=== PATIENT | male | born 1940 | race Caucasian/White ===

== ENCOUNTER → 2020-05-29 11:07 | Outpatient (REF) | payer MEDICARE, SELFPAY ==
--- NOTE | 2020-05-29 11:15 | ECG_ITS ---
Test Reason : R00.1 Blood Pressure : / mmHG Vent. Rate : 084 BPM Atrial Rate : 084 BPM P-R Int : 180 ms QRS Dur : 106 ms QT Int : 394 ms P-R-T Axes : 053 052 036 degrees QTc Int : 465 ms Sinus rhythm with frequent , and consecutive Premature ventricular complexes Possible Left atrial enlargement Abnormal ECG When compared with ECG of 06-MAR-2020 07:39, No significant change was found Referred By: Joyce Matamoros Electronically Signed By:ROMARIO WEINBERG MD
== END ==
LOC: HO.CARD 11:07
PROVIDERS: Visit Provider Family Medicine
DX: R00.1 Bradycardia, unspecified (principal)
CPT/HCPCS: 93005

== ENCOUNTER 2020-06-19 14:23 | Outpatient (REF) | payer MEDICARE, SELFPAY ==
--- NOTE | 2020-06-19 14:36 | XR_ITS ---
EXAMINATION: XR SHOULDER, RIGHT CLINICAL INFORMATION: Right shoulder pain COMPARISON: None TECHNIQUE: AP external rotation, Grashey, scapular Y, and axillary views of the right shoulder. FINDINGS: There is no fracture or dislocation. The right glenohumeral joint is well aligned with mild narrowing. Small marginal osteophytes are present. The acromioclavicular joint is intact with mild hypertrophic degenerative change. The visualized lung is clear. The visualized ribs are intact. 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
== END 2020-06-19 14:24 | disposition home or self-care (01) ==
LOC: HO.XRAY 14:23
PROVIDERS: PCP Family Medicine; Visit Provider Family Medicine
DX: M25.511 Pain in right shoulder (principal)
CPT/HCPCS: 73030

== ENCOUNTER → 2020-07-06 14:48 | Outpatient (BNVA) | payer MEDICARE, SELFPAY | PROVIDERS: PCP Family Medicine; Visit Provider Nurse Practitioner Family | DX: Z12.11 Encounter for screening for malignant neoplasm of colon (principal) | CPT/HCPCS: 99202 ==

== ENCOUNTER 2020-07-29 09:26 | Outpatient (REF) | payer MEDICARE, SELFPAY ==
[2020-07-29 10:14] LABS: Hemoglobin 14.5 g/dl (14.0-18.0); Mean Corpuscular HGB Conc 30.2 g/dl (31.0-36.0); Mean Corpuscular Hemoglobin 26.8 pg (27.0-33.0); Mean Corpuscular Volume 88.7 fL (80-98); Mean Platelet Volume 12.6 fL (9.4-12.4); Platelet Count 183 X10*3/uL (160-400); Red Blood Count 5.41 X10*6/uL (4.60-5.80); Red Cell Distribution Width 13.9 % (11.0-16.0); White Blood Count 7.5 X10*3/uL (4.8-10.8)
[2020-07-29 10:45] LABS: Alanine Aminotransferase 12 U/L (0-40); Albumin Level 4.1 g/dL (3.5-5.0); Alkaline Phosphatase 78 U/L (39-117); Anion Gap 12 (12-20); Aspartate Amino Transferase 14 U/L (5-37); Bilirubin Total 0.6 mg/dL (0.0-1.0); Blood Urea Nitrogen 21 mg/dL (9-16); Calcium 9.2 mg/dL (8.4-10.2); Carbon Dioxide 30 mmol/L (22-29); Chloride 106 mmol/L (96-108); Estimated Glomerular Filt Rate 50; Glucose Random 104 mg/dL (60-115); Potassium 4.3 mmol/l (3.3-5.1); Sodium 144 mmol/L (135-145); Total Protein 6.8 g/dL (6.5-8.0)
== END 2020-07-29 09:27 | disposition home or self-care (01) ==
LOC: HO.LAB 09:26
PROVIDERS: PCP Family Medicine; Visit Provider Nurse Practitioner Family
DX: I49.3 Ventricular premature depolarization (principal); R06.00 Dyspnea, unspecified; R00.1 Bradycardia, unspecified
CPT/HCPCS: 36415; 80053; 85027; 99202

== ENCOUNTER → 2020-08-26 08:11 | Outpatient (REF) | payer MEDICARE, SELFPAY ==
--- NOTE | 2020-08-26 08:15 | ECG_ITS ---
Hook-up date: 2020-08-26 10:33:00 Duration: 25:05:00 Test Indications: BRADYCARDIA, UNSPECIFIED Medications: 587107 QRS complexes 05818 Ventricular ectopics which represent 30 % of total QRS comp. 5 Supraventricular ectopics which represent <1 % of total QRS comp. * Paced QRS complexs which represent % of total QRS comp. VENTRICULAR ECTOPY 80171 Isolated 78238 Bigeminal Cycles 2939 Couplets 157 Runs 483 Beats in Runs 4 Beats LONGEST at 111 BPM at 11:18:21 2020-08-26 3 Beats FASTEST at 214 BPM at 23:18:58 2020-08-26 SUPRAVENTRICULAR ECTOPY 172 Isolated 35 Couplets 0 Runs 0 Beats in Runs * Beats LONGEST at * BPM at :: -- * Beats FASTEST at * BPM at :: -- HEART RATES 60 MIN at 12:12:30 2020-08-26 80 AVG 112 MAX at 19:23:38 2020-08-26 LONGEST RR 1.4080 secs at 05:53:09 2020-08-27 S-T LEVELS Channel 1 - 128 mm at 10:33:00 2020-08-26 - 128 mm at 10:33:00 2020-08-26 Channel 2 - 128 mm at 10:33:00 2020-08-26 - 128 mm at 10:33:00 2020-08-26 Channel 3 - 128 mm at 02:95:21 -- - 128 mm at 02:95:21 Underlying rhythm is sinus; Average ventricular rate 80/min; range 60-112/min; Frequent supraventricular ectopy; (about 34,000 over 25 hrs; 30%) Isolated beats; several bigeminal cycles; few runs; longest was 4 beats Mostly unifocal appearance; no sustained episodes; Rare supraventricular ectopy; Patient did not report any symptoms in the diary Referred By: Santi Siddiqui Overread By: LAURENT MESSER
--- NOTE | 2020-08-26 08:15 | CA_ITS ---
Transthoracic Echocardiogram Patient (Last, First, Middle): Gonzalo Armenta A Gender: Male Date of : 1940 Age: 79 Procedure Date: 08/26/2020 Procedure Type: Transthoracic Echocardiogram Location: OP Height: 160.02 cm Weight: 78.02 kg BSA: 1.81 m2 Heart Rate: bpm BP: 120 / 52 mmHg Mixer Wet Pour: DSFederico Referring MD: Santi Siddiqui MD Symptoms: R06.00 - Dyspnea, unspecified Study Quality: Fair ECG Rhythm: Sinus Conclusions: - The left ventricular systolic function is low normal. The visually estimated ejection fraction is between 50-55%. - E/E prime ratio is between 8 and 15 consistent with indeterminate filling pressures. Evidence suggests grade I (mild) diastolic dysfunction. - No obvious valvular pathology seen on this study. Findings Left Ventricle Normal left ventricular cavity size. There is mildly increased left ventricular wall thickness. The left ventricular systolic function is low normal. The visually estimated ejection fraction is between 50-55%. There is no evidence of regional wall motion abnormalities. E/E prime ratio is between 8 and 15 consistent with indeterminate filling pressures. Evidence suggests grade I (mild) diastolic dysfunction. Right Ventricle Normal right ventricular cavity size and systolic function. Atria The left atrium is normal in size. The right atrium is normal in size. Aortic Valve There is a normal trileaflet aortic valve. There is mild calcification of the aortic valve. There is no aortic valve stenosis. There is no aortic valve regurgitation. Mitral Valve The mitral valve appears normal. There is trace mitral valve regurgitation. There is no mitral valve stenosis. Pulmonic Valve The pulmonic valve was not well visualized. Tricuspid Valve Normal tricuspid valve structure. There is no tricuspid valve regurgitation. The pulmonary artery systolic pressure is normal. Great Vessels The aortic annulus, sinuses of valsalva, and asc aorta are normal in size. Venous The inferior vena cava is normal in size and collapses greater than 50% with inspiration. Pericardium/Pleural There is no evidence of pericardial effusion. Prior Study Comparison No prior study available for comparison. Recommendations, Care & Conclusions No obvious valvular pathology seen on this study. Measurements 2D Linear Measurements IVSd: 1.30 0.6-0.9/0.6-1.0 cm LVIDd: 4.26 3.9-5.3/4.2-5.9 cm LVIDd Index: 2.35 2.4-3.2/2.2-3.1 cm/m2 LVIDs: 3.21 2.0-3.6 cm LVPWd: 1.26 0.7-1.1 cm Ao Root: 2.70 2.1-3.5 cm LA Diam: 3.80 2.7-3.8/3.0-4.0 cm LAIDs Index: 2.10 1.5-2.3 cm/m2 LV Mass: 249.50 67-162/88-224 g LV Mass Index: 137.85 43-95/49-115 g/m2 LVOT Diam: 2.10 3.0+(-)1.3 cm 2D Systolic Function EF 4C: 52.70 >55% EF 2C: 65.50 >55% EF BiP: 58.90 >55% Mitral Valve MV Pk E: 0.93 MV PK A: 1.12 MV Decel Time: 148.00 E/A: 0.80 E'Lateral: 7.93 E'Medial: 5.22 E/E' Med: 17.70 E/E' Lat: 11.70 PHT: 43.00 MVA PHT: 5.12 Decel Wilkin: 6.26 Aortic Valve AoV Pk Chan: 1.21 AoV Pk Grad: 6.00 LVOT LVOT Pk Chan: 0.66 LVOT Mn Chan: 0.44 LVOT VTI: 0.17 LVOT Pk Grad: 2.00 LVOT Mn Grad: 1.00 LVOT Diam: 2.10 LVOT Area: 3.46 Diastolic Function MV Pk E: 0.93 MV Pk A: 1.12 E/A: 0.80 E'Medial: 5.22 E/E' Med: 17.70 E' Laterial: 7.93 E/E' Lat: 11.70 Tricuspid Valve TR Pk Chan: 2.14 TR Pk Grad: 18.00 RA Press: 3.00 RVSP: 21.00 Great Vessels Aorta Ao Root-2D: 2.70 2.0-3.7 cm Ao Asc: 2.90 2.1-3.4 cm Ao Arch: 2.70 Updated in Other Vendor System with Status of Final James Ortiz MD electronically signed on 08/28/2020 3:32:49 PM with status of Final
--- NOTE | 2020-08-26 09:27 | NM_ITS ---
Myocardial perfusion study Indication: Dyspnea to evaluate for myocardial ischemia Technique: The patient was brought in for a Lexiscan perfusion study on 08/26/2020. Patient performed low-level exercise and was injected 0.4 mg of Lexiscan intravenously. Within a minute of injection, 25 mCi of sestamibi was given intravenously. Images were obtained using the SPECT gamma camera interlaced with the gating device. Images were obtained in supine position. Resting perfusion study was performed on 08/27/2020. Patient was administered 25 mCi of sestamibi intravenously at rest. Images were then obtained in supine position. Images obtained with and without CT attenuation. Total DLP 64 mGy-cm. Images were processed with the software and compared side to side in short axis, horizontal long axis and vertical long axis views. Findings: The stress perfusion study showed non attenuated images show moderately reduced uptake in a small area of basal inferior and mildly reduced uptake in the inferior wall of the LV myocardium. Attenuation corrected images show moderately reduced uptake in the apex of the LV myocardium. The gated study shows low normal LV systolic function with calculated LVEF of 52%. LV cavity is mildly dilated size. The gated study shows normal wall thickening and contraction of segments. Resting study shows no change in perfusion pattern compared to stress perfusion study. Gating at rest reveals normal wall motion with visually estimated ejection fraction at greater than 50%. The findings are consistent with normal myocardial perfusion. NM/NM cardiolite stress test Impression: 1. Myocardial perfusion imaging study shows normal myocardial perfusion 2. Gated LVEF is 52% 3. Transient ischemic dilatation not present EKG is nondiagnostic for ischemia
--- NOTE | 2020-08-26 09:30 | CA_ITS ---
Acquisition Time: 2020-08-26 10:59:12 Total Exercise Time: 00:02:00 Test Indications: R06.00 DYSPNEA Medications: Protocol: LEXISCAN Max HR: 101 BPM 71% of Pred: 141 BPM Max BP: 132/070 mmHG Max Work Load: 1.0 METS Pt unable to to walk on the treadmil as he has knee problems. Test changed to Pharmacological stress test. Lexiscan used. Pt tolerated well, mild SOB, no other anginal sx. EKG wih multiple unifocal PVC s, bigeminy. Non-diagnostic for ischemia. Nuclear images to follow. Normotensive response to follow. Test reviewed with DR. Ortiz. Referred By: Santi Siddiqui Overread By: Dianna Blair
== END ==
LOC: HO.CARD 08:11
PROVIDERS: Visit Provider Internal Medicine Cardiovascular Disease
DX: R06.00 Dyspnea, unspecified (principal); R00.1 Bradycardia, unspecified
CPT/HCPCS: 78452; 93017; 93225; 93226; 93306; A9500; J0280; J2785

== ENCOUNTER → 2020-09-09 10:24 | Outpatient (BNVA) | payer MEDICARE, SELFPAY | PROVIDERS: PCP Family Medicine; Visit Provider Internal Medicine Cardiovascular Disease | DX: R06.00 Dyspnea, unspecified (principal); I49.3 Ventricular premature depolarization; I42.9 Cardiomyopathy, unspecified; R00.1 Bradycardia, unspecified | CPT/HCPCS: 93005; 99212 ==

== ENCOUNTER 2020-09-10 10:48 | Outpatient (REF) | payer MEDICARE, SELFPAY ==
[2020-09-10 12:23] LABS: Hematocrit 47.8 % (42-52); Hemoglobin 14.7 g/dl (14.0-18.0); Mean Corpuscular HGB Conc 30.8 g/dl (31.0-36.0); Mean Corpuscular Volume 87.7 fL (80-98); Mean Platelet Volume 12.5 fL (9.4-12.4); Platelet Count 182 X10*3/uL (160-400); Red Blood Count 5.45 X10*6/uL (4.60-5.80); Red Cell Distribution Width 13.9 % (11.0-16.0); White Blood Count 6.4 X10*3/uL (4.8-10.8)
[2020-09-10 12:26] LABS: INTERNATIONAL NORM RATIO 0.9 (0.9-1.1); Prothrombin Time 10.2 SEC (10.8-13.0)
[2020-09-10 12:47] LABS: Anion Gap 13 (12-20); Blood Urea Nitrogen 24 mg/dL (9-16); Calcium 9.8 mg/dL (8.4-10.2); Carbon Dioxide 28 mmol/L (22-29); Chloride 106 mmol/L (96-108); Estimated Glomerular Filt Rate 56; Glucose Random 102 mg/dL (60-115); Potassium 4.7 mmol/L (3.3-5.1); Sodium 142 mmol/L (135-145)
== END 2020-09-10 10:49 | disposition home or self-care (01) ==
LOC: HO.LAB 10:48
PROVIDERS: PCP Family Medicine; Visit Provider Internal Medicine Cardiovascular Disease
DX: R06.00 Dyspnea, unspecified (principal)
CPT/HCPCS: 36415; 80048; 85027; 85610

== ENCOUNTER → 2020-10-05 10:15 | Outpatient (BNVA) | payer MEDICARE, SELFPAY | PROVIDERS: PCP Family Medicine; Visit Provider Internal Medicine Cardiovascular Disease | DX: R06.00 Dyspnea, unspecified (principal); I25.10 Atherosclerotic heart disease of native coronary artery without angina pectoris; I42.9 Cardiomyopathy, unspecified; I49.3 Ventricular premature depolarization | CPT/HCPCS: 99212 ==

== ENCOUNTER 2020-10-08 15:33 | Outpatient (REF) | payer MEDICARE, SELFPAY ==
[2020-10-08 16:29] LABS: Hematocrit 48.8 % (42-52); Hemoglobin 14.9 g/dl (14.0-18.0); Mean Corpuscular HGB Conc 30.5 g/dl (31.0-36.0); Mean Corpuscular Hemoglobin 26.8 pg (27.0-33.0); Mean Corpuscular Volume 87.6 fL (80-98); Mean Platelet Volume 11.5 fL (9.4-12.4); Platelet Count 225 X10*3/uL (160-400); Red Blood Count 5.57 X10*6/uL (4.60-5.80); Red Cell Distribution Width 13.9 % (11.0-16.0); White Blood Count 8.1 X10*3/uL (4.8-10.8)
[2020-10-08 16:42] LABS: Anion Gap 14 (12-20); Blood Urea Nitrogen 22 mg/dL (9-16); Calcium 9.5 mg/dL (8.4-10.2); Carbon Dioxide 27 mmol/L (22-29); Chloride 104 mmol/L (96-108); Estimated Glomerular Filt Rate 55; Glucose Random 190 mg/dL (60-115); Potassium 5.3 mmol/L (3.3-5.1); Sodium 140 mmol/L (135-145)
[2020-10-08 18:15] LABS: Prothrombin Time 11.8 SEC (10.8-13.0)
== END 2020-10-08 15:34 | disposition home or self-care (01) ==
LOC: HO.LAB 15:33
PROVIDERS: PCP Family Medicine; Visit Provider Internal Medicine Cardiovascular Disease
DX: R06.00 Dyspnea, unspecified (principal)
CPT/HCPCS: 36415; 80048; 85027; 85610

== ENCOUNTER → 2021-02-15 14:00 | Outpatient (BNVA) | payer MEDICARE, SELFPAY | PROVIDERS: PCP Family Medicine; Visit Provider Hospitalist | DX: R05 Cough (principal); R06.00 Dyspnea, unspecified; J44.9 Chronic obstructive pulmonary disease, unspecified; I25.10 Atherosclerotic heart disease of native coronary artery without angina pectoris; Z87.891 Personal history of nicotine dependence; Z98.890 Other specified postprocedural states; Z95.5 Presence of coronary angioplasty implant and graft; Z79.4 Long term (current) use of insulin; Z79.899 Other long term (current) drug therapy | CPT/HCPCS: 99202 ==

== ENCOUNTER 2021-02-24 09:51 | Outpatient (REF) | payer MEDICARE, SELFPAY ==
--- NOTE | 2021-02-24 15:49 | PFT_ITS ---
Forced vital capacity and FEV1 are both slightly reduced. [id number] and MVV also slightly reduced. There is no significant response to bronchodilator therapy. Total lung capacity and residual volume are both normal. Diffusion capacity normal. CONCLUSION: Decrease in FVC, FEV1, and [id number] is all proportional and suggests poor physical effort. Total lung capacity and residual volume being normal or suggest that there is no restrictive pulmonary disorder. Clinical correlation is recommended. MD JORGE Salazar/KATHERINE / [phone]
== END 2021-02-24 09:52 | disposition home or self-care (01) ==
LOC: HO.RESP 09:51
PROVIDERS: Visit Provider Hospitalist
DX: J44.9 Chronic obstructive pulmonary disease, unspecified (principal)
CPT/HCPCS: 94060; 94727; 94729

== ENCOUNTER 2021-03-25 10:56 | Outpatient (REF) | payer MEDICARE, SELFPAY ==
--- NOTE | ~2021-03-25 | XR_ITS ---
EXAMINATION: XR CHEST CLINICAL INFORMATION: COPD. COMPARISON: 03/06/2020 TECHNIQUE: 2 views of the chest were obtained. FINDINGS: No significant abnormality is noted involving the heart, lungs, mediastinum, bony thorax or soft tissues. XR/XR chest 2V IMPRESSION: Unremarkable examination.
== END 2021-03-25 10:57 | disposition home or self-care (01) ==
LOC: HO.XRAY 10:56
PROVIDERS: PCP Family Medicine; Visit Provider Hospitalist
DX: J41.8 Mixed simple and mucopurulent chronic bronchitis (principal); I25.10 Atherosclerotic heart disease of native coronary artery without angina pectoris; R09.89 Other specified symptoms and signs involving the circulatory and respiratory systems; Z79.899 Other long term (current) drug therapy
CPT/HCPCS: 71046; 99212

== ENCOUNTER 2021-09-26 12:16 | Inpatient (IN) | payer MEDICARE, SELFPAY ==
[2021-09-26] VITALS (8 sets, daily range): BP systolic 121–157; BP diastolic 62–78; PULSE 70–98; RESP 13–18; TEMP 36.6–37.2; O2SAT 96–98; BMI 29.0
--- NOTE | ~2021-09-26 | CT_ITS ---
EXAMINATION: CT abdomen pelvis wo con CLINICAL INFORMATION: Reason for Exam rectal bleeding COMPARISON: No prior CT available for comparison. TECHNIQUE: Multidetector volumetric imaging was performed from the superior aspect of the liver through the pubic symphysis , noncontrasted study. Sagittal and coronal reformatted images were obtained on the technologist's workstation. This CT examination was performed using dose optimization techniques as appropriate, variously including the following: *Automated exposure control *Adjustment of mA and/or kV according to patient size (this includes techniques or standardized protocols for targeted exams where dose is matched to indication/reason for exam; i.e. extremities or head) *Use of iterative reconstruction technique DLP: 520 mGy-cm FINDINGS: LOWER THORAX: There is a platelike atelectasis at lingula base. HEPATOBILIARY: Evaluation of the liver is limited on noncontrasted study, no CT evidence of focal liver lesion. GALLBLADDER: Gallbladder unremarkable. SPLEEN: Spleen is normal in size. PANCREAS: No focal mass or ductal dilatation. STOMACH AND GASTROINTESTINAL TRACT: Stomach is grossly unremarkable. There is asymmetric wall soft tissue thickness in the distal rectum rectoanal junction, raising concern for possible neoplasm. This would be amenable for correlation with rectal exam and/or rigid sigmoidoscope. There is mild diverticulosis without evidence of diverticulitis. There is no evidence of bowel obstruction. No CT evidence of appendicitis. No clear evidence of the source of the rectal bleeding however commonly from the diverticular disease. ADRENALS: No adrenal nodules. KIDNEYS/URETERS: There is 2 mm nonobstructing stone in the right kidney. There is no hydronephrosis. Mild perinephric fat stranding nonspecific. URINARY BLADDER: Partially decompressed. PELVIC VISCERA: Unremarkable PERITONEUM: There are reticulonodular densities involving the anterior peritoneal cavity along the omentum, in the right clinical setting this is concerning for possible mesenteric seeding neoplasm. LYMPH NODES: Few mildly enlarged mesenteric lymph nodes and retroperitoneal lymph nodes not significantly enlarged by CT criteria. Questionable significance. VASCULAR:Abdominal aorta normal in size, no aneurysm found. BONES, ABDOMINAL WALL AND SOFT TISSUES: Age-appropriate changes of the spine and skeletal system, no destructive osteolytic or osteosclerotic bone lesion found CT/CT abdomen pelvis wo con IMPRESSION: *There is wall thickening of the rectum and rectal wall along the right lateral wall concerning for possible rectal neoplasm, versus colitis versus adherent stool. Would recommend correlation with digital exam and probably colonoscopy an tissue biopsy. *Multiple reticulonodular opacities along the anterior abdominal omental concerning for possible seeding neoplasm. Versus inflammatory. *Evaluation of the liver is limited on this noncontrasted study. *There is probably a small sliding hiatal hernia. *Small nonobstructing right kidney stone. *Few mildly prominent mesenteric and retroperitoneal periaortic lymph nodes that are not significantly enlarged. Largest measure 9 mm short axis image 51 series of 3. No bulky adenopathy. *Heavy sigmoid diverticulosis without evidence of acute diverticulitis.. (Referring physician staff is being called, to be alerted of the above findings and recommendations.) AJ
--- NOTE | ~2021-09-26 | CT_ITS ---
EXAMINATION: CT GUIDED PERITONEAL BIOPSY. CLINICAL INFORMATION: Multiple mesenteric reticular nodular lesions and thickening, rectal mass. COMPARISON: None TECHNIQUE: Following explaining CT guided ventral biopsy procedure, benefits and risk, a written consent was obtained. Patient was placed supine on CT table and preliminary CT imaging was obtained through the upper abdomen. An optimal site was selected along the left para midline upper abdomen and marked. The marked site was cleaned and draped in usual sterile manner. 1% lidocaine was injected puncture site. Through a small skin incision 18-gauge core needle was advanced from left to right direction into the right anterior peritoneal and a 4 pass core biopsy was performed. Subsequently a single pass fine-needle aspiration biopsy was also performed. Postprocedure catheter was withdrawn and complete hemostasis achieved. Sterile dressing applied at the puncture site. Repeat CT imaging was obtained after the procedure. Conscious sedation was utilized during the exam and patient monitored by IR nurse and the radiologist. FINDINGS: On preliminary CT imaging again visualized are diffuse reticular nodular opacities throughout the greater omentum in the upper and mid abdomen. Approximately 4 core biopsies were obtained with a 18-gauge biopsy gun and a single fine-needle aspiration biopsy was performed with a 22-gauge needle. Patient tolerated procedure extremely well. CT/CT biopsy abdomen percutaneous IMPRESSION: Successful CT fluoroscopy-guided fine-needle aspiration and core biopsy of peritoneal was performed without immediate complications.
--- NOTE | ~2021-09-26 | MR_ITS ---
EXAMINATION: MR PELVIS WITHOUT AND WITH CONTRAST CLINICAL INFORMATION: Rectal mass. COMPARISON: Portions of a CT 09/26/21 TECHNIQUE: Anatomic and fluid sensitive MR sequences were used to examine the pelvis. Please note the study was performed using standard field of view. Imaging perpendicular to long axis of the rectum was not performed. Imaging before and after the IV administration of Gadavist. FINDINGS: RECTAL MRI: 1.5 [employer] platform. Standard [id number]. No rectal contrast was administered There are low signal areas near the anorectal junction. There is high density in this area on CT. Correlate with previous surgery. Tumor characteristics (extent, location): There is an extensive rectal tumor with high T2 signal and multiple frond-like components extending from the anorectal junction to the peritoneal reflection which extends beyond the wall of the rectum. Tumor length: 7.0 cm from the anorectal junction to peroneal reflection Tumor location from anal verge: The tumor extends from just above the anal verge to the peroneal reflection and likely extends superior to the level of the peroneal reflection. The inferior extent of the tumor extends to the right Most inferior extent of tumor from top of anal sphincter: The tumor extends to within 1 cm of the anal verge on the right. Relationship to anterior peritoneal reflection: The tumor likely extends above the peritoneal reflection Involvement of internal anal sphincter: The tumor displaces the levator on the right and likely extends into the external sphincter Extramural invasion present (T-staging): The neoplasm extends beyond the margin of the rectum into the perirectal fat and abuts and may extend beyond the meso rectal fascia. I doubt clear margins could be obtained at the circumferential resection margin. Distance of tumor from the mesorectal fascia (MRF): The tumor abuts and may extend through the meso rectal fascia LYMPH NODES: There are enlarged mesorectal and pelvic lymph nodes which are concerning for regional metastasis. Mesorectal lymph nodes: There are prominent meso rectal lymph nodes concerning for regional metastasis Distance of mesorectal lymph nodes from the mesorectal fascia (MRF): The main tumor extends to the meso rectal fascia. Extramesorectal lymph nodes: There are enlarged iliac lymph nodes BLADDER: No definite extension into the urinary bladder. No definite extension into the prostate or seminal vesicles. There is some free pelvic fluid and previous CT has demonstrated findings highly suspicious for carcinomatosis There is some free fluid. No convincing osseous metastasis. There are some nonaggressive lesions in the region of the SI joints on each side. There are sigmoid diverticula. MR/MR pelvis wo/w con IMPRESSION: Rectal cancer as described above. High T2 signal extends to the anorectal junction. This suggests there is a mucinous component. The tumor extends beyond the wall of the rectum through the mesorectal fat and abuts the meso rectal fascia. The tumor extends at least to and likely above the peritoneal reflection. There are enlarged lymph nodes. 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
--- NOTE | ~2021-09-26 | CT_ITS ---
EXAMINATION: CT GUIDED PERITONEAL BIOPSY. CLINICAL INFORMATION: Multiple mesenteric reticular nodular lesions and thickening, rectal mass. COMPARISON: None TECHNIQUE: Following explaining CT guided ventral biopsy procedure, benefits and risk, a written consent was obtained. Patient was placed supine on CT table and preliminary CT imaging was obtained through the upper abdomen. An optimal site was selected along the left para midline upper abdomen and marked. The marked site was cleaned and draped in usual sterile manner. 1% lidocaine was injected puncture site. Through a small skin incision 18-gauge core needle was advanced from left to right direction into the right anterior peritoneal and a 4 pass core biopsy was performed. Subsequently a single pass fine-needle aspiration biopsy was also performed. Postprocedure catheter was withdrawn and complete hemostasis achieved. Sterile dressing applied at the puncture site. Repeat CT imaging was obtained after the procedure. Conscious sedation was utilized during the exam and patient monitored by IR nurse and the radiologist. FINDINGS: On preliminary CT imaging again visualized are diffuse reticular nodular opacities throughout the greater omentum in the upper and mid abdomen. Approximately 4 core biopsies were obtained with a 18-gauge biopsy gun and a single fine-needle aspiration biopsy was performed with a 22-gauge needle. Patient tolerated procedure extremely well. CT/CT guided FNA IMPRESSION: Successful CT fluoroscopy-guided fine-needle aspiration and core biopsy of peritoneal was performed without immediate complications.
--- NOTE | 2021-09-26 13:05 | ECG_ITS ---
Test Reason : WEAKNESS Blood Pressure : / mmHG Vent. Rate : 079 BPM Atrial Rate : 079 BPM P-R Int : 212 ms QRS Dur : 096 ms QT Int : 390 ms P-R-T Axes : 044 016 032 degrees QTc Int : 447 ms Sinus rhythm with 1st degree A-V block with frequent Premature ventricular complexes Septal infarct , age undetermined Abnormal ECG When compared with ECG of 29-MAY-2020 11:16, MT interval has increased Referred By: Azra Johns Electronically Signed By:LAURENT MESSER
--- NOTE | 2021-09-26 13:14 | ED.GENADULT ---
HPI - General Adult General Chief complaint: General Medical Stated complaint: Rectal Bleed Time Seen by Provider: 09/26/21 13:05 Source: patient Mode of arrival: ambulatory Limitations: no limitations History of Present Illness HPI narrative: 80-year-old male came in for evaluation of rectal bleed. Patient noted bright red blood per rectum for the past few months, over the past 2 days is becoming more constant with every bowel movement, patient also been complaining of loose stool, patient with med by GI to have colonoscopy every 3 years for recurrent polyps. Patient otherwise decline abdominal pain, no chest pain, no difficulty breathing, no nausea, no vomiting, no significant loss of weight or gaining weight. No change in his diet. Related Data Home Medications Medication Instructions Recorded Confirmed aspirin 81 mg tablet,delayed 81 mg PO DAILY 07/06/20 09/26/21 release blood pressure test kit-large #1 ea 07/06/20 02/15/21 blood sugar diagnostic #10 ea 07/06/20 02/15/21 famotidine 20 mg tablet 20 mg PO BID PRN 07/06/20 09/26/21 insulin glargine 100 unit/mL (3 20 unit SUBCUT DAILY 07/06/20 09/26/21 mL) subcutaneous pen loperamide 2 mg capsule 2 mg PO BID PRN 07/06/20 09/26/21 metformin 500 mg tablet 1,000 mg PO BID 07/06/20 09/26/21 oxycodone-acetaminophen 5 mg-325 1 tab PO BID PRN 07/06/20 09/26/21 mg tablet pen needle, diabetic 31 gauge x #50 ea 07/06/20 02/15/2108/10 sertraline 50 mg tablet 50 mg PO DAILY 07/06/20 09/26/21 valsartan 80 1 tab PO DAILY 07/06/20 09/26/21 mg-hydrochlorothiazide 12.5 mg tablet zolpidem 5 mg tablet 5 mg PO BEDTIME PRN 07/06/20 09/26/21 dulaglutide 0.75 mg/0.5 mL 0.75 mg SUBCUT WE 02/15/21 09/26/21 subcutaneous pen injector pantoprazole 40 mg tablet,delayed 40 mg PO DAILY 02/15/21 09/26/21 release pravastatin 10 mg tablet 10 mg PO BEDTIME 02/15/21 09/26/21 multivitamin 1 tab PO DAILY 09/26/21 09/26/21 Previous Rx's Medication Instructions Recorded clopidogrel 75 mg tablet 75 mg PO DAILY #90 tab 10/05/20 albuterol sulfate 90 mcg/actuation 2 inh INHALATION Q6H PRN 30 Days 02/15/21 aerosol inhaler #18 g fluticasone fur. 200 mcg-umeclid 1 inh INHALATION DAILY 30 Days #60 03/25/21 62.5 mcg-vilant 25 mcg ea inhalat.powder (Trelegy Ellipta) Allergies Allergy/AdvReac Type Severity Reaction Status Date / Time No Known Allergies Allergy Verified 03/25/21 10:57 Review of Systems Review of Systems: All other systems are reviewed and are negative Constitutional: Reports as per HPI and Reports no additional constitutional complaints Eyes: Reports as per HPI and Reports no additional eye complaints Reports system reviewed and no additional complaints, except as documented Cardiovascular: Reports as per HPI and Reports no additional cardiovascular complaints Respiratory: Reports as per HPI and Reports no additional respiratory complaints Gastrointestinal: Reports as per HPI and Reports no additional gastrointestinal complaints Genitourinary: Reports no additional female genitourinary complaints Musculoskeletal: Reports no additional musculoskeletal complaints Skin/Breast: Reports system reviewed and no additional complaints, except as docu Psychiatric: Reports no additional psychiatric complaints Endocrine: Reports no additional endocrine complaints Hematologic/Lymphatic: Reports no additional hematologic/lymphatic complaints Allergic/Immunologic: Reports no additional allergic/immunologic complaints Reports system reviewed and no additional complaints, except as documented and Reports Abnormal speech present PMFSH Past Medical History Medical History Chest crackles Chronic cough COPD (chronic obstructive pulmonary disease) Surgical History Hx of colonoscopy Family History Family History Family/Other Medical history reviewed with no changes Social History Social History Alcohol intake: current Alcohol intake frequency: does not drink Patient Tobacco Use Status: Former Tobacco user Tobacco use type: Cigarette Years Smoked: 20 years Advance Directives: No Advance Directives Information Provided: Yes Physical Exam ED Vital Signs: Vital Signs - 24 hr 09/26/21 12:18 09/26/21 13:35 09/26/21 14:48 Temperature 97.9 F 98.2 F 98.3 F Pulse Rate 87 76 70 Respiratory Rate 14 16 16 Blood Pressure 139/72 121/76 Pulse Oximetry 96 98 97 BMI result Body Mass Index 29.0 Vital signs have been reviewed as appeared to be correct. Blood pressure normal. Heart rate normal. Respiration rate normal. Temperature normal. Oxygen saturation normal. Appearance: Alert. Oriented X3. No acute distress. Head: Normal external exam. Normocephalic. Atraumatic. No Nolen signs noted. No raccoon eyes noted Eyes: PERRLA. EOMI. Conjunctiva and sclera normal. Eyelids normal. ENT: TM's Normal. Pharynx normal. Uvula midline. Moist mucous membranes. No trismus noted. No drooling noted. No muffled voice noted. Neck: Normal inspection. Neck supple. FROM. No adenopathy. Thyroid Normal. No meningeal signs. No neck mass noted. CVS: Normal heart rate and rhythm. Heart sound normal. No murmurs noted. Pulses normal throughout. Respiratory: No respiratory distress. Painless inspiration. Breath sounds normal. No wheezes/rales/rhonchi noted. Chest nontender. No accessory muscle usage noted or decreased air movement noted. Abdomen: Soft and nontender. Bowel sounds normal in all 4 quadrants. No distention noted. No organomegaly noted. No visible injury noted. Rectal exam: Good tone, hematochezia with guaiac positive for blood. Back: No CVA tenderness. Full range of motion noted. Skin: Skin warm and dry. Normal skin color. Normal skin turgor. No rashes/lesions/lacerations noted. Extremities: No lower extremity edema. Extremities exhibit normal range of motion. Extremities nontender. Neuro: Oriented X 3. Cranial nerve exam: II-XII are grossly intact No motor deficit. No sensory deficit. Reflexes normal. Course Course Course Narrative: Assessment and plan. 80 years old male came in for evaluation of rectal bleeding, patient found to be with hematochezia, CT of the abdomen pelvis is concerning of rectal mass. Otherwise stable vital signs, stable H&H. Admit the patient for GI bleed and possible GI consult as an inpatient. Medical Decision Making Medical Records Medical records reviewed: Yes I reviewed the patient's medical records. Lab Data Lab results reviewed: Yes I reviewed the patient's lab results. Result diagrams: 09/26/21 13:25 09/26/21 13:25 Labs: Lab Results 09/26/21 09/26/21 09/26/21 Range/Units 13:25 13:25 13:25 WBC 8.5 (4.8-10.8) X10*3/uL RBC 5.16 (4.60-5.80) X10*6/uL Hgb 13.0 L (14.0-18.0) g/dl Hct 42.9 (42.0-52.0) % MCV 83.1 (80.0-98.0) fL MCH 25.2 L (27.0-33.0) pg MCHC 30.3 L (31.0-36.0) g/dl RDW 14.6 (11.0-16.0) % Plt Count 270 (160-400) X10*3/uL MPV 10.4 (9.4-12.4) fL Immature Gran % (Auto) 0.6 H (0.0-0.4) % Neut % (Auto) 66.7 (45-73) % Lymph % (Auto) 17.5 L (20-40) % [place] % (Auto) 11.6 H (2-11) % Eos % (Auto) 3.2 (0-4) % Baso % (Auto) 0.4 (0-2) % Lymph # (Auto) 1.5 (1.2-4.9) X10*3/uL [place] # (Auto) 1.0 (0.1-1.2) X10*3/uL Eos # (Auto) 0.3 (0.0-0.4) X10*3/uL Baso # (Auto) 0.0 (0.0-0.2) X10*3/uL Abs Immat Gran (auto) 0.05 H (0.00-0.03) X10*3/uL Absolute Neuts (auto) 5.7 (2.0-8.3) x10*3/uL Absolute Nucleated RBC 0.000 (0.0-0.012) X10*3/uL Nucleated RBC % (auto) 0.0 (0.0-0.2) /100WBC Sodium 139 (135-145) mmol/L Potassium 5.1 (3.3-5.1) mmol/L Chloride 103 (96-108) mmol/L Carbon Dioxide 28 (22-29) mmol/L Anion Gap 13 (12-20) BUN 20 H (9-16) mg/dL Creatinine 1.23 (0.5-1.4) mg/dL Estim Creat Clear Calc 43.2 Estimated GFR 57 Random Glucose 227 H (60-115) mg/dL Calcium 9.3 (8.4-10.2) mg/dL Total Bilirubin 0.4 (0.0-1.0) mg/dL Direct Bilirubin 0.2 (0.0-0.5) mg/dL AST 13 (5-37) U/L ALT 15 (0-40) U/L Alkaline Phosphatase 115 D (39-117) U/L Troponin I High Sens < 3.5 (<3.5-35.0) ng/L B-Natriuretic Peptide 22 (<100) pg/mL Total Protein 6.7 (6.5-8.0) g/dL Albumin 3.7 (3.5-5.0) g/dL Lipase 19 (8-78) U/L COVID-19 ([facility]) (Negative) COVID-19 Clin Com 09/26/21 Range/Units 13:25 WBC (4.8-10.8) X10*3/uL RBC (4.60-5.80) X10*6/uL Hgb (14.0-18.0) g/dl Hct (42.0-52.0) % MCV (80.0-98.0) fL MCH (27.0-33.0) pg MCHC (31.0-36.0) g/dl RDW (11.0-16.0) % Plt Count (160-400) X10*3/uL MPV (9.4-12.4) fL Immature Gran % (Auto) (0.0-0.4) % Neut % (Auto) (45-73) % Lymph % (Auto) (20-40) % [place] % (Auto) (2-11) % Eos % (Auto) (0-4) % Baso % (Auto) (0-2) % Lymph # (Auto) (1.2-4.9) X10*3/uL [place] # (Auto) (0.1-1.2) X10*3/uL Eos # (Auto) (0.0-0.4) X10*3/uL Baso # (Auto) (0.0-0.2) X10*3/uL Abs Immat Gran (auto) (0.00-0.03) X10*3/uL Absolute Neuts (auto) (2.0-8.3) x10*3/uL Absolute Nucleated RBC (0.0-0.012) X10*3/uL Nucleated RBC % (auto) (0.0-0.2) /100WBC Sodium (135-145) mmol/L Potassium (3.3-5.1) mmol/L Chloride (96-108) mmol/L Carbon Dioxide (22-29) mmol/L Anion Gap (12-20) BUN (9-16) mg/dL Creatinine (0.5-1.4) mg/dL Estim Creat Clear Calc Estimated GFR Random Glucose (60-115) mg/dL Calcium (8.4-10.2) mg/dL Total Bilirubin (0.0-1.0) mg/dL Direct Bilirubin (0.0-0.5) mg/dL AST (5-37) U/L ALT (0-40) U/L Alkaline Phosphatase (39-117) U/L Troponin I High Sens (<3.5-35.0) ng/L B-Natriuretic Peptide (<100) pg/mL Total Protein (6.5-8.0) g/dL Albumin (3.5-5.0) g/dL Lipase (8-78) U/L COVID-19 ([facility]) Negative (Negative) COVID-19 Clin Com See Note Imaging Data CT scan - abdomen: Attestation: I personally reviewed and interpreted this imaging study as follows: Radiologist's impression: There is wall thickening of the rectum and rectal wall along the right lateral wall concerning for possible rectal neoplasm, versus colitis versus adherent stool. Would recommend correlation with digital exam and probably colonoscopy an tissue biopsy. ? *Multiple reticulonodular opacities along the anterior abdominal omental concerning for possible seeding neoplasm. Versus inflammatory. ? *Evaluation of the liver is limited on this noncontrasted study. ? *There is probably a small sliding hiatal hernia. ? *Small nonobstructing right kidney stone. ? *Few mildly prominent mesenteric and retroperitoneal periaortic lymph nodes that are not significantly enlarged. Largest measure 9 mm short axis image 51 series of 3. No bulky adenopathy. ? *Heavy sigmoid diverticulosis without evidence of acute diverticulitis.. ? Discharge Plan Discharge Clinical Impression: Rectal bleed, Rectal mass Patient Disposition: Admitted As Inpatient Prescriptions: No Action multivitamin Tablet 1 tab PO DAILY 0RF oxycodone-acetaminophen 5-325 mg tablet 1 tab PO BID PRN (Reason: Pain) 0RF (DME) pen needle, diabetic 31 gauge x 1/4 needle See Rx Instructions ea .ROUTE DAILY Qty: 50 0RF Rx Instructions: As directed (DME) FreeStyle Lite Strips Strip See Rx Instructions strip Not Applicable BID Qty: 10 0RF Rx Instructions: As directed zolpidem 5 mg tablet 5 mg PO BEDTIME PRN (Reason: Insomnia) 0RF famotidine 20 mg tablet 20 mg PO BID PRN (Reason: Acid Reflux) 0RF aspirin 81 mg tablet,delayed release (DR/EC) 81 mg PO DAILY 0RF Lantus Solostar U-100 Insulin 100 unit/mL (3 mL) insulin pen 20 unit subcut DAILY 0RF metformin 500 mg tablet 1,000 mg PO BID 0RF sertraline 50 mg tablet 50 mg PO DAILY 0RF valsartan-hydrochlorothiazide 80-12.5 mg tablet 1 tab PO DAILY 0RF loperamide 2 mg capsule 2 mg PO BID PRN (Reason: Diarrhea) 0RF (DME) blood pressure test kit-large Kit See Rx Instructions ea .ROUTE .MEDSUPPLY Qty: 1 0RF Rx Instructions: As directed clopidogrel 75 mg tablet 75 mg PO DAILY Qty: 90 4RF Rx Instructions: Take 4 tablets on day 1, then 1 tablet daily. pravastatin 10 mg tablet 10 mg PO BEDTIME 0RF Trulicity 0.75 mg/0.5 mL pen injector 0.75 mg subcut WE 0RF pantoprazole 40 mg tablet,delayed release (DR/EC) 40 mg PO DAILY 0RF albuterol sulfate 90 mcg/actuation HFA aerosol inhaler 2 inh inhalation Q6H PRN (Reason: shortness of breath or wheezing) 30 Days Qty: 18 12RF Trelegy Ellipta 200-62.5-25 mcg blister with device 1 inh inhalation DAILY 30 Days Qty: 60 12RF
[2021-09-26 13:30] LABS: MANUAL DIFF FLAG NO
[2021-09-26 13:31] LABS: Basophils Percent Auto 0.4 % (0-2); Eosinophils Absolute Auto 0.3 X10*3/uL (0.0-0.4); Eosinophils Percent Auto 3.2 % (0-4); Hematocrit 42.9 % (42.0-52.0); Imm Gran Abs Auto 0.05 X10*3/uL (0.00-0.03); Imm Gran Pct Auto 0.6 % (0.0-0.4); Lymphocytes Absolute Auto 1.5 X10*3/uL (1.2-4.9); Lymphocytes Percent Auto 17.5 % (20-40); Mean Corpuscular HGB Conc 30.3 g/dl (31.0-36.0); Mean Corpuscular Hemoglobin 25.2 pg (27.0-33.0); Mean Corpuscular Volume 83.1 fL (80.0-98.0); Mean Platelet Volume 10.4 fL (9.4-12.4); Monocytes Percent Auto 11.6 % (2-11); Neutrophils Absolute Auto 5.7 x10*3/uL (2.0-8.3); Neutrophils Percent Auto 66.7 % (45-73); Platelet Count 270 X10*3/uL (160-400); Red Blood Count 5.16 X10*6/uL (4.60-5.80); Red Cell Distribution Width 14.6 % (11.0-16.0); White Blood Count 8.5 X10*3/uL (4.8-10.8)
[2021-09-26 13:32] LABS: OBS Int Ctl Valid YES; OBS1 POSITIVE (NEGATIVE)
[2021-09-26 13:46] LABS: Alanine Aminotransferase 15 U/L (0-40); Albumin Level 3.7 g/dL (3.5-5.0); Alkaline Phosphatase 115 U/L (39-117); Anion Gap 13 (12-20); Aspartate Amino Transferase 13 U/L (5-37); Bilirubin Direct 0.2 mg/dL (0.0-0.5); Bilirubin Total 0.4 mg/dL (0.0-1.0); Blood Urea Nitrogen 20 mg/dL (9-16); Calcium 9.3 mg/dL (8.4-10.2); Carbon Dioxide 28 mmol/L (22-29); Chloride 103 mmol/L (96-108); Creatinine Clr Calc Pharmacy 43.2; Estimated Glomerular Filt Rate 57; Glucose Random 227 mg/dL (60-115); Lipase 19 U/L (8-78); Potassium 5.1 mmol/L (3.3-5.1); Sodium 139 mmol/L (135-145); Total Protein 6.7 g/dL (6.5-8.0)
[2021-09-26 13:53] LABS: B Type Natriuretic Peptide 22 pg/mL (<100); Troponin-I High Sensitivity < 3.5 ng/L (<3.5-35.0)
[2021-09-26 13:57] LABS: COVID-19 Test Negative (Negative)
--- NOTE | 2021-09-26 14:10 | PHA.MEDREC ---
Pharmacy Consult ? Medication Reconciliation Pharmacy has completed the medication reconciliation. Pt states that he uses 20 units of lantus but does not inject at the same time every day. Debbie Sharma, PharmD
--- NOTE | 2021-09-26 16:10 | P.HPHOSP_ITS ---
History of Present Illness Date of Service: 09/26/21 Chief Complaint: Rectal bleeding 80-year-old man presenting to the ER with bright red blood per rectum, apparently has been having this over the last 3 weeks off an on and over the last 2 days has become more consistent and he has noted blood with every bowel movement. He reported loose stools and history of recurrent polyps. He has a history of rectal mass since 2003 and has had multiple colonoscopies with biopsies, with findings of tubulovillous adenoma. He denied chest pain, fever, chills, nausea, vomiting. Reports chronic SOB. Abdominal CT showing concern for possible rectal neoplasm on the wall of the rectum as well as multiple opacities along the anterior abdominal omental concerning for possible seeding neoplasm. H&H remained stable, no need for blood transfusion at this time, hemodynamically stable, labs all within acceptable limits. He will be admitted for further management of acute rectal bleeding. Review of Systems Review of Systems: Denies any recent fever chills or decrease in appetite respiratory denies any shortness of breath coverage production cardiovascular denies chest pain gastrointestinal See HPI genitourinary denies any dysuria frequency or hematuria musculoskeletal denies any joint pain or swelling neuropsych denies any weakness or seizures all other systems reviewed are negative [facility] Medical History (Updated 09/26/21 @ 16:10 by Carmita Hughes NP) COPD (chronic obstructive pulmonary disease) Family History Family/Other Medical history reviewed with no changes Surgical History Hx of colonoscopy Social History Alcohol intake: current Alcohol intake frequency: does not drink Patient Tobacco Use Status: Former Tobacco user Tobacco use type: Cigarette Years Smoked: 20 years Advance Directives: No Advance Directives Information Provided: Yes Meds Allergies Allergy/AdvReac Type Severity Reaction Status Date / Time No Known Allergies Allergy Verified 03/25/21 10:57 Active Medications: Current Medications Acetaminophen (Acetaminophen 325 Mg Tablet) 650 mg PO Q6H PRN PRN Reason: Pain, Mild (Pain Scale 1-3) Albuterol Sulfate (Albuterol Sulfate 90 Mcg 8 Gm Inhaler) 2 puff INHALE Q6H PRN PRN Reason: shortness of breath or wheezing Dextrose (Dextrose 50 % 25 Gm/50 Ml Syringe) 25 gm IVPUSH Q15M PRN; Protocol PRN Reason: per Hypoglycemia Standing Ord. Famotidine (Famotidine 20 Mg Tablet) 20 mg PO BID PRN PRN Reason: Acid Reflux Glucose (Glucose Gel 15 Gm Gel..Gram.) 15 gm PO Q15M PRN; Protocol PRN Reason: per Hypoglycemia Standing Ord. Insulin Glargine (Insulin Glargine,Hum.Rec.Anlog 100 Unit/Ml 10 Ml Vial) 20 unit SUBCUT DAILY [facility] Insulin Human Lispro (Insulin Lispro 100 Unit/Ml 3 Ml Vial) 0 unit SUBCUT QIDACHS [facility]; Protocol Loperamide HCl (Loperamide Hcl 2 Mg Capsule) 2 mg PO BID PRN PRN Reason: Diarrhea Multivitamins/Vitamin C (Multivitamin Tablet) 1 tab PO DAILY [facility] Non-Formulary Medication (Dulaglutide) 0.75 mg SUBCUT WE [facility] Non-Formulary Medication (Hqhlgoosfxe-Kryialqjw-Gplfaqsz [Trelegy Ellipta]) 1 inhalation INHALE DAILY [facility] Non-Formulary Medication (Pantoprazole) 40 mg PO DAILY [facility] Non-Formulary Medication (Valsartan-Hydrochlorothiazide) 1 tab PO DAILY [facility] Ondansetron HCl (Ondansetron Hcl 4 Mg/2 Ml Vial) 4 mg IVPUSH Q8H PRN PRN Reason: Nausea and Vomiting Pharmacy Consult (Consult Rx Perform Med Rec) 1 each MISCELLANE ONCE PRN PRN Reason: Consult order Pravastatin Sodium (Pravastatin Sodium 10 Mg Tablet) 10 mg PO BEDTIME [facility] Sertraline HCl (Sertraline Hcl 50 Mg Tablet) 50 mg PO DAILY [facility] Sodium Chloride (0.9 % Sodium Chloride Flush 3 Ml Syringe) 3 ml IVFLUSH QSHIFT [facility] Zolpidem Tartrate (Zolpidem Tartrate 5 Mg Tablet) 5 mg PO BEDTIME PRN PRN Reason: Insomnia Home Medications Medication Instructions Recorded Confirmed Last Taken Type aspirin 81 mg tablet,delayed 81 mg PO DAILY 07/06/20 09/26/21 09/25/21 History release blood pressure test kit-large #1 ea 07/06/20 02/15/21 Unknown History blood sugar diagnostic #10 ea 07/06/20 02/15/21 Unknown History famotidine 20 mg tablet 20 mg PO BID PRN 07/06/20 09/26/21 Unknown History insulin glargine 100 unit/mL (3 20 unit SUBCUT DAILY 07/06/20 09/26/21 09/25/21 History mL) subcutaneous pen loperamide 2 mg capsule 2 mg PO BID PRN 07/06/20 09/26/21 Unknown History metformin 500 mg tablet 1,000 mg PO BID 07/06/20 09/26/21 09/25/21 History oxycodone-acetaminophen 5 mg-325 1 tab PO BID PRN 07/06/20 09/26/21 Unknown History mg tablet pen needle, diabetic 31 gauge x #50 ea 07/06/20 02/15/21 Unknown History 1/4 sertraline 50 mg tablet 50 mg PO DAILY 07/06/20 09/26/21 09/25/21 History valsartan 80 1 tab PO DAILY 07/06/20 09/26/21 09/25/21 History mg-hydrochlorothiazide 12.5 mg tablet zolpidem 5 mg tablet 5 mg PO BEDTIME PRN 07/06/20 09/26/21 Unknown History dulaglutide 0.75 mg/0.5 mL 0.75 mg SUBCUT WE 02/15/21 09/26/21 09/22/21 History subcutaneous pen injector pantoprazole 40 mg tablet,delayed 40 mg PO DAILY 02/15/21 09/26/21 09/25/21 History release pravastatin 10 mg tablet 10 mg PO BEDTIME 02/15/21 09/26/21 09/25/21 History multivitamin 1 tab PO DAILY 09/26/21 09/26/21 09/25/21 History Physical Exam Vital Signs and Narrative: Vital Signs: Last Vital Signs Temp 98.3 F 09/26/21 14:48 Pulse 70 09/26/21 14:48 Resp 16 09/26/21 14:48 BP 121/76 09/26/21 14:48 Pulse Ox 97 09/26/21 14:48 BMI result Body Mass Index 29.0 Appearing in no acute distress head is normocephalic atraumatic eyes pupils are PERRLA sclera is anicteric mouth throat mucous membranes are intact and moist neck is supple no lymphadenopathy, no JVD noted lung sounds are clear to auscultation heart regular rate rhythm, clear S1, S2 positive bowel sounds, abdomen is soft, nontender neuro patient is alert x3, no focal deficits Results Labs CBC and Chem 7: 09/26/21 13:25 09/26/21 13:25 Labs: Laboratory Results - last 24 hr 09/26/21 09/26/21 09/26/21 13:25 13:25 13:25 MCV 83.1 MCH 25.2 L MCHC 30.3 L RDW 14.6 Plt Count 270 MPV 10.4 Immature Gran % (Auto) 0.6 H Neut % (Auto) 66.7 Lymph % (Auto) 17.5 L Bledsoe % (Auto) 11.6 H Eos % (Auto) 3.2 Baso % (Auto) 0.4 Lymph # (Auto) 1.5 Bledsoe # (Auto) 1.0 Eos # (Auto) 0.3 Baso # (Auto) 0.0 Abs Immat Gran (auto) 0.05 H Absolute Neuts (auto) 5.7 Absolute Nucleated RBC 0.000 Nucleated RBC % (auto) 0.0 Anion Gap 13 Estim Creat Clear Calc 43.2 Estimated GFR 57 Random Glucose 227 H Calcium 9.3 Total Bilirubin 0.4 Direct Bilirubin 0.2 AST 13 ALT 15 Alkaline Phosphatase 115 D B-Natriuretic Peptide 22 Total Protein 6.7 Albumin 3.7 Lipase 19 Stool Occult Blood COVID-19 ([facility]) COVID-19 Clin Com 09/26/21 09/26/21 13:25 13:26 MCV MCH MCHC RDW Plt Count MPV Immature Gran % (Auto) Neut % (Auto) Lymph % (Auto) Bledsoe % (Auto) Eos % (Auto) Baso % (Auto) Lymph # (Auto) Bledsoe # (Auto) Eos # (Auto) Baso # (Auto) Abs Immat Gran (auto) Absolute Neuts (auto) Absolute Nucleated RBC Nucleated RBC % (auto) Anion Gap Estim Creat Clear Calc Estimated GFR Random Glucose Calcium Total Bilirubin Direct Bilirubin AST ALT Alkaline Phosphatase B-Natriuretic Peptide Total Protein Albumin Lipase Stool Occult Blood POSITIVE COVID-19 ([facility]) Negative COVID-19 Clin Com See Note Imaging Radiologist's Impressions: Impressions Abdomen/Pelvis CT 09/26/21 14:39 IMPRESSION: *There is wall thickening of the rectum and rectal wall along the right lateral wall concerning for possible rectal neoplasm, versus colitis versus adherent stool. Would recommend correlation with digital exam and probably colonoscopy an tissue biopsy. *Multiple reticulonodular opacities along the anterior abdominal omental concerning for possible seeding neoplasm. Versus inflammatory. *Evaluation of the liver is limited on this noncontrasted study. *There is probably a small sliding hiatal hernia. *Small nonobstructing right kidney stone. *Few mildly prominent mesenteric and retroperitoneal periaortic lymph nodes that are not significantly enlarged. Largest measure 9 mm short axis image 51 series of 3. No bulky adenopathy. *Heavy sigmoid diverticulosis without evidence of acute diverticulitis.. (Referring physician staff is being called, to be alerted of the above findings and recommendations.) AJ Assessment and Plan (1) Rectal bleed: Status: Acute Plan 80-year-old man admitted with acute GI bleed and question rectal mass, with hx of rectal mass since 2003 Acute GI bleed, rectal mass Stable H&H, not requiring blood transfusion at this time, will repeat this evening GI consultation, will need colonoscopy to assess for possible rectal mass bleeding Hold aspirin and Plavix PPI Follow CBC Diabetes mellitus Sliding scale, long-acting insulin, hold metformin COPD. No exacerbation Albuterol as needed Coronary artery disease. Hold aspirin and Plavix due to GI bleed Monitor H&H closely and transfuse as needed Hypertension. Stable blood pressure Hold antihypertensive for now to avoid hypotension with GI bleeding Restart home medication if blood pressure allows DVT prophylaxis with mechanical compression boots Full code Attending Dr. Rosas Quality Stroke Does the patient have a stroke diagnosis?: No VTE Prior VTE?: No VTE Risk Level:: Medical - moderate - high VTE Device Contraindication: N/A - Device Ordered VTE Drug Contraindication: Treatment Not Indicated
[2021-09-26 18:27] LABS: Glucose, Whole Blood 114 mg/dL (60-115)
[2021-09-26 19:31] LABS: Hematocrit 42.7 % (42.0-52.0); Mean Corpuscular HGB Conc 30.4 g/dl (31.0-36.0); Mean Corpuscular Hemoglobin 25.2 pg (27.0-33.0); Mean Corpuscular Volume 82.9 fL (80.0-98.0); Mean Platelet Volume 10.9 fL (9.4-12.4); Platelet Count 280 X10*3/uL (160-400); Red Blood Count 5.15 X10*6/uL (4.60-5.80); Red Cell Distribution Width 14.6 % (11.0-16.0); White Blood Count 8.8 X10*3/uL (4.8-10.8)
--- NOTE | 2021-09-26 19:36 | PC.NURSE ---
Pt resting on stretcher in NAD, breathing with ease on RA, VSS. Pt NSR with occasional PVCs on monitor. Pt denies complaints of pain/discomfort. Pt stretcher in lowest locked position, rails raised, call sánchez within reach.
[2021-09-26 21:37] LABS: Glucose, Whole Blood 105 mg/dL (60-115)
[2021-09-26] MEDS: Pravastatin Sodium 10 MG TABLET PO (22:59)
[2021-09-26] MEDS: Zolpidem Tartrate 5 MG TABLET PO (23:57)
[2021-09-27 01:14] LABS: Appearance Urine CLEAR; Color Urine YELLOW; Glucose Urine UA NEG (NEG); Leukocyte Esterase Urine NEG (NEG); Nitrite Urine NEG (NEG); Urine Blood NEG (NEG); Urine Ketones NEG (NEG); Urine Protein TRACE MG/DL (NEG-TRACE)
[2021-09-27 02:00] VITALS: BP 131/63; PULSE 83; RESP 14; TEMP 36.7; O2SAT 96
[2021-09-27 06:35] VITALS: BP 126/71; PULSE 81; RESP 16; TEMP 36.7; O2SAT 97
[2021-09-27] MEDS: Omeprazole 20 MG CAPSULE.DR PO (06:36)
[2021-09-27 06:41] LABS: MANUAL DIFF FLAG NO
[2021-09-27 06:53] LABS: Basophils Percent Auto 0.3 % (0-2); Eosinophils Absolute Auto 0.3 X10*3/uL (0.0-0.4); Eosinophils Percent Auto 2.9 % (0-4); Hematocrit 43.5 % (42.0-52.0); Hemoglobin 13.2 g/dl (14.0-18.0); Imm Gran Abs Auto 0.05 X10*3/uL (0.00-0.03); Imm Gran Pct Auto 0.6 % (0.0-0.4); Lymphocytes Absolute Auto 1.9 X10*3/uL (1.2-4.9); Lymphocytes Percent Auto 21.7 % (20-40); Mean Corpuscular HGB Conc 30.3 g/dl (31.0-36.0); Mean Corpuscular Volume 82.5 fL (80.0-98.0); Monocytes Absolute Auto 1.2 X10*3/uL (0.1-1.2); Monocytes Percent Auto 13.4 % (2-11); Neutrophils Absolute Auto 5.4 x10*3/uL (2.0-8.3); Neutrophils Percent Auto 61.1 % (45-73); Platelet Count 300 X10*3/uL (160-400); Red Blood Count 5.27 X10*6/uL (4.60-5.80); Red Cell Distribution Width 14.7 % (11.0-16.0); White Blood Count 8.8 X10*3/uL (4.8-10.8)
[2021-09-27 07:03] LABS: Anion Gap 16 (12-20); Blood Urea Nitrogen 18 mg/dL (9-16); Calcium 9.2 mg/dL (8.4-10.2); Carbon Dioxide 23 mmol/L (22-29); Chloride 104 mmol/L (96-108); Creatinine Clr Calc Pharmacy 49.3; Estimated Glomerular Filt Rate > 60; Glucose Random 95 mg/dL (60-115); Sodium 139 mmol/L (135-145)
--- NOTE | 2021-09-27 08:32 | PC.NURSE ---
pt arrived in overflow unit. poc 99
[2021-09-27 08:35] LABS: Glucose, Whole Blood 99 mg/dL (60-115)
[2021-09-27] MEDS: Fluticasone/Vilanterol 200/25 BLST.W.DEV 1 PUFF INHALE (08:42)
[2021-09-27 08:46] VITALS: PULSE 83; RESP 20; O2SAT 97
[2021-09-27] MEDS: hydroCHLOROthiazide 12.5 MG TABLET PO (08:48)
[2021-09-27] MEDS: Sertraline HCL 50 MG TABLET PO (08:48)
[2021-09-27] MEDS: Multivitamin TABLET 1 TAB PO (08:49)
[2021-09-27] MEDS: Valsartan 80 MG TABLET PO (08:49)
[2021-09-27] MEDS: 0.9 % Sodium Chloride Flush 3 ML SYRINGE IVFLUSH ×3 (08:49→23:41)
--- NOTE | 2021-09-27 10:16 | PM.EVENT ---
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
[2021-09-27 11:02] VITALS: BP 123/76; PULSE 53; RESP 18; TEMP 36.2; O2SAT 97
--- NOTE | 2021-09-27 11:27 | CONS_ITS ---
DATE OF SERVICE: 09/27/2021 REFERRING PHYSICIAN: Carmita Hughes NP REASON FOR CONSULTATION: Rectal bleeding and abnormal CT scan of the rectum. HISTORY OF PRESENT ILLNESS: The patient is a pleasant 80-year-old male who was admitted to the hospital after presenting to the emergency room with rectal bleeding. He has had intermittent rectal bleeding over a period of about 3 weeks with small amounts of bright red blood intermittently, which became worse the day before admission with more episodes of bright red blood and clots with bowel movements. He previously was followed in [place] by Dr. Morales because of a rectal adenoma with dysplasia and has undergone multiple transanal excisions, but it appears as though his last exam was in 2013, and he states he has been unable to follow up since then. In the emergency department, he was evaluated with laboratory studies, which showed a hematocrit of 30.3, which was stable from his previous hematocrit of 30.5 in 2020, and he underwent subsequent imaging with CT scanning, which is reviewed. This is interpreted as showing wall thickening of the rectum and rectal along the right lateral wall concerning for possible rectal neoplasm versus colitis. Digital rectal examination in the ER did not report any mass, but did show blood. His hematocrit has been stable overnight. PAST MEDICAL HISTORY: 1. Rectal adenoma as above. 2. COPD. 3. Coronary artery disease. 4. Cardiomyopathy. CURRENT MEDICATIONS: His current medication list is reviewed in the chart. He has been on aspirin at home, but denies taking blood thinners. He was prescribed clopidogrel in the past, but has not been on this by report. ALLERGIES: NONE REPORTED. FAMILY HISTORY: Reviewed with the patient and is noncontributory. SOCIAL HISTORY: There is no current tobacco, alcohol, or substance abuse. REVIEW OF SYSTEMS: SKIN: No pruritus. HEENT: Negative. CARDIOPULMONARY: No shortness of breath or chest pain. GASTROINTESTINAL: As above. GENITOURINARY: Negative. NEUROPSYCHIATRIC: Negative. PHYSICAL EXAMINATION: GENERAL: Shows a pleasant male, lying comfortably in bed. VITAL SIGNS: Reviewed in electronic medical record and are stable. SKIN: Anicteric. HEENT: Shows no scleral icterus. NECK: Without lymphadenopathy or thyromegaly. LUNGS: Clear. HEART: Shows regular rate and rhythm. S1, S2. No murmur. ABDOMEN: Soft without focal masses or tenderness. Bowel sounds are present. No organomegaly is noted. EXTREMITIES: Without edema. LABORATORY DATA: Laboratory data and CT scanning are reviewed. IMPRESSION: Rectal bleeding with history of adenoma as above and multiple excisions. His CT scan is not clear and the etiology for the abnormality in the rectum and it is possible that his multiple surgical procedures could have resulted in scarring, which is what is being seen. However, I would recommend lower GI tract colonoscopy for further evaluation of his rectal bleeding. I agree with holding his aspirin. His hematocrit has been stable, so he does not need transfusion. I have discussed risks and benefits of colonoscopy with him. He understands and agrees to proceed. This will be arranged for tomorrow. Thanks for asking me to see him. I will follow him in the hospital with you. MD FRANCESCO Agee/KATHERINE / [phone]
--- NOTE | 2021-09-27 11:31 | HO.PM.IMPN ---
Subjective Subjective Date of Service: 09/27/21 Review of Systems Follow up GI Bleed Feels fine no abd pain or bleeding Physical Exam Vital Signs: Vital Signs: Last Vital Signs Temp 97.2 F 09/27/21 11:02 Pulse 53 09/27/21 11:02 Resp 18 09/27/21 11:02 BP 123/76 09/27/21 11:02 Pulse Ox 97 09/27/21 11:02 BMI result Body Mass Index 29.0 Appearing in no acute distress lung sounds are clear to auscultation heart regular rate rhythm, clear S1, S2 positive bowel sounds, abdomen is soft, nontender neuro patient is alert x3, no focal deficits Objective Data Active Medications Acetaminophen (Acetaminophen 325 Mg Tablet) 650 mg PO Q6H PRN PRN Reason: Pain, Mild (Pain Scale 1-3) Albuterol Sulfate (Albuterol Sulfate 90 Mcg 8 Gm Inhaler) 2 puff INHALE Q6H PRN PRN Reason: shortness of breath or wheezing Dextrose (Dextrose 50 % 25 Gm/50 Ml Syringe) 25 gm IVPUSH Q15M PRN; Protocol PRN Reason: per Hypoglycemia Standing Ord. Famotidine (Famotidine 20 Mg Tablet) 20 mg PO BID PRN PRN Reason: Acid Reflux Fluticasone/Vilanterol (Fluticasone/Vilanterol 200/25 Blst.W.Dev) 1 puff INHALE RDAILY [facility] Last Admin: 09/27/21 08:42 Dose: 1 puff Documented by: JANNA Glucose (Glucose Gel 15 Gm Gel..Gram.) 15 gm PO Q15M PRN; Protocol PRN Reason: per Hypoglycemia Standing Ord. Hydrochlorothiazide (Hydrochlorothiazide 12.5 Mg Tablet) 12.5 mg PO DAILY [facility] Last Admin: 09/27/21 08:48 Dose: 12.5 mg Documented by: ISAIAH Insulin Glargine (Insulin Glargine,Hum.Rec.Anlog 100 Unit/Ml 10 Ml Vial) 20 unit SUBCUT DAILY [facility] Last Admin: 09/27/21 08:52 Dose: Not Given Documented by: ISAIAH Non-Admin Reason: See Note Insulin Human Lispro (Insulin Lispro 100 Unit/Ml 3 Ml Vial) 0 unit SUBCUT QIDACHS [facility]; Protocol Last Admin: 09/27/21 08:33 Dose: Not Given Documented by: ISAIAH Non-Admin Reason: No Insulin Coverage Loperamide HCl (Loperamide Hcl 2 Mg Capsule) 2 mg PO BID PRN PRN Reason: Diarrhea Multivitamins/Vitamin C (Multivitamin Tablet) 1 tab PO DAILY [facility] Last Admin: 09/27/21 08:49 Dose: 1 tab Documented by: ISAIAH Omeprazole (Omeprazole 20 Mg Capsule.Dr) 20 mg PO DAILY@0630 [facility] Last Admin: 09/27/21 06:36 Dose: 20 mg Documented by: PRIETO Ondansetron HCl (Ondansetron Hcl 4 Mg/2 Ml Vial) 4 mg IVPUSH Q8H PRN PRN Reason: Nausea and Vomiting Pharmacy Consult (Consult Rx Perform Med Rec) 1 each MISCELLANE ONCE PRN PRN Reason: Consult order Polyethylene Glycol/Electrolytes (Peg 3350/Na Sulf,Bicarb,Cl/Kcl 4,000 Ml Soln.Recon) 4,000 ml PO ONCE ONE Stop: 09/27/21 13:01 Pravastatin Sodium (Pravastatin Sodium 10 Mg Tablet) 10 mg PO BEDTIME [facility] Last Admin: 09/26/21 22:59 Dose: 10 mg Documented by: PRIETO Sertraline HCl (Sertraline Hcl 50 Mg Tablet) 50 mg PO DAILY [facility] Last Admin: 09/27/21 08:48 Dose: 50 mg Documented by: ISAIAH Sodium Chloride (0.9 % Sodium Chloride Flush 3 Ml Syringe) 3 ml IVFLUSH QSHIFT [facility] Last Admin: 09/27/21 08:49 Dose: 3 ml Documented by: ISAIAH Tiotropium [place] (Tiotropium [place] 18 Mcg Cap.W.Dev) 1 puff INHALE RDAILY [facility] Last Admin: 09/27/21 08:42 Dose: 1 puff Documented by: JANNA Valsartan (Valsartan 80 Mg Tablet) 80 mg PO DAILY [facility] Last Admin: 09/27/21 08:49 Dose: 80 mg Documented by: ISAIAH Zolpidem Tartrate (Zolpidem Tartrate 5 Mg Tablet) 5 mg PO BEDTIME PRN PRN Reason: Insomnia Last Admin: 09/26/21 23:57 Dose: 5 mg Documented by: ELLIOTT Labs CBC & Chem 7: 09/27/21 06:17 09/27/21 06:17 Labs: Laboratory Results - last 24 hr 09/26/21 09/26/21 09/26/21 13:25 13:25 13:25 MCV 83.1 MCH 25.2 L MCHC 30.3 L RDW 14.6 Plt Count 270 MPV 10.4 Immature Gran % (Auto) 0.6 H Neut % (Auto) 66.7 Lymph % (Auto) 17.5 L [place] % (Auto) 11.6 H Eos % (Auto) 3.2 Baso % (Auto) 0.4 Lymph # (Auto) 1.5 [place] # (Auto) 1.0 Eos # (Auto) 0.3 Baso # (Auto) 0.0 Abs Immat Gran (auto) 0.05 H Absolute Neuts (auto) 5.7 Absolute Nucleated RBC 0.000 Nucleated RBC % (auto) 0.0 Anion Gap 13 Estim Creat Clear Calc 43.2 Estimated GFR 57 POC Glucose Random Glucose 227 H Calcium 9.3 Total Bilirubin 0.4 Direct Bilirubin 0.2 AST 13 ALT 15 Alkaline Phosphatase 115 D B-Natriuretic Peptide 22 Total Protein 6.7 Albumin 3.7 Lipase 19 Urine Color Urine Appearance Urine pH Ur Specific [place] Urine Protein Urine Glucose (UA) Urine Ketones Urine Blood Urine Nitrite Ur Leukocyte Esterase Stool Occult Blood COVID-19 ([facility]) [employer] 09/26/21 09/26/21 09/26/21 13:25 13:26 18:18 MCV MCH MCHC RDW Plt Count MPV Immature Gran % (Auto) Neut % (Auto) Lymph % (Auto) [place] % (Auto) Eos % (Auto) Baso % (Auto) Lymph # (Auto) [place] # (Auto) Eos # (Auto) Baso # (Auto) Abs Immat Gran (auto) Absolute Neuts (auto) Absolute Nucleated RBC Nucleated RBC % (auto) Anion Gap Estim Creat Clear Calc Estimated GFR POC Glucose 114 Random Glucose Calcium Total Bilirubin Direct Bilirubin AST ALT Alkaline Phosphatase B-Natriuretic Peptide Total Protein Albumin Lipase Urine Color Urine Appearance Urine pH Ur Specific [place] Urine Protein Urine Glucose (UA) Urine Ketones Urine Blood Urine Nitrite Ur Leukocyte Esterase Stool Occult Blood POSITIVE COVID-19 ([facility]) Negative COVID-19 [employer] Com See Note 09/26/21 09/26/21 09/27/21 19:06 21:33 01:09 MCV 82.9 MCH 25.2 L MCHC 30.4 L RDW 14.6 Plt Count 280 MPV 10.9 Immature Gran % (Auto) Neut % (Auto) Lymph % (Auto) [place] % (Auto) Eos % (Auto) Baso % (Auto) Lymph # (Auto) [place] # (Auto) Eos # (Auto) Baso # (Auto) Abs Immat Gran (auto) Absolute Neuts (auto) Absolute Nucleated RBC 0.000 Nucleated RBC % (auto) 0.0 Anion Gap Estim Creat Clear Calc Estimated GFR POC Glucose 105 Random Glucose Calcium Total Bilirubin Direct Bilirubin AST ALT Alkaline Phosphatase B-Natriuretic Peptide Total Protein Albumin Lipase Urine Color YELLOW Urine Appearance CLEAR Urine pH 7.0 Ur Specific [place] 1.010 Urine Protein TRACE Urine Glucose (UA) NEG Urine Ketones NEG Urine Blood NEG Urine Nitrite NEG Ur Leukocyte Esterase NEG Stool Occult Blood COVID-19 ([facility]) COVID-19 [employer] 09/27/21 09/27/21 09/27/21 06:17 06:17 08:31 MCV 82.5 MCH 25.0 L MCHC 30.3 L RDW 14.7 Plt Count 300 MPV 11.0 Immature Gran % (Auto) 0.6 H Neut % (Auto) 61.1 Lymph % (Auto) 21.7 [place] % (Auto) 13.4 H Eos % (Auto) 2.9 Baso % (Auto) 0.3 Lymph # (Auto) 1.9 [place] # (Auto) 1.2 Eos # (Auto) 0.3 Baso # (Auto) 0.0 Abs Immat Gran (auto) 0.05 H Absolute Neuts (auto) 5.4 Absolute Nucleated RBC 0.000 Nucleated RBC % (auto) 0.0 Anion Gap 16 Estim Creat Clear Calc 49.3 Estimated GFR > 60 POC Glucose 99 Random Glucose 95 D Calcium 9.2 Total Bilirubin Direct Bilirubin AST ALT Alkaline Phosphatase B-Natriuretic Peptide Total Protein Albumin Lipase Urine Color Urine Appearance Urine pH Ur Specific [place] Urine Protein Urine Glucose (UA) Urine Ketones Urine Blood Urine Nitrite Ur Leukocyte Esterase Stool Occult Blood COVID-19 ([facility]) COVID-19 Clin Com Assessment and Plan (1) Rectal bleed: Status: Acute Plan 80-year-old man admitted with acute GI bleed and question rectal mass, with hx of rectal mass since 2003 Acute GI bleed, rectal mass Stable H&H, not requiring blood transfusion GI following, will need colonoscopy to assess for possible rectal mass bleeding clear liquids today, NPO after midnight Hold aspirin and Plavix PPI Follow CBC Diabetes mellitus Sliding scale, long-acting insulin, hold metformin COPD.? No exacerbation Albuterol as needed Coronary artery disease.? Hold aspirin and Plavix due to GI bleed Monitor H&H closely and transfuse as needed Hypertension.? Stable blood pressure Hold antihypertensive for now to avoid hypotension with GI bleeding Restart home medication if blood pressure allows DVT prophylaxis with mechanical compression boots Full code Attending Dr. Rosas Quality Stroke Does the patient have a stroke diagnosis?: No VTE Prior VTE?: No VTE Risk Level:: Medical - moderate - high VTE Device Contraindication: N/A - Device Ordered VTE Drug Contraindication: Treatment Not Indicated
[2021-09-27 12:44] LABS: Glucose, Whole Blood 133 mg/dL (60-115)
[2021-09-27] MEDS: PEG 3350/Na Sulf,Bicarb,Cl/KCL 4,000 ML SOLN.RECON 4000 ML PO (14:08)
--- NOTE | 2021-09-27 14:42 | MHC.CM.PN ---
CM ATTEMPTED TO SEE PT IN ED OVERFLOW BED 10 PT OFF UNIT CM TO REVISIT
--- NOTE | 2021-09-27 15:10 | MHC.CM.PN ---
PT REPORTS HE LIVES WITH HIS AND HAS AN HOUR OF PHYSICAL THERAPIST AIDE SERVICES DAILY PT REPORTS HE USES A CANE TO AMBULATE PT SAYS HIS HAS A HCP NAMING HIS AND DAUGHTER, JERARDO MCKEON, COPY REQUESTED PT CONFIRMS HIS PCP IS [facility] PT IS COVID VACCINATED X 3 IMM DELIVERED, COPY SENT TO [facility] CURRENT DC PLAN IS HOME WITH RESUMPTION OF PHYSICAL THERAPIST AIDE SERVICES FAMILY TO TRANSPORT
--- NOTE | 2021-09-27 15:56 | PC.NURSE ---
ORAL PREP FOR GI PROCEDURE IS AT BEDSIDE. PT REPORTS FEELING TO FULL TO INITIATE PO INTAKE AT THIS TIME. ENCOURAGED TO SIP FIRST 250ML.
[2021-09-27 16:00] VITALS: BP 117/76; PULSE 72; RESP 16; TEMP 36.8; O2SAT 99
[2021-09-27 17:03] LABS: Glucose, Whole Blood 170 mg/dL (60-115)
--- NOTE | 2021-09-27 17:26 | PC.NURSE ---
PT MAKING PROGRESS WITH ORAL PREP. HELD INSULIN , PT CLEAR LIQUIDS TO NPO
[2021-09-27 20:00] VITALS: BP 133/72; PULSE 74; RESP 16; TEMP 36.2; O2SAT 97
[2021-09-27 20:58] LABS: Glucose, Whole Blood 157 mg/dL (60-115)
[2021-09-27] MEDS: Pravastatin Sodium 10 MG TABLET PO (21:41)
[2021-09-27] MEDS: Insulin Lispro 100 UNIT/ML 3 ML VIAL SUBCUT (21:45)
[2021-09-28] VITALS (9 sets, daily range): BP systolic 78–140; BP diastolic 48–74; PULSE 56–95; RESP 12–18; TEMP 36.1–36.8; O2SAT 94–99
--- NOTE | 2021-09-28 | PC.NURSE ---
This rn took over patient's care at 1900, patient is alert and oriented x3, ambulates to bathroom independently. Denies pain at this time, patient finished gavilyte-c solution about 0, reports near clear bms. Patient aware of npo diet after midnight for colonoscopy 09/28. Bedtime medications administered per emar, vss. Call sánchez within reach.
[2021-09-28 06:26] LABS: Hematocrit 40.6 % (42.0-52.0); Hemoglobin 12.6 g/dl (14.0-18.0); Mean Corpuscular Hemoglobin 25.1 pg (27.0-33.0); Platelet Count 290 X10*3/uL (160-400); Red Blood Count 5.01 X10*6/uL (4.60-5.80); Red Cell Distribution Width 14.7 % (11.0-16.0); White Blood Count 7.4 X10*3/uL (4.8-10.8)
[2021-09-28 07:06] LABS: Anion Gap 12 (12-20); Blood Urea Nitrogen 17 mg/dL (9-16); Calcium 9.3 mg/dL (8.4-10.2); Carbon Dioxide 30 mmol/L (22-29); Chloride 105 mmol/L (96-108); Creatinine Clr Calc Pharmacy 58.5; Estimated Glomerular Filt Rate > 60; Glucose Random 85 mg/dL (60-115); Potassium 4.1 mmol/L (3.3-5.1); Sodium 143 mmol/L (135-145)
--- NOTE | 2021-09-28 07:53 | PC.NURSE ---
Pt received from legal consultant: Pt AOX4 and offers no complaints. Heart sounds normal and lungs clear. Pt abd soft and non-tender. Pt states his last BM was yellow color- s/p finishing Go-lytely. Report already given to Christianne at [facility], pending colonscopy around 1130am pickup time. Pt remains NPO.
[2021-09-28 08:34] LABS: Glucose, Whole Blood 90 mg/dL (60-115)
[2021-09-28] MEDS: Multivitamin TABLET 1 TAB PO (09:27)
[2021-09-28] MEDS: Valsartan 80 MG TABLET PO (09:27)
[2021-09-28] MEDS: Sertraline HCL 50 MG TABLET PO (09:27)
[2021-09-28] MEDS: hydroCHLOROthiazide 12.5 MG TABLET PO (09:27)
--- NOTE | 2021-09-28 11:17 | PC.NURSE ---
Pt to [facility] Colonoscopy at this time. [facility] staff at bedside with stretcher for transport.
--- NOTE | 2021-09-28 11:27 | P.CONAN_ITS ---
[facility] Active Problems Active Problems: All Active Problems (Updated 09/26/21 @ 16:10 by Carmita Hughes NP) Rectal bleed (Acute) Rectal mass (Acute) Chest crackles (Acute) Chronic cough (Acute) COPD (chronic obstructive pulmonary disease) (Acute) CAD (coronary artery disease) (Acute) Cardiomyopathy (Acute) WALKER (dyspnea on exertion) (Acute) PVC (premature ventricular contraction) (Acute) Bradycardia (Acute) Screen for colon cancer (Acute) Past Medical History Medical History COPD (chronic obstructive pulmonary disease) Functional capacity: independent ambulation Family History Family History Family/Other Medical history reviewed with no changes Family history of problems with anesthesia: No Surgical History Surgical History Hx of colonoscopy History of Problems with Anesthesia: No Social History Social History Alcohol intake: current Alcohol intake frequency: does not drink Patient Tobacco Use Status: Former Tobacco user Tobacco use type: Cigarette Years Smoked: 20 years Use of substances other than those prescribed or required for medical reasons: No Are you DNR?: No Advance Directives: No Advance Directives Information Provided: Yes service: No Current occupational status: retired [employer] Allergies Allergy/AdvReac Type Severity Reaction Status Date / Time No Known Allergies Allergy Verified 03/25/21 10:57 Active Medications: Current Medications Acetaminophen (Acetaminophen 325 Mg Tablet) 650 mg PO Q6H PRN PRN Reason: Pain, Mild (Pain Scale 1-3) Albuterol Sulfate (Albuterol Sulfate 90 Mcg 8 Gm Inhaler) 2 puff INHALE Q6H PRN PRN Reason: shortness of breath or wheezing Dextrose (Dextrose 50 % 25 Gm/50 Ml Syringe) 25 gm IVPUSH Q15M PRN; Protocol PRN Reason: per Hypoglycemia Standing Ord. Famotidine (Famotidine 20 Mg Tablet) 20 mg PO BID PRN PRN Reason: Acid Reflux Fluticasone/Vilanterol (Fluticasone/Vilanterol 200/25 Blst.W.Dev) 1 puff INHALE [facility] Last Admin: 09/28/21 08:17 Dose: Not Given Documented by: Glucose (Glucose Gel 15 Gm Gel..Gram.) 15 gm PO Q15M PRN; Protocol PRN Reason: per Hypoglycemia Standing Ord. Hydrochlorothiazide (Hydrochlorothiazide 12.5 Mg Tablet) 12.5 mg PO DAILY [facility] Last Admin: 09/28/21 09:27 Dose: 12.5 mg Documented by: Insulin Glargine (Insulin Glargine,Hum.Rec.Anlog 100 Unit/Ml 10 Ml Vial) 20 unit SUBCUT DAILY [facility] Last Admin: 09/28/21 09:23 Dose: Not Given Documented by: Insulin Human Lispro (Insulin Lispro 100 Unit/Ml 3 Ml Vial) 0 unit SUBCUT QIDACHS [facility]; Protocol Last Admin: 09/28/21 08:43 Dose: Not Given Documented by: Loperamide HCl (Loperamide Hcl 2 Mg Capsule) 2 mg PO BID PRN PRN Reason: Diarrhea Multivitamins/Vitamin C (Multivitamin Tablet) 1 tab PO DAILY [facility] Last Admin: 09/28/21 09:27 Dose: 1 tab Documented by: Omeprazole (Omeprazole 20 Mg Capsule.Dr) 20 mg PO DAILY@0630 [facility] Last Admin: 09/28/21 05:14 Dose: Not Given Documented by: Ondansetron HCl (Ondansetron Hcl 4 Mg/2 Ml Vial) 4 mg IVPUSH Q8H PRN PRN Reason: Nausea and Vomiting Pharmacy Consult (Consult Rx Perform Med Rec) 1 each MISCELLANE ONCE PRN PRN Reason: Consult order Pravastatin Sodium (Pravastatin Sodium 10 Mg Tablet) 10 mg PO BEDTIME [facility] Last Admin: 09/27/21 21:41 Dose: 10 mg Documented by: Sertraline HCl (Sertraline Hcl 50 Mg Tablet) 50 mg PO DAILY [facility] Last Admin: 09/28/21 09:27 Dose: 50 mg Documented by: Sodium Chloride (0.9 % Sodium Chloride Flush 3 Ml Syringe) 3 ml IVFLUSH QSHIFT [facility] Last Admin: 09/28/21 10:35 Dose: Not Given Documented by: Tiotropium [place] (Tiotropium [place] 18 Mcg Cap.W.Dev) 1 puff INHALE RDAILY [facility] Last Admin: 09/28/21 08:18 Dose: Not Given Documented by: Valsartan (Valsartan 80 Mg Tablet) 80 mg PO DAILY [facility] Last Admin: 09/28/21 09:27 Dose: 80 mg Documented by: Zolpidem Tartrate (Zolpidem Tartrate 5 Mg Tablet) 5 mg PO BEDTIME PRN PRN Reason: Insomnia Last Admin: 09/26/21 23:57 Dose: 5 mg Documented by: Home Medications Medication Instructions Recorded Confirmed Last Taken Type aspirin 81 mg tablet,delayed 81 mg PO DAILY 07/06/20 09/26/21 09/25/21 History release blood pressure test kit-large #1 ea 07/06/20 02/15/21 Unknown History blood sugar diagnostic #10 ea 07/06/20 02/15/21 Unknown History famotidine 20 mg tablet 20 mg PO BID PRN 07/06/20 09/26/21 Unknown History insulin glargine 100 unit/mL (3 20 unit SUBCUT DAILY 07/06/20 09/26/21 09/25/21 History mL) subcutaneous pen loperamide 2 mg capsule 2 mg PO BID PRN 07/06/20 09/26/21 Unknown History metformin 500 mg tablet 1,000 mg PO BID 07/06/20 09/26/21 09/25/21 History oxycodone-acetaminophen 5 mg-325 1 tab PO BID PRN 07/06/20 09/26/21 Unknown History mg tablet pen needle, diabetic 31 gauge x #50 ea 07/06/20 02/15/21 Unknown History 1/4 sertraline 50 mg tablet 50 mg PO DAILY 07/06/20 09/26/21 09/25/21 History valsartan 80 1 tab PO DAILY 07/06/20 09/26/21 09/25/21 History mg-hydrochlorothiazide 12.5 mg tablet zolpidem 5 mg tablet 5 mg PO BEDTIME PRN 07/06/20 09/26/21 Unknown History dulaglutide 0.75 mg/0.5 mL 0.75 mg SUBCUT WE 02/15/21 09/26/21 09/22/21 History subcutaneous pen injector pantoprazole 40 mg tablet,delayed 40 mg PO DAILY 02/15/21 09/26/21 09/25/21 History release pravastatin 10 mg tablet 10 mg PO BEDTIME 02/15/21 09/26/21 09/25/21 History multivitamin 1 tab PO DAILY 09/26/21 09/26/21 09/25/21 History Exam Exam Date and Time: September 28, 2021 1127 Height,Weight and Vital Signs: Height 5 ft 3 in Weight 74.389 kg Last Vital Signs Temp 97.4 F 09/28/21 04:00 Pulse 70 09/28/21 08:32 Resp 12 09/28/21 08:32 BP 125/74 09/28/21 08:32 Pulse Ox 96 09/28/21 08:32 Pertinent Lab Results Pertinent Lab Results: Laboratory Tests 09/26/21 09/26/21 09/26/21 13:25 13:25 13:25 WBC 8.5 RBC 5.16 Hgb 13.0 L Hct 42.9 MCV 83.1 MCH 25.2 L MCHC 30.3 L RDW 14.6 Plt Count 270 MPV 10.4 Immature Gran % (Auto) 0.6 H Neut % (Auto) 66.7 Lymph % (Auto) 17.5 L [place] % (Auto) 11.6 H Eos % (Auto) 3.2 Baso % (Auto) 0.4 Lymph # (Auto) 1.5 [place] # (Auto) 1.0 Eos # (Auto) 0.3 Baso # (Auto) 0.0 Abs Immat Gran (auto) 0.05 H Absolute Neuts (auto) 5.7 Absolute Nucleated RBC 0.000 Nucleated RBC % (auto) 0.0 Sodium 139 Potassium 5.1 Chloride 103 Carbon Dioxide 28 Anion Gap 13 BUN 20 H Creatinine 1.23 Estim Creat Clear Calc 43.2 Estimated GFR 57 POC Glucose Random Glucose 227 H Calcium 9.3 Total Bilirubin 0.4 Direct Bilirubin 0.2 AST 13 ALT 15 Alkaline Phosphatase 115 D Troponin I High Sens < 3.5 B-Natriuretic Peptide 22 Total Protein 6.7 Albumin 3.7 Lipase 19 Urine Color Urine Appearance Urine pH Ur Specific [place] Urine Protein Urine Glucose (UA) Urine Ketones Urine Blood Urine Nitrite Ur Leukocyte Esterase Stool Occult Blood COVID-19 ([facility]) COVID-19 Clin Com 09/26/21 09/26/21 09/26/21 13:25 13:26 18:18 WBC RBC Hgb Hct MCV MCH MCHC RDW Plt Count MPV Immature Gran % (Auto) Neut % (Auto) Lymph % (Auto) [place] % (Auto) Eos % (Auto) Baso % (Auto) Lymph # (Auto) [place] # (Auto) Eos # (Auto) Baso # (Auto) Abs Immat Gran (auto) Absolute Neuts (auto) Absolute Nucleated RBC Nucleated RBC % (auto) Sodium Potassium Chloride Carbon Dioxide Anion Gap BUN Creatinine Estim Creat Clear Calc Estimated GFR POC Glucose 114 Random Glucose Calcium Total Bilirubin Direct Bilirubin AST ALT Alkaline Phosphatase Troponin I High Sens B-Natriuretic Peptide Total Protein Albumin Lipase Urine Color Urine Appearance Urine pH Ur Specific [place] Urine Protein Urine Glucose (UA) Urine Ketones Urine Blood Urine Nitrite Ur Leukocyte Esterase Stool Occult Blood POSITIVE COVID-19 ([facility]) Negative COVID-19 Clin Com See Note 09/26/21 09/26/21 09/27/21 19:06 21:33 01:09 WBC 8.8 RBC 5.15 Hgb 13.0 L Hct 42.7 MCV 82.9 MCH 25.2 L MCHC 30.4 L RDW 14.6 Plt Count 280 MPV 10.9 Immature Gran % (Auto) Neut % (Auto) Lymph % (Auto) [place] % (Auto) Eos % (Auto) Baso % (Auto) Lymph # (Auto) [place] # (Auto) Eos # (Auto) Baso # (Auto) Abs Immat Gran (auto) Absolute Neuts (auto) Absolute Nucleated RBC 0.000 Nucleated RBC % (auto) 0.0 Sodium Potassium Chloride Carbon Dioxide Anion Gap BUN Creatinine Estim Creat Clear Calc Estimated GFR POC Glucose 105 Random Glucose Calcium Total Bilirubin Direct Bilirubin AST ALT Alkaline Phosphatase Troponin I High Sens B-Natriuretic Peptide Total Protein Albumin Lipase Urine Color YELLOW Urine Appearance CLEAR Urine pH 7.0 Ur Specific [place] 1.010 Urine Protein TRACE Urine Glucose (UA) NEG Urine Ketones NEG Urine Blood NEG Urine Nitrite NEG Ur Leukocyte Esterase NEG Stool Occult Blood COVID-19 ([facility]) COVID-19 Clin Com 09/27/21 09/27/21 09/27/21 06:17 06:17 08:31 WBC 8.8 RBC 5.27 Hgb 13.2 L Hct 43.5 MCV 82.5 MCH 25.0 L MCHC 30.3 L RDW 14.7 Plt Count 300 MPV 11.0 Immature Gran % (Auto) 0.6 H Neut % (Auto) 61.1 Lymph % (Auto) 21.7 [place] % (Auto) 13.4 H Eos % (Auto) 2.9 Baso % (Auto) 0.3 Lymph # (Auto) 1.9 [place] # (Auto) 1.2 Eos # (Auto) 0.3 Baso # (Auto) 0.0 Abs Immat Gran (auto) 0.05 H Absolute Neuts (auto) 5.4 Absolute Nucleated RBC 0.000 Nucleated RBC % (auto) 0.0 Sodium 139 Potassium 4.0 D Chloride 104 Carbon Dioxide 23 Anion Gap 16 BUN 18 H Creatinine 1.08 Estim Creat Clear Calc 49.3 Estimated GFR > 60 POC Glucose 99 Random Glucose 95 D Calcium 9.2 Total Bilirubin Direct Bilirubin AST ALT Alkaline Phosphatase Troponin I High Sens B-Natriuretic Peptide Total Protein Albumin Lipase Urine Color Urine Appearance Urine pH Ur Specific [place] Urine Protein Urine Glucose (UA) Urine Ketones Urine Blood Urine Nitrite Ur Leukocyte Esterase Stool Occult Blood COVID-19 ([facility]) COVID-19 [employer] 09/27/21 09/27/21 09/27/21 12:41 16:56 20:28 WBC RBC Hgb Hct MCV MCH MCHC RDW Plt Count MPV Immature Gran % (Auto) Neut % (Auto) Lymph % (Auto) [place] % (Auto) Eos % (Auto) Baso % (Auto) Lymph # (Auto) [place] # (Auto) Eos # (Auto) Baso # (Auto) Abs Immat Gran (auto) Absolute Neuts (auto) Absolute Nucleated RBC Nucleated RBC % (auto) Sodium Potassium Chloride Carbon Dioxide Anion Gap BUN Creatinine Estim Creat Clear Calc Estimated GFR POC Glucose 133 H 170 H 157 H Random Glucose Calcium Total Bilirubin Direct Bilirubin AST ALT Alkaline Phosphatase Troponin I High Sens B-Natriuretic Peptide Total Protein Albumin Lipase Urine Color Urine Appearance Urine pH Ur Specific [place] Urine Protein Urine Glucose (UA) Urine Ketones Urine Blood Urine Nitrite Ur Leukocyte Esterase Stool Occult Blood COVID-19 ([facility]) COVID-19 [employer] 09/28/21 09/28/21 09/28/21 05:52 05:52 08:27 WBC 7.4 RBC 5.01 Hgb 12.6 L Hct 40.6 L MCV 81.0 MCH 25.1 L MCHC 31.0 RDW 14.7 Plt Count 290 MPV 11.0 Immature Gran % (Auto) Neut % (Auto) Lymph % (Auto) [place] % (Auto) Eos % (Auto) Baso % (Auto) Lymph # (Auto) [place] # (Auto) Eos # (Auto) Baso # (Auto) Abs Immat Gran (auto) Absolute Neuts (auto) Absolute Nucleated RBC 0.000 Nucleated RBC % (auto) 0.0 Sodium 143 Potassium 4.1 Chloride 105 Carbon Dioxide 30 H Anion Gap 12 BUN 17 H Creatinine 0.91 Estim Creat Clear Calc 58.5 Estimated GFR > 60 POC Glucose 90 Random Glucose 85 Calcium 9.3 Total Bilirubin Direct Bilirubin AST ALT Alkaline Phosphatase Troponin I High Sens B-Natriuretic Peptide Total Protein Albumin Lipase Urine Color Urine Appearance Urine pH Ur Specific [place] Urine Protein Urine Glucose (UA) Urine Ketones Urine Blood Urine Nitrite Ur Leukocyte Esterase Stool Occult Blood COVID-19 ([facility]) COVID-19 Clin Com Airway Mallampati Class: III TM Dist: >3cm Neck ROM: Full Denture: Upper and Lower Heart: RRR Lungs: rales Assessment and Plan Assessment Anesthesia Assessment: Anesthesia Plan Discussed and Smoking Cess. Discussed Final Anesthetic Review Family History of Problems with Anesthesia: No History of Problems with Anesthesia: No NPO: Yes ASA Class: III Final Preanesthetic Review: No Changes in Pt Med Stat, Meds/Allgs Chart Reviewed, Consent Obtained/Reviewed and Anes Risks/Benef Reviewed Patient Risk: Low Procedure Risk: Low Anesthetic Plan Anesthetic Plan: MAC: Disposition: Standard PACU
--- NOTE | 2021-09-28 11:35 | P.PNIM_ITS ---
Subjective Subjective Date of Service: 09/28/21 Review of Systems Follow up GI Bleed Feels fine no abd pain or bleeding Physical Exam Vital Signs: Vital Signs: Last Vital Signs Temp 96.9 F 09/28/21 11:29 Pulse 83 09/28/21 11:29 Resp 16 09/28/21 11:29 BP 126/69 09/28/21 11:29 Pulse Ox 98 09/28/21 11:29 BMI result Body Mass Index 29.0 Appearing in no acute distress lung sounds are clear to auscultation heart regular rate rhythm, clear S1, S2 positive bowel sounds, abdomen is soft, nontender neuro patient is alert x3, no focal deficits Objective Data Active Medications Acetaminophen (Acetaminophen 325 Mg Tablet) 650 mg PO Q6H PRN PRN Reason: Pain, Mild (Pain Scale 1-3) Albuterol Sulfate (Albuterol Sulfate 90 Mcg 8 Gm Inhaler) 2 puff INHALE Q6H PRN PRN Reason: shortness of breath or wheezing Dextrose (Dextrose 50 % 25 Gm/50 Ml Syringe) 25 gm IVPUSH Q15M PRN; Protocol PRN Reason: per Hypoglycemia Standing Ord. Famotidine (Famotidine 20 Mg Tablet) 20 mg PO BID PRN PRN Reason: Acid Reflux Fluticasone/Vilanterol (Fluticasone/Vilanterol 200/25 Blst.W.Dev) 1 puff INHALE RDAILY [facility] Last Admin: 09/28/21 08:17 Dose: Not Given Documented by: JOYCE Non-Admin Reason: Patient Refused Glucose (Glucose Gel 15 Gm Gel..Gram.) 15 gm PO Q15M PRN; Protocol PRN Reason: per Hypoglycemia Standing Ord. Hydrochlorothiazide (Hydrochlorothiazide 12.5 Mg Tablet) 12.5 mg PO DAILY [facility] Last Admin: 09/28/21 09:27 Dose: 12.5 mg Documented by: FLORINA Insulin Glargine (Insulin Glargine,Hum.Rec.Anlog 100 Unit/Ml 10 Ml Vial) 20 unit SUBCUT DAILY [facility] Last Admin: 09/28/21 09:23 Dose: Not Given Documented by: FLORINA Non-Admin Reason: NPO Insulin Human Lispro (Insulin Lispro 100 Unit/Ml 3 Ml Vial) 0 unit SUBCUT QIDACHS [facility]; Protocol Last Admin: 09/28/21 08:43 Dose: Not Given Documented by: FLORINA Non-Admin Reason: No Insulin Coverage Comments: B/S 90 Pt NPO for colonoscopy today Loperamide HCl (Loperamide Hcl 2 Mg Capsule) 2 mg PO BID PRN PRN Reason: Diarrhea Multivitamins/Vitamin C (Multivitamin Tablet) 1 tab PO DAILY [facility] Last Admin: 09/28/21 09:27 Dose: 1 tab Documented by: FLORINA Omeprazole (Omeprazole 20 Mg Capsule.Dr) 20 mg PO DAILY@0630 [facility] Last Admin: 09/28/21 05:14 Dose: Not Given Documented by: ANA Non-Admin Reason: NPO Ondansetron HCl (Ondansetron Hcl 4 Mg/2 Ml Vial) 4 mg IVPUSH Q8H PRN PRN Reason: Nausea and Vomiting Pharmacy Consult (Consult Rx Perform Med Rec) 1 each MISCELLANE ONCE PRN PRN Reason: Consult order Pravastatin Sodium (Pravastatin Sodium 10 Mg Tablet) 10 mg PO BEDTIME [facility] Last Admin: 09/27/21 21:41 Dose: 10 mg Documented by: ANA Sertraline HCl (Sertraline Hcl 50 Mg Tablet) 50 mg PO DAILY [facility] Last Admin: 09/28/21 09:27 Dose: 50 mg Documented by: FLORINA Sodium Chloride (0.9 % Sodium Chloride Flush 3 Ml Syringe) 3 ml IVFLUSH QSHIFT [facility] Last Admin: 09/28/21 10:35 Dose: Not Given Documented by: FLORINA Non-Admin Reason: Med Not Available Tiotropium [place] (Tiotropium [place] 18 Mcg Cap.W.Dev) 1 puff INHALE RDAILY [facility] Last Admin: 09/28/21 08:18 Dose: Not Given Documented by: JOYCE Non-Admin Reason: Patient Condition Contraindication Valsartan (Valsartan 80 Mg Tablet) 80 mg PO DAILY [facility] Last Admin: 09/28/21 09:27 Dose: 80 mg Documented by: FLORINA Zolpidem Tartrate (Zolpidem Tartrate 5 Mg Tablet) 5 mg PO BEDTIME PRN PRN Reason: Insomnia Last Admin: 09/26/21 23:57 Dose: 5 mg Documented by: Labs CBC & Chem 7: 0222/22 05:52 09/28/21 05:52 Labs: Laboratory Results - last 24 hr 09/27/21 09/27/21 09/27/21 12:41 16:56 20:28 MCV MCH MCHC RDW Plt Count MPV Absolute Nucleated RBC Nucleated RBC % (auto) Anion Gap Estim Creat Clear Calc Estimated GFR POC Glucose 133 H 170 H 157 H Random Glucose Calcium 09/28/21 09/28/21 09/28/21 05:52 05:52 08:27 MCV 81.0 MCH 25.1 L MCHC 31.0 RDW 14.7 Plt Count 290 MPV 11.0 Absolute Nucleated RBC 0.000 Nucleated RBC % (auto) 0.0 Anion Gap 12 Estim Creat Clear Calc 58.5 Estimated GFR > 60 POC Glucose 90 Random Glucose 85 Calcium 9.3 Assessment and Plan (1) Rectal bleed: Status: Acute Plan 80-year-old man admitted with acute GI bleed and question rectal mass, with hx of rectal mass since 2003 Acute GI bleed, rectal mass Stable H&H, not requiring blood transfusion continue to hold aspirin and Plavix PPI Colonoscopy today Diabetes mellitus Sliding scale, long-acting insulin, hold metformin COPD.? No exacerbation Albuterol as needed Coronary artery disease.? Hold aspirin and Plavix due to GI bleed Monitor H&H closely and transfuse as needed Hypertension.? Stable blood pressure Hold antihypertensive for now to avoid hypotension with GI bleeding Restart home medication if blood pressure allows DVT prophylaxis with mechanical compression boots Full code Attending Dr. Rosas Quality Stroke Does the patient have a stroke diagnosis?: No VTE Prior VTE?: No VTE Risk Level:: Medical - moderate - high VTE Device Contraindication: N/A - Device Ordered VTE Drug Contraindication: Treatment Not Indicated
[2021-09-28] MEDS: Lactated Ringers 500 ML 20 ML IVCONT (11:39)
--- NOTE | 2021-09-28 12:12 | P.BOP_ITS ---
Brief Operative Note Date of Service: 09/28/21 Pre-op diagnosis: rectal bleeding, rectal mass Post-op diagnosis: same Procedure: colonoscopy Surgeon: Skyler Marie Anesthesia: MAC Was an Certified Dialysis Technician used for this Procedure?: No Estimated blood loss (mL): 5 Pathology: other (bxs rectal mass) Condition: stable Disposition: PACU
--- NOTE | 2021-09-28 12:14 | PM.EVENT ---
Event Note Date of Service: 09/28/21 Event Note: Colonoscopy dictated anal stenosis with ulcerated hard rectal mass extending from about 5cm to dentate line, biopsied. diverticulosis. rec advance diet f/u bx results, will need surgery +/- onc f/u pending bx results.
[2021-09-28 13:08] LABS: Glucose, Whole Blood 114 mg/dL (60-115)
--- NOTE | 2021-09-28 13:25 | OP_ITS ---
SURGEON: Skyler Marie MD INDICATIONS: Rectal bleeding and CT scan consisted showing rectal mass. PREOPERATIVE DIAGNOSIS: POSTOPERATIVE DIAGNOSIS: PROCEDURE PERFORMED: Colonoscopy to the cecum with biopsy. ESTIMATED BLOOD LOSS: COMPLICATIONS: ANESTHESIA: ASSISTANTS: SPECIMENS: MEDICATIONS: Monitored anesthesia care. DESCRIPTION OF PROCEDURE: History and physical were performed. The risks and benefits of the procedure were explained to the patient. Informed consent was obtained. The patient was placed in the left lateral decubitus position. A digital rectal exam was performed and showed stenosis of the anal sphincter with a hard mass palpable on examination. The Olympus video colonoscope was introduced into the rectum and advanced to the cecum without difficulty. The cecum was identified by transillumination, palpation, and identification of ileocecal valve. Examination was performed. The scope was removed. He tolerated the procedure well and was transferred to recovery area in stable condition. FINDINGS: The terminal ileum was not examined. The visualized colonic mucosa was normal. There was [id number] sigmoid diverticulosis. There was some liquid stool coating the mucosa, limiting sensitivity examination for detection of small polyps. This was washed and suctioned. No polyps were identified. In the rectum was an ulcerated hard mass occupying approximately 40% of the rectum and the rectum appeared narrowed from the patient's previous surgery. Multiple biopsies were obtained from the mass. Retroflexed examination was not possible. The mass appeared to extend from approximately 5 cm down to the dentate line. IMPRESSION: Ulcerated rectal mass, biopsied. RECOMMENDATION: 1. Follow up the biopsy results. 2. Surgical consultation. MD FRANCESCO Agee/MODL / [id number]
--- NOTE | 2021-09-28 13:59 | HO.POSTANES ---
Post Anesthesia Evaluation Post Anesthesia Evaluation Vital Signs: Vital Signs Temp Pulse Resp BP Pulse Ox 09/28/21 13:11 97.7 F 65 15 114/66 98 09/28/21 12:45 97.1 F 81 18 102/51 L 94 09/28/21 12:30 90 18 98/48 L 96 09/28/21 12:15 97.3 F 93 14 78/49 L 99 09/28/21 11:29 96.9 F 83 16 126/69 98 09/28/21 08:32 70 12 125/74 96 09/28/21 04:00 97.4 F 95 16 118/66 97 Anesthesia: Monitored Mental Status: Awake Pain Control: Satisfactory Nausea/Vomiting: None Hydration: Adequate Anesthesia-Related Issues: No Anes. Related Issues
--- NOTE | 2021-09-28 14:36 | PC.NURSE ---
1300: pt back from colonoscopy at this time
[2021-09-28 18:24] LABS: Glucose, Whole Blood 239 mg/dL (60-115)
[2021-09-28] MEDS: Insulin Lispro 100 UNIT/ML 3 ML VIAL SUBCUT ×2 (18:40→20:39)
[2021-09-28 20:35] LABS: Glucose, Whole Blood 226 mg/dL (60-115)
[2021-09-28] MEDS: Pravastatin Sodium 10 MG TABLET PO (20:40)
[2021-09-29] VITALS (10 sets, daily range): BP systolic 104–148; BP diastolic 57–77; PULSE 55–95; RESP 16–19; TEMP 36.1–37.2; O2SAT 94–98
[2021-09-29 06:23] LABS: Glucose, Whole Blood 144 mg/dL (60-115)
--- NOTE | 2021-09-29 07:48 | HO.POSTANES ---
Post Anesthesia Evaluation Post Anesthesia Evaluation Vital Signs: Vital Signs Temp Pulse Resp BP Pulse Ox 09/29/21 06:58 98.5 F 75 16 119/69 94 09/29/21 00:27 98.6 F 88 16 119/69 09/29/21 00:00 16 Anesthesia: Monitored Mental Status: Sedated Pain Control: Satisfactory Nausea/Vomiting: None Hydration: Adequate Anesthesia-Related Issues: No Anes. Related Issues
[2021-09-29] MEDS: Fluticasone/Vilanterol 200/25 BLST.W.DEV 1 PUFF INHALE (08:22)
--- NOTE | 2021-09-29 09:08 | PM.CNGS ---
History of Present Illness Consult details Consult date: 09/29/21 Narrative: 80-year-old male referred for a rectal mass. He was admitted because of periodic passage of bright blood per rectum and therefore underwent colonoscopy yesterday with Dr. Marie. He was noted to have a bulky, low rectal mass which was biopsied. 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 He has had frequent excision of this since 2005. He has undergone multiple colonoscopies since then which he states was being every 3 years to remove this polyp which seemed to had recurred frequently. He says he was being followed by Dr. Morales. He says that his last colonoscopy was probably about 5 years ago. He said he was supposed to go back to him about 2-3 years ago but he had been unable to get an appointment. He also has multiple medical problems including cardiomyopathy, coronary disease, and has significant exertional dyspnea. Review of Systems Constitutional: Constitutional: Denies chills and Denies fever(s) Cardiovascular: Cardiovascular: Denies chest pain, Reports dyspnea and Reports dyspnea on exertion Respiratory: Respiratory: Denies cough, Reports dyspnea and Reports dyspnea on exertion Gastrointestinal: Gastrointestinal: Reports hematochezia and Denies change in bowel habits Genitourinary: Genitourinary: Denies hematuria and Denies difficulty urinating Musculoskeletal: Musculoskeletal: Denies back pain and Denies limited range of motion Neurologic: Denies focal weakness and Denies convulsions Psychiatric: Psychiatric: Denies depression and Denies mood swings PMFSH Past Medical History Medical History COPD (chronic obstructive pulmonary disease) Functional capacity: independent ambulation Family History Family History Family/Other Medical history reviewed with no changes Surgical History Surgical History Hx of colonoscopy Social History Social History Household Members: Spouse Housing: Apartment Do you presently have visiting nurse or other home services: Yes (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) Alcohol intake: current Alcohol intake frequency: does not drink Patient Tobacco Use Status: Former Tobacco user Quit Date: 40 years ago Tobacco use type: Cigarette Years Smoked: 20 years e-Cigarette/Vaping Use: Former Use service: No Current occupational status: retired Meds Allergies Allergy/AdvReac Type Severity Reaction Status Date / Time No Known Allergies Allergy Verified 03/25/21 10:57 Active Medications: Current Medications Acetaminophen (Acetaminophen 325 Mg Tablet) 650 mg PO Q6H PRN PRN Reason: Pain, Mild (Pain Scale 1-3) Albuterol Sulfate (Albuterol Sulfate 90 Mcg 8 Gm Inhaler) 2 puff INHALE Q6H PRN PRN Reason: shortness of breath or wheezing Dextrose (Dextrose 50 % 25 Gm/50 Ml Syringe) 25 gm IVPUSH Q15M PRN; Protocol PRN Reason: per Hypoglycemia Standing Ord. Famotidine (Famotidine 20 Mg Tablet) 20 mg PO BID PRN PRN Reason: Acid Reflux Fluticasone/Vilanterol (Fluticasone/Vilanterol 200/25 Blst.W.Dev) 1 puff INHALE RDAILY [facility] Last Admin: 09/29/21 08:22 Dose: 1 puff Documented by: Glucose (Glucose Gel 15 Gm Gel..Gram.) 15 gm PO Q15M PRN; Protocol PRN Reason: per Hypoglycemia Standing Ord. Hydrochlorothiazide (Hydrochlorothiazide 12.5 Mg Tablet) 12.5 mg PO DAILY [facility] [place] Last Admin: 09/28/21 09:27 Dose: 12.5 mg Documented by: Lactated Ringer's (Lr) 500 mls @ 20 mls/hr IVCONT .Q24H [facility] [place] Last Admin: 09/28/21 11:39 Dose: 20 mls/hr Documented by: Insulin Glargine (Insulin Glargine,Hum.Rec.Anlog 100 Unit/Ml 10 Ml Vial) 20 unit SUBCUT DAILY [facility] [place] Last Admin: 09/28/21 09:23 Dose: Not Given Documented by: Insulin Human Lispro (Insulin Lispro 100 Unit/Ml 3 Ml Vial) 0 unit SUBCUT QIDACHS [facility] [place]; Protocol Last Admin: 09/29/21 08:36 Dose: Not Given Documented by: Loperamide HCl (Loperamide Hcl 2 Mg Capsule) 2 mg PO BID PRN PRN Reason: Diarrhea Multivitamins/Vitamin C (Multivitamin Tablet) 1 tab PO DAILY [facility] [place] Last Admin: 09/28/21 09:27 Dose: 1 tab Documented by: Omeprazole (Omeprazole 20 Mg Capsule.) 20 mg PO DAILY@0630 [facility] [place] Last Admin: 09/28/21 05:14 Dose: Not Given Documented by: Ondansetron HCl (Ondansetron Hcl 4 Mg/2 Ml Vial) 4 mg IVPUSH Q8H PRN PRN Reason: Nausea and Vomiting Pharmacy Consult (Consult Rx Perform Med Rec) 1 each MISCELLANE ONCE PRN PRN Reason: Consult order Pravastatin Sodium (Pravastatin Sodium 10 Mg Tablet) 10 mg PO BEDTIME [facility] [place] Last Admin: 09/28/21 20:40 Dose: 10 mg Documented by: Sertraline HCl (Sertraline Hcl 50 Mg Tablet) 50 mg PO DAILY [facility] [place] Last Admin: 09/28/21 09:27 Dose: 50 mg Documented by: Sodium Chloride (0.9 % Sodium Chloride Flush 3 Ml Syringe) 3 ml IVFLUSH QSHIFT [facility] [place] Last Admin: 09/29/21 00:09 Dose: Not Given Documented by: Tiotropium [place] (Tiotropium [place] 18 Mcg Cap.W.Dev) 1 puff INHALE RDAILY [facility] [place] Last Admin: 09/29/21 08:22 Dose: 1 puff Documented by: Valsartan (Valsartan 80 Mg Tablet) 80 mg PO DAILY [facility] [place] Last Admin: 09/28/21 09:27 Dose: 80 mg Documented by: Zolpidem Tartrate (Zolpidem Tartrate 5 Mg Tablet) 5 mg PO BEDTIME PRN PRN Reason: Insomnia Last Admin: 09/26/21 23:57 Dose: 5 mg Documented by: Home Medications Medication Instructions Recorded Confirmed Last Taken Type aspirin 81 mg tablet,delayed 81 mg PO DAILY 07/06/20 09/26/21 09/25/21 History release blood pressure test kit-large #1 ea 07/06/20 02/15/21 Unknown History blood sugar diagnostic #10 ea 07/06/20 02/15/21 Unknown History famotidine 20 mg tablet 20 mg PO BID PRN 07/06/20 09/26/21 Unknown History insulin glargine 100 unit/mL (3 20 unit SUBCUT DAILY 07/06/20 09/26/21 09/25/21 History mL) subcutaneous pen loperamide 2 mg capsule 2 mg PO BID PRN 07/06/20 09/26/21 Unknown History metformin 500 mg tablet 1,000 mg PO BID 07/06/20 09/26/21 09/25/21 History oxycodone-acetaminophen 5 mg-325 1 tab PO BID PRN 07/06/20 09/26/21 Unknown History mg tablet pen needle, diabetic 31 gauge x #50 ea 07/06/20 02/15/21 Unknown History 1/4 sertraline 50 mg tablet 50 mg PO DAILY 07/06/20 09/26/21 09/25/21 History valsartan 80 1 tab PO DAILY 07/06/20 09/26/21 09/25/21 History mg-hydrochlorothiazide 12.5 mg tablet zolpidem 5 mg tablet 5 mg PO BEDTIME PRN 07/06/20 09/26/21 Unknown History dulaglutide 0.75 mg/0.5 mL 0.75 mg SUBCUT WE 02/15/21 09/26/21 09/22/21 History subcutaneous pen injector pantoprazole 40 mg tablet,delayed 40 mg PO DAILY 02/15/21 09/26/21 09/25/21 History release pravastatin 10 mg tablet 10 mg PO BEDTIME 02/15/21 09/26/21 09/25/21 History multivitamin 1 tab PO DAILY 09/26/21 09/26/21 09/25/21 History Physical Exam Vital Signs: Vital Signs: Last Vital Signs Temp 98.5 F 09/29/21 06:58 Pulse 89 09/29/21 08:26 Resp 18 09/29/21 08:26 BP 119/69 09/29/21 06:58 Pulse Ox 94 09/29/21 06:58 BMI result Body Mass Index 29.0 Const: General: comfortable and no acute distress Orientation/consciousness: patient oriented x3 Neck: Neck: Yes no lymphadenopathy Resp: Auscultation: clear to auscultation bilaterally Cardio: Rhythm: regular rhythm GI: Palpation (GI): Soft to palpation, nontender and no guarding Neuro: General: patient oriented x3 Results Labs Result diagrams: 10/04/21 03:59 10/04/21 03:59 Labs: Abnormal lab results 09/28/21 09/28/21 09/29/21 Range/Units 18:16 20:30 06:18 POC Glucose 239 H 226 H 144 H (60-115) mg/dL Urine 09/27/21 Range/Units 01:09 Urine Color YELLOW Urine Appearance CLEAR Urine pH 7.0 (5.0-8.0) Ur Specific [place] 1.010 (1.005-1.025) Urine Protein TRACE (NEG-TRACE) MG/DL Urine Glucose (UA) NEG (NEG) MG/DL All other labs normal. Assessment and Plan (1) Rectal mass: Status: Acute He has a low rectal mass on colonoscopy. His mass was noted to occupy a at least 40% of the circumference of the rectum starting from about 5 cm from the anal verge all the way to the dentate line. Appearance is suspicious for an adenocarcinoma. We will await for the path report. In the meantime, we can work him up with an MRI to see extent of local invasion. He does appear based on the colonoscopy findings that these mass is locally advanced. He likely will need neoadjuvant chemotherapy and radiation. Procedures Date of Service Date of Service: 10/27/21
[2021-09-29] MEDS: hydroCHLOROthiazide 12.5 MG TABLET PO (09:13)
[2021-09-29] MEDS: Multivitamin TABLET 1 TAB PO (09:13)
[2021-09-29] MEDS: Omeprazole 20 MG CAPSULE.DR PO (09:13)
[2021-09-29] MEDS: Valsartan 80 MG TABLET PO (09:14)
[2021-09-29] MEDS: Sertraline HCL 50 MG TABLET PO (09:14)
[2021-09-29] MEDS: Insulin Glargine,Hum.rec.anlog 100 UNIT/ML 10 ML VIAL 20 UNIT SUBCUT (09:14)
[2021-09-29] MEDS: 0.9 % Sodium Chloride Flush 3 ML SYRINGE IVFLUSH ×3 (09:15→21:18)
--- NOTE | 2021-09-29 10:01 | P.PNIM_ITS ---
Subjective Subjective Date of Service: 09/29/21 Review of Systems Follow up GI Bleed, rectal mass Feels fine, no further bleeding Physical Exam Vital Signs: Vital Signs: Last Vital Signs Temp 98 F 09/29/21 09:10 Pulse 74 09/29/21 09:10 Resp 19 09/29/21 09:10 BP 148/72 H 09/29/21 09:10 Pulse Ox 95 09/29/21 09:10 BMI result Body Mass Index 29.0 Appearing in no acute distress lung sounds are clear to auscultation heart regular rate rhythm, clear S1, S2 positive bowel sounds, abdomen is soft, nontender neuro patient is alert x3, no focal deficits Objective Data Active Medications Acetaminophen (Acetaminophen 325 Mg Tablet) 650 mg PO Q6H PRN PRN Reason: Pain, Mild (Pain Scale 1-3) Albuterol Sulfate (Albuterol Sulfate 90 Mcg 8 Gm Inhaler) 2 puff INHALE Q6H PRN PRN Reason: shortness of breath or wheezing Dextrose (Dextrose 50 % 25 Gm/50 Ml Syringe) 25 gm IVPUSH Q15M PRN; Protocol PRN Reason: per Hypoglycemia Standing Ord. Famotidine (Famotidine 20 Mg Tablet) 20 mg PO BID PRN PRN Reason: Acid Reflux Fluticasone/Vilanterol (Fluticasone/Vilanterol 200/25 Blst.W.Dev) 1 puff INHALE RDAILY [facility] Last Admin: 09/29/21 08:22 Dose: 1 puff Documented by: JANNA Glucose (Glucose Gel 15 Gm Gel..Gram.) 15 gm PO Q15M PRN; Protocol PRN Reason: per Hypoglycemia Standing Ord. Hydrochlorothiazide (Hydrochlorothiazide 12.5 Mg Tablet) 12.5 mg PO DAILY [facility] Last Admin: 09/29/21 09:13 Dose: 12.5 mg Documented by: SUMIT Insulin Glargine (Insulin Glargine,Hum.Rec.Anlog 100 Unit/Ml 10 Ml Vial) 20 unit SUBCUT DAILY [facility] Last Admin: 09/29/21 09:14 Dose: 20 unit Documented by: SUMIT Insulin Human Lispro (Insulin Lispro 100 Unit/Ml 3 Ml Vial) 0 unit SUBCUT QIDACHS [facility]; Protocol Last Admin: 09/29/21 08:36 Dose: Not Given Documented by: SUMIT Non-Admin Reason: BS 144 Loperamide HCl (Loperamide Hcl 2 Mg Capsule) 2 mg PO BID PRN PRN Reason: Diarrhea Multivitamins/Vitamin C (Multivitamin Tablet) 1 tab PO DAILY [facility] Last Admin: 09/29/21 09:13 Dose: 1 tab Documented by: SUMIT Omeprazole (Omeprazole 20 Mg Capsule.Dr) 20 mg PO DAILY@0630 [facility] Last Admin: 09/29/21 09:13 Dose: 20 mg Documented by: SUMIT Ondansetron HCl (Ondansetron Hcl 4 Mg/2 Ml Vial) 4 mg IVPUSH Q8H PRN PRN Reason: Nausea and Vomiting Pharmacy Consult (Consult Rx Perform Med Rec) 1 each MISCELLANE ONCE PRN PRN Reason: Consult order Pravastatin Sodium (Pravastatin Sodium 10 Mg Tablet) 10 mg PO BEDTIME [facility] Last Admin: 09/28/21 20:40 Dose: 10 mg Documented by: ALEXANDRA Sertraline HCl (Sertraline Hcl 50 Mg Tablet) 50 mg PO DAILY [facility] Last Admin: 09/29/21 09:14 Dose: 50 mg Documented by: SUMIT Sodium Chloride (0.9 % Sodium Chloride Flush 3 Ml Syringe) 3 ml IVFLUSH QSHIFT [facility] Last Admin: 09/29/21 09:15 Dose: 3 ml Documented by: SUMIT Tiotropium [place] (Tiotropium [place] 18 Mcg Cap.W.Dev) 1 puff INHALE RDAILY [facility] Last Admin: 09/29/21 08:22 Dose: 1 puff Documented by: JANNA Valsartan (Valsartan 80 Mg Tablet) 80 mg PO DAILY [facility] Last Admin: 09/29/21 09:14 Dose: 80 mg Documented by: SUMIT Zolpidem Tartrate (Zolpidem Tartrate 5 Mg Tablet) 5 mg PO BEDTIME PRN PRN Reason: Insomnia Last Admin: 09/26/21 23:57 Dose: 5 mg Documented by: Labs CBC & Chem 7: 09/29/21 09:56 09/29/21 09:56 Labs: Laboratory Results - last 24 hr 09/28/21 09/28/21 09/28/21 13:05 18:16 20:30 POC Glucose 114 239 H 226 H 02/23/22 06:18 POC Glucose 144 H Assessment and Plan (1) Rectal bleed: Status: Acute Plan 80-year-old man admitted with acute GI bleed and question rectal mass, with hx of rectal mass since 2003 Acute GI bleed, rectal mass Stable H&H, not requiring blood transfusion continue to hold aspirin and Plavix PPI Colonoscopy revealed anal stenosis with ulcerated hard rectal mass extending from about 5cm to dentate line Biopsies pending Seen by general surgery rec pelvic MRI Oncology consult Diabetes mellitus Sliding scale, long-acting insulin, hold metformin COPD.? No exacerbation Albuterol as needed Coronary artery disease.? Hold aspirin and Plavix due to GI bleed Monitor H&H closely and transfuse as needed Hypertension.? Stable blood pressure Hold antihypertensive for now to avoid hypotension with GI bleeding Restart home medication if blood pressure allows DVT prophylaxis with mechanical compression boots Full code Attending Dr. Carcamo Quality Stroke Does the patient have a stroke diagnosis?: No VTE Prior VTE?: No VTE Risk Level:: Medical - moderate - high VTE Device Contraindication: N/A - Device Ordered VTE Drug Contraindication: Treatment Not Indicated
[2021-09-29 10:26] LABS: Hematocrit 41.5 % (42.0-52.0); Hemoglobin 12.6 g/dl (14.0-18.0); Mean Corpuscular HGB Conc 30.4 g/dl (31.0-36.0); Mean Corpuscular Volume 82.5 fL (80.0-98.0); Mean Platelet Volume 10.9 fL (9.4-12.4); Platelet Count 270 X10*3/uL (160-400); Red Blood Count 5.03 X10*6/uL (4.60-5.80); Red Cell Distribution Width 14.7 % (11.0-16.0); White Blood Count 7.9 X10*3/uL (4.8-10.8)
[2021-09-29 10:34] LABS: Anion Gap 13 (12-20); Blood Urea Nitrogen 15 mg/dL (9-16); Calcium 9.3 mg/dL (8.4-10.2); Carbon Dioxide 27 mmol/L (22-29); Chloride 101 mmol/L (96-108); Creatinine Clr Calc Pharmacy 46.3; Estimated Glomerular Filt Rate > 60; Glucose Random 336 mg/dL (60-115); Sodium 137 mmol/L (135-145)
--- NOTE | 2021-09-29 11:21 | P.CDIC_ITS ---
CDI Concurrent Query Documentation Clarification: PHYSICIAN'S DOCUMENTATION REQUEST Date of Query: 09/29/21 1121 Patient Name: Gonzalo Rocha Admit Date: 09/26/21 Dear Doctor, A review of the medical record indicates additional documentation may be needed. Please review below and update the documentation accordingly. Clinical Indicators: Risk Factors/Clinical Indicators/Treatments Please clarify the following regarding Diabetes Mellitus (DM): Diabetes Mellitus * Hypoglycemia * Hyperglycemia * No complications of DM * Other complication ? please specify * Unable to determine Use of terms such as suspected, likely, concern for, or probable (associated with a specific diagnosis that is being evaluated, monitored, or treated as if it exists) are acceptable and can be coded in the inpatient setting, when documented at the time of discharge. Thank you, Dina Pearson [insert CDI's credentials] Extension: [4-digit phone extension] Please use your independent medical judgment in providing your response. THIS QUERY IS PART OF THE PERMANENT MEDICAL RECORD
[2021-09-29 11:23] LABS: Glucose, Whole Blood 316 mg/dL (60-115)
--- NOTE | 2021-09-29 11:31 | MHC.CLN ---
NUTRITION CHANGED DIET FROM REGULAR TO DIABETIC 1800 [address]. HAS HX DM AND TAKES DM MEDS.
[2021-09-29] MEDS: Insulin Lispro 100 UNIT/ML 3 ML VIAL SUBCUT ×2 (12:06→16:34)
[2021-09-29 16:35] LABS: Glucose, Whole Blood 162 mg/dL (60-115)
[2021-09-29 20:06] LABS: Glucose, Whole Blood 99 mg/dL (60-115)
[2021-09-29] MEDS: Pravastatin Sodium 10 MG TABLET PO (21:17)
[2021-09-30 04:00] VITALS: BP 97/61; PULSE 91; RESP 15; TEMP 36.8; O2SAT 95
[2021-09-30] MEDS: Omeprazole 20 MG CAPSULE.DR PO (06:43)
[2021-09-30 07:45] LABS: Glucose, Whole Blood 156 mg/dL (60-115)
[2021-09-30 07:55] VITALS: BP 114/58; PULSE 76; RESP 16; TEMP 36.9; O2SAT 95
[2021-09-30] MEDS: Insulin Glargine,Hum.rec.anlog 100 UNIT/ML 10 ML VIAL 20 UNIT SUBCUT (08:07)
[2021-09-30] MEDS: Valsartan 80 MG TABLET PO (08:08)
[2021-09-30] MEDS: hydroCHLOROthiazide 12.5 MG TABLET PO (08:08)
[2021-09-30] MEDS: Multivitamin TABLET 1 TAB PO (08:08)
[2021-09-30] MEDS: 0.9 % Sodium Chloride Flush 3 ML SYRINGE IVFLUSH ×2 (08:08→15:40)
[2021-09-30] MEDS: Sertraline HCL 50 MG TABLET PO (08:08)
[2021-09-30] MEDS: Insulin Lispro 100 UNIT/ML 3 ML VIAL SUBCUT ×2 (08:08→17:05)
[2021-09-30 08:58] LABS: Hematocrit 42.7 % (42.0-52.0); Mean Corpuscular HGB Conc 30.4 g/dl (31.0-36.0); Mean Corpuscular Hemoglobin 25.1 pg (27.0-33.0); Mean Corpuscular Volume 82.6 fL (80.0-98.0); Mean Platelet Volume 10.5 fL (9.4-12.4); Platelet Count 277 X10*3/uL (160-400); Red Blood Count 5.17 X10*6/uL (4.60-5.80); Red Cell Distribution Width 14.7 % (11.0-16.0); White Blood Count 8.7 X10*3/uL (4.8-10.8)
[2021-09-30 09:11] LABS: Anion Gap 13 (12-20); Blood Urea Nitrogen 19 mg/dL (9-16); Calcium 9.3 mg/dL (8.4-10.2); Carbon Dioxide 25 mmol/L (22-29); Chloride 106 mmol/L (96-108); Creatinine Clr Calc Pharmacy 45.9; Estimated Glomerular Filt Rate > 60; Glucose Random 154 mg/dL (60-115); Potassium 4.2 mmol/L (3.3-5.1); Sodium 140 mmol/L (135-145)
[2021-09-30] MEDS: Fluticasone/Vilanterol 200/25 BLST.W.DEV 1 PUFF INHALE (09:36)
[2021-09-30 09:37] VITALS: PULSE 76; RESP 18; O2SAT 95
[2021-09-30 10:25] LABS: Magnesium 1.8 mg/dL (1.6-2.6)
[2021-09-30 11:24] LABS: Glucose, Whole Blood 196 mg/dL (60-115)
--- NOTE | 2021-09-30 13:34 | P.PNIM_ITS ---
Subjective Subjective Date of Service: 09/30/21 <RAYRAY Marquis - Last Filed: 09/30/21 13:50> 10/01/21 <Deann Maldonado MD - Last Filed: 10/01/21 15:58> Interval History: seen and examined this morning reports some stool mixed with blood this morning no abdominal pain, vomiting or no diarrhea <RAYRAY Marquis - Last Filed: 09/30/21 13:50> Review of Systems Review of Systems: Yes all other systems are reviewed and are negative <RAYRAY Marquis - Last Filed: 09/30/21 13:50> Cardiovascular Cardiovascular: Denies chest pain, Denies palpitations and Denies dyspnea <RAYRAY Marquis - Last Filed: 09/30/21 13:50> Respiratory Respiratory: Denies dyspnea <RAYRAY Marquis - Last Filed: 09/30/21 13:50> Gastrointestinal Gastrointestinal: Denies abdominal pain, Reports hematochezia and Denies diarrhea <RAYRAY Marquis - Last Filed: 09/30/21 13:50> Endocrine Endocrine: Denies palpitations <RAYRAY Marquis - Last Filed: 09/30/21 13:50> Physical Exam Vital Signs: Vital Signs: Last Vital Signs Temp 98.4 F 09/30/21 07:55 Pulse 76 09/30/21 09:37 Resp 18 09/30/21 09:37 BP 114/58 L 09/30/21 07:55 Pulse Ox 95 09/30/21 07:55 BMI result Body Mass Index 29.0 <RAYRAY Marquis - Last Filed: 09/30/21 13:50> Const: General: cooperative, comfortable, no acute distress, alert, awake and Physically active <RAYRAY Marquis - Last Filed: 09/30/21 13:50> Nutritional Appearance: average body habitus <RAYRAY Marquis Last Filed: 09/30/21 13:50> Resp: Effort & Inspection: normal respiratory effort and able to speak in complete sentences <RAYRAY Marquis Last Filed: 09/30/21 13:50> Cardio: Heart sounds: S1 normal heart sound present and S2 normal heart sound present <RAYRAY Marquis - Last Filed: 09/30/21 13:50> GI: Inspection: No distended <RAYRAY Marquis - Last Filed: 09/30/21 13:50> Palpation (GI): Soft to palpation and nontender <RAYRAY Marquis - Last Filed: 09/30/21 13:50> Extrem: Other: moving all 4 extremities spontaneously, no leg edema <RAYRAY Marquis - Last Filed: 09/30/21 13:50> Objective Data Active Medications Acetaminophen (Acetaminophen 325 Mg Tablet) 650 mg PO Q6H PRN PRN Reason: Pain, Mild (Pain Scale 1-3) Albuterol Sulfate (Albuterol Sulfate 90 Mcg 8 Gm Inhaler) 2 puff INHALE Q6H PRN PRN Reason: shortness of breath or wheezing Dextrose (Dextrose 50 % 25 Gm/50 Ml Syringe) 25 gm IVPUSH Q15M PRN; Protocol PRN Reason: per Hypoglycemia Standing Ord. Famotidine (Famotidine 20 Mg Tablet) 20 mg PO BID PRN PRN Reason: Acid Reflux Fluticasone/Vilanterol (Fluticasone/Vilanterol 200/25 Blst.W.Dev) 1 puff INHALE RDAILY [facility] Last Admin: 09/30/21 09:36 Dose: 1 puff Documented by: DOTTIE Glucose (Glucose Gel 15 Gm Gel..Gram.) 15 gm PO Q15M PRN; Protocol PRN Reason: per Hypoglycemia Standing Ord. Hydrochlorothiazide (Hydrochlorothiazide 12.5 Mg Tablet) 12.5 mg PO DAILY [facility] Last Admin: 09/30/21 08:08 Dose: 12.5 mg Documented by: ERNNY Insulin Glargine (Insulin Glargine,Hum.Rec.Anlog 100 Unit/Ml 10 Ml Vial) 20 unit SUBCUT DAILY [facility] Last Admin: 09/30/21 08:07 Dose: 20 unit Documented by: RENNY Insulin Human Lispro (Insulin Lispro 100 Unit/Ml 3 Ml Vial) 0 unit SUBCUT QIDACHS [facility]; Protocol Last Admin: 09/30/21 08:08 Dose: 2 unit Documented by: RENNY Loperamide HCl (Loperamide Hcl 2 Mg Capsule) 2 mg PO BID PRN PRN Reason: Diarrhea Multivitamins/Vitamin C (Multivitamin Tablet) 1 tab PO DAILY [facility] Last Admin: 09/30/21 08:08 Dose: 1 tab Documented by: RENNY Omeprazole (Omeprazole 20 Mg Capsule.Dr) 20 mg PO DAILY@0630 [facility] Last Admin: 09/30/21 06:43 Dose: 20 mg Documented by: RENNY Ondansetron HCl (Ondansetron Hcl 4 Mg/2 Ml Vial) 4 mg IVPUSH Q8H PRN PRN Reason: Nausea and Vomiting Pharmacy Consult (Consult Rx Perform Med Rec) 1 each MISCELLANE ONCE PRN PRN Reason: Consult order Pravastatin Sodium (Pravastatin Sodium 10 Mg Tablet) 10 mg PO BEDTIME [facility] Last Admin: 09/29/21 21:17 Dose: 10 mg Documented by: RENNY Sertraline HCl (Sertraline Hcl 50 Mg Tablet) 50 mg PO DAILY [facility] Last Admin: 09/30/21 08:08 Dose: 50 mg Documented by: RENNY Sodium Chloride (0.9 % Sodium Chloride Flush 3 Ml Syringe) 3 ml IVFLUSH QSHIFT [facility] Last Admin: 09/30/21 08:08 Dose: 3 ml Documented by: RENNY Tiotropium [place] (Tiotropium [place] 18 Mcg Cap.W.Dev) 1 puff INHALE RDAILY [facility] Last Admin: 09/30/21 09:36 Dose: 1 puff Documented by: DOTTIE Valsartan (Valsartan 80 Mg Tablet) 80 mg PO DAILY [facility] Last Admin: 09/30/21 08:08 Dose: 80 mg Documented by: RENNY Zolpidem Tartrate (Zolpidem Tartrate 5 Mg Tablet) 5 mg PO BEDTIME PRN PRN Reason: Insomnia Last Admin: 09/26/21 23:57 Dose: 5 mg Documented by: <RAYRAY Marquis - Last Filed: 09/30/21 13:50> Labs CBC & Chem 7: : 10/01/21 05:22 10/01/21 05:22 <RAYRAY Marquis - Last Filed: 09/30/21 13:50> Labs: Laboratory Results - last 24 hr 09/29/21 09/29/21 09/30/21 16:05 20:01 07:19 MCV MCH MCHC RDW Plt Count MPV Absolute Nucleated RBC Nucleated RBC % (auto) Anion Gap Estim Creat Clear Calc Estimated GFR POC Glucose 162 H 99 156 H Random Glucose Calcium Magnesium 09/30/21 09/30/21 09/30/21 08:45 08:45 11:04 MCV 82.6 MCH 25.1 L MCHC 30.4 L RDW 14.7 Plt Count 277 MPV 10.5 Absolute Nucleated RBC 0.000 Nucleated RBC % (auto) 0.0 Anion Gap 13 Estim Creat Clear Calc 45.9 Estimated GFR > 60 POC Glucose 196 H Random Glucose 154 H D Calcium 9.3 Magnesium 1.8 <RAYRAY Marquis - Last Filed: 09/30/21 13:50> Assessment and Plan (1) Rectal mass: Status: Acute <RAYRAY Marquis - Last Filed: 09/30/21 13:50> (2) Rectal bleed: Status: Acute <RAYRAY Marquis - Last Filed: 09/30/21 13:50> Plan 80-year-old man admitted with acute GI bleed and question rectal mass, with hx of rectal mass since 2003 Acute GI bleed secondary to rectal mass CT scan showing thickening of rectum concerning for neoplasm Seen by GI, underwent Colonoscopy 09/28 revealing anal stenosis with ulcerated hard rectal mass extending from about 5cm to dentate line Biopsies pending Stable H&H, not requiring blood transfusion continue to hold aspirin and Plavix Seen by general surgery rec pelvic MRI, report pending at this time Oncology consult pending Diabetes mellitus Trulicity NF, on hold continue lantus, SSI metformin on hold COPD.? No exacerbation Albuterol as needed Coronary artery disease.? Hold aspirin and Plavix due to GI bleed Continue statin Hypertension.? Stable blood pressure BP initially held for GI bleed, have been resumed continue valsartan, HCTZ Mood continue sertraline COPD continue home inhalers DVT prophylaxis with mechanical compression boots Full code Attending Dr. Maldonado <RAYRAY Marquis - Last Filed: 09/30/21 13:50> Quality Stroke Does the patient have a stroke diagnosis?: No <RAYRAY Marquis - Last Filed: 09/30/21 13:50> VTE Prior VTE?: No <RAYRAY Marquis - Last Filed: 09/30/21 13:50> VTE Risk Level:: Medical - moderate - high <RAYRAY Marquis - Last Filed: 09/30/21 13:50> VTE Device Contraindication: N/A - Device Ordered <RAYRAY Marquis - Last Filed: 09/30/21 13:50> VTE Drug Contraindication: Treatment Not Indicated <RAYRAY Marquis - Last Filed: 09/30/21 13:50>
[2021-09-30] MEDS: Magnesium Sulfate/D5W 1 GM/100 ML PIGGYBACK IV (14:10)
--- NOTE | 2021-09-30 14:47 | MHC.CM.PN ---
NO PLAN FOR DISCHARGE TODAY. CASE MANAGEMENT FOLLOWING PATIENT'S RETURN HOME WITH HIS AND RESUMPTION OF HIS NATURAL HISTORY COLLECTIONS [employer].
[2021-09-30 15:38] VITALS: BP 129/70; PULSE 77; RESP 17; TEMP 36.8; O2SAT 96
[2021-09-30 15:53] LABS: Glucose, Whole Blood 214 mg/dL (60-115)
[2021-09-30 19:32] VITALS: BP 137/78; PULSE 55; RESP 17; TEMP 36.7; O2SAT 98
[2021-09-30 19:52] LABS: Glucose, Whole Blood 126 mg/dL (60-115)
[2021-09-30] MEDS: Pravastatin Sodium 10 MG TABLET PO (21:04)
[2021-09-30 23:48] VITALS: BP 162/72; PULSE 77; RESP 16; TEMP 36.8; O2SAT 97
[2021-10-01] VITALS (7 sets, daily range): BP systolic 108–126; BP diastolic 58–72; PULSE 60–93; RESP 15–18; TEMP 36–37.2; O2SAT 94–97
[2021-10-01] MEDS: 0.9 % Sodium Chloride Flush 3 ML SYRINGE IVFLUSH ×3 (00:58→16:24)
[2021-10-01] MEDS: Omeprazole 20 MG CAPSULE.DR PO (05:22)
[2021-10-01 05:50] LABS: Hematocrit 39.5 % (42.0-52.0); Hemoglobin 12.1 g/dl (14.0-18.0); Mean Corpuscular HGB Conc 30.6 g/dl (31.0-36.0); Mean Corpuscular Hemoglobin 25.4 pg (27.0-33.0); Mean Platelet Volume 10.6 fL (9.4-12.4); Platelet Count 252 X10*3/uL (160-400); Red Blood Count 4.76 X10*6/uL (4.60-5.80); Red Cell Distribution Width 14.7 % (11.0-16.0); White Blood Count 9.3 X10*3/uL (4.8-10.8)
[2021-10-01 06:13] LABS: Anion Gap 10 (12-20); Blood Urea Nitrogen 20 mg/dL (9-16); Carbon Dioxide 28 mmol/L (22-29); Chloride 106 mmol/L (96-108); Creatinine Clr Calc Pharmacy 47.9; Estimated Glomerular Filt Rate > 60; Glucose Random 146 mg/dL (60-115); Potassium 4.1 mmol/L (3.3-5.1); Sodium 140 mmol/L (135-145)
--- NOTE | 2021-10-01 06:56 | PM.EVENT ---
Rectal Mass- Chart reviewed. Presence of ulcerated friable mass is suspicious for malignancy, biopsy of this mass performed 09/28 shows benign pathology. He might need deeper, core biopsy. No oncology recommendations can be made unless proven malignancy.
[2021-10-01 07:34] LABS: Glucose, Whole Blood 123 mg/dL (60-115)
[2021-10-01] MEDS: Fluticasone/Vilanterol 200/25 BLST.W.DEV 1 PUFF INHALE (08:00)
[2021-10-01] MEDS: Multivitamin TABLET 1 TAB PO (08:44)
[2021-10-01] MEDS: hydroCHLOROthiazide 12.5 MG TABLET PO (08:45)
[2021-10-01] MEDS: Sertraline HCL 50 MG TABLET PO (08:45)
[2021-10-01] MEDS: Valsartan 80 MG TABLET PO (08:45)
[2021-10-01] MEDS: Insulin Glargine,Hum.rec.anlog 100 UNIT/ML 10 ML VIAL 20 UNIT SUBCUT (08:46)
[2021-10-01 11:27] LABS: Glucose, Whole Blood 224 mg/dL (60-115)
--- NOTE | 2021-10-01 11:50 | P.CNHO_ITS ---
Subjective - Subjective Chief complaint: Rectal bleeding Patient: new to practice Consult date: 10/01/21 Requesting Physician: Sheila Rivera Primary Care Provider: Marilu Tabares HPI - Consult Narrative Reason for consult: probable rectal cancer Narrative: Gonzalo Rocha is a 80 year old male who presented to [facility] [place] with rectal bleeding and found to have rectal mass worrisome for malignancy. He has been aware of rectal mass for many years, he was followed by Dr. Morales for several years, he had undergone multiple transanal excisions and was told that it was never malignant. For the last 3-4 years he has not had a follow-up for the rectal mass. In the recent weeks he developed mild hematochezia which brought him to the emergency department. He denies abdominal pain, nausea or emesis. No loss of appetite or weight loss. He has had imaging studies as well as colonoscopy. Imaging consistent with rectal carcinoma. Biopsy of rectal mass did not reveal malignancy. Review of Systems - Constitutional Reports as per HPI, Reports no additional constitutional complaints - Cardiovascular Reports no additional cardiovascular complaints - Respiratory Reports no additional respiratory complaints - Neurologic Denies focal weakness, Denies convulsions [facility] Medical History: Medical History (Last Reviewed 09/28/21 @ 11:27 by Traci Stovall MD) COPD (chronic obstructive pulmonary disease) Functional capacity: independent ambulation Family History: Family History (Last Reviewed 09/28/21 @ 11:30 by Traci Stovall MD) Family/Other Medical history reviewed with no changes Surgical History: Surgical History (Last Reviewed 09/28/21 @ 11:30 by Traci Stovall MD) Hx of colonoscopy Social History: Social History (Last Reviewed 09/28/21 @ 11:30 by Traci Stovall MD) Living Situation History: Household Members: Spouse Housing: Apartment Do you presently have visiting nurse or other home services: Yes Do you presently have visiting nurse or other home services 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 Tobacco History: Patient Tobacco Use Status: Former Tobacco user Tobacco use type: Cigarette Years Smoked: 20 years Smoke Quit Date: 40 years ago e-Cigarette/Vaping Use: Former Use Occupation Assessmet: service: No Current occupational status: retired Home Medications and Allergies Current Medications: Current Medications Acetaminophen (Acetaminophen 325 Mg Tablet) 650 mg PO Q6H PRN PRN Reason: Pain, Mild (Pain Scale 1-3) Albuterol Sulfate (Albuterol Sulfate 90 Mcg 8 Gm Inhaler) 2 puff INHALE Q6H PRN PRN Reason: shortness of breath or wheezing Dextrose (Dextrose 50 % 25 Gm/50 Ml Syringe) 25 gm IVPUSH Q15M PRN; Protocol PRN Reason: per Hypoglycemia Standing Ord. Famotidine (Famotidine 20 Mg Tablet) 20 mg PO BID PRN PRN Reason: Acid Reflux Fluticasone/Vilanterol (Fluticasone/Vilanterol 200/25 Blst.W.Dev) 1 puff INHALE RDAILY [facility] Last Admin: 10/01/21 08:00 Dose: 1 puff Documented by: Glucose (Glucose Gel 15 Gm Gel..Gram.) 15 gm PO Q15M PRN; Protocol PRN Reason: per Hypoglycemia Standing Ord. Hydrochlorothiazide (Hydrochlorothiazide 12.5 Mg Tablet) 12.5 mg PO DAILY [facility] Last Admin: 10/01/21 08:45 Dose: 12.5 mg Documented by: Insulin Glargine (Insulin Glargine,Hum.Rec.Anlog 100 Unit/Ml 10 Ml Vial) 20 unit SUBCUT DAILY [facility] Last Admin: 10/01/21 08:46 Dose: 20 unit Documented by: Insulin Human Lispro (Insulin Lispro 100 Unit/Ml 3 Ml Vial) 0 unit SUBCUT QIDACHS [facility]; Protocol Last Admin: 10/01/21 08:11 Dose: Not Given Documented by: Loperamide HCl (Loperamide Hcl 2 Mg Capsule) 2 mg PO BID PRN PRN Reason: Diarrhea Multivitamins/Vitamin C (Multivitamin Tablet) 1 tab PO DAILY [facility] Last Admin: 10/01/21 08:44 Dose: 1 tab Documented by: Omeprazole (Omeprazole 20 Mg Capsule.) 20 mg PO DAILY@0630 [facility] Last Admin: 10/01/21 05:22 Dose: 20 mg Documented by: Ondansetron HCl (Ondansetron Hcl 4 Mg/2 Ml Vial) 4 mg IVPUSH Q8H PRN PRN Reason: Nausea and Vomiting Pharmacy Consult (Consult Rx Perform Med Rec) 1 each MISCELLANE ONCE PRN PRN Reason: Consult order Pravastatin Sodium (Pravastatin Sodium 10 Mg Tablet) 10 mg PO BEDTIME [facility] Last Admin: 09/30/21 21:04 Dose: 10 mg Documented by: Sertraline HCl (Sertraline Hcl 50 Mg Tablet) 50 mg PO DAILY [facility] Last Admin: 10/01/21 08:45 Dose: 50 mg Documented by: Sodium Chloride (0.9 % Sodium Chloride Flush 3 Ml Syringe) 3 ml IVFLUSH QSHIFT [facility] Last Admin: 10/01/21 08:47 Dose: 3 ml Documented by: Tiotropium [place] (Tiotropium [place] 18 Mcg Cap.W.Dev) 1 puff INHALE RDAILY [facility] Last Admin: 10/01/21 08:00 Dose: 1 puff Documented by: Valsartan (Valsartan 80 Mg Tablet) 80 mg PO DAILY [facility] Last Admin: 10/01/21 08:45 Dose: 80 mg Documented by: Zolpidem Tartrate (Zolpidem Tartrate 5 Mg Tablet) 5 mg PO BEDTIME PRN PRN Reason: Insomnia Last Admin: 09/26/21 23:57 Dose: 5 mg Documented by: Home Medications Medication Instructions Recorded Confirmed Type aspirin 81 mg tablet,delayed 81 mg PO DAILY 07/06/20 09/26/21 History release blood pressure test kit-large #1 ea 07/06/20 02/15/21 History blood sugar diagnostic #10 ea 07/06/20 02/15/21 History famotidine 20 mg tablet 20 mg PO BID PRN 07/06/20 09/26/21 History insulin glargine 100 unit/mL (3 20 unit SUBCUT DAILY 07/06/20 09/26/21 History mL) subcutaneous pen loperamide 2 mg capsule 2 mg PO BID PRN 07/06/20 09/26/21 History metformin 500 mg tablet 1,000 mg PO BID 07/06/20 09/26/21 History oxycodone-acetaminophen 5 mg-325 1 tab PO BID PRN 07/06/20 09/26/21 History mg tablet pen needle, diabetic 31 gauge x #50 ea 07/06/20 02/15/21 History 1/4 sertraline 50 mg tablet 50 mg PO DAILY 07/06/20 09/26/21 History valsartan 80 1 tab PO DAILY 07/06/20 09/26/21 History mg-hydrochlorothiazide 12.5 mg tablet zolpidem 5 mg tablet 5 mg PO BEDTIME PRN 07/06/20 09/26/21 History dulaglutide 0.75 mg/0.5 mL 0.75 mg SUBCUT WE 02/15/21 09/26/21 History subcutaneous pen injector pantoprazole 40 mg tablet,delayed 40 mg PO DAILY 02/15/21 09/26/21 History release pravastatin 10 mg tablet 10 mg PO BEDTIME 02/15/21 09/26/21 History multivitamin 1 tab PO DAILY 09/26/21 09/26/21 History Allergies Allergy/AdvReac Type Severity Reaction Status Date / Time No Known Allergies Allergy Verified 03/25/21 10:57 Physical Exam Vital signs: Vital Signs Temp 98.7 F 10/01/21 07:48 Pulse 60 10/01/21 08:02 Resp 18 10/01/21 08:02 BP 123/65 10/01/21 07:48 Pulse Ox 97 10/01/21 07:48 Intake & Output 09/30/21 10/01/21 10/01/21 18:59 06:59 18:59 Intake Total 580 / 580 Output Total 3 / 3 Balance 577 / 577 Urine Output (Average ml/kg/hr) 0.00 0.00 Intake: Intake, Oral Amount 480 / 480 Intake, IV Amount 100 / 100 Magnesium Sulfate/D5W 1 gm In 100 / 100 100 ml @ 100 mls/hr IV ONCE ONE Rx#:[id number] Output: Output, Urine Amount 3 / 3 Other: Meal Refused No NPO No Breakfast % Eaten 100% Lunch % Eaten 50% Number of Unmeasured Voids 3 Number of Bowel Movements 1 Urine Bathroom Bathroom Urine Color Yellow Last Bowel Movement 09/30/21 Stool Bathroom Stool Amount Scant Stool Color Mucousy Stool Consistency Liquid Weight 74.389 kg - Constitutional Present: no acute distress, average body habitus - Routine HEENT Exam Head: Present: normal inspection Eye: Present: normal appearance, PERRL - Routine Neck Exam Absent: lymphadenopathy - Routine Respiratory Exam Present: CTAB. Absent: accessory muscle use - Routine Cardiovascular Exam Cardiovascular: Present: S1, S2 - Routine Abdominal Exam Present: soft - Routine Extremities Exam Present: normal inspection - Routine Skin Exam Present: intact - Routine Neurological Exam Present: alert, oriented X3 Hem/Onc Consult Result - Labs CBC & Chem 7: 10/01/21 05:22 10/01/21 05:22 Labs: Short CBC 10/01/21 Range/Units 05:22 WBC 9.3 (4.8-10.8) X10*3/uL Hgb 12.1 L (14.0-18.0) g/dl Hct 39.5 L (42.0-52.0) % Plt Count 252 (160-400) X10*3/uL BMP 10/01/21 05:22 Sodium 140 Potassium 4.1 Chloride 106 Carbon Dioxide 28 BUN 20 H Creatinine 1.11 Calcium 9.0 Assessment and Plan Patient Active problem list reviewed?: Yes (1) Rectal mass Status: Acute Assessment and plan: 1. This is a pleasant 80-year-old male presenting with rectal mass worrisome for malignancy. MRI pelvis performed 09/30/2021 shows tumor located at the anal v erge extending above peritoneal reflection, involves the internal anal sphincter, extramural invasion present, tumor extending into perirectal fat. Enlarged mesorectal and pelvic lymph nodes concerning for regional metastasis, enlarged iliac lymph nodes, clinical stage T4 N2 M1b. CT abdomen/pelvis showed reticulonodular densities involving anterior peritoneal cavity concerning for carcinomatosis. CEA level elevated at 365.70 NG/mL. Above findings concerning for metastatic rectal carcinoma. I have discussed biopsy of anterior omental nodularity for diagnosis and treatment planning. He is not a candidate for definitive surgery. Palliative chemotherapy with or without radiation can be offered. I will follow-up with the patient upon discharge. I have discussed all of the above with the patient and he is agreeable with above recommendations. I thank you for this consultation. - Time Spent With Patient Time Spent with Patient (in minutes): 25
[2021-10-01 12:04] LABS: Lactate Dehydrogenase 158 U/L (118-273)
--- NOTE | 2021-10-01 12:52 | P.PNIM_ITS ---
Subjective Subjective Date of Service: 10/01/21 Interval History: seen and examined this morning feeling well, no abdominal pain, no nausea or vomiting having BM with small amt of blood mixed in Review of Systems Review of Systems: Yes all other systems are reviewed and are negative Constitutional Constitutional: Denies chills and Denies fever(s) Cardiovascular Cardiovascular: Denies chest pain Gastrointestinal Gastrointestinal: Denies abdominal pain, Denies nausea and Denies vomiting Physical Exam Vital Signs: Vital Signs: Last Vital Signs Temp 96.8 F 10/01/21 11:53 Pulse 93 10/01/21 11:53 Resp 18 10/01/21 11:53 BP 119/72 10/01/21 11:53 Pulse Ox 94 10/01/21 11:53 BMI result Body Mass Index 29.0 Const: General: cooperative, comfortable, no acute distress, alert and awake Nutritional Appearance: average body habitus Resp: Effort & Inspection: normal respiratory effort and able to speak in complete sentences Cardio: Heart sounds: S1 normal heart sound present and S2 normal heart sound present GI: Inspection: No distended Palpation (GI): Soft to palpation and nonten lay Extrem: Other: moving all 4 extremities spontaneously, no leg edema Objective Data Active Medications Acetaminophen (Acetaminophen 325 Mg Tablet) 650 mg PO Q6H PRN PRN Reason: Pain, Mild (Pain Scale 1-3) Albuterol Sulfate (Albuterol Sulfate 90 Mcg 8 Gm Inhaler) 2 puff INHALE Q6H PRN PRN Reason: shortness of breath or wheezing Dextrose (Dextrose 50 % 25 Gm/50 Ml Syringe) 25 gm IVPUSH Q15M PRN; Protocol PRN Reason: per Hypoglycemia Standing Ord. Famotidine (Famotidine 20 Mg Tablet) 20 mg PO BID PRN PRN Reason: Acid Reflux Fluticasone/Vilanterol (Fluticasone/Vilanterol 200/25 Blst.W.Dev) 1 puff INHALE RDAILY [facility] Last Admin: 10/01/21 08:00 Dose: 1 puff Documented by: DOTTIE Glucose (Glucose Gel 15 Gm Gel..Gram.) 15 gm PO Q15M PRN; Protocol PRN Reason: per Hypoglycemia Standing Ord. Hydrochlorothiazide (Hydrochlorothiazide 12.5 Mg Tablet) 12.5 mg PO DAILY [facility] Last Admin: 10/01/21 08:45 Dose: 12.5 mg Documented by: BJORN Insulin Glargine (Insulin Glargine,Hum.Rec.Anlog 100 Unit/Ml 10 Ml Vial) 20 unit SUBCUT DAILY [facility] Last Admin: 10/01/21 08:46 Dose: 20 unit Documented by: BJORN Insulin Human Lispro (Insulin Lispro 100 Unit/Ml 3 Ml Vial) 0 unit SUBCUT QIDACHS [facility]; Protocol Last Admin: 10/01/21 11:52 Dose: Not Given Documented by: BJORN Non-Admin Reason: NPO Loperamide HCl (Loperamide Hcl 2 Mg Capsule) 2 mg PO BID PRN PRN Reason: Diarrhea Multivitamins/Vitamin C (Multivitamin Tablet) 1 tab PO DAILY [facility] Last Admin: 10/01/21 08:44 Dose: 1 tab Documented by: BJORN Omeprazole (Omeprazole 20 Mg Capsule.Dr) 20 mg PO DAILY@0630 [facility] Last Admin: 10/01/21 05:22 Dose: 20 mg Documented by: LISA Ondansetron HCl (Ondansetron Hcl 4 Mg/2 Ml Vial) 4 mg IVPUSH Q8H PRN PRN Reason: Nausea and Vomiting Pharmacy Consult (Consult Rx Perform Med Rec) 1 each MISCELLANE ONCE PRN PRN Reason: Consult order Pravastatin Sodium (Pravastatin Sodium 10 Mg Tablet) 10 mg PO BEDTIME [facility] Last Admin: 09/30/21 21:04 Dose: 10 mg Documented by: LISA Sertraline HCl (Sertraline Hcl 50 Mg Tablet) 50 mg PO DAILY [facility] Last Admin: 10/01/21 08:45 Dose: 50 mg Documented by: BJORN Sodium Chloride (0.9 % Sodium Chloride Flush 3 Ml Syringe) 3 ml IVFLUSH QSHIFT [facility] Last Admin: 10/01/21 08:47 Dose: 3 ml Documented by: BJORN Tiotropium [place] (Tiotropium [place] 18 Mcg Cap.W.Dev) 1 puff INHALE RDAILY [facility] Last Admin: 10/01/21 08:00 Dose: 1 puff Documented by: DOTTIE Valsartan (Valsartan 80 Mg Tablet) 80 mg PO DAILY [facility] Last Admin: 10/01/21 08:45 Dose: 80 mg Documented by: HO.YOUB Zolpidem Tartrate (Zolpidem Tartrate 5 Mg Tablet) 5 mg PO BEDTIME PRN PRN Reason: Insomnia Last Admin: 09/26/21 23:57 Dose: 5 mg Documented by: Labs CBC & Chem 7: 10/01/21 05:22 10/01/21 05:22 Labs: Laboratory Results - last 24 hr 09/30/21 09/30/21 10/01/21 15:40 19:34 05:22 MCV 83.0 MCH 25.4 L MCHC 30.6 L RDW 14.7 Plt Count 252 MPV 10.6 Absolute Nucleated RBC 0.000 Nucleated RBC % (auto) 0.0 Anion Gap Estim Creat Clear Calc Estimated GFR POC Glucose 214 H 126 H Random Glucose Calcium Lactate Dehydrogenase 10/01/21 10/01/21 10/01/21 05:22 07:19 11:05 MCV MCH MCHC RDW Plt Count MPV Absolute Nucleated RBC Nucleated RBC % (auto) Anion Gap 10 L Estim Creat Clear Calc 47.9 Estimated GFR > 60 POC Glucose 123 H 224 H Random Glucose 146 H Calcium 9.0 Lactate Dehydrogenase 158 Assessment and Plan (1) Rectal bleed: Status: Acute (2) Rectal mass: Status: Acute Plan 80-year-old man admitted with acute GI bleed and question rectal mass 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 The tumor extends at least to and likely above the peritoneal reflection. Biopsy from colonoscopy - negative for malignancy d/w oncology, plan for CT guided biopsy on Monday Acute GI bleed secondary to rectal mass Stable H&H, not requiring blood transfusion aspirin and Plavix on hold for planned biopsy on Monday Diabetes mellitus Trulicity NF, on hold continue lantus, SSI metformin on hold COPD.? No exacerbation Albuterol as needed Coronary artery disease.? Hold aspirin and Plavix due to GI bleed Continue statin Hypertension.? Stable blood pressure BP initially held for GI bleed, have been resumed continue valsartan, HCTZ Mood continue sertraline COPD continue home inhalers DVT prophylaxis with mechanical compression boots, early ambulation Full code Attending Dr. Maldonado Quality Stroke Does the patient have a stroke diagnosis?: No VTE Prior VTE?: No VTE Risk Level:: Medical - moderate - high VTE Device Contraindication: N/A - Device Ordered VTE Drug Contraindication: Treatment Not Indicated
[2021-10-01] MEDS: Insulin Lispro 100 UNIT/ML 3 ML VIAL SUBCUT ×3 (13:00→20:11)
[2021-10-01 16:05] LABS: Glucose, Whole Blood 153 mg/dL (60-115)
[2021-10-01] MEDS: Pravastatin Sodium 10 MG TABLET PO (20:11)
[2021-10-01 20:15] LABS: Glucose, Whole Blood 168 mg/dL (60-115)
[2021-10-02] VITALS (7 sets, daily range): BP systolic 112–145; BP diastolic 60–68; PULSE 57–88; RESP 16–20; TEMP 36.2–36.8; O2SAT 95–98
[2021-10-02] MEDS: 0.9 % Sodium Chloride Flush 3 ML SYRINGE IVFLUSH ×4 (05:42→21:37)
[2021-10-02] MEDS: Omeprazole 20 MG CAPSULE.DR PO (05:42)
[2021-10-02 08:00] LABS: Glucose, Whole Blood 93 mg/dL (60-115)
[2021-10-02] MEDS: Fluticasone/Vilanterol 200/25 BLST.W.DEV 1 PUFF INHALE (08:24)
[2021-10-02] MEDS: hydroCHLOROthiazide 12.5 MG TABLET PO (09:09)
[2021-10-02] MEDS: Sertraline HCL 50 MG TABLET PO (09:09)
[2021-10-02] MEDS: Insulin Glargine,Hum.rec.anlog 100 UNIT/ML 10 ML VIAL 20 UNIT SUBCUT (09:09)
[2021-10-02] MEDS: Multivitamin TABLET 1 TAB PO (09:09)
[2021-10-02] MEDS: Valsartan 80 MG TABLET PO (09:10)
[2021-10-02 11:15] LABS: Glucose, Whole Blood 285 mg/dL (60-115)
[2021-10-02] MEDS: Insulin Lispro 100 UNIT/ML 3 ML VIAL SUBCUT ×3 (12:30→21:45)
--- NOTE | 2021-10-02 13:13 | HO.PM.IMPN ---
Subjective Subjective Date of Service: 10/02/21 <RAYRAY Marquis - Last Filed: 10/02/21 13:44> 10/02/21 <Blaise Peters DO - Last Filed: 10/02/21 18:35> Interval History: seen and examined this morning feeling well, no complaints no abdominal pain. no rectal bleeding <RAYRAY Marquis - Last Filed: 10/02/21 13:44> Review of Systems Review of Systems: Yes all other systems are reviewed and are negative <RAYRAY Marquis - Last Filed: 10/02/21 13:44> Constitutional Constitutional: Denies chills and Denies fever(s) <RAYRAY Marquis - Last Filed: 10/02/21 13:44> Cardiovascular Cardiovascular: Denies chest pain and Denies dyspnea <RAYRAY Marquis - Last Filed: 10/02/21 13:44> Respiratory Respiratory: Denies dyspnea <RAYRAY Marquis - Last Filed: 10/02/21 13:44> Gastrointestinal Gastrointestinal: Denies abdominal pain <RAYRAY Marquis - Last Filed: 10/02/21 13:44> Physical Exam Vital Signs: Vital Signs: Last Vital Signs Temp 97.2 F 10/02/21 11:15 Pulse 81 10/02/21 11:15 Resp 16 10/02/21 11:15 BP 112/67 10/02/21 11:15 Pulse Ox 98 10/02/21 11:15 BMI result Body Mass Index 29.0 <RAYRAY Marquis - Last Filed: 10/02/21 13:44> Const: General: cooperative, comfortable, no acute distress, alert and awake <RAYRAY Marquis - Last Filed: 10/02/21 13:44> Nutritional Appearance: average body habitus <RAYRAY Marquis - Last Filed: 10/02/21 13:44> Resp: Effort & Inspection: normal respiratory effort and able to speak in complete sentences <RAYRAY Marquis - Last Filed: 10/02/21 13:44> Cardio: Heart sounds: S1 normal heart sound present and S2 normal heart sound present <RAYRAY Marquis - Last Filed: 10/02/21 13:44> GI: Inspection: No distended <RAYRAY Marquis - Last Filed: 10/02/21 13:44> Palpation (GI): Soft to palpation and nontender <RAYRAY Marquis - Last Filed: 10/02/21 13:44> Extrem: Other: moving all 4 extremities spontaneously, no leg edema <RAYRAY Marquis - Last Filed: 10/02/21 13:44> Objective Data Active Medications Acetaminophen (Acetaminophen 325 Mg Tablet) 650 mg PO Q6H PRN PRN Reason: Pain, Mild (Pain Scale 1-3) Albuterol Sulfate (Albuterol Sulfate 90 Mcg 8 Gm Inhaler) 2 puff INHALE Q6H PRN PRN Reason: shortness of breath or wheezing Dextrose (Dextrose 50 % 25 Gm/50 Ml Syringe) 25 gm IVPUSH Q15M PRN; Protocol PRN Reason: per Hypoglycemia Standing Ord. Famotidine (Famotidine 20 Mg Tablet) 20 mg PO BID PRN PRN Reason: Acid Reflux Fluticasone/Vilanterol (Fluticasone/Vilanterol 200/25 Blst.W.Dev) 1 puff INHALE RDAILY [facility] Last Admin: 10/02/21 08:24 Dose: 1 puff Documented by: WAYNE Glucose (Glucose Gel 15 Gm Gel..Gram.) 15 gm PO Q15M PRN; Protocol PRN Reason: per Hypoglycemia Standing Ord. Hydrochlorothiazide (Hydrochlorothiazide 12.5 Mg Tablet) 12.5 mg PO DAILY [facility] Last Admin: 10/02/21 09:09 Dose: 12.5 mg Documented by: KEVIN Insulin Glargine (Insulin Glargine,Hum.Rec.Anlog 100 Unit/Ml 10 Ml Vial) 20 unit SUBCUT DAILY [facility] Last Admin: 10/02/21 09:09 Dose: 20 unit Documented by: KEVIN Insulin Human Lispro (Insulin Lispro 100 Unit/Ml 3 Ml Vial) 0 unit SUBCUT QIDACHS [facility]; Protocol Last Admin: 10/02/21 12:30 Dose: 6 unit Documented by: KEVIN Loperamide HCl (Loperamide Hcl 2 Mg Capsule) 2 mg PO BID PRN PRN Reason: Diarrhea Multivitamins/Vitamin C (Multivitamin Tablet) 1 tab PO DAILY [facility] Last Admin: 10/02/21 09:09 Dose: 1 tab Documented by: KEVIN Omeprazole (Omeprazole 20 Mg Capsule.Dr) 20 mg PO DAILY@0630 [facility] Last Admin: 10/02/21 05:42 Dose: 20 mg Documented by: MONSERRAT Ondansetron HCl (Ondansetron Hcl 4 Mg/2 Ml Vial) 4 mg IVPUSH Q8H PRN PRN Reason: Nausea and Vomiting Pharmacy Consult (Consult Rx Perform Med Rec) 1 each MISCELLANE ONCE PRN PRN Reason: Consult order Pravastatin Sodium (Pravastatin Sodium 10 Mg Tablet) 10 mg PO BEDTIME [facility] Last Admin: 10/01/21 20:11 Dose: 10 mg Documented by: BAHMAN Sertraline HCl (Sertraline Hcl 50 Mg Tablet) 50 mg PO DAILY [facility] Last Admin: 10/02/21 09:09 Dose: 50 mg Documented by: EKVIN Sodium Chloride (0.9 % Sodium Chloride Flush 3 Ml Syringe) 3 ml IVFLUSH QSHIFT [facility] Last Admin: 10/02/21 09:10 Dose: 3 ml Documented by: KEVIN Tiotropium [place] (Tiotropium [place] 18 Mcg Cap.W.Dev) 1 puff INHALE RDAILY [facility] Last Admin: 10/02/21 08:24 Dose: 1 puff Documented by: WAYNE Valsartan (Valsartan 80 Mg Tablet) 80 mg PO DAILY [facility] Last Admin: 10/02/21 09:10 Dose: 80 mg Documented by: KEVIN <RARYAY Marquis - Last Filed: 10/02/21 13:44> Labs CBC & Chem 7: : 10/01/21 05:22 10/01/21 05:22 <RAYRAY Marquis - Last Filed: 10/02/21 13:44> Labs: Laboratory Results - last 24 hr 10/01/21 10/01/21 10/02/21 15:59 19:59 07:47 POC Glucose 153 H 168 H 93 10/02/21 11:08 POC Glucose 285 H <RAYRAY Marquis - Last Filed: 10/02/21 13:44> Assessment and Plan (1) Rectal bleed: Status: Acute <RAYRAY Marquis - Last Filed: 10/02/21 13:44> (2) Rectal mass: Status: Acute <RAYRAY Marquis - Last Filed: 10/02/21 13:44> Plan 80-year-old man admitted with acute GI bleed and question rectal mass Rectal mass h/o rectal adenoma with dysplasia in 2013 CT scan showing thickening of rectum concerning for neoplasm Colonoscopy 09/28 revealing anal stenosis with ulcerated hard rectal mass extending from about 5cm to dentate line Seen by general surgery rec pelvic MRI which shows tumor located at the anal verge extending above peritoneal reflection, involves the internal anal sphincter, extramural invasion present, tumor extending into perirectal fat.? Enlarged mesorectal and pelvic lymph nodes concerning for regional metastasis, enlarged iliac lymph nodes Biopsy from colonoscopy - negative for malignancy d/w oncology, plan for CT guided biopsy on Monday Acute GI bleed secondary to rectal mass Stable H&H, not requiring blood transfusion aspirin and Plavix on hold for planned biopsy on Monday Diabetes mellitus Trulicity NF, on hold continue lantus, SSI metformin on hold COPD.? No exacerbation Albuterol as needed Coronary artery disease.? Hold aspirin and Plavix due to GI bleed Continue statin Hypertension.? Stable blood pressure BP initially held for GI bleed, have been resumed continue valsartan, HCTZ Mood continue sertraline DVT prophylaxis with mechanical compression boots, early ambulation Full code Attending Dr. 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 Enlarged mesorectal and pelvic lymph nodes concerning for regional metastasis, enlarged iliac lymph nodes Biopsy from colonoscopy - negative for malignancy d/w oncology, plan for CT guided biopsy on Monday Acute GI bleed secondary to rectal mass Stable H&H, not requiring blood transfusion aspirin and Plavix on hold for planned biopsy on Monday Diabetes mellitus Trulicity NF, on hold continue lantus, SSI metformin on hold COPD.? No exacerbation Albuterol as needed Coronary artery disease.? Hold aspirin and Plavix due to GI bleed Continue statin Hypertension.? Stable blood pressure BP initially held for GI bleed, have been resumed continue valsartan, HCTZ Mood continue sertraline DVT prophylaxis with mechanical compression boots, early ambulation Full code Attending Dr. Peters Chart reviewed. Pt examined. Agree with H+P/assesment and plan as outlined by Ms Miguel ESO <Blaise Peters, DO - Last Filed: 10/02/21 18:35> Quality Stroke Does the patient have a stroke diagnosis?: No <RAYRAY Marquis - Last Filed: 10/02/21 13:44> VTE Prior VTE?: No <RAYRAY Marquis - Last Filed: 10/02/21 13:44> VTE Risk Level:: Medical - moderate - high <RAYRAY Marquis - Last Filed: 10/02/21 13:44> VTE Device Contraindication: N/A - Device Ordered <RAYRAY Marquis - Last Filed: 10/02/21 13:44> VTE Drug Contraindication: Treatment Not Indicated <RAYRAY Marquis - Last Filed: 10/02/21 13:44>
[2021-10-02 15:49] LABS: Glucose, Whole Blood 185 mg/dL (60-115)
[2021-10-02 20:30] LABS: Glucose, Whole Blood 212 mg/dL (60-115)
[2021-10-02] MEDS: Pravastatin Sodium 10 MG TABLET PO (21:35)
[2021-10-03 03:59] VITALS: BP 139/69; PULSE 89; RESP 17; TEMP 36.8; O2SAT 95
[2021-10-03 06:27] LABS: INTERNATIONAL NORM RATIO 1.1 (0.9-1.1); Prothrombin Time 12.4 SEC (9.9-13.0)
[2021-10-03] MEDS: Omeprazole 20 MG CAPSULE.DR PO (06:34)
[2021-10-03 07:35] LABS: Glucose, Whole Blood 98 mg/dL (60-115)
[2021-10-03 07:38] VITALS: BP 135/59; PULSE 73; RESP 14; TEMP 36.2; O2SAT 97
[2021-10-03] MEDS: Valsartan 80 MG TABLET PO (08:53)
[2021-10-03] MEDS: hydroCHLOROthiazide 12.5 MG TABLET PO (08:53)
[2021-10-03] MEDS: Multivitamin TABLET 1 TAB PO (08:53)
[2021-10-03] MEDS: Insulin Glargine,Hum.rec.anlog 100 UNIT/ML 10 ML VIAL 20 UNIT SUBCUT (08:54)
[2021-10-03] MEDS: Sertraline HCL 50 MG TABLET PO (08:54)
[2021-10-03] MEDS: 0.9 % Sodium Chloride Flush 3 ML SYRINGE IVFLUSH ×3 (08:54→21:11)
[2021-10-03 09:08] VITALS: PULSE 73; RESP 18; O2SAT 97
[2021-10-03] MEDS: Fluticasone/Vilanterol 200/25 BLST.W.DEV 1 PUFF INHALE (09:08)
--- NOTE | 2021-10-03 10:16 | P.PNIM_ITS ---
Subjective Subjective Date of Service: 10/03/21 <RAYRAY Marquis - Last Filed: 10/03/21 10:19> 10/17/21 <Blaise Peters DO - Last Filed: 10/17/21 15:42> Interval History: seen and examined this morning no overnight events no abdominal pain, small amount of blood with BM; reports formed stool, no diarrhea no nausea or vomiting <RAYRAY Marquis - Last Filed: 10/03/21 10:19> Review of Systems Review of Systems: Yes all other systems are reviewed and are negative <RAYRAY Marquis - Last Filed: 10/03/21 10:19> Constitutional Constitutional: Denies chills and Denies fever(s) <RAYRAY Marquis - Last Filed: 10/03/21 10:19> Cardiovascular Cardiovascular: Denies chest pain, Denies palpitations and Denies dyspnea <RAYRAY Marquis - Last Filed: 10/03/21 10:19> Respiratory Respiratory: Denies cough and Denies dyspnea <RAYRAY Marquis - Last Filed: 10/03/21 10:19> Gastrointestinal Gastrointestinal: Denies abdominal pain, Denies diarrhea, Denies nausea and Denies vomiting <RAYRAY Marquis - Last Filed: 10/03/21 10:19> Endocrine Endocrine: Denies palpitations <RAYRAY Marquis - Last Filed: 10/03/21 10:19> Physical Exam Vital Signs: Vital Signs: Last Vital Signs Temp 97.2 F 10/03/21 07:38 Pulse 73 10/03/21 09:08 Resp 18 10/03/21 09:08 BP 135/59 L 10/03/21 07:38 Pulse Ox 97 10/03/21 07:38 BMI result Body Mass Index 29.0 <RAYRAY Marquis - Last Filed: 10/03/21 10:19> Const: General: cooperative, comfortable, no acute distress, alert, awake and Physically active <RAYRAY Marquis - Last Filed: 10/03/21 10:19> Nutritional Appearance: average body habitus <RAYRAY Marquis - Last Filed: 10/03/21 10:19> Resp: Effort & Inspection: normal respiratory effort and able to speak in complete sentences <RAYRAY Marquis - Last Filed: 10/03/21 10:19> Cardio: Heart sounds: S1 normal heart sound present and S2 normal heart sound present <RAYRAY Marquis - Last Filed: 10/03/21 10:19> GI: Inspection: No distended <RAYRAY Marquis - Last Filed: 10/03/21 10:19> Palpation (GI): Soft to palpation and nontender <RAYRAY Marquis - Last Filed: 10/03/21 10:19> Extrem: Other: moving all 4 extremities spontaneously, no leg edema <RAYRAY Marquis - Last Filed: 10/03/21 10:19> Objective Data Active Medications Acetaminophen (Acetaminophen 325 Mg Tablet) 650 mg PO Q6H PRN PRN Reason: Pain, Mild (Pain Scale 1-3) Albuterol Sulfate (Albuterol Sulfate 90 Mcg 8 Gm Inhaler) 2 puff INHALE Q6H PRN PRN Reason: shortness of breath or wheezing Dextrose (Dextrose 50 % 25 Gm/50 Ml Syringe) 25 gm IVPUSH Q15M PRN; Protocol PRN Reason: per Hypoglycemia Standing Ord. Famotidine (Famotidine 20 Mg Tablet) 20 mg PO BID PRN PRN Reason: Acid Reflux Fluticasone/Vilanterol (Fluticasone/Vilanterol 200/25 Blst.W.Dev) 1 puff INHALE RDAILY [facility] Last Admin: 10/03/21 09:08 Dose: 1 puff Documented by: DOTTIE Glucose (Glucose Gel 15 Gm Gel..Gram.) 15 gm PO Q15M PRN; Protocol PRN Reason: per Hypoglycemia Standing Ord. Hydrochlorothiazide (Hydrochlorothiazide 12.5 Mg Tablet) 12.5 mg PO DAILY [facility] Last Admin: 10/03/21 08:53 Dose: 12.5 mg Documented by: MARCUS Insulin Glargine (Insulin Glargine,Hum.Rec.Anlog 100 Unit/Ml 10 Ml Vial) 20 unit SUBCUT DAILY [facility] Last Admin: 10/03/21 08:54 Dose: 20 unit Documented by: MARCUS Insulin Human Lispro (Insulin Lispro 100 Unit/Ml 3 Ml Vial) 0 unit SUBCUT [facility]; Protocol Last Admin: 10/03/21 08:03 Dose: Not Given Documented by: MARCUS Non-Admin Reason: No Insulin Coverage Loperamide HCl (Loperamide Hcl 2 Mg Capsule) 2 mg PO BID PRN PRN Reason: Diarrhea Multivitamins/Vitamin C (Multivitamin Tablet) 1 tab PO DAILY [facility] Last Admin: 10/03/21 08:53 Dose: 1 tab Documented by: MARCUS Omeprazole (Omeprazole 20 Mg Capsule.Dr) 20 mg PO DAILY@0630 [facility] Last Admin: 10/03/21 06:34 Dose: 20 mg Documented by: MONSERRAT Ondansetron HCl (Ondansetron Hcl 4 Mg/2 Ml Vial) 4 mg IVPUSH Q8H PRN PRN Reason: Nausea and Vomiting Pharmacy Consult (Consult Rx Perform Med Rec) 1 each MISCELLANE ONCE PRN PRN Reason: Consult order Pravastatin Sodium (Pravastatin Sodium 10 Mg Tablet) 10 mg PO BEDTIME [facility] Last Admin: 10/02/21 21:35 Dose: 10 mg Documented by: MONSERRAT Sertraline HCl (Sertraline Hcl 50 Mg Tablet) 50 mg PO DAILY [facility] Last Admin: 10/03/21 08:54 Dose: 50 mg Documented by: MARCUS Sodium Chloride (0.9 % Sodium Chloride Flush 3 Ml Syringe) 3 ml IVFLUSH QSHIFT [facility] Last Admin: 10/03/21 08:54 Dose: 3 ml Documented by: MARCUS Tiotropium [place] (Tiotropium [place] 18 Mcg Cap.W.Dev) 1 puff INHALE RDAILY [facility] Last Admin: 10/03/21 09:08 Dose: 1 puff Documented by: DOTTIE Valsartan (Valsartan 80 Mg Tablet) 80 mg PO DAILY [facility] Last Admin: 10/03/21 08:53 Dose: 80 mg Documented by: MARCUS <RAYRAY Marquis - Last Filed: 10/03/21 10:19> Labs CBC & Chem 7: : 10/04/21 03:59 10/04/21 03:59 <RAYRAY Marquis - Last Filed: 10/03/21 10:19> Labs: Laboratory Results - last 24 hr 10/02/21 10/02/21 10/02/21 11:08 15:35 20:26 PT INR POC Glucose 285 H 185 H 212 H 10/03/21 10/03/21 05:50 07:29 PT 12.4 INR 1.1 POC Glucose 98 <RAYRAY Marquis - Last Filed: 10/03/21 10:19> Assessment and Plan (1) Rectal mass: Status: Acute <RAYRAY Marquis - Last Filed: 10/03/21 10:19> (2) Rectal bleed: Status: Resolved <RAYRAY Marquis - Last Filed: 10/03/21 10:19> Plan 80-year-old man admitted with acute GI bleed and question rectal mass 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 Enlarged mesorectal and pelvic lymph nodes concerning for regional metastasis, enlarged iliac lymph nodes Biopsy from colonoscopy - negative for malignancy d/w oncology, plan for CT guided biopsy on Monday NPO at midnight Acute GI bleed secondary to rectal mass Stable H&H, not requiring blood transfusion aspirin and Plavix on hold for planned biopsy on Monday Diabetes mellitus Trulicity NF, on hold continue lantus, SSI metformin on hold COPD.? No exacerbation Albuterol as needed Coronary artery disease.? Hold aspirin and Plavix due to GI bleed Continue statin Hypertension.? Stable blood pressure BP initially held for GI bleed, have been resumed continue valsartan, HCTZ Mood continue sertraline DVT prophylaxis with mechanical compression boots, early ambulation Full code Attending Dr. 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 Enlarged mesorectal and pelvic lymph nodes concerning for regional metastasis, enlarged iliac lymph nodes Biopsy from colonoscopy - negative for malignancy d/w oncology, plan for CT guided biopsy on Monday NPO at midnight Acute GI bleed secondary to rectal mass Stable H&H, not requiring blood transfusion aspirin and Plavix on hold for planned biopsy on Monday Diabetes mellitus Trulicity NF, on hold continue lantus, SSI metformin on hold COPD.? No exacerbation Albuterol as needed Coronary artery disease.? Hold aspirin and Plavix due to GI bleed Continue statin Hypertension.? Stable blood pressure BP initially held for GI bleed, have been resumed continue valsartan, HCTZ Mood continue sertraline DVT prophylaxis with mechanical compression boots, early ambulation Full code Attending Dr. Peters Patient examined chart reviewed. Agree with history and physical as well as assessment and plan as outlined by Ms. Rivera <Blaise Peters, DO - Last Filed: 10/17/21 15:42> Quality Stroke Does the patient have a stroke diagnosis?: No <RAYRAY Marquis - Last Filed: 10/03/21 10:19> VTE Prior VTE?: No <RAYRAY Marquis - Last Filed: 10/03/21 10:19> VTE Risk Level:: Medical - moderate - high <RAYRAY Marquis - Last Filed: 10/03/21 10:19> VTE Device Contraindication: N/A - Device Ordered <RAYRAY Marquis - Last Filed: 10/03/21 10:19> VTE Drug Contraindication: Treatment Not Indicated <RAYRAY Marquis - Last Filed: 10/03/21 10:19>
[2021-10-03 11:32] VITALS: BP 124/63; PULSE 78; RESP 14; TEMP 36.4; O2SAT 94
[2021-10-03 11:32] LABS: Glucose, Whole Blood 150 mg/dL (60-115)
[2021-10-03 15:51] VITALS: BP 112/67; PULSE 86; RESP 17; TEMP 36.6; O2SAT 96
[2021-10-03 16:09] LABS: Glucose, Whole Blood 207 mg/dL (60-115)
[2021-10-03] MEDS: Insulin Lispro 100 UNIT/ML 3 ML VIAL SUBCUT ×2 (16:26→21:08)
[2021-10-03 19:36] VITALS: BP 124/66; PULSE 71; RESP 15; TEMP 36.3; O2SAT 96
[2021-10-03 19:46] LABS: Glucose, Whole Blood 175 mg/dL (60-115)
[2021-10-03] MEDS: Pravastatin Sodium 10 MG TABLET PO (21:08)
[2021-10-04] VITALS (7 sets, daily range): BP systolic 110–138; BP diastolic 54–92; PULSE 74–98; RESP 16–20; TEMP 36.2–36.8; O2SAT 97–100
[2021-10-04 05:03] LABS: Hematocrit 38.9 % (42.0-52.0); Hemoglobin 11.7 g/dl (14.0-18.0); Mean Corpuscular HGB Conc 30.1 g/dl (31.0-36.0); Mean Corpuscular Hemoglobin 25.1 pg (27.0-33.0); Mean Corpuscular Volume 83.3 fL (80.0-98.0); Platelet Count 253 X10*3/uL (160-400); Red Blood Count 4.67 X10*6/uL (4.60-5.80); Red Cell Distribution Width 14.7 % (11.0-16.0); White Blood Count 8.1 X10*3/uL (4.8-10.8)
[2021-10-04 05:08] LABS: INTERNATIONAL NORM RATIO 1.1 (0.9-1.1); Prothrombin Time 12.4 SEC (9.9-13.0)
[2021-10-04 05:18] LABS: Anion Gap 11 (12-20); Blood Urea Nitrogen 28 mg/dL (9-16); Calcium 8.9 mg/dL (8.4-10.2); Carbon Dioxide 27 mmol/L (22-29); Chloride 105 mmol/L (96-108); Creatinine Clr Calc Pharmacy 47.9; Estimated Glomerular Filt Rate > 60; Glucose Random 184 mg/dL (60-115); Potassium 4.3 mmol/L (3.3-5.1); Sodium 139 mmol/L (135-145)
[2021-10-04] MEDS: Omeprazole 20 MG CAPSULE.DR PO (05:52)
[2021-10-04 06:43] LABS: Glucose, Whole Blood 161 mg/dL (60-115)
[2021-10-04 10:19] LABS: Glucose, Whole Blood 147 mg/dL (60-115)
[2021-10-04] MEDS: Sertraline HCL 50 MG TABLET PO (10:43)
[2021-10-04] MEDS: Valsartan 80 MG TABLET PO (10:43)
[2021-10-04] MEDS: Multivitamin TABLET 1 TAB PO (10:43)
[2021-10-04] MEDS: hydroCHLOROthiazide 12.5 MG TABLET PO (10:43)
[2021-10-04] MEDS: Insulin Glargine,Hum.rec.anlog 100 UNIT/ML 10 ML VIAL 20 UNIT SUBCUT (10:44)
--- NOTE | 2021-10-04 11:54 | PM.DS ---
DS: Providers Provider Date of Service: 10/04/21 Date of admission: 09/26/21 16:07 Primary care physician: Marilu Tabares Consults: 09/26/21 16:05 Consult to Gastroenterology Routine Consulting Provider: Skyler Marie Reason for consultation: gi bleed Has provider been notified: No 09/28/21 15:52 Consult to General Surgery Routine Consulting Provider: Mendoza Sawant Reason for consultation: rectal mass Has provider been notified: No 09/29/21 14:08 Consult to Hematology / Oncology Routine Consulting Provider: Aspen Macias Reason for consultation: retcal mass Has provider been notified: No Attending physician on discharge: Bennett Chavez Discharging clinician: Carmita Hughes DS: Diagnosis Discharge Diagnosis (1) Rectal mass: Status: Acute (2) Rectal bleed: Status: Acute DS: Summary Hospital Course Hospital Course: 80-year-old man presenting to the ER with bright red blood per rectum, apparently has been having this over the last 3 weeks off an on and over the last 2 days has become more consistent and he has noted blood with every bowel movement.? He reported loose stools and history of recurrent polyps. He has a history of rectal mass since 2003 and has had multiple colonoscopies with biopsies, with findings of tubulovillous adenoma. He denied chest pain, fever, chills, nausea, vomiting. Reports chronic SOB. Abdominal CT showing concern for possible rectal neoplasm on the wall of the rectum as well as multiple opacities along the anterior abdominal omental concerning for possible seeding neoplasm. H&H remained stable, no need for blood transfusion at this time,? hemodynamically stable, labs all within acceptable limits. He will be admitted for further management of acute rectal bleeding. Rectal mass, h/o rectal adenoma with dysplasia in 2013. Colonoscopy 09/28 revealing anal stenosis with ulcerated hard rectal mass extending from about 5cm to dentate line. MRI showed tumor located at the anal verge extending above peritoneal reflection, involves the internal anal sphincter, extramural invasion present, tumor extending into perirectal fat;? Enlarged mesorectal and pelvic lymph nodes concerning for regional metastasis, enlarged iliac lymph nodes. Biopsy from colonoscopy - negative for malignancy, repeat CT guided biopsy today. Discussed with oncology, will follow up for biopsy results Acute GI bleed secondary to rectal mass. Stable H&H, Did not requiring blood transfusion. Aspirin and Plavix were on hold. Restart at discharge. Time Spent with Patient Time attestation: Total time spent providing and/or coordinating discharge services: Discharge coordination time: Greater than 30 minutes Quality: Stroke Does the patient have a stroke diagnosis?: No Physical Exam Vital Signs: Vital Signs: Last Vital Signs Temp 97.7 F 10/04/21 10:22 Pulse 84 10/04/21 10:22 Resp 20 10/04/21 10:22 BP 137/64 10/04/21 10:22 Pulse Ox 97 10/04/21 10:22 BMI result Body Mass Index 29.0 Appearing in no acute distress head is normocephalic atraumatic eyes pupils are PERRLA sclera is anicteric mouth throat mucous membranes are intact and moist neck is supple no lymphadenopathy, no JVD noted lung sounds are clear to auscultation heart regular rate rhythm, clear S1, S2 positive bowel sounds, abdomen is soft, nontender neuro patient is alert x3, no focal deficits DS: Data Data Completed and Pending Completed studies during hospitalization [Text1]: Pending at discharge 09/28/21 12:02 Surgical [PTH] Routine Pending studies at discharge: Pending at discharge 10/04/21 08:51 Cytology [PTH] Routine 10/04/21 08:52 Surgical Path [Surgical] [PTH] Routine Labs on day of discharge: Laboratory Results - last 24 hr 10/03/21 10/03/21 10/04/21 16:02 19:41 03:59 WBC 8.1 RBC 4.67 Hgb 11.7 L Hct 38.9 L MCV 83.3 MCH 25.1 L MCHC 30.1 L RDW 14.7 Plt Count 253 MPV 11.0 Absolute Nucleated RBC 0.000 Nucleated RBC % (auto) 0.0 PT INR Sodium Potassium Chloride Carbon Dioxide Anion Gap BUN Creatinine Estim Creat Clear Calc Estimated GFR POC Glucose 207 H 175 H Random Glucose Calcium 10/04/21 10/04/21 10/04/21 03:59 03:59 06:37 WBC RBC Hgb Hct MCV MCH MCHC RDW Plt Count MPV Absolute Nucleated RBC Nucleated RBC % (auto) PT 12.4 INR 1.1 Sodium 139 Potassium 4.3 Chloride 105 Carbon Dioxide 27 Anion Gap 11 L BUN 28 H Creatinine 1.11 Estim Creat Clear Calc 47.9 Estimated GFR > 60 POC Glucose 161 H Random Glucose 184 H Calcium 8.9 10/04/21 10:12 WBC RBC Hgb Hct MCV MCH MCHC RDW Plt Count MPV Absolute Nucleated RBC Nucleated RBC % (auto) PT INR Sodium Potassium Chloride Carbon Dioxide Anion Gap BUN Creatinine Estim Creat Clear Calc Estimated GFR POC Glucose 147 H Random Glucose Calcium Discharge Plan Discharge Anticipated Discharge Date/Time: 10/04/21 11:48 Patient Disposition: Home, Self-Care Discharge Diagnosis: Rectal mass Referrals: aMrilu Tabares [Primary Care Provider] - 1 Week Aspen Macias MD [Physician] - 1 Week ( follow-up biopsies) Discharge Medications: Continued multivitamin Tablet 1 tab PO DAILY 0RF oxycodone-acetaminophen 5-325 mg tablet 1 tab PO BID PRN (Reason: Pain) 0RF (DME) pen needle, diabetic 31 gauge x 1/4 needle See Rx Instructions ea .ROUTE DAILY Qty: 50 0RF Rx Instructions: As directed (DME) blood sugar diagnostic Strip See Rx Instructions strip Not Applicable BID Qty: 10 0RF Rx Instructions: As directed zolpidem 5 mg tablet 5 mg PO BEDTIME PRN (Reason: Insomnia) 0RF famotidine 20 mg tablet 20 mg PO BID PRN (Reason: Acid Reflux) 0RF aspirin 81 mg tablet,delayed release (DR/EC) 81 mg PO DAILY 0RF insulin glargine 100 unit/mL (3 mL) insulin pen 20 unit subcut DAILY 0RF metformin 500 mg tablet 1,000 mg PO BID 0RF sertraline 50 mg tablet 50 mg PO DAILY 0RF valsartan-hydrochlorothiazide 80-12.5 mg tablet 1 tab PO DAILY 0RF loperamide 2 mg capsule 2 mg PO BID PRN (Reason: Diarrhea) 0RF (DME) blood pressure test kit-large Kit See Rx Instructions ea .ROUTE .MEDSUPPLY Qty: 1 0RF Rx Instructions: As directed clopidogrel 75 mg tablet 75 mg PO DAILY Qty: 90 4RF Rx Instructions: Take 4 tablets on day 1, then 1 tablet daily. pravastatin 10 mg tablet 10 mg PO BEDTIME 0RF dulaglutide 0.75 mg/0.5 mL pen injector 0.75 mg subcut WE 0RF pantoprazole 40 mg tablet,delayed release (DR/EC) 40 mg PO DAILY 0RF albuterol sulfate 90 mcg/actuation HFA aerosol inhaler 2 inh inhalation Q6H PRN (Reason: shortness of breath or wheezing) 30 Days Qty: 18 12RF Trelegy Ellipta 200-62.5-25 mcg blister with device 1 inh inhalation DAILY 30 Days Qty: 60 12RF Discharge Orders: Discharge Order (Routine); Ordered 10/04/21 Ordered By: Carmita Hughes Diet: advance to usual diet Activity on Discharge: As tolerated Stand Alone Forms: Patient Portal Discharge page Care Plan Goals: 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
--- NOTE | 2021-10-04 12:14 | MHC.CM.PN ---
PATIENT IS DISCHARGED HOME TODAY - WITH RESUMPTION OF HIS [employer]. HE STATES THAT IF HE FEELS THE NEED FOR A NURSE VISIT, HE WILL CALL [employer] (MANAGED INSURANCE PLAN) DAUGHTER TO PROVIDE TRANSPORT HOME. IMM 10/03 IN CHART
== END 2021-10-04 14:54 | disposition home or self-care (01) | DRG 375 ==
LOC: HO.ED 15:37 → HO.EDOVER 16:11 → HO.S3 09-29 07:01
PROVIDERS: Internal Medicine; Internal Medicine Gastroenterology; Physician Assistant Medical; Radiology Diagnostic Radiology; Admitting Provider Nurse Practitioner Acute Care; Emergency Provider Emergency Medicine; PCP Nurse Practitioner; Visit Provider Nurse Practitioner Acute Care
PROC: 0DJD8ZZ Inspection of Lower Intestinal Tract, Via Natural or Artificial Opening Endoscopic (ICD-10-PCS; CPT 45378; principal; 2021-09-28 12:40)
PROC: 0DBV3ZX Excision of Mesentery, Percutaneous Approach, Diagnostic (ICD-10-PCS; principal; 2021-10-04 07:30)
DX: C20 Malignant neoplasm of rectum (principal); C77.8 Secondary and unspecified malignant neoplasm of lymph nodes of multiple regions; I42.9 Cardiomyopathy, unspecified; K62.5 Hemorrhage of anus and rectum; E11.9 Type 2 diabetes mellitus without complications; J44.9 Chronic obstructive pulmonary disease, unspecified; I49.3 Ventricular premature depolarization; I10 Essential (primary) hypertension; I25.10 Atherosclerotic heart disease of native coronary artery without angina pectoris; K62.4 Stenosis of anus and rectum; Z20.822 Contact with and (suspected) exposure to COVID-19; Z87.891 Personal history of nicotine dependence; Z79.4 Long term (current) use of insulin; Z79.02 Long term (current) use of antithrombotics/antiplatelets; Z79.51 Long term (current) use of inhaled steroids; Z79.82 Long term (current) use of aspirin; Z79.84 Long term (current) use of oral hypoglycemic drugs; Z79.899 Other long term (current) drug therapy
CPT/HCPCS: 10009; 36415; 49180; 72197; 74176; 77012; 80048; 80076; 81003; 81210; 81275; 81276; 81311; 81403; 82272; 82378; 82947; 83615; 83690; 83735; 83880; 84484; 85025; 85027; 85610; 87635; 88172; 88173; 88305; 88341; 88342; 88360; 93005; 94640; 99152; 99153; 99285; A9585; J3475

== ENCOUNTER 2021-10-26 09:48 | Outpatient (REF) | payer OTHER, SELFPAY ==
--- NOTE | ~2021-10-26 | PE_ITS ---
EXAMINATION: Fluorine-18 FDG PET/CT Scan CLINICAL INDICATION: Initial treatment management. Rectal cancer, initial staging. PROCEDURE: At C5 minutes following the intravenous administration of 16.2 mCi of fluorine 18 FDG, images from the base of the skull to the mid thighs were obtained using a combined PET/CT scanner with CT scan based attenuation correction. No oral contrast was administered. No intravenous contrast was administered. Transverse, coronal, sagittal, and volume reconstruction projections were obtained. The patient's blood glucose as determined by a finger stick, was 101 mg/dl immediately prior to injection. Total CT exam dose-length product 423.51 mGy-cm * These CT images were obtained using dose optimization techniques as appropriate, variously including the following: Automated exposure control * Adjustment of mA and/or kV according to patient size (this includes techniques or standardized protocols for targeted exams where dose is matched to indication/reason for exam; i.e. extremities or head) * Use of iterative reconstruction technique COMPARISON: No previous PET/CT scan is available for comparison. MRI of the pelvis dated 09/30/[address] scan of the abdomen and pelvis dated 09/26/2021 are available for comparison. FINDINGS: (Slice numbers described in this report are numbered superiorly to inferiorly with slice #1 in the head) NECK AND VISUALIZED HEAD: There is a focus of mildly increased FDG activity in the left mandibular ramus just posterior to the molar region with no corresponding CT abnormality. This shows SUVmax 5.0, slice 33/267. No other foci of abnormal FDG activity are in the neck or visualized head. The distribution of FDG activity is otherwise physiological. There is no cervical lymphadenopathy. THORAX: No foci of abnormal FDG activity are present in the chest. A few small subcentimeter pulmonary nodules are visualized, much too small to be characterized on the FDG PET images. Pattern Maker are a posterior pleural-based 0.4 cm right lower lobe nodule, slice 84/267 and an anterior pleural-based right apical 0.5 cm nodule, slice 63/267. A small region of scarring or atelectasis is present in the anterolateral base of the lingula with no associated abnormal FDG activity, likely due to to scarring or atelectasis. Some additional linear scarring is present more inferiorly in the lingula, also with no associated abnormal FDG activity. There is no pleural or pericardial fluid, or pneumothorax. There is no mediastinal, supraclavicular, or axillary lymphadenopathy. ABDOMEN AND PELVIS: FDG avid wall thickening is present in the rectum, SUVmax 6.7, slice 213/267. This is predominantly in the right side of the rectum were some soft tissue density extends beyond the rectal wall but this shows only minimal FDG activity. The abnormal FDG activity and wall thickening corresponds well to the abnormality visualized at this site on the 09/30/2021 pelvic MRI. There is intense diffuse FDG activity throughout the large bowel without additional focal accentuation or additional CT abnormalities. There is diffuse diverticulosis without evidence of diverticulitis. There are diffuse mildly FDG avid soft tissue densities throughout the omentum. Pattern Maker is an FDG avid soft tissue density showing SUVmax 4.2, slice 155/267 in the left anterolateral midabdomen, but these FDG avid soft tissue densities appear to be present diffusely in the omentum. A few subcentimeter perirectal lymph nodes as well as a few other pelvic lymph nodes in the common iliac and left internal iliac alexandra chain are visualized, but most of these are too small to be characterized on the FDG PET images. The largest visualized lymph node is just to the left of midline approximately 5 cm anterior to the sacrum at the S2 level measuring 1.4 x 0.8 cm, slice 192/267, and this shows no abnormal FDG activity. There is no additional FDG avid retroperitoneal, mesenteric, pelvic or inguinal lymphadenopathy. The liver, gallbladder, spleen and adrenal glands and pancreas are unremarkable. There is a nonobstructing 0.2 cm calculus in the upper pole of the right kidney, slice 354/698. The kidneys are otherwise unremarkable except for some mild perinephric stranding bilaterally which does not show abnormal FDG activity. Other than the previously described FDG avid rectal lesion, the pelvic organs are unremarkable. MUSCULOSKELETAL: There are no foci of abnormal FDG activity in the osseous structures. There are degenerative changes in the spine, most prominently in the mid and lower thoracic spine, but there are no suspicious sclerotic or lytic lesions visualized. A well-circumscribed hypodense 0.8 cm posterior left iliac focus shows no abnormal FDG activity and is likely a nonaggressive lesion, slice 504/698. VASCULAR: Diffuse vascular calcifications including dense coronary calcifications are noted. PET/PET CT fusion skull to thigh IMPRESSION: 1. FDG avid rectal wall thickening consistent with the known diagnosis of rectal cancer is noted. The size and extent of the FDG avid wall thickening corresponds well to the findings on the 09/30/2021 MRI of the pelvis. 2. A few pelvic lymph nodes are visualized, but most of these are too small to be characterized on the FDG PET images. The largest visualized does not show abnormal FDG activity. 3. Diffuse FDG avid soft tissue densities throughout the omentum, as described above, are likely due to metastatic implants. 4. No additional abnormalities suspicious for other metastatic or malignant lesions are noted. 5. Nonobstructing 0.2 cm right upper pole renal calculus. 6. Vascular calcifications including dense coronary calcifications are noted.
== END 2021-10-26 09:49 | disposition home or self-care (01) ==
LOC: HO.PET 09:48
PROVIDERS: Visit Provider Internal Medicine
DX: Z13.89 Encounter for screening for other disorder (principal)

== ENCOUNTER → 2021-11-09 12:35 | Day surgery (SDC) | payer OTHER, SELFPAY ==
[2021-11-09 12:56] LABS: MANUAL DIFF FLAG NO
[2021-11-09 12:59] LABS: Basophils Percent Auto 0.4 % (0-2); Eosinophils Absolute Auto 0.3 X10*3/uL (0.0-0.4); Eosinophils Percent Auto 3.3 % (0-4); Hematocrit 36.9 % (42.0-52.0); Hemoglobin 11.2 g/dl (14.0-18.0); Imm Gran Abs Auto 0.02 X10*3/uL (0.00-0.03); Imm Gran Pct Auto 0.3 % (0.0-0.4); Lymphocytes Absolute Auto 1.5 X10*3/uL (1.2-4.9); Lymphocytes Percent Auto 19.7 % (20-40); Mean Corpuscular HGB Conc 30.4 g/dl (31.0-36.0); Mean Corpuscular Hemoglobin 24.6 pg (27.0-33.0); Mean Corpuscular Volume 80.9 fL (80.0-98.0); Mean Platelet Volume 10.4 fL (9.4-12.4); Monocytes Absolute Auto 1.1 X10*3/uL (0.1-1.2); Neutrophils Absolute Auto 4.8 x10*3/uL (2.0-8.3); Neutrophils Percent Auto 62.3 % (45-73); Platelet Count 300 X10*3/uL (160-400); Red Blood Count 4.56 X10*6/uL (4.60-5.80); Red Cell Distribution Width 16.2 % (11.0-16.0); White Blood Count 7.6 X10*3/uL (4.8-10.8)
[2021-11-09 13:05] LABS: INTERNATIONAL NORM RATIO 1.1 (0.9-1.1); Prothrombin Time 12.4 SEC (9.9-13.0)
[2021-11-09 13:07] LABS: Partial Thromboplastin Time 35.3 SEC (24.1-38.0)
[2021-11-09 13:08] VITALS: BMI 28.8
[2021-11-09 13:32] LABS: Glucose, Whole Blood 73 mg/dL (60-115)
--- NOTE | 2021-11-09 14:22 | PC.NURSE ---
no procedure or anesthesia done due to not holding asa and plavix as ordered. iv out, dsd applied. pt dressed and ambulated out of pacu to waiting room to meet .
== END ==
PROVIDERS: Radiology Diagnostic Radiology; PCP Nurse Practitioner; Visit Provider Radiology Diagnostic Radiology
DX: R19.09 Other intra-abdominal and pelvic swelling, mass and lump (principal); E11.9 Type 2 diabetes mellitus without complications; Z53.8 Procedure and treatment not carried out for other reasons
CPT/HCPCS: 36415; 82947; 85025; 85610; 85730; J2250; J3010

== ENCOUNTER 2021-11-15 06:14 | Day surgery (SDC) | payer OTHER, SELFPAY ==
--- NOTE | ~2021-11-15 | CT_ITS ---
PROCEDURE: CT GUIDED BIOPSY, ABDOMINAL MASS CLINICAL INFORMATION: Rectal cancer and peritoneal disease COMPARISON: Previous CT by 10/04/2021 TECHNIQUE: Procedure and risks and benefits including bleeding, infection and injury to the bowel was discussed with the patient and informed consent was obtained. The left lower quadrant and draped in usual sterile fashion. The skin and soft tissues were anesthetized with 1% lidocaine plain. Using CT guidance and a coaxial system, access to the abnormal peritoneal soft tissue in the left rectus muscle was obtained. 3 22-gauge FNA specimens were obtained. The patient received Versed 0.5 mg and fentanyl 25 mcg intravenously during the procedure. Total sedation time was [address] examination was performed using dose optimization techniques as appropriate, variously including the following: *Automated exposure control *Adjustment of mA and/or kV according to patient size (this includes techniques or standardized protocols for targeted exams where dose is matched to indication/reason for exam; i.e. extremities or head) *Use of iterative reconstruction technique DLP: 318 mGy-cm FINDINGS: There is abnormal soft tissue seen deep to the abdominal wall suggestive of peritoneal disease that was targeted for fine-needle aspiration. CT/CT biopsy abdomen percutaneous IMPRESSION: CT-guided left lower quadrant peritoneal fine-needle aspiration.
[2021-11-15 07:15] VITALS: BMI 28.8
[2021-11-15 08:26] LABS: Glucose, Whole Blood 119 mg/dL (60-115)
--- NOTE | 2021-11-15 09:39 | HO.RADPN ---
RADIOLOGY Narrative Narrative: LLQ peritoneal mass fna. 3 22g fna specimens
[2021-11-15 09:45] VITALS: BP 120/48; PULSE 81; RESP 18; TEMP 36.8; O2SAT 95
[2021-11-15 10:00] VITALS: BP 125/75; PULSE 86; RESP 18; O2SAT 95
[2021-11-15 10:15] VITALS: BP 121/91; PULSE 87; RESP 18; O2SAT 96
[2021-11-15 10:32] VITALS: BP 96/58; PULSE 90; RESP 18; O2SAT 96
[2021-11-15 10:45] VITALS: BP 129/67; PULSE 87; RESP 18; TEMP 36.2; O2SAT 95
== END 2021-11-15 10:58 | disposition home or self-care (01) ==
PROVIDERS: PCP Nurse Practitioner; Visit Provider Radiology Diagnostic Radiology
DX: C78.6 Secondary malignant neoplasm of retroperitoneum and peritoneum (principal); C20 Malignant neoplasm of rectum; I25.10 Atherosclerotic heart disease of native coronary artery without angina pectoris; J44.9 Chronic obstructive pulmonary disease, unspecified; Z79.02 Long term (current) use of antithrombotics/antiplatelets; Z79.4 Long term (current) use of insulin; Z79.82 Long term (current) use of aspirin; Z79.899 Other long term (current) drug therapy; Z87.891 Personal history of nicotine dependence
CPT/HCPCS: 10009; 49180; 77012; 82947; 88172; 88173; 88177; 99152; 99153; J2250; J3010

== ENCOUNTER 2021-12-06 11:47 | Inpatient (IN) | payer OTHER, SELFPAY ==
--- NOTE | ~2021-12-06 | CT_ITS ---
EXAMINATION: CT ABDOMEN AND PELVIS WITHOUT CONTRAST CLINICAL INFORMATION: Abdominal pain. Possible colitis. Metastatic colorectal cancer. COMPARISON: CT abdomen and pelvis 09/26/2021 TECHNIQUE: Multidetector volumetric imaging was performed from the superior aspect of the liver through the pubic symphysis. Sagittal and coronal reformatted images were obtained on the technologist's workstation. This CT examination was performed using dose optimization techniques as appropriate, variously including the following: *Automated exposure control *Adjustment of mA and/or kV according to patient size (this includes techniques or standardized protocols for targeted exams where dose is matched to indication/reason for exam; i.e. extremities or head) *Use of iterative reconstruction technique DLP: 461 mGy-cm FINDINGS: LUNG BASES: There is a patchy ill-defined opacities in left lung base question developing infiltrates versus metastatic process. Small nodules are seen in the right lower lobe. Heart size is normal. LIVER, GALLBLADDER, AND BILIARY TREE: The liver is normal in size, slightly lobulated shape, and hypo-attenuation. Mild perihepatic soft tissue thickening measuring 18 also units likely fluid and/or peritoneal seeding. No focal hepatic lesion or biliary ductal dilatation is present. The gallbladder is unremarkable with no evidence of radiopaque gallstones, gallbladder wall thickening, or obvious pericholecystic inflammatory changes. PANCREAS: Unremarkable. SPLEEN: The spleen is unremarkable. However there is heterogeneous thick paratracheal linear opacities superior to the spleen in the gastrosplenic space as well as superior to the pancreas likely dense metastatic nodules. ADRENAL GLANDS: Unremarkable. KIDNEYS AND URETERS: The kidneys are normal in size, shape, and attenuation. No hydronephrosis, hydroureter, or calculi seen. There is diffuse perinephric stranding. BLADDER: The bladder is moderately distended. GASTROINTESTINAL TRACT: There is diffuse wall thickening of the stomach without any gastric distention similar findings were seen on the previous exam. There is a small hiatal hernia. The small bowel loops are prominent with fluid but nondistended. The entire colon is slightly prominent with mural thickening and diffuse colonic diverticulosis. There is a rectal and endometrial junction wall thickening is unchanged. There is diffuse coarse peritoneal from metastatic nodules most prominent in the upper abdomen as well as the last significant omental caking. Biopsies of this region have been performed twice. These findings have significantly doubled in thickness and involvement of the peritoneum. No free air or free fluid seen. ABDOMINAL WALL: No significant hernia is appreciated. LYMPH NODES: Abnormal lymph nodes are seen in the iliac chain. Largest left iliac node measures 1 cm on axial image 61/3. VASCULAR: Unremarkable. PELVIC VISCERA: There is no free air or free fluid. This prostate gland is moderately enlarged. No hernia seen.. OSSEOUS STRUCTURES: There are degenerative disc changes with vacuum disc phenomena L4-L5 and L5/S1 disc levels. There is grade 1 anterol[address] L4 over L5. CT/CT abdomen pelvis wo con IMPRESSION: Diffuse mural thickening involving the entire colon suspicious for colitis. There are scattered diverticuli or diverticulitis is considered less likely. Rectal and a rectal mass with diffuse peritoneal peristalsis was compared to previous CT abdominal exam 09/26/2021. There is small metastatic nodule seen in the right lower lobe and left lower lobe. Moderate urinary bladder enlargement. Diffuse attenuation of liver with mild lobulated contour and anterior perihepatic fluid collection question peritoneal seeding with or without fluid collection. Small hiatal hernia. Fleischner guidelines were followed.
--- NOTE | ~2021-12-06 | XR_ITS ---
EXAMINATION: XR CHEST CLINICAL INFORMATION: Fever COMPARISON: Previous chest x-ray March [address] of the abdomen and pelvis from the same day TECHNIQUE: 2 views of the chest were obtained. FINDINGS: The cardiac and mediastinal contours are normal. The lung volumes are low. There is bronchial wall thickening at the lung bases. No definite pneumonia is seen by chest x-ray. There is no pleural effusion or pneumothorax. There are degenerative changes of the spine. XR/XR chest 2V IMPRESSION: Low lung volumes and bronchial wall thickening at the lung bases. No definite pneumonia is seen by chest x-ray.
--- NOTE | ~2021-12-06 | CT_ITS ---
EXAMINATION: CT ABDOMEN AND PELVIS WITH CONTRAST CLINICAL INFORMATION: Fever. Colitis. COMPARISON: Previous CT of the abdomen and pelvis 12/06/2021 TECHNIQUE: Multidetector volumetric images were obtained from the superior aspect of the liver through the pubic symphysis following administration 85 mL of Omnipaque 350 intravenous contrast. Sagittal and coronal reformatted images were obtained on the technologist's workstation. Oral contrast: Yes This CT examination was performed using dose optimization techniques as appropriate, variously including the following: *Automated exposure control *Adjustment of mA and/or kV according to patient size (this includes techniques or standardized protocols for targeted exams where dose is matched to indication/reason for exam; i.e. extremities or head) *Use of iterative reconstruction technique DLP: 431 mGy-cm FINDINGS: LUNG BASES: There is basilar bronchial wall thickening. There are scattered areas of mild bronchiectasis. There are numerous of peribronchial by basilar nodules that are new from previous exam. The largest measures 1 x 1.3 cm in the left lower lobe axial image 13 series 3. New appearance in 12 days. Favors an infectious or inflammatory process/airways disease as opposed to metastatic disease. LIVER, GALLBLADDER, AND BILIARY TREE: The liver is normal in size, shape, and attenuation. No focal hepatic lesion or biliary ductal dilatation is present. The gallbladder is unremarkable with no evidence of radiopaque gallstones, gallbladder wall thickening, or obvious pericholecystic inflammatory changes. PANCREAS: Unremarkable. SPLEEN: Unremarkable. ADRENAL GLANDS: Unremarkable. KIDNEYS AND URETERS: The kidneys are normal in size, shape, and attenuation. No hydronephrosis, hydroureter, or calculi seen. No perinephric stranding. BLADDER: Unremarkable. GASTROINTESTINAL TRACT: There is watson colitis. This does not appear appreciably changed from 12/06/2021 exam. No evidence of obstruction, perforation or abscess is seen. Right rectal mass does not appear changed. There is mild diverticulosis of the colon. There are some slightly distended thick-walled loops of small bowel in the left mid abdomen. This probably not appreciably changed. The appendix is normal. There is evidence of peritoneal disease involving the greater omentum. This appears unchanged. There is a small amount of ascites. This is slightly increased. ABDOMINAL WALL: No hernia is seen. LYMPH NODES: There are retroperitoneal lymph nodes in the abdomen and pelvis that appears stable. VASCULAR: There is evidence of atherosclerotic disease. No aneurysm is seen. PELVIC VISCERA: Unremarkable. OSSEOUS STRUCTURES: Unremarkable. CT/CT abdomen pelvis w con IMPRESSION: Bibasilar bronchial wall thickening and scattered areas of mild bronchiectasis. Numerous new pulmonary nodules largest in the left lower lobe. Short interval change favors an infectious or inflammatory process over neoplastic process. Colitis not appreciably changed. Increasing small amount of ascites. Stable appearance to peritoneal disease in the greater omentum and rectal mass. Fleischner guidelines were followed.
--- NOTE | ~2021-12-06 | CT_ITS ---
CT LUMBAR SPINE WITHOUT CONTRAST CLINICAL INFORMATION: Back pain. Colon cancer. COMPARISON: Abdominal CT 12/06/2021. TECHNIQUE: A multidetector CT acquisition of the lumbar spine was obtained without contrast. This CT examination was performed using dose optimization techniques as appropriate, variously including the following: *Automated exposure control *Adjustment of mA and/or kV according to patient size (this includes techniques or standardized protocols for targeted exams where dose is matched to indication/reason for exam; i.e. extremities or head) *Use of iterative reconstruction technique FINDINGS: There is grade 1 degenerative anterolisthesis of L4 on L5. Grade 1 retrolisthesis of L5 on S1. Vertebral body heights are maintained. There is mild disc volume loss and there is vacuum phenomenon at L4-L5 and L5-S1. There are no acute fractures and there are no acute subluxations. Multilevel endplate osteophytes. No suspicious osteolytic or osteoblastic lesions are identified. Partially imaged stranding adjacent to bowel loops and ascites, likely similar to the abdominal CT dated 12/06/2021, not well assessed and only partially imaged on this exam. L1-L2 and L2-L3 disc contours are normal. No central canal stenosis and no foraminal stenosis at these levels. L3-L4: Diffuse annular disc bulge and mild bilateral facet arthropathy. No central canal stenosis and no foraminal stenosis. L4-L5: Grade 1 degenerative anterolisthesis with uncovered disc and a superimposed diffuse annular disc bulge as well as severe bilateral facet arthropathy and ligamentum flavum thickening. Prominent dorsal epidural fat. Findings in concert result in suspected moderate central canal stenosis, severe bilateral subarticular zone stenosis with compression of the traversing L5 nerve roots bilaterally, as well as moderate to severe left and moderate right foraminal stenosis with mass effect on the exiting left greater than right L4 nerve roots. L5-S1: Grade 1 retrolisthesis disc osteophyte and facet arthropathy result in moderate to severe left and moderate right foraminal stenosis with mass effect on the exiting left greater than right L5 nerve roots. Epidural lipomatosis results in moderate to severe thecal sac effacement. CT/CT lumbar spine wo con IMPRESSION: - At L5-S1, multifactorial degenerative changes result in moderate to severe left and moderate right foraminal stenosis with mass effect on the exiting left greater than right L5 nerve roots. Epidural lipomatosis results in moderate to severe thecal sac effacement. - At L4-L5, grade 1 degenerative anterolisthesis and multifactorial degenerative changes result in suspected moderate central canal stenosis, severe bilateral subarticular zone stenosis with compression of the traversing L5 nerve roots bilaterally, as well as moderate to severe left and moderate right foraminal stenosis with mass effect on the exiting left greater than right L4 nerve roots. - No suspicious intraosseous lesions. - Partially imaged stranding adjacent to bowel loops and ascites, likely similar to the abdominal CT dated 12/06/2021, not well assessed and only partially imaged on this exam.
[2021-12-06 12:06] VITALS: BP 124/65; BP 125/72; PULSE 103; PULSE 80; RESP 21; TEMP 36.6; O2SAT 95; O2SAT 98; BMI 25.7
[2021-12-06 12:09] LABS: Glucose, Whole Blood > 600 mg/dL (60-115)
--- NOTE | 2021-12-06 12:25 | ED_ITS ---
HPI - General Adult General Chief complaint: Nausea/Vomiting/Diarrhea Stated complaint: ABD PAIN Time Seen by Provider: 12/06/21 12:05 Source: patient Limitations: no limitations History of Present Illness HPI narrative: Patient comes to the emergency room complaining of nausea, vomiting, diarrhea for approximately 1 week. Patient states that he recently started chemotherapy, every week he gets IV chemotherapy, every day he has oral doses. Patient states that he feels very dry, cannot sleep at night due to the copious amount of diar marquis. Patient has been trying to keep up the fluids, but every time he drinks something either vomits or ends up going almost immediately to the bathroom to move his bowels with watery diarrhea. Patient denies fever chills. Related Data Home Medications Medication Instructions Recorded Confirmed aspirin 81 mg tablet,delayed 81 mg PO DAILY 07/06/20 11/16/21 release blood pressure test kit-large #1 ea 07/06/20 11/16/21 blood sugar diagnostic #10 ea 07/06/20 11/16/21 famotidine 20 mg tablet 20 mg PO BID PRN 07/06/20 11/16/21 insulin glargine 100 unit/mL (3 20 unit SUBCUT DAILY 07/06/20 11/16/21 mL) subcutaneous pen loperamide 2 mg capsule 2 mg PO BID PRN 07/06/20 11/16/21 metformin 500 mg tablet 1,000 mg PO BID 07/06/20 11/16/21 oxycodone-acetaminophen 5 mg-325 1 tab PO BID PRN 07/06/20 11/16/21 mg tablet pen needle, diabetic 31 gauge x #50 ea 07/06/20 11/16/21 1/4 sertraline 50 mg tablet 50 mg PO DAILY 07/06/20 11/16/21 valsartan 80 1 tab PO DAILY 07/06/20 11/16/21 mg-hydrochlorothiazide 12.5 mg tablet zolpidem 5 mg tablet 5 mg PO BEDTIME PRN 07/06/20 11/16/21 dulaglutide 0.75 mg/0.5 mL 0.75 mg SUBCUT WE 02/15/21 11/16/21 subcutaneous pen injector pantoprazole 40 mg tablet,delayed 40 mg PO DAILY 02/15/21 11/16/21 release pravastatin 10 mg tablet 10 mg PO BEDTIME 02/15/21 11/16/21 multivitamin 1 tab PO DAILY 09/26/21 11/16/21 Previous Rx's Medication Instructions Recorded clopidogrel 75 mg tablet 75 mg PO DAILY #90 tab 10/05/20 albuterol sulfate 90 mcg/actuation 2 inh INHALATION Q6H PRN 30 Days 02/15/21 aerosol inhaler #18 g fluticasone fur. 200 mcg-umeclid 1 inh INHALATION DAILY 30 Days #60 03/25/21 62.5 mcg-vilant 25 mcg ea inhalat.powder (Trelegy Ellipta) capecitabine 500 mg tablet (Xeloda) 1,500 mg PO BID #84 tab 10/20/21 ondansetron 4 mg disintegrating 4 mg PO Q6H PRN #30 tab 10/26/21 tablet Allergies Allergy/AdvReac Type Severity Reaction Status Date / Time No Known Allergies Allergy Verified 11/16/21 15:07 Review of Systems Review of Systems: Constitutional : No Weight loss, No Fever, No Chills, No Night Sweats, complaining of fatigue and generalized weakness ENT/Mouth : No Hearing loss, No Ear Pain, No Nasal Congestion, No Sinus Pain, No Hoarseness, No sore throat, No Rhinorrhea, No Swallowing Difficulty Eyes: No Eye Pain, No Swelling, No Redness, No Foreign Body, No Discharge, No Vision Changes Cardiovascular : No Chest Pain, No SOB, No Dyspnea on Exertion, No Orthopnea, No Edema, No Palpitations Respiratory : No Cough, No Sputum, No Wheezing, No Smoke Exposure, No Dyspnea Gastrointestinal : Complaining of nausea vomiting and diarrhea. No Constipation, complaining of diffuse abdominal cramping, No Hematochezia, No Melena Genitourinary : no irregular bleeding, No Dysuria, No Urinary Frequency, No Hematuria, No Urinary Incontinence, No Urgency, No Flank Pain, No Urinary Flow Changes, No Hesitancy Musculoskeletal : No joint pain, No Myalgias, No Joint Swelling Skin : No Skin Lesions, No rash Neuro : No Weakness, No Numbness, No Paresthesias, No Loss of Consciousness, No Dizziness, No Headache Psych : No Anxiety/Panic, No Depression, No SI/HI/AH/VH, No Social Issues, Heme/Lymph: No Bruising, No Bleeding,No Lymphadenopathy Endocrine : No Polyuria, No Polydipsia, No Temperature Intolerance PMFSH Past Medical History Medical History (Updated 12/06/21 @ 17:51 by Heike Ojeda MD) COPD (chronic obstructive pulmonary disease) Diabetes type 2, controlled Rectal cancer Stomach cancer Surgical History Hx of colonoscopy Family History Family History Family/Other Medical history reviewed with no changes Mother Breast cancer Social History Social History Household Members: Spouse Housing: Apartment Are you a primary care associate to a significant other at home: No Do you presently have visiting nurse or other home services: Yes (industrial engineering director 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 for 2 hours) Alcohol intake: current Alcohol intake frequency: does not drink Patient Tobacco Use Status: Former Tobacco user Quit Date: 40 years ago Tobacco use type: Cigarette Years Smoked: 20 years e-Cigarette/Vaping Use: Former Use Advance Directives: No Advance Directives Information Provided: No service: No Current occupational status: retired Physical Exam ED Vital Signs: Vital Signs - 24 hr 12/06/21 12:06 12/06/21 14:04 12/06/21 17:08 Temperature 97.9 F Pulse Rate 103 H 102 H 110 H Respiratory Rate 21 H 17 13 Blood Pressure 124/65 115/59 L 110/65 Pulse Oximetry 95 95 96 12/06/21 17:36 Temperature Pulse Rate 109 H Respiratory Rate 19 Blood Pressure 101/52 L Pulse Oximetry 98 BMI result Body Mass Index 25.7 Const Other: Appearance: Alert. Oriented X3. Seems weak Eyes: Pupils equal, round and reactive to light. ENT: Pharynx normal. Neck: Normal inspection. Neck supple. No lymph nodes noted. No crepitus CVS: Normal heart rate and rhythm. Pulses normal. Normal S1 and S2 Respiratory: No respiratory distress. Breath sounds normal. No Wheezing. No rales Abdomen: Soft and nontender. No rigidity. No distention. Umbilical hernia, easily reducible, not incarcerated Skin: Skin warm and dry. Normal skin color. Normal skin turgor. Extremities: No lower extremity edema. No Lacerations. No Rash Neuro: Oriented X 3. No motor deficit. No sensory deficit. Moving all extremities. No slurred speech. CN 2 through 12 grossly intact Psych: calm, cooperative, normal affect Course Course Course Narrative: Other labs are pending. Patient being hydrated with IV lactated Ringer's I was informed by the patient's nurse that the patient had a large bowel movement with bloody diarrhea. Guaiac stool positive. Lactic acid elevated, at this time sepsis not suspected. I discussed the labs and the patient with Dr. Macias. Patient is being admitted. At this time, antibiotics are not necessary, diarrhea likely secondary to chemo. ANC is 2600 Patient's glucose is still elevated. We will give 10 more units of insulin, total of 20, patient is still getting IV fluids. Labs/chemistry will be checked at 19:00. If patient is still hyperglycemic and the anion gap remains open, patient may need insulin drip, posible DKA. Patient's lactic acid keeps increasing despite IV fluids. CT scan of the abdomen has been ordered, which is pending. Sign out given to Dr. Barber Medical Decision Making Lab Data Result diagrams: 12/06/21 12:36 12/06/21 12:36 Labs: Lab Results 12/06/21 12/06/21 12/06/21 Range/Units 12:04 12:36 12:36 WBC 4.2 L (4.8-10.8) X10*3/uL RBC 5.02 (4.60-5.80) X10*6/uL Hgb 12.3 L (14.0-18.0) g/dl Hct 39.2 L (42.0-52.0) % MCV 78.1 L (80.0-98.0) fL MCH 24.5 L (27.0-33.0) pg MCHC 31.4 (31.0-36.0) g/dl RDW 18.1 H (11.0-16.0) % Plt Count 345 (160-400) X10*3/uL MPV 9.9 (9.4-12.4) fL Immature Gran % (Auto) Cancelled Neut % (Auto) Cancelled Lymph % (Auto) Cancelled Hodgeman % (Auto) Cancelled Eos % (Auto) Cancelled Baso % (Auto) Cancelled Lymph # (Auto) Cancelled Hodgeman # (Auto) Cancelled Eos # (Auto) Cancelled Baso # (Auto) Cancelled Abs Immat Gran (auto) Cancelled Absolute Neuts (auto) Cancelled Absolute Nucleated RBC 0.040 H (0.0-0.012) X10*3/uL Nucleated RBC % (auto) 1.0 H (0.0-0.2) /100WBC Neutrophils % (Manual) 26 L (45-73) % Band Neutrophils % 37 H (3-5) % Lymphocytes % (Manual) 12 L (20-40) % Atypical Lymphs % (Man) 1 (0-6) % Monocytes % (Manual) 20 H (2-11) % Eosinophils % (Manual) 1 (0-4) % Metamyelocytes % 3 % Abs Neuts (Manual) 2.6 (2.0-8.3) X10*3/uL Lymphocytes # (Manual) 0.5 L (1.2-4.9) X10*3/uL Monocytes # (Manual) 0.8 (0.1-1.2) X10*3/uL Metamyelocytes # 0.1 X10*3/uL Nucleated RBCs 4 H (0-0) /100WBC Toxic Vacuolation PRESENT Dohle Bodies PRESENT Platelet Estimate NORMAL (NORMAL) Plt Morphology Comment NORM RBC Morphology NOTED Hypochromasia 1+ (5-14) /OIF Microcytosis 1+ (5-14) /OIF Ovalocytes 1+ (5-14) /OIF [place] Cells 3+ (>5) /OIF Acanthocytes (Spur) 3+ (>5) /OIF Schistocytes 1+ (0-2) /OIF Sodium 126 L (135-145) mmol/L Potassium 4.8 (3.3-5.1) mmol/L Chloride 96 (96-108) mmol/L Carbon Dioxide 12 L (22-29) mmol/L Anion Gap 23 H (12-20) BUN 62 H D (9-16) mg/dL Creatinine 2.26 H (0.5-1.4) mg/dL Estim Creat Clear Calc 20.6 Estimated GFR 28 POC Glucose > 600 H* (60-115) mg/dL Random Glucose 697 H* (60-115) mg/dL Lactic Acid (0.5-2.0) mmol/L Lactic Acid F/U @ 2Hr (0.5-2.0) mmol/L Lactic Acid F/U @ 4Hr (0.5-2.0) mmol/L Calcium 8.1 L D (8.4-10.2) mg/dL Total Bilirubin 0.4 (0.0-1.0) mg/dL Direct Bilirubin 0.2 (0.0-0.5) mg/dL AST 9 (5-37) U/L ALT 8 (0-40) U/L Alkaline Phosphatase 76 D (39-117) U/L Total Protein 4.8 L D (6.5-8.0) g/dL Albumin 2.5 L D (3.5-5.0) g/dL Lipase 38 (8-78) U/L Stool Occult Blood (NEGATIVE) Acetone, Qual Moderate H (Negative) COVID-19 (SILVANO) (Negative) COVID-19 Clin Com Influenza Type A (JOSIE) (Negative) Influenza Type B (JOSIE) (Negative) Influenza A & B Note 12/06/21 12/06/21 12/06/21 Range/Units 12:36 12:40 12:40 WBC (4.8-10.8) X10*3/uL RBC (4.60-5.80) X10*6/uL Hgb (14.0-18.0) g/dl Hct (42.0-52.0) % MCV (80.0-98.0) fL MCH (27.0-33.0) pg MCHC (31.0-36.0) g/dl RDW (11.0-16.0) % Plt Count (160-400) X10*3/uL MPV (9.4-12.4) fL Immature Gran % (Auto) Neut % (Auto) Lymph % (Auto) Hodgeman % (Auto) Eos % (Auto) Baso % (Auto) Lymph # (Auto) Hodgeman # (Auto) Eos # (Auto) Baso # (Auto) Abs Immat Gran (auto) Absolute Neuts (auto) Absolute Nucleated RBC (0.0-0.012) X10*3/uL Nucleated RBC % (auto) (0.0-0.2) /100WBC Neutrophils % (Manual) (45-73) % Band Neutrophils % (3-5) % Lymphocytes % (Manual) (20-40) % Atypical Lymphs % (Man) (0-6) % Monocytes % (Manual) (2-11) % Eosinophils % (Manual) (0-4) % Metamyelocytes % % Abs Neuts (Manual) (2.0-8.3) X10*3/uL Lymphocytes # (Manual) (1.2-4.9) X10*3/uL Monocytes # (Manual) (0.1-1.2) X10*3/uL Metamyelocytes # X10*3/uL Nucleated RBCs (0-0) /100WBC Toxic Vacuolation Dohle Bodies Platelet Estimate (NORMAL) Plt Morphology Comment RBC Morphology Hypochromasia /OIF Microcytosis /OIF Ovalocytes /OIF [place] Cells /OIF Acanthocytes (Spur) /OIF Schistocytes /OIF Sodium (135-145) mmol/L Potassium (3.3-5.1) mmol/L Chloride (96-108) mmol/L Carbon Dioxide (22-29) mmol/L Anion Gap (12-20) BUN (9-16) mg/dL Creatinine (0.5-1.4) mg/dL Estim Creat Clear Calc Estimated GFR POC Glucose (60-115) mg/dL Random Glucose (60-115) mg/dL Lactic Acid 2.2 H* (0.5-2.0) mmol/L Lactic Acid F/U @ 2Hr (0.5-2.0) mmol/L Lactic Acid F/U @ 4Hr (0.5-2.0) mmol/L Calcium (8.4-10.2) mg/dL Total Bilirubin (0.0-1.0) mg/dL Direct Bilirubin (0.0-0.5) mg/dL AST (5-37) U/L ALT (0-40) U/L Alkaline Phosphatase (39-117) U/L Total Protein (6.5-8.0) g/dL Albumin (3.5-5.0) g/dL Lipase (8-78) U/L Stool Occult Blood (NEGATIVE) Acetone, Qual (Negative) COVID-19 (SILVANO) Negative (Negative) COVID-19 Clin Com See Note Influenza Type A (JOSIE) Negative (Negative) Influenza Type B (JOSIE) Negative (Negative) Influenza A & B Note See Note 12/06/21 12/06/21 12/06/21 Range/Units 13:57 15:18 15:18 WBC (4.8-10.8) X10*3/uL RBC (4.60-5.80) X10*6/uL Hgb (14.0-18.0) g/dl Hct (42.0-52.0) % MCV (80.0-98.0) fL MCH (27.0-33.0) pg MCHC (31.0-36.0) g/dl RDW (11.0-16.0) % Plt Count (160-400) X10*3/uL MPV (9.4-12.4) fL Immature Gran % (Auto) Neut % (Auto) Lymph % (Auto) Hodgeman % (Auto) Eos % (Auto) Baso % (Auto) Lymph # (Auto) Hodgeman # (Auto) Eos # (Auto) Baso # (Auto) Abs Immat Gran (auto) Absolute Neuts (auto) Absolute Nucleated RBC (0.0-0.012) X10*3/uL Nucleated RBC % (auto) (0.0-0.2) /100WBC Neutrophils % (Manual) (45-73) % Band Neutrophils % (3-5) % Lymphocytes % (Manual) (20-40) % Atypical Lymphs % (Man) (0-6) % Monocytes % (Manual) (2-11) % Eosinophils % (Manual) (0-4) % Metamyelocytes % % Abs Neuts (Manual) (2.0-8.3) X10*3/uL Lymphocytes # (Manual) (1.2-4.9) X10*3/uL Monocytes # (Manual) (0.1-1.2) X10*3/uL Metamyelocytes # X10*3/uL Nucleated RBCs (0-0) /100WBC Toxic Vacuolation Dohle Bodies Platelet Estimate (NORMAL) Plt Morphology Comment RBC Morphology Hypochromasia /OIF Microcytosis /OIF Ovalocytes /OIF Prashant Cells /OIF Acanthocytes (Spur) /OIF Schistocytes /OIF Sodium (135-145) mmol/L Potassium (3.3-5.1) mmol/L Chloride (96-108) mmol/L Carbon Dioxide (22-29) mmol/L Anion Gap (12-20) BUN (9-16) mg/dL Creatinine (0.5-1.4) mg/dL Estim Creat Clear Calc Estimated GFR POC Glucose 591 H* (60-115) mg/dL Random Glucose (60-115) mg/dL Lactic Acid (0.5-2.0) mmol/L Lactic Acid F/U @ 2Hr 3.2 H* (0.5-2.0) mmol/L Lactic Acid F/U @ 4Hr (0.5-2.0) mmol/L Calcium (8.4-10.2) mg/dL Total Bilirubin (0.0-1.0) mg/dL Direct Bilirubin (0.0-0.5) mg/dL AST (5-37) U/L ALT (0-40) U/L Alkaline Phosphatase (39-117) U/L Total Protein (6.5-8.0) g/dL Albumin (3.5-5.0) g/dL Lipase (8-78) U/L Stool Occult Blood POSITIVE (NEGATIVE) Acetone, Qual (Negative) COVID-19 (SILVANO) (Negative) COVID-19 Clin Com Influenza Type A (JOSIE) (Negative) Influenza Type B (JOSIE) (Negative) Influenza A & B Note 12/06/21 12/06/21 Range/Units 17:19 17:44 WBC (4.8-10.8) X10*3/uL RBC (4.60-5.80) X10*6/uL Hgb (14.0-18.0) g/dl Hct (42.0-52.0) % MCV (80.0-98.0) fL MCH (27.0-33.0) pg MCHC (31.0-36.0) g/dl RDW (11.0-16.0) % Plt Count (160-400) X10*3/uL MPV (9.4-12.4) fL Immature Gran % (Auto) Neut % (Auto) Lymph % (Auto) Hodgeman % (Auto) Eos % (Auto) Baso % (Auto) Lymph # (Auto) Hodgeman # (Auto) Eos # (Auto) Baso # (Auto) Abs Immat Gran (auto) Absolute Neuts (auto) Absolute Nucleated RBC (0.0-0.012) X10*3/uL Nucleated RBC % (auto) (0.0-0.2) /100WBC Neutrophils % (Manual) (45-73) % Band Neutrophils % (3-5) % Lymphocytes % (Manual) (20-40) % Atypical Lymphs % (Man) (0-6) % Monocytes % (Manual) (2-11) % Eosinophils % (Manual) (0-4) % Metamyelocytes % % Abs Neuts (Manual) (2.0-8.3) X10*3/uL Lymphocytes # (Manual) (1.2-4.9) X10*3/uL Monocytes # (Manual) (0.1-1.2) X10*3/uL Metamyelocytes # X10*3/uL Nucleated RBCs (0-0) /100WBC Toxic Vacuolation Dohle Bodies Platelet Estimate (NORMAL) Plt Morphology Comment RBC Morphology Hypochromasia /OIF Microcytosis /OIF Ovalocytes /OIF [place] Cells /OIF Acanthocytes (Spur) /OIF Schistocytes /OIF Sodium (135-145) mmol/L Potassium (3.3-5.1) mmol/L Chloride (96-108) mmol/L Carbon Dioxide (22-29) mmol/L Anion Gap (12-20) BUN (9-16) mg/dL Creatinine (0.5-1.4) mg/dL Estim Creat Clear Calc Estimated GFR POC Glucose 508 H* (60-115) mg/dL Random Glucose (60-115) mg/dL Lactic Acid (0.5-2.0) mmol/L Lactic Acid F/U @ 2Hr (0.5-2.0) mmol/L Lactic Acid F/U @ 4Hr 1.4 (0.5-2.0) mmol/L Calcium (8.4-10.2) mg/dL Total Bilirubin (0.0-1.0) mg/dL Direct Bilirubin (0.0-0.5) mg/dL AST (5-37) U/L ALT (0-40) U/L Alkaline Phosphatase (39-117) U/L Total Protein (6.5-8.0) g/dL Albumin (3.5-5.0) g/dL Lipase (8-78) U/L Stool Occult Blood (NEGATIVE) Acetone, Qual (Negative) COVID-19 (SILVANO) (Negative) COVID-19 Clin Com Influenza Type A (JOSIE) (Negative) Influenza Type B (JOSIE) (Negative) Influenza A & B Note Discharge Plan Discharge Clinical Impression: Diarrhea, Hyperglycemia, AFTAB (acute kidney injury) Patient Disposition: Admitted As Inpatient
[2021-12-06] MEDS: Lactated Ringers 1,000 ML 999 ML IV (12:30)
[2021-12-06] MEDS: Loperamide HCl 2 MG CAPSULE 4 MG PO (12:35)
[2021-12-06] MEDS: ondansetron HCL 4 MG/2 ML VIAL IVPUSH (12:35)
--- NOTE | 2021-12-06 12:44 | PC.NURSE ---
Pt comes in with complaints of N/V/D and hyperglycemia since he ad his first round of chemo for Stage 4 stomach cancer 6 days ago. Pt is A&Ox4, LCA, abd rounded, non tender +BS which are hyperactive. NSR on montior, no edema, + diarrhea which is liquid in nature. Call sánchez within reach, medicated as per MAR orders. Will continue to monitor.
[2021-12-06 13:07] LABS: Lactic Acid 2.2 mmol/L (0.5-2.0)
[2021-12-06] MEDS: Insulin Regular, Human 100 UNIT/ML 3 ML VIAL 10 UNIT IVPUSH ×2 (13:09→17:34)
[2021-12-06 13:11] LABS: Hematocrit 39.2 % (42.0-52.0); Hemoglobin 12.3 g/dl (14.0-18.0); Mean Corpuscular HGB Conc 31.4 g/dl (31.0-36.0); Mean Corpuscular Hemoglobin 24.5 pg (27.0-33.0); Mean Corpuscular Volume 78.1 fL (80.0-98.0); Mean Platelet Volume 9.9 fL (9.4-12.4); Platelet Count 345 X10*3/uL (160-400); Red Blood Count 5.02 X10*6/uL (4.60-5.80); Red Cell Distribution Width 18.1 % (11.0-16.0)
[2021-12-06 13:12] LABS: WBC ABN SCTR FOR CBC 1
[2021-12-06 13:20] LABS: Atypical Lymphs Percent Manual 1 % (0-6); Band Neutrophils Percent 37 % (3-5); Eosinophils Percent Manual 1 % (0-4); Lymphocytes Percent Manual 12 % (20-40); Metamyelocytes Percent 3 %; Monocytes Percent Manual 20 % (2-11); Neutrophils Percent Manual 26 % (45-73); Nucleated Red Blood Cells 4 /100WBC (0-0)
[2021-12-06 13:24] LABS: COVID-19 Test Negative (Negative)
[2021-12-06 13:24] LABS: Acanthocytes 3+ (>5) /OIF; Platelet Estimate NORMAL (NORMAL); RBC Morphology NOTED
[2021-12-06 13:25] LABS: IDNOW Serial# 16C4AD1C; Influenza A Negative (Negative); Influenza B2 Negative (Negative)
[2021-12-06 13:25] LABS: Burr Cells 3+ (>5) /OIF; Hypochromasia 1+ (5-14) /OIF; Microcytosis 1+ (5-14) /OIF; Ovalocytes 1+ (5-14) /OIF; Platelet Morphology Comment NORM; Schistocytes 1+ (0-2) /OIF
[2021-12-06 13:26] LABS: Dohle Bodies PRESENT; Lymphocytes Absolute Manual 0.5 X10*3/uL (1.2-4.9); Metamyelocytes Absolute 0.1 X10*3/uL; Monocytes Absolute Manual 0.8 X10*3/uL (0.1-1.2); Neutrophils Absolute Manual 2.6 X10*3/uL (2.0-8.3); Toxic Vacuolation PRESENT; White Blood Count 4.2 X10*3/uL (4.8-10.8)
[2021-12-06 13:41] LABS: Alanine Aminotransferase 8 U/L (0-40); Albumin Level 2.5 g/dL (3.5-5.0); Alkaline Phosphatase 76 U/L (39-117); Anion Gap 23 (12-20); Aspartate Amino Transferase 9 U/L (5-37); Bilirubin Direct 0.2 mg/dL (0.0-0.5); Bilirubin Total 0.4 mg/dL (0.0-1.0); Blood Urea Nitrogen 62 mg/dL (9-16); Calcium 8.1 mg/dL (8.4-10.2); Carbon Dioxide 12 mmol/L (22-29); Chloride 96 mmol/L (96-108); Creatinine Clr Calc Pharmacy 20.6; Estimated Glomerular Filt Rate 28; Lipase 38 U/L (8-78); Potassium 4.8 mmol/L (3.3-5.1); Sodium 126 mmol/L (135-145); Total Protein 4.8 g/dL (6.5-8.0)
[2021-12-06 13:52] LABS: Glucose Random 697 mg/dL (60-115)
[2021-12-06 14:04] VITALS: BP 115/59; PULSE 102; RESP 17; O2SAT 95
[2021-12-06 14:04] LABS: Glucose, Whole Blood 591 mg/dL (60-115)
[2021-12-06 14:39] LABS: Reflex Lactate? Lactic Acid Added
[2021-12-06 15:35] LABS: OBS Int Ctl Valid YES; OBS1 POSITIVE (NEGATIVE)
[2021-12-06 15:45] LABS: ~Lactic Acid-LAB USE ONLY 3.2 mmol/L (0.5-2.0)
[2021-12-06 17:08] VITALS: BP 110/65; PULSE 110; RESP 13; O2SAT 96
[2021-12-06] MEDS: 0.9 % Sodium Chloride 1,000 ML 999 ML IVCONT (17:16)
[2021-12-06 17:23] LABS: Glucose, Whole Blood 508 mg/dL (60-115)
[2021-12-06 17:27] LABS: Reflex Lactate? 2 Y
[2021-12-06 17:36] VITALS: BP 101/52; PULSE 109; RESP 19; O2SAT 98
[2021-12-06 17:38] LABS: Acetone, serum QL Moderate (Negative)
[2021-12-06 18:10] LABS: ~Lactic Acid-LAB USE ONLY 1.4 mmol/L (0.5-2.0)
--- NOTE | 2021-12-06 18:43 | PHA.MEDREC ---
Pharmacy Consult ? Medication Reconciliation Pharmacy has completed the medication reconciliation. spoke with patient who knew all meds. pt did not take any meds today
[2021-12-06 18:53] LABS: Glucose, Whole Blood 407 mg/dL (60-115)
[2021-12-06 19:09] VITALS: BP 117/68; PULSE 108; RESP 18; O2SAT 95
[2021-12-06 19:30] LABS: Anion Gap 14 (12-20); Blood Urea Nitrogen 54 mg/dL (9-16); Carbon Dioxide 19 mmol/L (22-29); Chloride 100 mmol/L (96-108); Creatinine Clr Calc Pharmacy 26.3; Estimated Glomerular Filt Rate 37; Glucose Random 447 mg/dL (60-115); Potassium 4.1 mmol/L (3.3-5.1); Sodium 129 mmol/L (135-145)
--- NOTE | 2021-12-06 19:36 | PC.NURSE ---
Critical lab report to [facility] who is providing care for pt. POC of [phone]
--- NOTE | 2021-12-06 19:53 | PM.IMHP ---
History of Present Illness Date of Service: 12/06/21 Chief Complaint: Diarrhea 81-year-old female with a past medical history of hypertension, hyperlipidemia, diabetes, CAD, rectal cancer on chemotherapy presented to the hospital with a chief complaint of diarrhea and abdominal discomfort. Patient is a poor historian. Reportedly patient has been having nausea vomiting and diarrhea for the past 1 week; this is abdominal discomfort. Mentions that his symptoms started after he was started on the chemotherapy. Denies any fevers and chills. Patient mentions that he has been not eating good enough. Denies any fever chills cough. Denies any urinary symptoms. Denies any chest pain or palpitations. Review of all other systems is negative except mentioned above ER course: Per ER team patient's exam was grossly benign; after patient has presented to the ER patient noted to have large bowel movement with the blood in the stool. Stool guaiac was positive. Lactate was elevated; concern for sepsis;-initially presumed the patient's diarrhea likely secondary to his chemotherapy; antibiotics were not given; CT scan has been ordered-which showed findings concerning for colitis. Patient fingerstick glucose was elevated to 500; serum bicarb was noted to be 14, elevated anion gap, elevated a stone; concern for DKA-given IV fluids and regular insulin IV push x2; fingerstick glucose improved. Follow-up lab showed resolved anion gap and improved serum bicarb. 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) Alcohol intake: current Alcohol intake frequency: does not drink Patient Tobacco Use Status: Former Tobacco user Quit Date: 40 years ago Tobacco use type: Cigarette Years Smoked: 20 years e-Cigarette/Vaping Use: Former Use Advance Directives: No Advance Directives Information Provided: No service: No Current occupational status: retired Meds Allergies Allergy/AdvReac Type Severity Reaction Status Date / Time No Known Allergies Allergy Verified 01/18/22 11:38 Active Medications: Current Medications Sodium Chloride (Ns) 1,000 mls @ 999 mls/hr IV .Q1H1M ONE Stop: 12/06/21 20:48 Pharmacy Consult (Consult Rx Perform Med Rec) 1 each MISCELLANE ONCE PRN PRN Reason: Consult order Home Medications Medication Instructions Recorded Confirmed Last Taken Type aspirin 81 mg tablet,delayed 81 mg PO DAILY 07/06/20 01/18/22 02/17/22 History release metformin 500 mg tablet 1,000 mg PO BID 07/06/20 01/18/22 12/05/21 History oxycodone-acetaminophen 5 mg-325 1 tab PO BID PRN Pain 07/06/20 01/18/22 12/05/21 History mg tablet sertraline 50 mg tablet 50 mg PO DAILY 07/06/20 01/18/22 12/05/21 History zolpidem 5 mg tablet 5 mg PO BEDTIME PRN Insomnia 07/06/20 01/18/22 12/05/21 History pantoprazole 40 mg tablet,delayed 40 mg PO DAILY@0630 02/15/21 01/18/22 12/05/21 History release (Protonix) pravastatin 10 mg tablet 10 mg PO BEDTIME 02/15/21 01/18/22 12/05/21 History multivitamin 1 tab PO DAILY 09/26/21 01/18/22 12/05/21 History dulaglutide 1.5 mg/0.5 mL 1.5 mg subcut MORALES@0900 12/06/21 01/18/22 12/05/21 History subcutaneous pen injector (Trulicity) insulin glargine 100 unit/mL (3 20 unit subcut DAILY 12/06/21 01/18/22 12/05/21 History mL) subcutaneous pen (Lantus Solostar U-100 Insulin) naproxen 500 mg tablet 1 tab PO BID 12/06/21 01/18/22 12/05/21 History saliva stimulant comb. no.3 1 spray mucous membrane Q1H PRN 12/06/21 01/18/2222 History (Biotene Moisturizing Mouth Dry Mouth mucosal spray) valsartan 160 1 tab PO DAILY blood pressure 12/06/21 01/18/22 12/05/21 History mg-hydrochlorothiazide 12.5 mg tablet (Diovan HCT) clopidogrel 75 mg tablet (Plavix) 75 mg PO DAILY 02/22/22 01/18/22 02/17/22 History diphenoxylate-atropine 2.5 2 tab PO QID 02/22/22 01/18/22 Unknown History mg-0.025 mg tablet (Lomotil) Physical Exam Vital Signs and Narrative: Vital Signs: Last Vital Signs Temp 97.9 F 12/06/21 12:06 Pulse 108 H 12/06/21 19:09 Resp 18 12/06/21 19:09 BP 117/68 12/06/21 19:09 Pulse Ox 95 12/06/21 19:09 BMI result Body Mass Index 25.7 Results Labs CBC and Chem 7: 12/23/21 05:46 12/23/21 05:46 Labs: Laboratory Results - last 24 hr 12/06/21 12/06/21 12/06/21 12:04 12:36 12:36 MCV 78.1 L MCH 24.5 L MCHC 31.4 RDW 18.1 H Plt Count 345 MPV 9.9 Immature Gran % (Auto) Cancelled Neut % (Auto) Cancelled Lymph % (Auto) Cancelled [place] % (Auto) Cancelled Eos % (Auto) Cancelled Baso % (Auto) Cancelled Lymph # (Auto) Cancelled [place] # (Auto) Cancelled Eos # (Auto) Cancelled Baso # (Auto) Cancelled Abs Immat Gran (auto) Cancelled Absolute Neuts (auto) Cancelled Absolute Nucleated RBC 0.040 H Nucleated RBC % (auto) 1.0 H Neutrophils % (Manual) 26 L Band Neutrophils % 37 H Lymphocytes % (Manual) 12 L Atypical Lymphs % (Man) 1 Monocytes % (Manual) 20 H Eosinophils % (Manual) 1 Metamyelocytes % 3 Abs Neuts (Manual) 2.6 Lymphocytes # (Manual) 0.5 L Monocytes # (Manual) 0.8 Metamyelocytes # 0.1 Nucleated RBCs 4 H Toxic Vacuolation PRESENT Dohle Bodies PRESENT Platelet Estimate NORMAL Plt Morphology Comment NORM RBC Morphology NOTED Hypochromasia 1+ (5-14) Microcytosis 1+ (5-14) Ovalocytes 1+ (5-14) Prashant Cells 3+ (>5) Acanthocytes (Spur) 3+ (>5) Schistocytes 1+ (0-2) Anion Gap 23 H Estim Creat Clear Calc 20.6 Estimated GFR 28 POC Glucose > 600 H* Random Glucose 697 H* Lactic Acid Lactic Acid F/U @ 2Hr Lactic Acid F/U @ 4Hr Calcium 8.1 L D Total Bilirubin 0.4 Direct Bilirubin 0.2 AST 9 ALT 8 Alkaline Phosphatase 76 D Total Protein 4.8 L D Albumin 2.5 L D Lipase 38 Stool Occult Blood Acetone, Qual Moderate H COVID-19 (SILVANO) COVID-19 Clin Com Influenza Type A (JOSIE) Influenza Type B (JOSIE) Influenza A & B Note 12/06/21 12/06/21 12/06/21 12:36 12:40 12:40 MCV MCH MCHC RDW Plt Count MPV Immature Gran % (Auto) Neut % (Auto) Lymph % (Auto) [place] % (Auto) Eos % (Auto) Baso % (Auto) Lymph # (Auto) [place] # (Auto) Eos # (Auto) Baso # (Auto) Abs Immat Gran (auto) Absolute Neuts (auto) Absolute Nucleated RBC Nucleated RBC % (auto) Neutrophils % (Manual) Band Neutrophils % Lymphocytes % (Manual) Atypical Lymphs % (Man) Monocytes % (Manual) Eosinophils % (Manual) Metamyelocytes % Abs Neuts (Manual) Lymphocytes # (Manual) Monocytes # (Manual) Metamyelocytes # Nucleated RBCs Toxic Vacuolation Dohle Bodies Platelet Estimate Plt Morphology Comment RBC Morphology Hypochromasia Microcytosis Ovalocytes Prashant Cells Acanthocytes (Spur) Schistocytes Anion Gap Estim Creat Clear Calc Estimated GFR POC Glucose Random Glucose Lactic Acid 2.2 H* Lactic Acid F/U @ 2Hr Lactic Acid F/U @ 4Hr Calcium Total Bilirubin Direct Bilirubin AST ALT Alkaline Phosphatase Total Protein Albumin Lipase Stool Occult Blood Acetone, Qual COVID-19 (SILVANO) Negative COVID-19 Clin Com See Note Influenza Type A (JOSIE) Negative Influenza Type B (JOSIE) Negative Influenza A & B Note See Note 12/06/21 12/06/21 12/06/21 13:57 15:18 15:18 MCV MCH MCHC RDW Plt Count MPV Immature Gran % (Auto) Neut % (Auto) Lymph % (Auto) [place] % (Auto) Eos % (Auto) Baso % (Auto) Lymph # (Auto) [place] # (Auto) Eos # (Auto) Baso # (Auto) Abs Immat Gran (auto) Absolute Neuts (auto) Absolute Nucleated RBC Nucleated RBC % (auto) Neutrophils % (Manual) Band Neutrophils % Lymphocytes % (Manual) Atypical Lymphs % (Man) Monocytes % (Manual) Eosinophils % (Manual) Metamyelocytes % Abs Neuts (Manual) Lymphocytes # (Manual) Monocytes # (Manual) Metamyelocytes # Nucleated RBCs Toxic Vacuolation Dohle Bodies Platelet Estimate Plt Morphology Comment RBC Morphology Hypochromasia Microcytosis Ovalocytes Shepherd Cells Acanthocytes (Spur) Schistocytes Anion Gap Estim Creat Clear Calc Estimated GFR POC Glucose 591 H* Random Glucose Lactic Acid Lactic Acid F/U @ 2Hr 3.2 H* Lactic Acid F/U @ 4Hr Calcium Total Bilirubin Direct Bilirubin AST ALT Alkaline Phosphatase Total Protein Albumin Lipase Stool Occult Blood POSITIVE Acetone, Qual COVID-19 (SILVANO) COVID-19 Clin Com Influenza Type A (JOSIE) Influenza Type B (JOSIE) Influenza A & B Note 12/06/21 12/06/21 12/06/21 17:19 17:44 18:49 MCV MCH MCHC RDW Plt Count MPV Immature Gran % (Auto) Neut % (Auto) Lymph % (Auto) [place] % (Auto) Eos % (Auto) Baso % (Auto) Lymph # (Auto) [place] # (Auto) Eos # (Auto) Baso # (Auto) Abs Immat Gran (auto) Absolute Neuts (auto) Absolute Nucleated RBC Nucleated RBC % (auto) Neutrophils % (Manual) Band Neutrophils % Lymphocytes % (Manual) Atypical Lymphs % (Man) Monocytes % (Manual) Eosinophils % (Manual) Metamyelocytes % Abs Neuts (Manual) Lymphocytes # (Manual) Monocytes # (Manual) Metamyelocytes # Nucleated RBCs Toxic Vacuolation Dohle Bodies Platelet Estimate Plt Morphology Comment RBC Morphology Hypochromasia Microcytosis Ovalocytes Prashant Cells Acanthocytes (Spur) Schistocytes Anion Gap Estim Creat Clear Calc Estimated GFR POC Glucose 508 H* 407 H* Random Glucose Lactic Acid Lactic Acid F/U @ 2Hr Lactic Acid F/U @ 4Hr 1.4 Calcium Total Bilirubin Direct Bilirubin AST ALT Alkaline Phosphatase Total Protein Albumin Lipase Stool Occult Blood Acetone, Qual COVID-19 (SILVANO) COVID-19 Clin Com Influenza Type A (JOSIE) Influenza Type B (JOSIE) Influenza A & B Note 12/06/21 19:00 MCV MCH MCHC RDW Plt Count MPV Immature Gran % (Auto) Neut % (Auto) Lymph % (Auto) [place] % (Auto) Eos % (Auto) Baso % (Auto) Lymph # (Auto) [place] # (Auto) Eos # (Auto) Baso # (Auto) Abs Immat Gran (auto) Absolute Neuts (auto) Absolute Nucleated RBC Nucleated RBC % (auto) Neutrophils % (Manual) Band Neutrophils % Lymphocytes % (Manual) Atypical Lymphs % (Man) Monocytes % (Manual) Eosinophils % (Manual) Metamyelocytes % Abs Neuts (Manual) Lymphocytes # (Manual) Monocytes # (Manual) Metamyelocytes # Nucleated RBCs Toxic Vacuolation Dohle Bodies Platelet Estimate Plt Morphology Comment RBC Morphology Hypochromasia Microcytosis Ovalocytes Shepherd Cells Acanthocytes (Spur) Schistocytes Anion Gap 14 Estim Creat Clear Calc 26.3 Estimated GFR 37 POC Glucose Random Glucose 447 H* Lactic Acid Lactic Acid F/U @ 2Hr Lactic Acid F/U @ 4Hr Calcium 8.0 L Total Bilirubin Direct Bilirubin AST ALT Alkaline Phosphatase Total Protein Albumin Lipase Stool Occult Blood Acetone, Qual COVID-19 (SILVANO) COVID-19 Clin Com Influenza Type A (JOSIE) Influenza Type B (JOSIE) Influenza A & B Note Imaging Radiologist's Impressions: Impressions Abdomen/Pelvis CT 12/06/21 18:11 IMPRESSION: Diffuse mural thickening involving the entire colon suspicious for colitis. There are scattered diverticuli or diverticulitis is considered less likely. Rectal and a rectal mass with diffuse peritoneal peristalsis was compared to previous CT abdominal exam 09/26/2021. There is small metastatic nodule seen in the right lower lobe and left lower lobe. Moderate urinary bladder enlargement. Diffuse attenuation of liver with mild lobulated contour and anterior perihepatic fluid collection question peritoneal seeding with or without fluid collection. Small hiatal hernia. Fleischner guidelines were followed. Assessment and Plan (1) Diarrhea: Status: Acute (2) Hyperglycemia: Status: Resolved (3) AFTAB (acute kidney injury): Status: Resolved (4) Rectal cancer: Status: Acute (5) COPD (chronic obstructive pulmonary disease): Qualifiers: COPD type: chronic bronchitis Chronic bronchitis type: mixed simple and mucopurulent Qualified Code(s): J41.8 - Mixed simple and mucopurulent chronic bronchitis Status: Acute (6) Diabetes type 2, controlled: Status: Deleted Plan 81-year-old female with a past medical history of hypertension, hyperlipidemia, diabetes, CAD, rectal cancer on chemotherapy presented to the hospital with a chief complaint of diarrhea and abdominal discomfort. Nausea/vomiting/diarrhea: In the setting of chemotherapy complicated by colitis. Empirically started on ceftriaxone and Flagyl. Follow up stool studies. Diabetes: Will give the patient on Lantus 15 units and insulin sliding scale DKA: Currently resolved AFTAB: Baseline creatinine 1.2. Creatinine on presentation was 2.2. Prerenal in the setting of nausea/vomiting/diarrhea. Avoid nephrotoxins. Gentle IV fluids. Hyponatremia: Improving. Continue normal saline at 50 cc/hour. Guaiac positive stool: H and H currently stable. IV PPI. Gastroenterology consult. Hold home aspirin, Plavix for now History of rectal cancer: Patient on chemotherapy. Spoke to pharmacy to renally adjusted medications. DVT prophylaxis: SCD boots Code status: Full code Quality Stroke Does the patient have a stroke diagnosis?: No VTE Prior VTE?: No VTE Risk Level:: Medical - moderate - high VTE Device Contraindication: Treatment Not Indicated VTE Drug Contraindication: N/A - Med Ordered
[2021-12-06] MEDS: 0.9 % Sodium Chloride 1,000 ML 999 ML IV (20:29)
[2021-12-06 21:26] LABS: Glucose, Whole Blood 372 mg/dL (60-115)
[2021-12-06] MEDS: Heparin Sodium,Porcine 5,000 UNIT/ML VIAL 5000 UNIT SUBCUT (21:30)
[2021-12-06] MEDS: Insulin Lispro 100 UNIT/ML 3 ML VIAL SUBCUT (21:30)
[2021-12-06] MEDS: Insulin Glargine,Hum.rec.anlog 100 UNIT/ML 10 ML VIAL 15 UNIT SUBCUT (21:31)
[2021-12-06] MEDS: 0.9 % Sodium Chloride 1,000 ML 50 ML IVCONT (22:26)
[2021-12-06 23:05] VITALS: BP 111/61; PULSE 118; RESP 18; TEMP 36.4
[2021-12-07 00:34] VITALS: BP 124/61; PULSE 109; RESP 18; TEMP 37; O2SAT 96
[2021-12-07] MEDS: cefTRIAXone sodium 1 GM in 0.9 % Sodium Chloride 50 ML IV (00:51)
[2021-12-07] MEDS: metroNIDAZOLE/NS 500 MG/100 ML PIGGYBACK 100 MG IV ×2 (01:43→07:46)
[2021-12-07 04:00] VITALS: BP 117/50; PULSE 109; RESP 20; TEMP 37.1; O2SAT 99
--- NOTE | 2021-12-07 04:33 | PC.NURSE ---
Patient resting at present time. VSS , 2 incontinent BM's rabago in color. Will continue to monitor.
[2021-12-07 04:57] LABS: Glucose, Whole Blood 278 mg/dL (60-115)
--- NOTE | 2021-12-07 05:32 | PC.NURSE ---
This RN resuming care of pt. Stool sample for CDiff obtained and sent.
[2021-12-07 06:02] LABS: Leukocytes Stool Qualitative NEGATIVE (NEGATIVE)
[2021-12-07] MEDS: Pantoprazole Sodium 40 MG/10 ML VIAL IVPUSH (06:19)
[2021-12-07] MEDS: Omeprazole 20 MG CAPSULE.DR PO (06:19)
[2021-12-07 06:23] LABS: CDiff Gene PCR NEGATIVE (Negative)
--- NOTE | 2021-12-07 06:28 | PC.NURSE ---
Pt resting in bed with at bedside, medicated per MAR. Continue to monitor.
[2021-12-07 06:58] LABS: Glucose, Whole Blood > 600 mg/dL (60-115)
[2021-12-07 07:25] LABS: Glucose, Whole Blood 279 mg/dL (60-115)
[2021-12-07 07:41] LABS: Hematocrit 34.7 % (42.0-52.0); Hemoglobin 11.1 g/dl (14.0-18.0); Mean Corpuscular Hemoglobin 24.4 pg (27.0-33.0); Mean Corpuscular Volume 76.4 fL (80.0-98.0); Mean Platelet Volume 9.9 fL (9.4-12.4); NRBC Pct Auto 0.6 /100WBC (0.0-0.2); Platelet Count 298 X10*3/uL (160-400); Red Blood Count 4.54 X10*6/uL (4.60-5.80); Red Cell Distribution Width 18.1 % (11.0-16.0)
[2021-12-07 07:42] LABS: WBC ABN SCTR FOR CBC 1
[2021-12-07] MEDS: Insulin Lispro 100 UNIT/ML 3 ML VIAL SUBCUT ×4 (07:45→22:12)
[2021-12-07] MEDS: Multivitamin TABLET 1 TAB PO (07:45)
[2021-12-07] MEDS: Sertraline HCL 50 MG TABLET PO (07:45)
[2021-12-07 08:14] LABS: Band Neutrophils Percent 36 % (3-5); Basophils Percent Manual 1 % (0-2); Eosinophils Percent Manual 2 % (0-4); Lymphocytes Percent Manual 5 % (20-40); Metamyelocytes Percent 3 %; Monocytes Percent Manual 16 % (2-11); Neutrophils Percent Manual 37 % (45-73); Nucleated Red Blood Cells 5 /100WBC (0-0); RBC Morphology NOTED
[2021-12-07 08:15] LABS: Acanthocytes 3+ (>5) /OIF; Microcytosis 1+ (5-14) /OIF
[2021-12-07 08:16] LABS: Ovalocytes 1+ (5-14) /OIF
[2021-12-07 08:18] LABS: Dohle Bodies PRESENT
[2021-12-07 08:20] LABS: Platelet Estimate NORMAL (NORMAL); Platelet Morphology Comment NORMAL; Schistocytes 1+ (0-2) /OIF
[2021-12-07 08:21] LABS: Basophils Abs Manual 0.1 X10*3/uL (0.0-0.2); Eosinophils Absolute Manual 0.1 X10*3/uL (0.0-0.4); Lymphocytes Absolute Manual 0.3 X10*3/uL (1.2-4.9); Metamyelocytes Absolute 0.2 X10*3/uL; Monocytes Absolute Manual 0.8 X10*3/uL (0.1-1.2); Neutrophils Absolute Manual 3.8 X10*3/uL (2.0-8.3); White Blood Count 5.2 X10*3/uL (4.8-10.8)
[2021-12-07 08:42] LABS: Anion Gap 13 (12-20); Blood Urea Nitrogen 38 mg/dL (9-16); Calcium 7.7 mg/dL (8.4-10.2); Carbon Dioxide 16 mmol/L (22-29); Chloride 108 mmol/L (96-108); Creatinine Clr Calc Pharmacy 36.4; Estimated Glomerular Filt Rate 54; Glucose Random 316 mg/dL (60-115); Potassium 4.1 mmol/L (3.3-5.1); Sodium 133 mmol/L (135-145)
[2021-12-07 09:17] VITALS: BP 105/68; PULSE 110; RESP 16; TEMP 37.5; O2SAT 96
--- NOTE | 2021-12-07 11:00 | PC.NURSE ---
4 episodes of loose stools incontinent care provided. pt tolerating meds and meals. at bedside
--- NOTE | 2021-12-07 12:34 | MHC.CM.PN ---
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
[2021-12-07 13:16] LABS: Glucose, Whole Blood 295 mg/dL (60-115)
--- NOTE | 2021-12-07 15:30 | PC.NURSE ---
pt's reported that he vomited once while she was assisting him with lunch, he denies nausea. meds given as documented. pt's is at his bedside
--- NOTE | 2021-12-07 15:45 | P.PNIM_ITS ---
Subjective Subjective Date of Service: 12/07/21 Interval History: No acute issues overnight Review of Systems Denies chest pain I shortness of breath Denies nausea vomiting diarrhea Denies fever chills Physical Exam Vital Signs: Vital Signs: Last Vital Signs Temp 99.5 F 12/07/21 09:17 Pulse 110 H 12/07/21 09:17 Resp 16 12/07/21 09:17 BP 105/68 12/07/21 09:17 Pulse Ox 96 12/07/21 09:17 BMI result Body Mass Index 25.7 Const: Other: Awake alert oriented x3 no acute distress Resp: Other: Clear to auscultation bilaterally no rales rhonchi wheezes Cardio: Other: No S4; positive S1-S2; no S3 murmurs sounds or gallops GI: Other: Soft nontender nondistended normoactive bowel sounds Extrem: Other: No edema bilaterally Objective Data Active Medications Acetaminophen (Acetaminophen 325 Mg Tablet) 650 mg PO Q6H PRN PRN Reason: Pain, Mild (Pain Scale 1-3) Albuterol Sulfate (Albuterol Sulfate 90 Mcg 8 Gm Inhaler) 2 puff INHALE Q6H PRN PRN Reason: shortness of breath or wheezing Albuterol/Ipratropium (Albuterol/Iprat 2.5/0.5mg 3 Ml Ampul.Neb) 3 ml INHALE RQ4H WHILE AWAKE PRN PRN Reason: Shortness of Breath/Wheezing Dextrose (Dextrose 50 % 25 Gm/50 Ml Syringe) 25 gm IVPUSH Q15M PRN; Protocol PRN Reason: per Hypoglycemia Standing Ord. Glucose (Glucose Gel 15 Gm Gel..Gram.) 15 gm PO Q15M PRN; Protocol PRN Reason: per Hypoglycemia Standing Ord. Sodium Chloride (Ns) 1,000 mls @ 50 mls/hr IVCONT .Q20H [facility] Last Admin: 12/06/21 22:26 Dose: 50 mls/hr Documented by: NINO Ceftriaxone Sodium 1 gm/ (Sodium Chloride) 50 mls @ 100 mls/hr IV Q24H [facility] Last Infusion: 12/07/21 02:15 Dose: 100 mls/hr Documented by: CANDIE Metronidazole (Flagyl) 500 mg in 100 mls @ 100 mls/hr IV Q8H [facility] Last Infusion: 12/07/21 13:56 Dose: 0 mls/hr Documented by: MATILDA Insulin Glargine (Insulin Glargine,Hum.Rec.Anlog 100 Unit/Ml 10 Ml Vial) 15 unit SUBCUT BEDTIME [facility] Last Admin: 12/06/21 21:31 Dose: 15 unit Documented by: NINO Insulin Human Lispro (Insulin Lispro 100 Unit/Ml 3 Ml Vial) 0 unit SUBCUT QIDACHS [facility]; Protocol Last Admin: 12/07/21 13:55 Dose: 6 unit Documented by: MATILDA Melatonin (Melatonin 3 Mg Tablet) 6 mg PO BEDTIME PRN PRN Reason: Insomnia Multivitamins/Vitamin C (Multivitamin Tablet) 1 tab PO DAILY [facility] Last Admin: 12/07/21 07:45 Dose: 1 tab Documented by: MATILDA Non-Formulary Medication (Capecitabine [Xeloda]) 1,500 mg PO BID [facility] Omeprazole (Omeprazole 20 Mg Capsule.Dr) 20 mg PO DAILY@629 [facility] Last Admin: 12/07/21 06:19 Dose: 20 mg Documented by: ALFONSO Oxycodone HCl (Oxycodone Hcl Immed Release 5 Mg Tablet) 1 mg PO BID PRN PRN Reason: Pain Pantoprazole Sodium (Pantoprazole Sodium 40 Mg/10 Ml Vial) 40 mg IVPUSH DAILY@629 [facility] Last Admin: 12/07/21 06:19 Dose: 40 mg Documented by: ALFONSO Pharmacy Consult (Consult Rx Perform Med Rec) 1 each MISCELLANE ONCE PRN PRN Reason: Consult order Pravastatin Sodium (Pravastatin Sodium 10 Mg Tablet) 10 mg PO BEDTIME [facility] Last Admin: 12/06/21 23:31 Dose: Not Given Documented by: CANDIE Non-Admin Reason: Med Not Available Senna (Sennosides 8.6 Mg Tablet) 17.2 mg PO BEDTIME PRN PRN Reason: Constipation Sertraline HCl (Sertraline Hcl 50 Mg Tablet) 50 mg PO DAILY [facility] Last Admin: 12/07/21 07:45 Dose: 50 mg Documented by: MATILDA Sodium Chloride (0.9 % Sodium Chloride Flush 3 Ml Syringe) 3 ml IVFLUSH QSHIFT [facility] Last Admin: 12/07/21 07:48 Dose: Not Given Documented by: MATILDA Non-Admin Reason: IV Running Zolpidem Tartrate (Zolpidem Tartrate 5 Mg Tablet) 5 mg PO BEDTIME PRN PRN Reason: Insomnia Labs CBC & Chem 7: 12/07/21 07:03 12/07/21 07:03 Labs: Laboratory Results - last 24 hr 12/06/21 12/06/21 12/06/21 12:05 12:36 12:36 MCV MCH MCHC RDW Plt Count MPV Immature Gran % (Auto) Neut % (Auto) Lymph % (Auto) Rincon % (Auto) Eos % (Auto) Baso % (Auto) Lymph # (Auto) Rincon # (Auto) Eos # (Auto) Baso # (Auto) Abs Immat Gran (auto) Absolute Neuts (auto) Absolute Nucleated RBC Nucleated RBC % (auto) Neutrophils % (Manual) Band Neutrophils % Lymphocytes % (Manual) Monocytes % (Manual) Eosinophils % (Manual) Basophils % (Manual) Metamyelocytes % Abs Neuts (Manual) Lymphocytes # (Manual) Monocytes # (Manual) Eosinophils # (Manual) Basophils # (Manual) Metamyelocytes # Nucleated RBCs Dohle Bodies Platelet Estimate Plt Morphology Comment RBC Morphology Microcytosis Ovalocytes Acanthocytes (Spur) Schistocytes Smear Path Review SEE NOTE Anion Gap Estim Creat Clear Calc Estimated GFR POC Glucose > 600 H* Random Glucose Lactic Acid F/U @ 2Hr Lactic Acid F/U @ 4Hr Calcium Stool Leukocytes, Qual Acetone, Qual Moderate H C. difficile Tox B Gene 12/06/21 12/06/21 12/06/21 15:18 17:19 17:44 MCV MCH MCHC RDW Plt Count MPV Immature Gran % (Auto) Neut % (Auto) Lymph % (Auto) Rincon % (Auto) Eos % (Auto) Baso % (Auto) Lymph # (Auto) Rincon # (Auto) Eos # (Auto) Baso # (Auto) Abs Immat Gran (auto) Absolute Neuts (auto) Absolute Nucleated RBC Nucleated RBC % (auto) Neutrophils % (Manual) Band Neutrophils % Lymphocytes % (Manual) Monocytes % (Manual) Eosinophils % (Manual) Basophils % (Manual) Metamyelocytes % Abs Neuts (Manual) Lymphocytes # (Manual) Monocytes # (Manual) Eosinophils # (Manual) Basophils # (Manual) Metamyelocytes # Nucleated RBCs Dohle Bodies Platelet Estimate Plt Morphology Comment RBC Morphology Microcytosis Ovalocytes Acanthocytes (Spur) Schistocytes Smear Path Review Anion Gap Estim Creat Clear Calc Estimated GFR POC Glucose 508 H* Random Glucose Lactic Acid F/U @ 2Hr 3.2 H* Lactic Acid F/U @ 4Hr 1.4 Calcium Stool Leukocytes, Qual Acetone, Qual C. difficile Tox B Gene 12/06/21 12/06/21 12/06/21 18:49 19:00 21:19 MCV MCH MCHC RDW Plt Count MPV Immature Gran % (Auto) Neut % (Auto) Lymph % (Auto) Rincon % (Auto) Eos % (Auto) Baso % (Auto) Lymph # (Auto) Rincon # (Auto) Eos # (Auto) Baso # (Auto) Abs Immat Gran (auto) Absolute Neuts (auto) Absolute Nucleated RBC Nucleated RBC % (auto) Neutrophils % (Manual) Band Neutrophils % Lymphocytes % (Manual) Monocytes % (Manual) Eosinophils % (Manual) Basophils % (Manual) Metamyelocytes % Abs Neuts (Manual) Lymphocytes # (Manual) Monocytes # (Manual) Eosinophils # (Manual) Basophils # (Manual) Metamyelocytes # Nucleated RBCs Dohle Bodies Platelet Estimate Plt Morphology Comment RBC Morphology Microcytosis Ovalocytes Acanthocytes (Spur) Schistocytes Smear Path Review Anion Gap 14 Estim Creat Clear Calc 26.3 Estimated GFR 37 POC Glucose 407 H* 372 H* Random Glucose 447 H* Lactic Acid F/U @ 2Hr Lactic Acid F/U @ 4Hr Calcium 8.0 L Stool Leukocytes, Qual Acetone, Qual C. difficile Tox B Gene 12/07/21 12/07/21 12/07/21 04:53 05:26 05:26 MCV MCH MCHC RDW Plt Count MPV Immature Gran % (Auto) Neut % (Auto) Lymph % (Auto) Rincon % (Auto) Eos % (Auto) Baso % (Auto) Lymph # (Auto) Rincon # (Auto) Eos # (Auto) Baso # (Auto) Abs Immat Gran (auto) Absolute Neuts (auto) Absolute Nucleated RBC Nucleated RBC % (auto) Neutrophils % (Manual) Band Neutrophils % Lymphocytes % (Manual) Monocytes % (Manual) Eosinophils % (Manual) Basophils % (Manual) Metamyelocytes % Abs Neuts (Manual) Lymphocytes # (Manual) Monocytes # (Manual) Eosinophils # (Manual) Basophils # (Manual) Metamyelocytes # Nucleated RBCs Dohle Bodies Platelet Estimate Plt Morphology Comment RBC Morphology Microcytosis Ovalocytes Acanthocytes (Spur) Schistocytes Smear Path Review Anion Gap Estim Creat Clear Calc Estimated GFR POC Glucose 278 H Random Glucose Lactic Acid F/U @ 2Hr Lactic Acid F/U @ 4Hr Calcium Stool Leukocytes, Qual NEGATIVE Acetone, Qual C. difficile Tox B Gene NEGATIVE 12/07/21 12/07/21 12/07/21 07:03 07:03 07:19 MCV 76.4 L MCH 24.4 L MCHC 32.0 RDW 18.1 H Plt Count 298 MPV 9.9 Immature Gran % (Auto) Cancelled Neut % (Auto) Cancelled Lymph % (Auto) Cancelled Rincon % (Auto) Cancelled Eos % (Auto) Cancelled Baso % (Auto) Cancelled Lymph # (Auto) Cancelled Rincon # (Auto) Cancelled Eos # (Auto) Cancelled Baso # (Auto) Cancelled Abs Immat Gran (auto) Cancelled Absolute Neuts (auto) Cancelled Absolute Nucleated RBC 0.030 H Nucleated RBC % (auto) 0.6 H Neutrophils % (Manual) 37 L Band Neutrophils % 36 H Lymphocytes % (Manual) 5 L Monocytes % (Manual) 16 H Eosinophils % (Manual) 2 Basophils % (Manual) 1 Metamyelocytes % 3 Abs Neuts (Manual) 3.8 Lymphocytes # (Manual) 0.3 L Monocytes # (Manual) 0.8 Eosinophils # (Manual) 0.1 Basophils # (Manual) 0.1 Metamyelocytes # 0.2 Nucleated RBCs 5 H Dohle Bodies PRESENT Platelet Estimate NORMAL Plt Morphology Comment NORMAL RBC Morphology NOTED Microcytosis 1+ (5-14) Ovalocytes 1+ (5-14) Acanthocytes (Spur) 3+ (>5) Schistocytes 1+ (0-2) Smear Path Review Anion Gap 13 Estim Creat Clear Calc 36.4 Estimated GFR 54 POC Glucose 279 H Random Glucose 316 H Lactic Acid F/U @ 2Hr Lactic Acid F/U @ 4Hr Calcium 7.7 L Stool Leukocytes, Qual Acetone, Qual C. difficile Tox B Gene 12/07/21 13:12 MCV MCH MCHC RDW Plt Count MPV Immature Gran % (Auto) Neut % (Auto) Lymph % (Auto) Rincon % (Auto) Eos % (Auto) Baso % (Auto) Lymph # (Auto) Rincon # (Auto) Eos # (Auto) Baso # (Auto) Abs Immat Gran (auto) Absolute Neuts (auto) Absolute Nucleated RBC Nucleated RBC % (auto) Neutrophils % (Manual) Band Neutrophils % Lymphocytes % (Manual) Monocytes % (Manual) Eosinophils % (Manual) Basophils % (Manual) Metamyelocytes % Abs Neuts (Manual) Lymphocytes # (Manual) Monocytes # (Manual) Eosinophils # (Manual) Basophils # (Manual) Metamyelocytes # Nucleated RBCs Dohle Bodies Platelet Estimate Plt Morphology Comment RBC Morphology Microcytosis Ovalocytes Acanthocytes (Spur) Schistocytes Smear Path Review Anion Gap Estim Creat Clear Calc Estimated GFR POC Glucose 295 H Random Glucose Lactic Acid F/U @ 2Hr Lactic Acid F/U @ 4Hr Calcium Stool Leukocytes, Qual Acetone, Qual C. difficile Tox B Gene Microbiology Microbiology Results: Microbiology 12/06/21 12:36 Blood Culture - Preliminary Blood - Venous No growth after 24 hours. 12/06/21 12:36 Blood Culture - Preliminary Blood - Venous No growth after 24 hours. 12/07/21 05:26 Stool Culture - Final Stool 12/06/21 12:36 Stool Culture - Preliminary Stool Normal so far. 12/06/21 12:36 Blood Culture - Final Blood - Venous 12/06/21 12:36 Blood Culture - Final Blood - Venous Assessment and Plan (1) Colitis: Status: Acute (2) AFTAB (acute kidney injury): Status: Acute (3) Anemia: Status: Acute (4) DMII (diabetes mellitus, type 2): Status: Acute Plan 81-year-old female with a past medical history of hypertension, hyperlipidemia, diabetes, CAD, rectal cancer on chemotherapy presented to the hospital with a chief complaint of diarrhea and abdominal discomfort; CT of abdomen consistent with diffuse mural thickening involving the entire colon suspicious for colitis 1. Colitis -will switch to Zosyn -IV fluids; clear liquid diet -follow-up clinical response 2.AFTAB -responding to IV volume repletion -increase normal saline to 100 an hour -follow renals/divalents 3. Anemia(rectal Ca) -follow CBC daily...transfuse as indicated 4.DMII -continue Lantus as per outpt. dosing -lispro sliding scale -adjust as clinically indicated DVT prophylaxis: SCD boots Code status: Full code Requires ongoing hospitalization for IV antibiotics to treat colitis; needs to have serial blood counts done with the possibility for transfusion Quality Stroke Does the patient have a stroke diagnosis?: No VTE Prior VTE?: No VTE Risk Level:: Medical - moderate - high VTE Device Contraindication: Treatment Not Indicated VTE Drug Contraindication: N/A - Med Ordered
[2021-12-07 16:05] VITALS: BP 132/60; PULSE 98; RESP 18; TEMP 37; O2SAT 97
--- NOTE | 2021-12-07 16:38 | PM.EVENT ---
Event Note Date of Service: 12/07/21 Event Note: GI consult dictated colitis may be due to recent chemotherapy stool studies pending cont abx follow clinically
[2021-12-07] MEDS: 0.9 % Sodium Chloride 1,000 ML 100 ML IVCONT (16:45)
[2021-12-07] MEDS: Piperacillin Sodium/Tazobactam 3.375 GM in 0.9 % Sodium Chloride 50 ML IV ×2 (16:52→22:13)
[2021-12-07 18:26] LABS: Glucose, Whole Blood 284 mg/dL (60-115)
--- NOTE | 2021-12-07 19:30 | PC.NURSE ---
Assumed care of pt Pt had episode incontinence of stool. Pt cleaned and provided with clean linenes and gown NAD Will continue to monitor
[2021-12-07 20:52] LABS: Glucose, Whole Blood 251 mg/dL (60-115)
[2021-12-07] MEDS: Insulin Glargine,Hum.rec.anlog 100 UNIT/ML 10 ML VIAL 15 UNIT SUBCUT (22:12)
[2021-12-07] MEDS: Pravastatin Sodium 10 MG TABLET PO (22:13)
[2021-12-07] MEDS: Melatonin 3 MG TABLET 6 MG PO (22:21)
--- NOTE | 2021-12-07 23:10 | PC.NURSE ---
Pt medicated per OCT Pt coughing after sips of water Pt's water thickened with nectar thick. Pt tolerating well Pt had another episode of incontinence of stool. Pt cleaned and provided with clean linenes and new gown Will continue to monitor
[2021-12-08] VITALS (7 sets, daily range): BP systolic 117–137; BP diastolic 63–79; PULSE 90–111; RESP 17–20; TEMP 36.6–36.9; O2SAT 97–98
--- NOTE | 2021-12-08 02:17 | CONS_ITS ---
DATE OF SERVICE: 12/07/2021 REFERRING PHYSICIAN: Blaise Peters DO REASON FOR CONSULTATION: Colitis and rectal mass. HISTORY OF PRESENT ILLNESS: The patient is a pleasant 81-year-old man, known to me from prior evaluation. He has a prior history of rectal cancer, for which he has been treated with chemotherapy and was admitted to the hospital with about 1 week of nausea, vomiting, and diarrhea after recently having started chemotherapy. He has had a poor appetite and some anorexia as well. There have been no fevers and chills. He was evaluated in the emergency department with laboratory studies, which documented a white blood cell count of 4.2 and a low sodium at 133 with an elevated BUN at 38. Further evaluation with imaging was undertaken, and CT scanning of the abdomen and pelvis is reviewed. This was interpreted as showing diffuse mural thickening involving the entire colon suspicious for colitis. His previously identified rectal tumor with peritoneal metastases is seen. He was started on antibiotics and stool testing is pending. PAST MEDICAL HISTORY: 1. Hypertension. 2. Hyperlipidemia. 3. Diabetes. 4. Coronary disease. 5. Metastatic rectal cancer. 6. COPD. CURRENT MEDICATIONS: His current medication list is reviewed in the chart. ALLERGIES: THERE ARE NONE REPORTED. FAMILY HISTORY: This is reviewed with the patient and is noncontributory. SOCIAL HISTORY: There is no current tobacco, alcohol, or substance abuse. REVIEW OF SYSTEMS: SKIN: No pruritus. HEENT: Negative. CARDIOPULMONARY: He denies shortness of breath or chest pain currently. GASTROINTESTINAL: As above. GENITOURINARY: Negative. NEUROPSYCHIATRIC: Negative. PHYSICAL EXAMINATION: GENERAL: Shows a pleasant male lying comfortably in bed. VITAL SIGNS: Reviewed in the electronic medical record and are stable. He has been intermittently tachycardic. SKIN: Anicteric. HEENT: Shows no scleral icterus. NECK: Without lymphadenopathy or thyromegaly. LUNGS: Clear. HEART: Shows a regular rate and rhythm. S1, S2. No murmur. ABDOMEN: Soft. No focal masses or tenderness. Bowel sounds are present. No organomegaly is noted. EXTREMITIES: Without edema. IMPRESSION: Colitis. This may be related to his chemotherapy for his underlying rectal cancer. Other possible causes would include infectious or ischemic, although the distribution is in a pancolitis, which would be more consistent with an acute infectious etiology or drug related to his chemotherapy. Inflammatory bowel disease seems less likely. I agree with treating him with antibiotics. I would obtain stool specimens as you are doing and await these including Clostridium difficile. If his symptoms continue and results are nondiagnostic, consideration could be given to lower gastrointestinal sigmoidoscopy for further diagnosis. Thanks for asking me to see him. I will follow him in the hospital with you. MD FRANCESCO Agee/KATHERINE / [id number]
[2021-12-08] MEDS: 0.9 % Sodium Chloride 1,000 ML 100 ML IVCONT ×2 (02:45→13:12)
[2021-12-08] MEDS: Omeprazole 20 MG CAPSULE.DR PO (05:57)
[2021-12-08] MEDS: Pantoprazole Sodium 40 MG/10 ML VIAL IVPUSH (05:57)
[2021-12-08] MEDS: Piperacillin Sodium/Tazobactam 3.375 GM in 0.9 % Sodium Chloride 50 ML IV ×4 (05:57→22:34)
[2021-12-08 07:04] LABS: Hemoglobin 11.1 g/dl (14.0-18.0); Mean Corpuscular HGB Conc 31.7 g/dl (31.0-36.0); Mean Corpuscular Volume 75.8 fL (80.0-98.0); Mean Platelet Volume 9.6 fL (9.4-12.4); NRBC Pct Auto 0.6 /100WBC (0.0-0.2); Platelet Count 239 X10*3/uL (160-400); Red Blood Count 4.62 X10*6/uL (4.60-5.80); Red Cell Distribution Width 18.6 % (11.0-16.0)
[2021-12-08 07:05] LABS: WBC ABN SCTR FOR CBC 1
[2021-12-08 07:25] LABS: Alanine Aminotransferase 6 U/L (0-40); Albumin Level 1.9 g/dL (3.5-5.0); Alkaline Phosphatase 62 U/L (39-117); Anion Gap 9 (12-20); Aspartate Amino Transferase 9 U/L (5-37); Bilirubin Total 0.4 mg/dL (0.0-1.0); Blood Urea Nitrogen 24 mg/dL (9-16); Calcium 7.3 mg/dL (8.4-10.2); Carbon Dioxide 18 mmol/L (22-29); Chloride 111 mmol/L (96-108); Creatinine Clr Calc Pharmacy 43.9; Estimated Glomerular Filt Rate > 60; Glucose Fasting 186 mg/dL (60-99); Potassium 3.4 mmol/L (3.3-5.1); Sodium 135 mmol/L (135-145); Total Protein 3.9 g/dL (6.5-8.0)
[2021-12-08 07:51] LABS: Band Neutrophils Percent 19 % (3-5); Basophils Percent Manual 1 % (0-2); Eosinophils Percent Manual 6 % (0-4); Lymphocytes Percent Manual 14 % (20-40); Metamyelocytes Percent 1 %; Monocytes Percent Manual 15 % (2-11); Neutrophils Percent Manual 44 % (45-73); Nucleated Red Blood Cells 2 /100WBC (0-0)
[2021-12-08 07:55] LABS: Acanthocytes 2+ (3-5) /OIF; Burr Cells 3+ (>5) /OIF; Polychromasia 1+ (0-2) /OIF; RBC Morphology NOTED
[2021-12-08 07:56] LABS: Dohle Bodies PRESENT; Platelet Estimate NORMAL (NORMAL); Platelet Morphology Comment NORMAL; Toxic Granulation PRESENT
[2021-12-08 07:57] LABS: Basophils Abs Manual 0.1 X10*3/uL (0.0-0.2); Eosinophils Absolute Manual 0.5 X10*3/uL (0.0-0.4); Lymphocytes Absolute Manual 1.1 X10*3/uL (1.2-4.9); Metamyelocytes Absolute 0.1 X10*3/uL; Monocytes Absolute Manual 1.2 X10*3/uL (0.1-1.2); Neutrophils Absolute Manual 5.1 X10*3/uL (2.0-8.3); White Blood Count 8.1 X10*3/uL (4.8-10.8)
[2021-12-08 08:03] LABS: Glucose, Whole Blood 158 mg/dL (60-115)
[2021-12-08] MEDS: Insulin Lispro 100 UNIT/ML 3 ML VIAL SUBCUT ×2 (08:17→16:45)
[2021-12-08] MEDS: Sertraline HCL 50 MG TABLET PO (08:17)
[2021-12-08] MEDS: Multivitamin TABLET 1 TAB PO (08:17)
--- NOTE | 2021-12-08 08:22 | PC.NURSE ---
Pt A&Ox2, time is year only at this time. Pain to rectal area as well as scrotum at this time, david care provided and cream applied, large green loose BM at this time. Call sánchez within reach. Will continue to monitor.
[2021-12-08 11:34] LABS: Glucose, Whole Blood 169 mg/dL (60-115)
[2021-12-08 15:45] LABS: Glucose, Whole Blood 212 mg/dL (60-115)
--- NOTE | 2021-12-08 16:04 | HO.PM.IMPN ---
Subjective Subjective Date of Service: 12/08/21 Interval History: No acute issues overnight. Still with watery diarrhea Review of Systems Denies chest pain Denies shortness of breath Denies nausea vomiting diarrhea Denies fever chills Physical Exam Vital Signs: Vital Signs: Last Vital Signs Temp 98.3 F 12/08/21 15:49 Pulse 101 H 12/08/21 15:49 Resp 18 12/08/21 15:49 BP 122/74 12/08/21 15:49 Pulse Ox 98 12/08/21 15:49 BMI result Body Mass Index 25.7 Const: Other: Awake alert oriented x3 no acute distress Resp: Other: Clear to auscultation bilaterally no rales rhonchi wheezes Cardio: Other: No S4; positive S1-S2; no S3 murmurs sounds or gallops GI: Other: Soft nontender nondistended normoactive bowel sounds Extrem: Other: No edema bilaterally Objective Data Active Medications Acetaminophen (Acetaminophen 325 Mg Tablet) 650 mg PO Q6H PRN PRN Reason: Pain, Mild (Pain Scale 1-3) Albuterol Sulfate (Albuterol Sulfate 90 Mcg 8 Gm Inhaler) 2 puff INHALE Q6H PRN PRN Reason: shortness of breath or wheezing Albuterol/Ipratropium (Albuterol/Iprat 2.5/0.5mg 3 Ml Ampul.Neb) 3 ml INHALE RQ4H WHILE AWAKE PRN PRN Reason: Shortness of Breath/Wheezing Dextrose (Dextrose 50 % 25 Gm/50 Ml Syringe) 25 gm IVPUSH Q15M PRN; Protocol PRN Reason: per Hypoglycemia Standing Ord. Glucose (Glucose Gel 15 Gm Gel..Gram.) 15 gm PO Q15M PRN; Protocol PRN Reason: per Hypoglycemia Standing Ord. Sodium Chloride (Ns) 1,000 mls @ 100 mls/hr IVCONT .Q10H [facility] Last Admin: 12/08/21 13:12 Dose: 100 mls/hr Documented by: MARCUS Piperacillin Sod/Tazobactam (Sod 3.375 gm/ Sodium Chloride) 50 mls @ 100 mls/hr IV Q6H [facility] Last Infusion: 12/08/21 12:18 Dose: 0 mls/hr Documented by: MARCUS Insulin Glargine (Insulin Glargine,Hum.Rec.Anlog 100 Unit/Ml 10 Ml Vial) 15 unit SUBCUT BEDTIME [facility] Last Admin: 12/07/21 22:12 Dose: 15 unit Documented by: XIOMARA Insulin Human Lispro (Insulin Lispro 100 Unit/Ml 3 Ml Vial) 0 unit SUBCUT QIDACHS [facility]; Protocol Last Admin: 12/08/21 12:35 Dose: Not Given Documented by: LIZETT Non-Admin Reason: already charted Melatonin (Melatonin 3 Mg Tablet) 6 mg PO BEDTIME PRN PRN Reason: Insomnia Last Admin: 12/07/21 22:21 Dose: 6 mg Documented by: XIOMARA Multivitamins/Vitamin C (Multivitamin Tablet) 1 tab PO DAILY [facility] Last Admin: 12/08/21 08:17 Dose: 1 tab Documented by: JUVENAL Non-Formulary Medication (Capecitabine [Xeloda]) 1,500 mg PO BID [facility] Omeprazole (Omeprazole 20 Mg Capsule.Dr) 20 mg PO DAILY@629 [facility] Last Admin: 12/08/21 05:57 Dose: 20 mg Documented by: XIOMARA Oxycodone HCl (Oxycodone Hcl Immed Release 5 Mg Tablet) 1 mg PO BID PRN PRN Reason: Pain Pantoprazole Sodium (Pantoprazole Sodium 40 Mg/10 Ml Vial) 40 mg IVPUSH DAILY@629 [facility] Last Admin: 12/08/21 05:57 Dose: 40 mg Documented by: XIOMARA Pharmacy Consult (Consult Rx Perform Med Rec) 1 each MISCELLANE ONCE PRN PRN Reason: Consult order Pravastatin Sodium (Pravastatin Sodium 10 Mg Tablet) 10 mg PO BEDTIME [facility] Last Admin: 12/07/21 22:13 Dose: 10 mg Documented by: XIOMARA Senna (Sennosides 8.6 Mg Tablet) 17.2 mg PO BEDTIME PRN PRN Reason: Constipation Sertraline HCl (Sertraline Hcl 50 Mg Tablet) 50 mg PO DAILY [facility] Last Admin: 12/08/21 08:17 Dose: 50 mg Documented by: JUVENAL Sodium Chloride (0.9 % Sodium Chloride Flush 3 Ml Syringe) 3 ml IVFLUSH QSHIFT [facility] Last Admin: 12/08/21 07:47 Dose: Not Given Documented by: JUVENAL Non-Admin Reason: IV Running Zolpidem Tartrate (Zolpidem Tartrate 5 Mg Tablet) 5 mg PO BEDTIME PRN PRN Reason: Insomnia Labs CBC & Chem 7: 12/08/21 06:42 12/08/21 06:42 Labs: Laboratory Results - last 24 hr 12/07/21 12/07/21 12/08/21 18:15 20:47 06:42 MCV 75.8 L MCH 24.0 L MCHC 31.7 RDW 18.6 H Plt Count 239 MPV 9.6 Absolute Nucleated RBC 0.050 H Nucleated RBC % (auto) 0.6 H Neutrophils % (Manual) 44 L Band Neutrophils % 19 H Lymphocytes % (Manual) 14 L Monocytes % (Manual) 15 H Eosinophils % (Manual) 6 H Basophils % (Manual) 1 Metamyelocytes % 1 Abs Neuts (Manual) 5.1 Lymphocytes # (Manual) 1.1 L Monocytes # (Manual) 1.2 Eosinophils # (Manual) 0.5 H Basophils # (Manual) 0.1 Metamyelocytes # 0.1 Nucleated RBCs 2 H Toxic Granulation PRESENT Dohle Bodies PRESENT Platelet Estimate NORMAL Plt Morphology Comment NORMAL RBC Morphology NOTED Polychromasia 1+ (0-2) Prashant Cells 3+ (>5) Acanthocytes (Spur) 2+ (3-5) Anion Gap Estim Creat Clear Calc Estimated GFR POC Glucose 284 H 251 H Fasting Glucose Calcium Total Bilirubin AST ALT Alkaline Phosphatase Total Protein Albumin 12/08/21 12/08/21 12/08/21 06:42 07:53 11:29 MCV MCH MCHC RDW Plt Count MPV Absolute Nucleated RBC Nucleated RBC % (auto) Neutrophils % (Manual) Band Neutrophils % Lymphocytes % (Manual) Monocytes % (Manual) Eosinophils % (Manual) Basophils % (Manual) Metamyelocytes % Abs Neuts (Manual) Lymphocytes # (Manual) Monocytes # (Manual) Eosinophils # (Manual) Basophils # (Manual) Metamyelocytes # Nucleated RBCs Toxic Granulation Dohle Bodies Platelet Estimate Plt Morphology Comment RBC Morphology Polychromasia [place] Cells Acanthocytes (Spur) Anion Gap 9 L Estim Creat Clear Calc 43.9 Estimated GFR > 60 POC Glucose 158 H 169 H Fasting Glucose 186 H Calcium 7.3 L Total Bilirubin 0.4 AST 9 ALT 6 Alkaline Phosphatase 62 Total Protein 3.9 L Albumin 1.9 L D 12/08/21 15:38 MCV MCH MCHC RDW Plt Count MPV Absolute Nucleated RBC Nucleated RBC % (auto) Neutrophils % (Manual) Band Neutrophils % Lymphocytes % (Manual) Monocytes % (Manual) Eosinophils % (Manual) Basophils % (Manual) Metamyelocytes % Abs Neuts (Manual) Lymphocytes # (Manual) Monocytes # (Manual) Eosinophils # (Manual) Basophils # (Manual) Metamyelocytes # Nucleated RBCs Toxic Granulation Dohle Bodies Platelet Estimate Plt Morphology Comment RBC Morphology Polychromasia [place] Cells Acanthocytes (Spur) Anion Gap Estim Creat Clear Calc Estimated GFR POC Glucose 212 H Fasting Glucose Calcium Total Bilirubin AST ALT Alkaline Phosphatase Total Protein Albumin Microbiology Microbiology Results: Microbiology 12/06/21 12:36 Blood Culture - Preliminary Blood - Venous No growth after 48 hours. 12/06/21 12:36 Blood Culture - Preliminary Blood - Venous No growth after 48 hours. 12/06/21 12:36 Stool Culture - Preliminary Stool Normal so far. 12/07/21 05:26 Stool Culture - Final Stool Assessment and Plan (1) Colitis: Status: Acute (2) AFTAB (acute kidney injury): Status: Acute (3) Anemia: Status: Acute (4) DMII (diabetes mellitus, type 2): Status: Acute Plan 81-year-old female with a past medical history of hypertension, hyperlipidemia, diabetes, CAD, rectal cancer on chemotherapy presented to the hospital with a chief complaint of diarrhea and abdominal discomfort; CT of abdomen consistent with diffuse mural thickening involving the entire colon suspicious for colitis 1. Colitis -Zosyn(2) -IV fluids; full liquid -stool cultures/CDiff negative.... P.r.n. Lomotil -follow-up clinical response 2.AFTAB -responding to IV volume repletion -switch to lactated Ringer secondary to hyperchloremic metabolic acidosis -follow renals/divalents 3. Anemia(rectal Ca) -stable hemoglobin -follow CBC daily...transfuse as indicated 4.DMII -continue Lantus as per outpt. dosing -lispro sliding scale -adjust as clinically indicated DVT prophylaxis: SCD boots Code status: Full code Requires ongoing hospitalization for IV antibiotics to treat colitis; needs to have serial blood counts done with the possibility for transfusion Quality Stroke Does the patient have a stroke diagnosis?: No VTE Prior VTE?: No VTE Risk Level:: Medical - moderate - high VTE Device Contraindication: Treatment Not Indicated VTE Drug Contraindication: N/A - Med Ordered
[2021-12-08] MEDS: Lactated Ringers 1,000 ML 100 ML IVCONT (16:45)
[2021-12-08] MEDS: 0.9 % Sodium Chloride Flush 3 ML SYRINGE IVFLUSH (16:46)
[2021-12-08] MEDS: Diphenoxylate/Atrop 2.5/0.025 TABLET 1 TAB PO ×2 (17:52→21:36)
[2021-12-08 20:59] LABS: Glucose, Whole Blood 196 mg/dL (60-115)
[2021-12-08] MEDS: Pravastatin Sodium 10 MG TABLET PO (21:36)
[2021-12-08] MEDS: Insulin Glargine,Hum.rec.anlog 100 UNIT/ML 10 ML VIAL 15 UNIT SUBCUT (21:36)
[2021-12-08] MEDS: Zolpidem Tartrate 5 MG TABLET PO (21:38)
[2021-12-08] MEDS: oxyCODONE HCl Immed Release 5 MG TABLET PO (22:25)
[2021-12-09 03:05] VITALS: BP 118/67; PULSE 101; RESP 18; TEMP 36.4; O2SAT 98
[2021-12-09] MEDS: Lactated Ringers 1,000 ML 100 ML IVCONT ×2 (04:25→14:43)
[2021-12-09] MEDS: Piperacillin Sodium/Tazobactam 3.375 GM in 0.9 % Sodium Chloride 50 ML IV ×4 (04:29→21:53)
[2021-12-09] MEDS: Pantoprazole Sodium 40 MG/10 ML VIAL IVPUSH (05:42)
[2021-12-09] MEDS: Omeprazole 20 MG CAPSULE.DR PO (05:45)
[2021-12-09 06:38] LABS: Hematocrit 39.1 % (42.0-52.0); Hemoglobin 12.5 g/dl (14.0-18.0); Mean Corpuscular Hemoglobin 24.5 pg (27.0-33.0); Mean Corpuscular Volume 76.5 fL (80.0-98.0); NRBC Pct Auto 0.9 /100WBC (0.0-0.2); Platelet Count 220 X10*3/uL (160-400); Red Blood Count 5.11 X10*6/uL (4.60-5.80); Red Cell Distribution Width 19.1 % (11.0-16.0)
[2021-12-09] MEDS: Diphenoxylate/Atrop 2.5/0.025 TABLET 1 TAB PO ×2 (06:47→23:06)
[2021-12-09 06:55] LABS: WBC ABN SCTR FOR CBC 1
[2021-12-09 07:03] LABS: Alanine Aminotransferase 7 U/L (0-40); Albumin Level 1.9 g/dL (3.5-5.0); Alkaline Phosphatase 60 U/L (39-117); Anion Gap 14 (12-20); Aspartate Amino Transferase 9 U/L (5-37); Bilirubin Total 0.4 mg/dL (0.0-1.0); Blood Urea Nitrogen 21 mg/dL (9-16); Calcium 7.6 mg/dL (8.4-10.2); Carbon Dioxide 15 mmol/L (22-29); Chloride 114 mmol/L (96-108); Creatinine Clr Calc Pharmacy 36.4; Estimated Glomerular Filt Rate 54; Glucose Fasting 233 mg/dL (60-99); Potassium 3.5 mmol/L (3.3-5.1); Sodium 139 mmol/L (135-145); Total Protein 3.9 g/dL (6.5-8.0)
[2021-12-09 07:25] VITALS: BP 101/75; PULSE 98; RESP 18; TEMP 36.5; O2SAT 100
[2021-12-09 07:35] LABS: Band Neutrophils Percent 7 % (3-5); Eosinophils Percent Manual 6 % (0-4); Lymphocytes Percent Manual 6 % (20-40); Metamyelocytes Percent 4 %; Monocytes Percent Manual 18 % (2-11); Myelocytes Percent 3 %; Neutrophils Percent Manual 55 % (45-73); Nucleated Red Blood Cells 1 /100WBC (0-0); Promyelocytes Percent 1 %
[2021-12-09 07:40] LABS: Acanthocytes 1+ (0-2) /OIF; Microcytosis 1+ (5-14) /OIF; RBC Morphology NOTED
[2021-12-09 07:41] LABS: Dohle Bodies PRESENT; Polychromasia 1+ (0-2) /OIF; Schistocytes 1+ (0-2) /OIF; Toxic Granulation PRESENT; Toxic Vacuolation PRESENT
[2021-12-09 07:42] LABS: Burr Cells 2+ (3-5) /OIF; Large Platelet PRESENT; Platelet Estimate NORMAL (NORMAL); Platelet Morphology Comment NOTED
[2021-12-09 07:43] LABS: Glucose, Whole Blood 221 mg/dL (60-115)
[2021-12-09] MEDS: 0.9 % Sodium Chloride Flush 3 ML SYRINGE IVFLUSH (09:02)
[2021-12-09] MEDS: Multivitamin TABLET 1 TAB PO (09:02)
[2021-12-09] MEDS: Insulin Lispro 100 UNIT/ML 3 ML VIAL SUBCUT ×4 (09:02→21:30)
[2021-12-09] MEDS: Sertraline HCL 50 MG TABLET PO (09:02)
[2021-12-09 09:08] LABS: Eosinophils Absolute Manual 0.4 X10*3/uL (0.0-0.4); Lymphocytes Absolute Manual 0.4 X10*3/uL (1.2-4.9); Metamyelocytes Absolute 0.3 X10*3/uL; Monocytes Absolute Manual 1.2 X10*3/uL (0.1-1.2); Myelocytes Absolute 0.2 X10*/uL; Neutrophils Absolute Manual 4.3 X10*3/uL (2.0-8.3); Promyelocytes Absolute 0.1 X10*3/uL; White Blood Count 6.9 X10*3/uL (4.8-10.8)
[2021-12-09 11:12] VITALS: BP 137/72; PULSE 95; RESP 18; TEMP 36.7; O2SAT 100
[2021-12-09 11:19] LABS: Glucose, Whole Blood 205 mg/dL (60-115)
--- NOTE | 2021-12-09 13:10 | P.PNIM_ITS ---
Subjective Subjective Date of Service: 12/09/21 Interval History: No acute issues overnight. Still with watery diarrhea; minimal improvement with Lomotil. Rectal tube place Review of Systems Denies chest pain Denies shortness of breath Denies nausea vomiting diarrhea Denies fever chills Physical Exam Vital Signs: Vital Signs: Last Vital Signs Temp 98.1 F 12/09/21 11:12 Pulse 95 12/09/21 11:12 Resp 18 12/09/21 11:12 BP 137/72 12/09/21 11:12 Pulse Ox 100 12/09/21 11:12 BMI result Body Mass Index 25.7 Const: Other: Awake alert oriented x3 no acute distress Resp: Other: Clear to auscultation bilaterally no rales rhonchi wheezes Cardio: Other: No S4; positive S1-S2; no S3 murmurs sounds or gallops GI: Other: Soft nontender nondistended normoactive bowel sounds Extrem: Other: No edema bilaterally Objective Data Active Medications Acetaminophen (Acetaminophen 325 Mg Tablet) 650 mg PO Q6H PRN PRN Reason: Pain, Mild (Pain Scale 1-3) Albuterol Sulfate (Albuterol Sulfate 90 Mcg 8 Gm Inhaler) 2 puff INHALE Q6H PRN PRN Reason: shortness of breath or wheezing Albuterol/Ipratropium (Albuterol/Iprat 2.5/0.5mg 3 Ml Ampul.Neb) 3 ml INHALE RQ4H WHILE AWAKE PRN PRN Reason: Shortness of Breath/Wheezing Dextrose (Dextrose 50 % 25 Gm/50 Ml Syringe) 25 gm IVPUSH Q15M PRN; Protocol PRN Reason: per Hypoglycemia Standing Ord. Diphenoxylate HCl/Atropine (Diphenoxylate/Atrop 2.5/0.025 Tablet) 1 tab PO QID PRN PRN Reason: Diarrhea Last Admin: 12/09/21 06:47 Dose: 1 tab Documented by: LEONARDO Glucose (Glucose Gel 15 Gm Gel..Gram.) 15 gm PO Q15M PRN; Protocol PRN Reason: per Hypoglycemia Standing Ord. Piperacillin Sod/Tazobactam (Sod 3.375 gm/ Sodium Chloride) 50 mls @ 100 mls/hr IV Q6H [facility] Last Infusion: 12/09/21 12:25 Dose: 0 mls/hr Documented by: CHARLOTTE Lactated Ringer's (Lr) 1,000 mls @ 100 mls/hr IVCONT .Q10H [facility] Last Admin: 12/09/21 12:25 Dose: Not Given Documented by: CHARLOTTE Non-Admin Reason: IV Running Insulin Glargine (Insulin Glargine,Hum.Rec.Anlog 100 Unit/Ml 10 Ml Vial) 15 unit SUBCUT BEDTIME [facility] Last Admin: 12/08/21 21:36 Dose: 15 unit Documented by: MARI Insulin Human Lispro (Insulin Lispro 100 Unit/Ml 3 Ml Vial) 0 unit SUBCUT QIDACHS [facility]; Protocol Last Admin: 12/09/21 11:47 Dose: 4 unit Documented by: CHARLOTTE Melatonin (Melatonin 3 Mg Tablet) 6 mg PO BEDTIME PRN PRN Reason: Insomnia Last Admin: 12/07/21 22:21 Dose: 6 mg Documented by: XIOMARA Multivitamins/Vitamin C (Multivitamin Tablet) 1 tab PO DAILY [facility] Last Admin: 12/09/21 09:02 Dose: 1 tab Documented by: CHARLOTTE Non-Formulary Medication (Capecitabine [Xeloda]) 1,500 mg PO BID [facility] Omeprazole (Omeprazole 20 Mg Capsule.Dr) 20 mg PO DAILY@06 [facility] Last Admin: 12/09/21 05:45 Dose: 20 mg Documented by: LEONARDO Oxycodone HCl (Oxycodone Hcl Immed Release 5 Mg Tablet) 5 mg PO BID PRN PRN Reason: Pain Last Admin: 12/08/21 22:25 Dose: 5 mg Documented by: MARI Pantoprazole Sodium (Pantoprazole Sodium 40 Mg/10 Ml Vial) 40 mg IVPUSH DAILY@0630 [facility] Last Admin: 12/09/21 05:42 Dose: 40 mg Documented by: LEONARDO Pharmacy Consult (Consult Rx Perform Med Rec) 1 each MISCELLANE ONCE PRN PRN Reason: Consult order Pravastatin Sodium (Pravastatin Sodium 10 Mg Tablet) 10 mg PO BEDTIME [facility] Last Admin: 12/08/21 21:36 Dose: 10 mg Documented by: MARI Senna (Sennosides 8.6 Mg Tablet) 17.2 mg PO BEDTIME PRN PRN Reason: Constipation Sertraline HCl (Sertraline Hcl 50 Mg Tablet) 50 mg PO DAILY [facility] Last Admin: 12/09/21 09:02 Dose: 50 mg Documented by: CHARLOTTE Sodium Chloride (0.9 % Sodium Chloride Flush 3 Ml Syringe) 3 ml IVFLUSH QSHIFT [facility] Last Admin: 12/09/21 09:02 Dose: 3 ml Documented by: CHARLOTTE Zolpidem Tartrate (Zolpidem Tartrate 5 Mg Tablet) 5 mg PO BEDTIME PRN PRN Reason: Insomnia Last Admin: 12/08/21 21:38 Dose: 5 mg Documented by: MARI Labs CBC & Chem 7: 12/09/21 05:49 12/09/21 05:49 Labs: Laboratory Results - last 24 hr 12/08/21 12/08/21 12/09/21 15:38 20:42 05:49 MCV 76.5 L MCH 24.5 L MCHC 32.0 RDW 19.1 H Plt Count 220 MPV 10.0 Immature Gran % (Auto) Cancelled Neut % (Auto) Cancelled Lymph % (Auto) Cancelled [place] % (Auto) Cancelled Eos % (Auto) Cancelled Baso % (Auto) Cancelled Lymph # (Auto) Cancelled [place] # (Auto) Cancelled Eos # (Auto) Cancelled Baso # (Auto) Cancelled Abs Immat Gran (auto) Cancelled Absolute Neuts (auto) Cancelled Absolute Nucleated RBC 0.060 H Nucleated RBC % (auto) 0.9 H Neutrophils % (Manual) 55 Band Neutrophils % 7 H Lymphocytes % (Manual) 6 L Monocytes % (Manual) 18 H Eosinophils % (Manual) 6 H Metamyelocytes % 4 Myelocytes % 3 Promyelocytes % 1 Abs Neuts (Manual) 4.3 Lymphocytes # (Manual) 0.4 L Monocytes # (Manual) 1.2 Eosinophils # (Manual) 0.4 Metamyelocytes # 0.3 Myelocytes # 0.2 Promyelocytes # 0.1 Nucleated RBCs 1 H Toxic Granulation PRESENT Toxic Vacuolation PRESENT Dohle Bodies PRESENT Platelet Estimate NORMAL Large Platelets PRESENT Plt Morphology Comment NOTED RBC Morphology NOTED Polychromasia 1+ (0-2) Microcytosis 1+ (5-14) [place] Cells 2+ (3-5) Acanthocytes (Spur) 1+ (0-2) Schistocytes 1+ (0-2) Anion Gap Estim Creat Clear Calc Estimated GFR POC Glucose 212 H 196 H Fasting Glucose Calcium Total Bilirubin AST ALT Alkaline Phosphatase Total Protein Albumin 12/09/21 12/09/21 12/09/21 05:49 07:27 11:14 MCV MCH MCHC RDW Plt Count MPV Immature Gran % (Auto) Neut % (Auto) Lymph % (Auto) [place] % (Auto) Eos % (Auto) Baso % (Auto) Lymph # (Auto) [place] # (Auto) Eos # (Auto) Baso # (Auto) Abs Immat Gran (auto) Absolute Neuts (auto) Absolute Nucleated RBC Nucleated RBC % (auto) Neutrophils % (Manual) Band Neutrophils % Lymphocytes % (Manual) Monocytes % (Manual) Eosinophils % (Manual) Metamyelocytes % Myelocytes % Promyelocytes % Abs Neuts (Manual) Lymphocytes # (Manual) Monocytes # (Manual) Eosinophils # (Manual) Metamyelocytes # Myelocytes # Promyelocytes # Nucleated RBCs Toxic Granulation Toxic Vacuolation Dohle Bodies Platelet Estimate Large Platelets Plt Morphology Comment RBC Morphology Polychromasia Microcytosis [place] Cells Acanthocytes (Spur) Schistocytes Anion Gap 14 Estim Creat Clear Calc 36.4 Estimated GFR 54 POC Glucose 221 H 205 H Fasting Glucose 233 H Calcium 7.6 L Total Bilirubin 0.4 AST 9 ALT 7 Alkaline Phosphatase 60 Total Protein 3.9 L Albumin 1.9 L Microbiology Microbiology Results: Microbiology 12/06/21 12:36 Stool Culture - Final Stool 12/06/21 12:36 Blood Culture - Preliminary Blood - Venous No growth after 48 hours. 12/06/21 12:36 Blood Culture - Preliminary Blood - Venous No growth after 48 hours. Assessment and Plan (1) Colitis: Status: Acute (2) AFTAB (acute kidney injury): Status: Acute (3) Anemia: Status: Acute (4) DMII (diabetes mellitus, type 2): Status: Acute Plan 81-year-old female with a past medical history of hypertension, hyperlipidemia, diabetes, CAD, rectal cancer on chemotherapy presented to the hospital with a chief complaint of diarrhea and abdominal discomfort; CT of abdomen consistent with diffuse mural thickening involving the entire colon suspicious for colitis 1. Colitis -Zosyn(3) -IV fluids; full liquid -stool cultures/CDiff negative.... P.r.n. Lomotil.... Rectal tube -follow-up clinical response 2.AFTAB -responding to IV volume repletion -switch to lactated Ringer secondary to hyperchloremic metabolic acidosis -follow renals/divalents 3. Anemia(rectal Ca) -stable hemoglobin -follow CBC daily...transfuse as indicated 4.DMII -continue Lantus as per outpt. dosing -lispro sliding scale -adjust as clinically indicated DVT prophylaxis: SCD boots Code status: Full code Requires ongoing hospitalization for IV antibiotics to treat colitis; needs to have serial blood counts done with the possibility for transfusion Quality Stroke Does the patient have a stroke diagnosis?: No VTE Prior VTE?: No VTE Risk Level:: Medical - moderate - high VTE Device Contraindication: Treatment Not Indicated VTE Drug Contraindication: N/A - Med Ordered
[2021-12-09 15:31] VITALS: BP 115/74; PULSE 99; RESP 20; TEMP 36.2; O2SAT 98
[2021-12-09 16:19] LABS: Glucose, Whole Blood 168 mg/dL (60-115)
[2021-12-09 19:43] VITALS: BP 158/82; PULSE 88; RESP 16; TEMP 36.8; O2SAT 96
[2021-12-09 20:47] LABS: Glucose, Whole Blood 180 mg/dL (60-115)
[2021-12-09] MEDS: oxyCODONE HCl Immed Release 5 MG TABLET PO (21:27)
[2021-12-09] MEDS: Pravastatin Sodium 10 MG TABLET PO (21:28)
[2021-12-09] MEDS: Insulin Glargine,Hum.rec.anlog 100 UNIT/ML 10 ML VIAL 15 UNIT SUBCUT (21:29)
[2021-12-09] MEDS: Throat Lozenge, Medicated LOZENGE 1 LOZENGE MUCOUS MEM (21:50)
[2021-12-10] VITALS (7 sets, daily range): BP systolic 119–166; BP diastolic 58–83; PULSE 93–110; RESP 17–20; TEMP 36.4–37.3; O2SAT 94–98
[2021-12-10] MEDS: Lactated Ringers 1,000 ML 100 ML IVCONT ×2 (03:53→15:29)
[2021-12-10] MEDS: Piperacillin Sodium/Tazobactam 3.375 GM in 0.9 % Sodium Chloride 50 ML IV ×3 (05:24→18:26)
[2021-12-10] MEDS: Pantoprazole Sodium 40 MG/10 ML VIAL IVPUSH (06:00)
[2021-12-10] MEDS: 0.9 % Sodium Chloride Flush 3 ML SYRINGE IVFLUSH ×2 (06:01→15:50)
[2021-12-10 07:15] LABS: Glucose, Whole Blood 191 mg/dL (60-115)
[2021-12-10 07:24] LABS: Hematocrit 38.3 % (42.0-52.0); Hemoglobin 12.3 g/dl (14.0-18.0); Mean Corpuscular HGB Conc 32.1 g/dl (31.0-36.0); Mean Corpuscular Hemoglobin 24.4 pg (27.0-33.0); Mean Corpuscular Volume 75.8 fL (80.0-98.0); Mean Platelet Volume 9.4 fL (9.4-12.4); NRBC Pct Auto 0.7 /100WBC (0.0-0.2); Platelet Count 185 X10*3/uL (160-400); Red Blood Count 5.05 X10*6/uL (4.60-5.80); Red Cell Distribution Width 19.6 % (11.0-16.0)
[2021-12-10 07:25] LABS: WBC ABN SCTR FOR CBC 1
[2021-12-10 07:43] LABS: Band Neutrophils Percent 34 % (3-5); Eosinophils Percent Manual 2 % (0-4); Lymphocytes Percent Manual 9 % (20-40); Metamyelocytes Percent 2 %; Monocytes Percent Manual 14 % (2-11); Myelocytes Percent 1 %; Neutrophils Percent Manual 38 % (45-73)
[2021-12-10 07:45] LABS: Alanine Aminotransferase 7 U/L (0-40); Alkaline Phosphatase 66 U/L (39-117); Anion Gap 12 (12-20); Aspartate Amino Transferase 13 U/L (5-37); Bilirubin Total 0.4 mg/dL (0.0-1.0); Blood Urea Nitrogen 16 mg/dL (9-16); Calcium 7.3 mg/dL (8.4-10.2); Carbon Dioxide 17 mmol/L (22-29); Chloride 113 mmol/L (96-108); Creatinine Clr Calc Pharmacy 37.6; Estimated Glomerular Filt Rate 56; Glucose Fasting 211 mg/dL (60-99); Potassium 2.9 mmol/L (3.3-5.1); Sodium 139 mmol/L (135-145); Total Protein 4.1 g/dL (6.5-8.0)
[2021-12-10 07:46] LABS: Acanthocytes 2+ (3-5) /OIF; Microcytosis 1+ (5-14) /OIF; Ovalocytes 1+ (5-14) /OIF; Platelet Estimate NORMAL (NORMAL); Platelet Morphology Comment NORMAL; RBC Morphology NOTED
[2021-12-10 07:47] LABS: Burr Cells 3+ (>5) /OIF; Eosinophils Absolute Manual 0.2 X10*3/uL (0.0-0.4); Lymphocytes Absolute Manual 0.9 X10*3/uL (1.2-4.9); Metamyelocytes Absolute 0.2 X10*3/uL; Monocytes Absolute Manual 1.4 X10*3/uL (0.1-1.2); Myelocytes Absolute 0.1 X10*/uL; Neutrophils Absolute Manual 7.2 X10*3/uL (2.0-8.3); Polychromasia 2+ (3-5) /OIF; Schistocytes 1+ (0-2) /OIF; Toxic Granulation PRESENT
[2021-12-10] MEDS: Multivitamin TABLET 1 TAB PO (08:05)
[2021-12-10] MEDS: Sertraline HCL 50 MG TABLET PO (08:05)
[2021-12-10] MEDS: Insulin Lispro 100 UNIT/ML 3 ML VIAL SUBCUT ×4 (08:06→21:56)
[2021-12-10 08:15] LABS: Magnesium 1.7 mg/dL (1.6-2.6)
--- NOTE | 2021-12-10 09:30 | P.CDIC_ITS ---
CDI Concurrent Query Documentation Clarification: PHYSICIAN'S DOCUMENTATION REQUEST Date of Query: 12/10/21 0931 Patient Name: Gonzalo Rocha Admit Date: 12/06/21 Dear Doctor, Please review the following and provide your response in the progress notes. Clinical Indicators: Current documentation includes a diagnosis of colitis. Additional clinical indicators from the record include: Risk Factors/Clinical Indicators/Treatments GI 5/4 - Colitis, may be related to chemo, pancolitis which is more consistent with an acute infectious etiology or drug related to chemotherapy. Guaiac positive stool, nausea, vomiting poa, still with watery diarrhea. IV Zosyn, IV fluids, Lomotil. If possible, please provide additional specificity regarding the type of colitis: * Infectious Colitis * Bacterial enteritis * C. Diff or other * Viral enteritis * Non-infectious - type such as toxic, dietetic/ due to chemotherapy or other * Other * Unable to determine Use of terms such as suspected, likely, concern for, or probable (associated with a specific diagnosis that is being evaluated, monitored, or treated as if it exists) are acceptable and can be coded in the inpatient setting, when documented at the time of discharge. Thank you, Dina Pearson [facility], [facility] Extension: [phone] Please use your independent medical judgment in providing your response. 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
[2021-12-10] MEDS: Potassium Chloride/H20 10 MEQ/100 ML PIGGYBACK 100 MEQ IV ×4 (10:47→17:19)
[2021-12-10 12:00] LABS: Glucose, Whole Blood 187 mg/dL (60-115)
--- NOTE | 2021-12-10 12:16 | MHC.CM.PN ---
per rounds pt is not ready for dc he continues to have fahad
[2021-12-10] MEDS: Diphenoxylate/Atrop 2.5/0.025 TABLET 1 TAB PO ×2 (14:51→21:59)
--- NOTE | 2021-12-10 15:35 | HO.PM.IMPN ---
Subjective Subjective Date of Service: 12/10/21 Interval History: No acute issues overnight. Still with watery diarrhea; minimal improvement with Lomotil. Rectal tube place Review of Systems Denies chest pain Denies shortness of breath Denies nausea vomiting diarrhea Denies fever chills Physical Exam Vital Signs: Vital Signs: Last Vital Signs Temp 98 F 12/10/21 15:19 Pulse 98 12/10/21 15:19 Resp 18 12/10/21 15:19 BP 123/71 12/10/21 15:19 Pulse Ox 97 12/10/21 15:19 BMI result Body Mass Index 25.7 Const: Other: Awake alert oriented x3 no acute distress Resp: Other: Clear to auscultation bilaterally no rales rhonchi wheezes Cardio: Other: No S4; positive S1-S2; no S3 murmurs sounds or gallops GI: Other: Soft nontender nondistended normoactive bowel sounds Extrem: Other: No edema bilaterally Objective Data Active Medications Acetaminophen (Acetaminophen 325 Mg Tablet) 650 mg PO Q6H PRN PRN Reason: Pain, Mild (Pain Scale 1-3) Albuterol Sulfate (Albuterol Sulfate 90 Mcg 8 Gm Inhaler) 2 puff INHALE Q6H PRN PRN Reason: shortness of breath or wheezing Albuterol/Ipratropium (Albuterol/Iprat 2.5/0.5mg 3 Ml Ampul.Neb) 3 ml INHALE RQ4H WHILE AWAKE PRN PRN Reason: Shortness of Breath/Wheezing Benzocaine (Throat Lozenge, Medicated Lozenge) 1 lozenge MUCOUS MEM Q2H PRN PRN Reason: Sore Throat Last Admin: 12/09/21 21:50 Dose: 1 lozenge Documented by: MINNIE Dextrose (Dextrose 50 % 25 Gm/50 Ml Syringe) 25 gm IVPUSH Q15M PRN; Protocol PRN Reason: per Hypoglycemia Standing Ord. Diphenoxylate HCl/Atropine (Diphenoxylate/Atrop 2.5/0.025 Tablet) 1 tab PO QID PRN PRN Reason: Diarrhea Last Admin: 12/10/21 14:51 Dose: 1 tab Documented by: PADILLA Glucose (Glucose Gel 15 Gm Gel..Gram.) 15 gm PO Q15M PRN; Protocol PRN Reason: per Hypoglycemia Standing Ord. Piperacillin Sod/Tazobactam (Sod 3.375 gm/ Sodium Chloride) 50 mls @ 100 mls/hr IV Q6H COUNT INCLUDES THE [facility] Last Infusion: 12/10/21 15:29 Dose: 0 mls/hr Documented by: CHARLOTTE Lactated Ringer's (Lr) 1,000 mls @ 100 mls/hr IVCONT .Q10H COUNT INCLUDES THE [facility] Last Admin: 12/10/21 15:29 Dose: 100 mls/hr Documented by: CHARLOTTE Insulin Glargine (Insulin Glargine,Hum.Rec.Anlog 100 Unit/Ml 10 Ml Vial) 15 unit SUBCUT BEDTIME KAITLYNN Last Admin: 12/09/21 21:29 Dose: 15 unit Documented by: MINNIE Insulin Human Lispro (Insulin Lispro 100 Unit/Ml 3 Ml Vial) 0 unit SUBCUT QIDACHS COUNT INCLUDES THE [facility]; Protocol Last Admin: 12/10/21 12:09 Dose: 2 unit Documented by: LUC Melatonin (Melatonin 3 Mg Tablet) 6 mg PO BEDTIME PRN PRN Reason: Insomnia Last Admin: 12/07/21 22:21 Dose: 6 mg Documented by: XIOMARA Multivitamins/Vitamin C (Multivitamin Tablet) 1 tab PO DAILY COUNT INCLUDES THE [facility] Last Admin: 12/10/21 08:05 Dose: 1 tab Documented by: LUC Non-Formulary Medication (Capecitabine [Xeloda]) 1,500 mg PO BID COUNT INCLUDES THE [facility] Oxycodone HCl (Oxycodone Hcl Immed Release 5 Mg Tablet) 5 mg PO BID PRN PRN Reason: Pain Last Admin: 12/09/21 21:27 Dose: 5 mg Documented by: MINNIE Pharmacy Consult (Consult Rx Perform Med Rec) 1 each MISCELLANE ONCE PRN PRN Reason: Consult order Pravastatin Sodium (Pravastatin Sodium 10 Mg Tablet) 10 mg PO BEDTIME COUNT INCLUDES THE [facility] Last Admin: 12/09/21 21:28 Dose: 10 mg Documented by: MINNIE Senna (Sennosides 8.6 Mg Tablet) 17.2 mg PO BEDTIME PRN PRN Reason: Constipation Sertraline HCl (Sertraline Hcl 50 Mg Tablet) 50 mg PO DAILY COUNT INCLUDES THE [facility] Last Admin: 12/10/21 08:05 Dose: 50 mg Documented by: LUC Sodium Chloride (0.9 % Sodium Chloride Flush 3 Ml Syringe) 3 ml IVFLUSH QSHIFT KAITLYNN Last Admin: 12/10/21 06:01 Dose: 3 ml Documented by: MINNIE Zolpidem Tartrate (Zolpidem Tartrate 5 Mg Tablet) 5 mg PO BEDTIME PRN PRN Reason: Insomnia Last Admin: 12/08/21 21:38 Dose: 5 mg Documented by: MARI Labs CBC & Chem 7: 12/10/21 06:52 12/10/21 06:52 Labs: Laboratory Results - last 24 hr 12/09/21 12/09/21 12/10/21 16:05 20:45 06:52 MCV 75.8 L MCH 24.4 L MCHC 32.1 RDW 19.6 H Plt Count 185 MPV 9.4 Immature Gran % (Auto) Cancelled Neut % (Auto) Cancelled Lymph % (Auto) Cancelled [place] % (Auto) Cancelled Eos % (Auto) Cancelled Baso % (Auto) Cancelled Lymph # (Auto) Cancelled [place] # (Auto) Cancelled Eos # (Auto) Cancelled Baso # (Auto) Cancelled Abs Immat Gran (auto) Cancelled Absolute Neuts (auto) Cancelled Absolute Nucleated RBC 0.070 H Nucleated RBC % (auto) 0.7 H Neutrophils % (Manual) 38 L Band Neutrophils % 34 H Lymphocytes % (Manual) 9 L Monocytes % (Manual) 14 H Eosinophils % (Manual) 2 Metamyelocytes % 2 Myelocytes % 1 Abs Neuts (Manual) 7.2 Lymphocytes # (Manual) 0.9 L Monocytes # (Manual) 1.4 H Eosinophils # (Manual) 0.2 Metamyelocytes # 0.2 Myelocytes # 0.1 Toxic Granulation PRESENT Platelet Estimate NORMAL Plt Morphology Comment NORMAL RBC Morphology NOTED Polychromasia 2+ (3-5) Microcytosis 1+ (5-14) Ovalocytes 1+ (5-14) [place] Cells 3+ (>5) Acanthocytes (Spur) 2+ (3-5) Schistocytes 1+ (0-2) Anion Gap Estim Creat Clear Calc Estimated GFR POC Glucose 168 H 180 H Fasting Glucose Calcium Magnesium Total Bilirubin AST ALT Alkaline Phosphatase Total Protein Albumin 12/10/21 12/10/21 12/10/21 06:52 07:11 10:55 MCV MCH MCHC RDW Plt Count MPV Immature Gran % (Auto) Neut % (Auto) Lymph % (Auto) [place] % (Auto) Eos % (Auto) Baso % (Auto) Lymph # (Auto) [place] # (Auto) Eos # (Auto) Baso # (Auto) Abs Immat Gran (auto) Absolute Neuts (auto) Absolute Nucleated RBC Nucleated RBC % (auto) Neutrophils % (Manual) Band Neutrophils % Lymphocytes % (Manual) Monocytes % (Manual) Eosinophils % (Manual) Metamyelocytes % Myelocytes % Abs Neuts (Manual) Lymphocytes # (Manual) Monocytes # (Manual) Eosinophils # (Manual) Metamyelocytes # Myelocytes # Toxic Granulation Platelet Estimate Plt Morphology Comment RBC Morphology Polychromasia Microcytosis Ovalocytes [place] Cells Acanthocytes (Spur) Schistocytes Anion Gap 12 Estim Creat Clear Calc 37.6 Estimated GFR 56 POC Glucose 191 H 187 H Fasting Glucose 211 H Calcium 7.3 L Magnesium 1.7 Total Bilirubin 0.4 AST 13 D ALT 7 Alkaline Phosphatase 66 Total Protein 4.1 L Albumin 2.0 L Assessment and Plan (1) Colitis: Status: Acute (2) Anemia: Status: Acute (3) AFTAB (acute kidney injury): Status: Acute (4) DMII (diabetes mellitus, type 2): Status: Acute Plan 81-year-old female with a past medical history of hypertension, hyperlipidemia, diabetes, CAD, rectal cancer on chemotherapy presented to the hospital with a chief complaint of diarrhea and abdominal discomfort; CT of abdomen consistent with diffuse mural thickening involving the entire colon suspicious for colitis 1. Colitis -Zosyn(4) -IV fluids; full liquid -stool cultures/CDiff negative.... P.r.n. Lomotil.... -follow-up clinical response 2.AFTAB -responding to IV volume repletion -switch to lactated Ringer secondary to hyperchloremic metabolic acidosis -follow renals/divalents 3. Anemia(rectal Ca) -stable hemoglobin -follow CBC daily...transfuse as indicated 4.DMII -continue Lantus as per outpt. dosing -lispro sliding scale -adjust as clinically indicated DVT prophylaxis: SCD boots Code status: Full code Requires ongoing hospitalization for IV antibiotics to treat colitis; needs to have serial blood counts done with the possibility for transfusion Quality Stroke Does the patient have a stroke diagnosis?: No VTE Prior VTE?: No VTE Risk Level:: Medical - moderate - high VTE Device Contraindication: Treatment Not Indicated VTE Drug Contraindication: N/A - Med Ordered
[2021-12-10 16:40] LABS: Glucose, Whole Blood 182 mg/dL (60-115)
[2021-12-10 20:00] LABS: Glucose, Whole Blood 176 mg/dL (60-115)
[2021-12-10] MEDS: Insulin Glargine,Hum.rec.anlog 100 UNIT/ML 10 ML VIAL 15 UNIT SUBCUT (21:54)
[2021-12-10] MEDS: Pravastatin Sodium 10 MG TABLET PO (21:54)
[2021-12-10] MEDS: oxyCODONE HCl Immed Release 5 MG TABLET PO (22:02)
[2021-12-10 22:43] LABS: Anion Gap 11 (12-20); Blood Urea Nitrogen 13 mg/dL (9-16); Carbon Dioxide 16 mmol/L (22-29); Chloride 112 mmol/L (96-108); Creatinine Clr Calc Pharmacy 42.3; Estimated Glomerular Filt Rate > 60; Glucose Random 178 mg/dL (60-115); Sodium 136 mmol/L (135-145)
[2021-12-11] MEDS: Piperacillin Sodium/Tazobactam 3.375 GM in 0.9 % Sodium Chloride 50 ML IV ×5 (00:50→23:00)
[2021-12-11] MEDS: Potassium Chloride/H20 10 MEQ/100 ML PIGGYBACK 100 MEQ IV ×8 (00:50→15:11)
[2021-12-11] MEDS: 0.9 % Sodium Chloride Flush 3 ML SYRINGE IVFLUSH ×2 (01:04→08:05)
[2021-12-11 03:13] VITALS: BP 103/61; PULSE 88; RESP 17; TEMP 36.9; O2SAT 96
[2021-12-11] MEDS: Diphenoxylate/Atrop 2.5/0.025 TABLET 1 TAB PO ×2 (05:31→11:54)
[2021-12-11 06:55] LABS: Hemoglobin 11.4 g/dl (14.0-18.0); Mean Corpuscular HGB Conc 31.7 g/dl (31.0-36.0); Mean Corpuscular Hemoglobin 24.3 pg (27.0-33.0); Mean Corpuscular Volume 76.8 fL (80.0-98.0); Mean Platelet Volume 10.2 fL (9.4-12.4); Platelet Count 158 X10*3/uL (160-400); Red Blood Count 4.69 X10*6/uL (4.60-5.80); Red Cell Distribution Width 19.9 % (11.0-16.0)
[2021-12-11 06:57] LABS: NRBC Pct Auto 1.3 /100WBC (0.0-0.2); WBC ABN SCTR FOR CBC 1
[2021-12-11 07:10] VITALS: BP 115/70; PULSE 83; RESP 18; TEMP 36.2; O2SAT 98
[2021-12-11 07:10] LABS: Alanine Aminotransferase 8 U/L (0-40); Albumin Level 1.8 g/dL (3.5-5.0); Alkaline Phosphatase 65 U/L (39-117); Anion Gap 12 (12-20); Aspartate Amino Transferase 18 U/L (5-37); Bilirubin Total 0.4 mg/dL (0.0-1.0); Blood Urea Nitrogen 12 mg/dL (9-16); Calcium 6.8 mg/dL (8.4-10.2); Carbon Dioxide 16 mmol/L (22-29); Chloride 110 mmol/L (96-108); Creatinine Clr Calc Pharmacy 42.3; Estimated Glomerular Filt Rate > 60; Glucose Fasting 124 mg/dL (60-99); Magnesium 1.6 mg/dL (1.6-2.6); Potassium 3.2 mmol/L (3.3-5.1); Sodium 135 mmol/L (135-145); Total Protein 3.8 g/dL (6.5-8.0)
[2021-12-11 07:24] LABS: Band Neutrophils Percent 3 % (3-5); Eosinophils Percent Manual 7 % (0-4); Lymphocytes Percent Manual 13 % (20-40); Monocytes Percent Manual 9 % (2-11); Myelocytes Percent 1 %; Neutrophils Percent Manual 67 % (45-73); Nucleated Red Blood Cells 3 /100WBC (0-0)
[2021-12-11 07:25] LABS: Burr Cells 2+ (3-5) /OIF; Ovalocytes 1+ (5-14) /OIF
[2021-12-11 07:27] LABS: Microcytosis 1+ (5-14) /OIF
[2021-12-11 07:28] LABS: Glucose, Whole Blood 121 mg/dL (60-115)
[2021-12-11 07:32] LABS: Eosinophils Absolute Manual 0.7 X10*3/uL (0.0-0.4); Lymphocytes Absolute Manual 1.3 X10*3/uL (1.2-4.9); Monocytes Absolute Manual 0.9 X10*3/uL (0.1-1.2); Myelocytes Absolute 0.1 X10*/uL; Neutrophils Absolute Manual 6.8 X10*3/uL (2.0-8.3); Platelet Estimate NORMAL (NORMAL); Platelet Morphology Comment NORM; RBC Morphology NOTED; White Blood Count 9.7 X10*3/uL (4.8-10.8)
[2021-12-11] MEDS: Sertraline HCL 50 MG TABLET PO (07:54)
[2021-12-11] MEDS: Multivitamin TABLET 1 TAB PO (07:54)
[2021-12-11] MEDS: Sodium Bicarbonate 650 MG TABLET PO ×3 (07:56→21:54)
[2021-12-11] MEDS: Dextrose 5 % and 0.9 % NaCl 1,000 ML 100 ML IVCONT ×2 (08:02→17:48)
[2021-12-11 11:25] VITALS: BP 142/80; PULSE 85; RESP 18; TEMP 36.2; O2SAT 97
[2021-12-11 11:31] LABS: Glucose, Whole Blood 177 mg/dL (60-115)
[2021-12-11] MEDS: Insulin Lispro 100 UNIT/ML 3 ML VIAL SUBCUT ×3 (11:55→21:58)
--- NOTE | 2021-12-11 15:11 | P.PNIM_ITS ---
Subjective Subjective Date of Service: 12/11/21 Interval History: No acute issues overnight. Still with watery diarrhea; minimal improvement with Lomotil. Rectal tube place Review of Systems Denies chest pain Denies shortness of breath Denies nausea vomiting diarrhea Denies fever chills Physical Exam Vital Signs: Vital Signs: Last Vital Signs Temp 97.1 F 12/11/21 11:25 Pulse 85 12/11/21 11:25 Resp 18 12/11/21 11:25 BP 142/80 H 12/11/21 11:25 Pulse Ox 97 12/11/21 11:25 BMI result Body Mass Index 25.7 Const: Other: Awake alert oriented x3 no acute distress Resp: Other: Clear to auscultation bilaterally no rales rhonchi wheezes Cardio: Other: No S4; positive S1-S2; no S3 murmurs sounds or gallops GI: Other: Soft nontender nondistended normoactive bowel sounds Extrem: Other: No edema bilaterally Objective Data Active Medications Acetaminophen (Acetaminophen 325 Mg Tablet) 650 mg PO Q6H PRN PRN Reason: Pain, Mild (Pain Scale 1-3) Albuterol Sulfate (Albuterol Sulfate 90 Mcg 8 Gm Inhaler) 2 puff INHALE Q6H PRN PRN Reason: shortness of breath or wheezing Albuterol/Ipratropium (Albuterol/Iprat 2.5/0.5mg 3 Ml Ampul.Neb) 3 ml INHALE RQ4H WHILE AWAKE PRN PRN Reason: Shortness of Breath/Wheezing Benzocaine (Throat Lozenge, Medicated Lozenge) 1 lozenge MUCOUS MEM Q2H PRN PRN Reason: Sore Throat Last Admin: 12/09/21 21:50 Dose: 1 lozenge Documented by: MINNIE Dextrose (Dextrose 50 % 25 Gm/50 Ml Syringe) 25 gm IVPUSH Q15M PRN; Protocol PRN Reason: per Hypoglycemia Standing Ord. Diphenoxylate HCl/Atropine (Diphenoxylate/Atrop 2.5/0.025 Tablet) 2 tab PO QID PRN PRN Reason: Diarrhea Glucose (Glucose Gel 15 Gm Gel..Gram.) 15 gm PO Q15M PRN; Protocol PRN Reason: per Hypoglycemia Standing Ord. Piperacillin Sod/Tazobactam (Sod 3.375 gm/ Sodium Chloride) 50 mls @ 100 mls/hr IV Q6H [facility] Last Infusion: 12/11/21 12:24 Dose: 0 mls/hr Documented by: ADAM Dextrose/Sodium Chloride (D5ns) 1,000 mls @ 100 mls/hr IVCONT .Q10H [facility] Last Admin: 12/11/21 08:02 Dose: 100 mls/hr Documented by: ADAM Insulin Glargine (Insulin Glargine,Hum.Rec.Anlog 100 Unit/Ml 10 Ml Vial) 15 unit SUBCUT BEDTIME [facility] Last Admin: 12/10/21 21:54 Dose: 15 unit Documented by: CANDIE Insulin Human Lispro (Insulin Lispro 100 Unit/Ml 3 Ml Vial) 0 unit SUBCUT QIDACHS [facility]; Protocol Last Admin: 12/11/21 11:55 Dose: 2 unit Documented by: ADAM Melatonin (Melatonin 3 Mg Tablet) 6 mg PO BEDTIME PRN PRN Reason: Insomnia Last Admin: 12/07/21 22:21 Dose: 6 mg Documented by: XIOMARA Multivitamins/Vitamin C (Multivitamin Tablet) 1 tab PO DAILY [facility] Last Admin: 12/11/21 07:54 Dose: 1 tab Documented by: ADAM Non-Formulary Medication (Capecitabine [Xeloda]) 1,500 mg PO BID [facility] Oxycodone HCl (Oxycodone Hcl Immed Release 5 Mg Tablet) 5 mg PO BID PRN PRN Reason: Pain Last Admin: 12/10/21 22:02 Dose: 5 mg Documented by: CANDIE Pharmacy Consult (Consult Rx Perform Med Rec) 1 each MISCELLANE ONCE PRN PRN Reason: Consult order Pravastatin Sodium (Pravastatin Sodium 10 Mg Tablet) 10 mg PO BEDTIME [facility] Last Admin: 12/10/21 21:54 Dose: 10 mg Documented by: CANDIE Senna (Sennosides 8.6 Mg Tablet) 17.2 mg PO BEDTIME PRN PRN Reason: Constipation Sertraline HCl (Sertraline Hcl 50 Mg Tablet) 50 mg PO DAILY [facility] Last Admin: 12/11/21 07:54 Dose: 50 mg Documented by: ADAM Sodium Bicarbonate (Sodium Bicarbonate 650 Mg Tablet) 650 mg PO TID [facility] Last Admin: 12/11/21 07:56 Dose: 650 mg Documented by: ADAM Sodium Chloride (0.9 % Sodium Chloride Flush 3 Ml Syringe) 3 ml IVFLUSH QSHIFT [facility] Last Admin: 12/11/21 08:05 Dose: 3 ml Documented by: ADAM Zolpidem Tartrate (Zolpidem Tartrate 5 Mg Tablet) 5 mg PO BEDTIME PRN PRN Reason: Insomnia Last Admin: 12/08/21 21:38 Dose: 5 mg Documented by: MARI Labs CBC & Chem 7: 12/11/21 06:22 12/11/21 06:22 Labs: Laboratory Results - last 24 hr 12/10/21 12/10/21 12/10/21 16:25 19:51 22:17 MCV MCH MCHC RDW Plt Count MPV Immature Gran % (Auto) Neut % (Auto) Lymph % (Auto) [place] % (Auto) Eos % (Auto) Baso % (Auto) Lymph # (Auto) [place] # (Auto) Eos # (Auto) Baso # (Auto) Abs Immat Gran (auto) Absolute Neuts (auto) Absolute Nucleated RBC Nucleated RBC % (auto) Neutrophils % (Manual) Band Neutrophils % Lymphocytes % (Manual) Monocytes % (Manual) Eosinophils % (Manual) Myelocytes % Abs Neuts (Manual) Lymphocytes # (Manual) Monocytes # (Manual) Eosinophils # (Manual) Myelocytes # Nucleated RBCs Platelet Estimate Plt Morphology Comment RBC Morphology Microcytosis Ovalocytes [place] Cells Anion Gap 11 L Estim Creat Clear Calc 42.3 Estimated GFR > 60 POC Glucose 182 H 176 H Random Glucose 178 H D Fasting Glucose Calcium 7.0 L Magnesium Total Bilirubin AST ALT Alkaline Phosphatase Total Protein Albumin 12/11/21 12/11/21 12/11/21 06:22 06:22 07:13 MCV 76.8 L MCH 24.3 L MCHC 31.7 RDW 19.9 H Plt Count 158 L MPV 10.2 Immature Gran % (Auto) Cancelled Neut % (Auto) Cancelled Lymph % (Auto) Cancelled [place] % (Auto) Cancelled Eos % (Auto) Cancelled Baso % (Auto) Cancelled Lymph # (Auto) Cancelled [place] # (Auto) Cancelled Eos # (Auto) Cancelled Baso # (Auto) Cancelled Abs Immat Gran (auto) Cancelled Absolute Neuts (auto) Cancelled Absolute Nucleated RBC 0.130 H Nucleated RBC % (auto) 1.3 H Neutrophils % (Manual) 67 Band Neutrophils % 3 Lymphocytes % (Manual) 13 L Monocytes % (Manual) 9 Eosinophils % (Manual) 7 H Myelocytes % 1 Abs Neuts (Manual) 6.8 Lymphocytes # (Manual) 1.3 Monocytes # (Manual) 0.9 Eosinophils # (Manual) 0.7 H Myelocytes # 0.1 Nucleated RBCs 3 H Platelet Estimate NORMAL Plt Morphology Comment NORM RBC Morphology NOTED Microcytosis 1+ (5-14) Ovalocytes 1+ (5-14) [place] Cells 2+ (3-5) Anion Gap 12 Estim Creat Clear Calc 42.3 Estimated GFR > 60 POC Glucose 121 H Random Glucose Fasting Glucose 124 H D Calcium 6.8 L Magnesium 1.6 Total Bilirubin 0.4 AST 18 ALT 8 Alkaline Phosphatase 65 Total Protein 3.8 L Albumin 1.8 L 12/11/21 11:26 MCV MCH MCHC RDW Plt Count MPV Immature Gran % (Auto) Neut % (Auto) Lymph % (Auto) [place] % (Auto) Eos % (Auto) Baso % (Auto) Lymph # (Auto) [place] # (Auto) Eos # (Auto) Baso # (Auto) Abs Immat Gran (auto) Absolute Neuts (auto) Absolute Nucleated RBC Nucleated RBC % (auto) Neutrophils % (Manual) Band Neutrophils % Lymphocytes % (Manual) Monocytes % (Manual) Eosinophils % (Manual) Myelocytes % Abs Neuts (Manual) Lymphocytes # (Manual) Monocytes # (Manual) Eosinophils # (Manual) Myelocytes # Nucleated RBCs Platelet Estimate Plt Morphology Comment RBC Morphology Microcytosis Ovalocytes Prashant Cells Anion Gap Estim Creat Clear Calc Estimated GFR POC Glucose 177 H Random Glucose Fasting Glucose Calcium Magnesium Total Bilirubin AST ALT Alkaline Phosphatase Total Protein Albumin Microbiology Microbiology Results: Microbiology 12/06/21 12:36 Blood Culture - Final Blood - Venous No growth after 5 days. 12/06/21 12:36 Blood Culture - Final Blood - Venous No growth after 5 days. Assessment and Plan (1) Colitis: Status: Acute (2) Anemia: Status: Acute (3) AFTAB (acute kidney injury): Status: Acute (4) DMII (diabetes mellitus, type 2): Status: Acute Plan 81-year-old female with a past medical history of hypertension, hyperlipidemia, diabetes, CAD, rectal cancer on chemotherapy presented to the hospital with a chief complaint of diarrhea and abdominal discomfort; CT of abdomen consistent with diffuse mural thickening involving the entire colon suspicious for colitis 1. Colitis -Zosyn(5) -IV fluids; full liquid -stool cultures/CDiff negative.... P.r.n. Lomotil.... -bicarb added -follow-up clinical response 2.AFTAB -responding to IV volume repletion -switch to lactated Ringer secondary to hyperchloremic metabolic acidosis -follow renals/divalents 3. Anemia(rectal Ca) -stable hemoglobin -follow CBC daily...transfuse as indicated 4.DMII -continue Lantus as per outpt. dosing -lispro sliding scale -adjust as clinically indicated DVT prophylaxis: SCD boots Code status: Full code Requires ongoing hospitalization for IV antibiotics to treat colitis; needs to have serial blood counts done with the possibility for transfusion Quality Stroke Does the patient have a stroke diagnosis?: No VTE Prior VTE?: No VTE Risk Level:: Medical - moderate - high VTE Device Contraindication: Treatment Not Indicated VTE Drug Contraindication: N/A - Med Ordered
[2021-12-11 15:19] VITALS: BP 159/84; PULSE 72; RESP 18; TEMP 37.1; O2SAT 98
[2021-12-11 15:38] LABS: Glucose, Whole Blood 202 mg/dL (60-115)
[2021-12-11] MEDS: Diphenoxylate/Atrop 2.5/0.025 TABLET 2 TAB PO ×2 (17:44→21:57)
[2021-12-11 20:00] VITALS: BP 125/57; PULSE 76; RESP 18; TEMP 37.1; O2SAT 98
[2021-12-11 20:19] LABS: Glucose, Whole Blood 195 mg/dL (60-115)
[2021-12-11] MEDS: Pravastatin Sodium 10 MG TABLET PO (21:56)
[2021-12-11] MEDS: Insulin Glargine,Hum.rec.anlog 100 UNIT/ML 10 ML VIAL 15 UNIT SUBCUT (21:58)
[2021-12-11] MEDS: oxyCODONE HCl Immed Release 5 MG TABLET PO (22:07)
[2021-12-11] MEDS: Throat Lozenge, Medicated LOZENGE 1 LOZENGE MUCOUS MEM (22:28)
[2021-12-11 23:51] VITALS: BP 92/72; PULSE 76; RESP 18; TEMP 36.8; O2SAT 96
[2021-12-12] MEDS: 0.9 % Sodium Chloride Flush 3 ML SYRINGE IVFLUSH ×4 (00:54→23:57)
[2021-12-12] MEDS: Dextrose 5 % and 0.9 % NaCl 1,000 ML 100 ML IVCONT ×2 (01:04→18:31)
[2021-12-12 03:38] VITALS: BP 108/66; PULSE 100; RESP 18; TEMP 36.4; O2SAT 97
[2021-12-12] MEDS: Piperacillin Sodium/Tazobactam 3.375 GM in 0.9 % Sodium Chloride 50 ML IV ×4 (04:41→22:39)
[2021-12-12] MEDS: Acetaminophen 325 MG TABLET 650 MG PO (06:20)
--- NOTE | 2021-12-12 06:29 | PC.NURSE ---
AWAKE..ALERT...VAGUE AT TIMES..INCONTINANT LOOSE STOOL X2 OVERNIGHT..AWAKE THIS AM..RESPIRATIONS EASY..C/O ACHY DISCOMFORT TO LEFT KNEE...DECLINED PRN OXYCODONE..STATED I HAD IT LAST NIGHT ...TYLENOL 650MG PO GIVEN..RESTFUL
[2021-12-12 06:59] LABS: Hematocrit 35.7 % (42.0-52.0); Hemoglobin 11.5 g/dl (14.0-18.0); Mean Corpuscular HGB Conc 32.2 g/dl (31.0-36.0); Mean Corpuscular Hemoglobin 24.6 pg (27.0-33.0); Mean Corpuscular Volume 76.4 fL (80.0-98.0); Mean Platelet Volume 10.3 fL (9.4-12.4); NRBC Pct Auto 0.9 /100WBC (0.0-0.2); Platelet Count 161 X10*3/uL (160-400); Red Blood Count 4.67 X10*6/uL (4.60-5.80); Red Cell Distribution Width 19.4 % (11.0-16.0)
[2021-12-12 07:01] LABS: WBC ABN SCTR FOR CBC 1; White Blood Count 8.7 X10*3/uL (4.8-10.8)
[2021-12-12 07:14] LABS: Alanine Aminotransferase 11 U/L (0-40); Albumin Level 1.6 g/dL (3.5-5.0); Alkaline Phosphatase 66 U/L (39-117); Anion Gap 12 (12-20); Aspartate Amino Transferase 19 U/L (5-37); Bilirubin Total 0.4 mg/dL (0.0-1.0); Blood Urea Nitrogen 8 mg/dL (9-16); Calcium 6.6 mg/dL (8.4-10.2); Carbon Dioxide 16 mmol/L (22-29); Chloride 112 mmol/L (96-108); Creatinine Clr Calc Pharmacy 46.1; Estimated Glomerular Filt Rate > 60; Glucose Fasting 196 mg/dL (60-99); Magnesium 1.7 mg/dL (1.6-2.6); Potassium 2.7 mmol/L (3.3-5.1); Sodium 137 mmol/L (135-145); Total Protein 3.6 g/dL (6.5-8.0)
[2021-12-12 07:25] LABS: Band Neutrophils Percent 8 % (3-5); Eosinophils Absolute Manual 0.2 X10*3/uL (0.0-0.4); Eosinophils Percent Manual 2 % (0-4); Lymphocytes Percent Manual 12 % (20-40); Monocytes Absolute Manual 1.3 X10*3/uL (0.1-1.2); Monocytes Percent Manual 15 % (2-11); Neutrophils Absolute Manual 6.2 X10*3/uL (2.0-8.3); Neutrophils Percent Manual 63 % (45-73); Nucleated Red Blood Cells 1 /100WBC (0-0)
[2021-12-12 07:27] VITALS: BP 108/61; PULSE 85; RESP 18; TEMP 36.8; O2SAT 97
[2021-12-12 07:27] LABS: Glucose, Whole Blood 175 mg/dL (60-115)
[2021-12-12 07:27] LABS: Acanthocytes 1+ (0-2) /OIF; Burr Cells 3+ (>5) /OIF; Hypochromasia 1+ (5-14) /OIF; Polychromasia 1+ (0-2) /OIF; RBC Morphology NOTED
[2021-12-12 07:28] LABS: Microcytosis 1+ (5-14) /OIF
[2021-12-12 07:29] LABS: Platelet Estimate NORMAL (NORMAL); Platelet Morphology Comment NORM; Schistocytes 1+ (0-2) /OIF
[2021-12-12] MEDS: Multivitamin TABLET 1 TAB PO (07:56)
[2021-12-12] MEDS: Insulin Lispro 100 UNIT/ML 3 ML VIAL SUBCUT ×4 (07:56→20:25)
[2021-12-12] MEDS: Sertraline HCL 50 MG TABLET PO (07:56)
[2021-12-12] MEDS: Sodium Bicarbonate 650 MG TABLET PO ×3 (07:56→20:25)
[2021-12-12] MEDS: Potassium Chloride/H20 10 MEQ/100 ML PIGGYBACK 100 MEQ IV ×4 (08:25→12:21)
[2021-12-12] MEDS: Potassium Chloride ER 20 MEQ TAB.ER.PRT 40 MEQ PO (08:25)
[2021-12-12] MEDS: Potassium Chloride Packet 20 MEQ PACKET 40 MEQ PO ×2 (09:46→20:25)
[2021-12-12 11:08] LABS: Glucose, Whole Blood 170 mg/dL (60-115)
[2021-12-12 11:42] VITALS: BP 108/64; PULSE 91; RESP 20; TEMP 36.8; O2SAT 98
[2021-12-12] MEDS: Diphenoxylate/Atrop 2.5/0.025 TABLET 2 TAB PO (12:21)
--- NOTE | 2021-12-12 15:59 | P.PNIM_ITS ---
Subjective Subjective Date of Service: 12/12/21 Interval History: No acute issues overnight. Still with watery diarrhea; improvement with Lomotil. Review of Systems Denies chest pain Denies shortness of breath Denies nausea vomiting diarrhea Denies fever chills Physical Exam Vital Signs: Vital Signs: Last Vital Signs Temp 98.2 F 12/12/21 11:42 Pulse 91 12/12/21 11:42 Resp 20 12/12/21 11:42 BP 108/64 12/12/21 11:42 Pulse Ox 98 12/12/21 11:42 BMI result Body Mass Index 25.7 Const: Other: Awake alert oriented x3 no acute distress Resp: Other: Clear to auscultation bilaterally no rales rhonchi wheezes Cardio: Other: No S4; positive S1-S2; no S3 murmurs sounds or gallops GI: Other: Soft nontender nondistended normoactive bowel sounds Extrem: Other: No edema bilaterally Objective Data Active Medications Acetaminophen (Acetaminophen 325 Mg Tablet) 650 mg PO Q6H PRN PRN Reason: Pain, Mild (Pain Scale 1-3) Last Admin: 12/12/21 06:20 Dose: 650 mg Documented by: RENAE Albuterol Sulfate (Albuterol Sulfate 90 Mcg 8 Gm Inhaler) 2 puff INHALE Q6H PRN PRN Reason: shortness of breath or wheezing Albuterol/Ipratropium (Albuterol/Iprat 2.5/0.5mg 3 Ml Ampul.Neb) 3 ml INHALE RQ4H WHILE AWAKE PRN PRN Reason: Shortness of Breath/Wheezing Benzocaine (Throat Lozenge, Medicated Lozenge) 1 lozenge MUCOUS MEM Q2H PRN PRN Reason: Sore Throat Last Admin: 12/11/21 22:28 Dose: 1 lozenge Documented by: MARI Dextrose (Dextrose 50 % 25 Gm/50 Ml Syringe) 25 gm IVPUSH Q15M PRN; Protocol PRN Reason: per Hypoglycemia Standing Ord. Diphenoxylate HCl/Atropine (Diphenoxylate/Atrop 2.5/0.025 Tablet) 2 tab PO QID PRN PRN Reason: Diarrhea Last Admin: 12/12/21 12:21 Dose: 2 tab Documented by: KEVIN Glucose (Glucose Gel 15 Gm Gel..Gram.) 15 gm PO Q15M PRN; Protocol PRN Reason: per Hypoglycemia Standing Ord. Piperacillin Sod/Tazobactam (Sod 3.375 gm/ Sodium Chloride) 50 mls @ 100 mls/hr IV Q6H PENDING SALE TO [facility] Last Infusion: 12/12/21 11:48 Dose: 0 mls/hr Documented by: KEVIN Dextrose/Sodium Chloride (D5ns) 1,000 mls @ 100 mls/hr IVCONT .Q10H PENDING SALE TO [facility] Last Infusion: 12/12/21 14:44 Dose: 100 mls/hr Documented by: KEVIN Insulin Glargine (Insulin Glargine,Hum.Rec.Anlog 100 Unit/Ml 10 Ml Vial) 15 unit SUBCUT BEDTIME PENDING SALE TO [facility] Last Admin: 12/11/21 21:58 Dose: 15 unit Documented by: MARI Insulin Human Lispro (Insulin Lispro 100 Unit/Ml 3 Ml Vial) 0 unit SUBCUT QIDACHS PENDING SALE TO [facility]; Protocol Last Admin: 12/12/21 12:21 Dose: 2 unit Documented by: KEVIN Melatonin (Melatonin 3 Mg Tablet) 6 mg PO BEDTIME PRN PRN Reason: Insomnia Last Admin: 12/07/21 22:21 Dose: 6 mg Documented by: XIOMARA Multivitamins/Vitamin C (Multivitamin Tablet) 1 tab PO DAILY PENDING SALE TO [facility] Last Admin: 12/12/21 07:56 Dose: 1 tab Documented by: KEVIN Non-Formulary Medication (Capecitabine [Xeloda]) 1,500 mg PO BID PENDING SALE TO [facility] Oxycodone HCl (Oxycodone Hcl Immed Release 5 Mg Tablet) 5 mg PO BID PRN PRN Reason: Pain Last Admin: 12/11/21 22:07 Dose: 5 mg Documented by: MARI Pharmacy Consult (Consult Rx Perform Med Rec) 1 each MISCELLANE ONCE PRN PRN Reason: Consult order Potassium Chloride (Potassium Chloride Packet 20 Meq Packet) 40 meq PO BID PENDING SALE TO [facility] Last Admin: 12/12/21 09:46 Dose: 40 meq Documented by: KEVIN Pravastatin Sodium (Pravastatin Sodium 10 Mg Tablet) 10 mg PO BEDTIME PENDING SALE TO [facility] Last Admin: 12/11/21 21:56 Dose: 10 mg Documented by: MARI Senna (Sennosides 8.6 Mg Tablet) 17.2 mg PO BEDTIME PRN PRN Reason: Constipation Sertraline HCl (Sertraline Hcl 50 Mg Tablet) 50 mg PO DAILY PENDING SALE TO [facility] Last Admin: 12/12/21 07:56 Dose: 50 mg Documented by: KEVIN Sodium Bicarbonate (Sodium Bicarbonate 650 Mg Tablet) 650 mg PO TID PENDING SALE TO [facility] Last Admin: 12/12/21 07:56 Dose: 650 mg Documented by: KEVIN Sodium Chloride (0.9 % Sodium Chloride Flush 3 Ml Syringe) 3 ml IVFLUSH QSHIFT PENDING SALE TO [facility] Last Admin: 12/12/21 07:56 Dose: 3 ml Documented by: KEVIN Labs CBC & Chem 7: 12/12/21 06:15 12/12/21 06:15 Labs: Laboratory Results - last 24 hr 12/11/21 12/12/21 12/12/21 20:02 06:15 06:15 MCV 76.4 L MCH 24.6 L MCHC 32.2 RDW 19.4 H Plt Count 161 MPV 10.3 Immature Gran % (Auto) Cancelled Neut % (Auto) Cancelled Lymph % (Auto) Cancelled [place] % (Auto) Cancelled Eos % (Auto) Cancelled Baso % (Auto) Cancelled Lymph # (Auto) Cancelled [place] # (Auto) Cancelled Eos # (Auto) Cancelled Baso # (Auto) Cancelled Abs Immat Gran (auto) Cancelled Absolute Neuts (auto) Cancelled Absolute Nucleated RBC 0.080 H Nucleated RBC % (auto) 0.9 H Neutrophils % (Manual) 63 Band Neutrophils % 8 H Lymphocytes % (Manual) 12 L Monocytes % (Manual) 15 H Eosinophils % (Manual) 2 Abs Neuts (Manual) 6.2 Lymphocytes # (Manual) 1.0 L Monocytes # (Manual) 1.3 H Eosinophils # (Manual) 0.2 Nucleated RBCs 1 H Platelet Estimate NORMAL Plt Morphology Comment NORM RBC Morphology NOTED Polychromasia 1+ (0-2) Hypochromasia 1+ (5-14) Microcytosis 1+ (5-14) [place] Cells 3+ (>5) Acanthocytes (Spur) 1+ (0-2) Schistocytes 1+ (0-2) Anion Gap 12 Estim Creat Clear Calc 46.1 Estimated GFR > 60 POC Glucose 195 H Fasting Glucose 196 H D Calcium 6.6 L Magnesium 1.7 Total Bilirubin 0.4 AST 19 ALT 11 Alkaline Phosphatase 66 Total Protein 3.6 L Albumin 1.6 L 12/12/21 12/12/21 07:08 10:48 MCV MCH MCHC RDW Plt Count MPV Immature Gran % (Auto) Neut % (Auto) Lymph % (Auto) [place] % (Auto) Eos % (Auto) Baso % (Auto) Lymph # (Auto) [place] # (Auto) Eos # (Auto) Baso # (Auto) Abs Immat Gran (auto) Absolute Neuts (auto) Absolute Nucleated RBC Nucleated RBC % (auto) Neutrophils % (Manual) Band Neutrophils % Lymphocytes % (Manual) Monocytes % (Manual) Eosinophils % (Manual) Abs Neuts (Manual) Lymphocytes # (Manual) Monocytes # (Manual) Eosinophils # (Manual) Nucleated RBCs Platelet Estimate Plt Morphology Comment RBC Morphology Polychromasia Hypochromasia Microcytosis Prashant Cells Acanthocytes (Spur) Schistocytes Anion Gap Estim Creat Clear Calc Estimated GFR POC Glucose 175 H 170 H Fasting Glucose Calcium Magnesium Total Bilirubin AST ALT Alkaline Phosphatase Total Protein Albumin Microbiology Microbiology Results: Microbiology 12/06/21 12:36 Blood Culture - Final Blood - Venous No growth after 5 days. 12/06/21 12:36 Blood Culture - Final Blood - Venous No growth after 5 days. Assessment and Plan (1) Colitis: Status: Acute (2) AFTAB (acute kidney injury): Status: Acute (3) Diabetes type 2, controlled: Status: Acute Plan 81-year-old female with a past medical history of hypertension, hyperlipidemia, diabetes, CAD, rectal cancer on chemotherapy presented to the hospital with a chief complaint of diarrhea and abdominal discomfort; CT of abdomen consistent with diffuse mural thickening involving the entire colon suspicious for colitis 1. Colitis -Zosyn(6) -IV fluids; ADA diet -bicarb added -follow-up clinical response 2.AFTAB -responding to IV volume repletion -switch to lactated Ringer secondary to hyperchloremic metabolic acidosis -follow renals/divalents 3. Anemia(rectal Ca) -stable hemoglobin -follow CBC daily...transfuse as indicated 4.DMII -continue Lantus as per outpt. dosing -lispro sliding scale -adjust as clinically indicated DVT prophylaxis: SCD boots Code status: Full code Requires ongoing hospitalization for IV antibiotics to treat colitis; needs to have serial blood counts done with the possibility for transfusion Quality Stroke Does the patient have a stroke diagnosis?: No VTE Prior VTE?: No VTE Risk Level:: Medical - moderate - high VTE Device Contraindication: Treatment Not Indicated VTE Drug Contraindication: N/A - Med Ordered
[2021-12-12 16:00] VITALS: BP 127/86; PULSE 87; RESP 18; TEMP 37.1; O2SAT 98
[2021-12-12 16:12] LABS: Glucose, Whole Blood 194 mg/dL (60-115)
[2021-12-12 19:53] VITALS: BP 156/77; PULSE 85; RESP 18; TEMP 36.8; O2SAT 98
[2021-12-12 19:58] LABS: Glucose, Whole Blood 196 mg/dL (60-115)
[2021-12-12] MEDS: oxyCODONE HCl Immed Release 5 MG TABLET PO (20:24)
[2021-12-12] MEDS: Insulin Glargine,Hum.rec.anlog 100 UNIT/ML 10 ML VIAL 15 UNIT SUBCUT (20:25)
[2021-12-12] MEDS: Throat Lozenge, Medicated LOZENGE 1 LOZENGE MUCOUS MEM (20:25)
[2021-12-12] MEDS: Pravastatin Sodium 10 MG TABLET PO (20:25)
[2021-12-12 23:28] VITALS: BP 129/71; PULSE 89; RESP 21; TEMP 36.7; O2SAT 100
[2021-12-13 03:11] VITALS: BP 109/69; PULSE 91; RESP 20; TEMP 36.1; O2SAT 100
[2021-12-13] MEDS: Diphenoxylate/Atrop 2.5/0.025 TABLET 2 TAB PO ×3 (03:53→20:08)
[2021-12-13] MEDS: Dextrose 5 % and 0.9 % NaCl 1,000 ML 100 ML IVCONT ×2 (05:23→16:24)
[2021-12-13] MEDS: Piperacillin Sodium/Tazobactam 3.375 GM in 0.9 % Sodium Chloride 50 ML IV ×4 (05:23→23:20)
[2021-12-13 07:06] LABS: Hematocrit 37.2 % (42.0-52.0); Hemoglobin 11.9 g/dl (14.0-18.0); Mean Corpuscular Hemoglobin 24.9 pg (27.0-33.0); Mean Platelet Volume 10.4 fL (9.4-12.4); NRBC Pct Auto 0.2 /100WBC (0.0-0.2); Platelet Count 180 X10*3/uL (160-400); Red Blood Count 4.77 X10*6/uL (4.60-5.80); Red Cell Distribution Width 20.8 % (11.0-16.0); WBC ABN SCTR FOR CBC 1
[2021-12-13 07:21] VITALS: BP 123/70; PULSE 75; RESP 20; TEMP 36.3; O2SAT 98
[2021-12-13 07:25] LABS: Alanine Aminotransferase 10 U/L (0-40); Albumin Level 1.6 g/dL (3.5-5.0); Alkaline Phosphatase 70 U/L (39-117); Anion Gap 12 (12-20); Aspartate Amino Transferase 14 U/L (5-37); Bilirubin Total 0.3 mg/dL (0.0-1.0); Blood Urea Nitrogen 6 mg/dL (9-16); Calcium 6.6 mg/dL (8.4-10.2); Carbon Dioxide 17 mmol/L (22-29); Chloride 116 mmol/L (96-108); Creatinine Clr Calc Pharmacy 45.7; Estimated Glomerular Filt Rate > 60; Glucose Fasting 149 mg/dL (60-99); Magnesium 1.6 mg/dL (1.6-2.6); Potassium 2.9 mmol/L (3.3-5.1); Sodium 142 mmol/L (135-145); Total Protein 3.7 g/dL (6.5-8.0)
[2021-12-13 07:33] LABS: Band Neutrophils Percent 4 % (3-5); Eosinophils Percent Manual 3 % (0-4); Lymphocytes Percent Manual 7 % (20-40); Monocytes Percent Manual 11 % (2-11); Neutrophils Percent Manual 75 % (45-73)
[2021-12-13 07:35] LABS: Macrocytosis 1+ (5-14) /OIF; Microcytosis 1+ (5-14) /OIF; Platelet Estimate NORMAL (NORMAL); RBC Morphology NOTED
[2021-12-13 07:36] LABS: Acanthocytes 1+ (0-2) /OIF; Burr Cells 3+ (>5) /OIF; Hypochromasia 1+ (5-14) /OIF; Platelet Morphology Comment NORMAL; Polychromasia 2+ (3-5) /OIF; Schistocytes 1+ (0-2) /OIF; Toxic Granulation PRESENT
[2021-12-13 07:40] LABS: Eosinophils Absolute Manual 0.3 X10*3/uL (0.0-0.4); Lymphocytes Absolute Manual 0.7 X10*3/uL (1.2-4.9); Monocytes Absolute Manual 1.1 X10*3/uL (0.1-1.2); Neutrophils Absolute Manual 7.7 X10*3/uL (2.0-8.3); White Blood Count 9.7 X10*3/uL (4.8-10.8)
[2021-12-13 07:56] LABS: Glucose, Whole Blood 144 mg/dL (60-115)
[2021-12-13] MEDS: Sodium Bicarbonate 650 MG TABLET PO ×3 (10:10→20:02)
[2021-12-13] MEDS: Sertraline HCL 50 MG TABLET PO (10:10)
[2021-12-13] MEDS: Multivitamin TABLET 1 TAB PO (10:11)
[2021-12-13] MEDS: Potassium Chloride Packet 20 MEQ PACKET 40 MEQ PO ×4 (10:11→20:02)
[2021-12-13 11:20] VITALS: BP 101/66; PULSE 85; RESP 20; TEMP 36.3; O2SAT 99
[2021-12-13 11:44] LABS: Glucose, Whole Blood 187 mg/dL (60-115)
[2021-12-13] MEDS: Insulin Lispro 100 UNIT/ML 3 ML VIAL SUBCUT ×3 (12:02→20:01)
--- NOTE | 2021-12-13 13:56 | MHC.CM.PN ---
Per ROUNDS discussion, Patient is not yet medically cleared for dc (IV Zosyn & watery Diarrhea); Home/resume services is the goal and CM will follow for possible need to adjust the dc plan.
[2021-12-13 15:10] VITALS: BP 121/57; PULSE 90; RESP 20; TEMP 36.3; O2SAT 98
[2021-12-13 15:45] LABS: Glucose, Whole Blood 219 mg/dL (60-115)
[2021-12-13] MEDS: 0.9 % Sodium Chloride Flush 3 ML SYRINGE IVFLUSH (17:03)
--- NOTE | 2021-12-13 17:11 | P.PNIM_ITS ---
Subjective Subjective Date of Service: 12/13/21 Interval History: No acute issues overnight. Diarrhea slowly resolving Review of Systems Denies chest pain Denies shortness of breath Denies nausea vomiting diarrhea Denies fever chills Physical Exam Vital Signs: Vital Signs: Last Vital Signs Temp 97.4 F 12/13/21 15:10 Pulse 90 12/13/21 15:10 Resp 20 12/13/21 15:10 BP 121/57 L 12/13/21 15:10 Pulse Ox 98 12/13/21 15:10 BMI result Body Mass Index 25.7 Const: Other: Awake alert oriented x3 no acute distress Resp: Other: Clear to auscultation bilaterally no rales rhonchi wheezes Cardio: Other: No S4; positive S1-S2; no S3 murmurs sounds or gallops GI: Other: Soft nontender nondistended normoactive bowel sounds Extrem: Other: No edema bilaterally Objective Data Active Medications Acetaminophen (Acetaminophen 325 Mg Tablet) 650 mg PO Q6H PRN PRN Reason: Pain, Mild (Pain Scale 1-3) Last Admin: 12/12/21 06:20 Dose: 650 mg Documented by: RENAE Albuterol Sulfate (Albuterol Sulfate 90 Mcg 8 Gm Inhaler) 2 puff INHALE Q6H PRN PRN Reason: shortness of breath or wheezing Albuterol/Ipratropium (Albuterol/Iprat 2.5/0.5mg 3 Ml Ampul.Neb) 3 ml INHALE RQ4H WHILE AWAKE PRN PRN Reason: Shortness of Breath/Wheezing Benzocaine (Throat Lozenge, Medicated Lozenge) 1 lozenge MUCOUS MEM Q2H PRN PRN Reason: Sore Throat Last Admin: 12/12/21 20:25 Dose: 1 lozenge Documented by: MARI Dextrose (Dextrose 50 % 25 Gm/50 Ml Syringe) 25 gm IVPUSH Q15M PRN; Protocol PRN Reason: per Hypoglycemia Standing Ord. Diphenoxylate HCl/Atropine (Diphenoxylate/Atrop 2.5/0.025 Tablet) 2 tab PO QID PRN PRN Reason: Diarrhea Last Admin: 12/13/21 14:26 Dose: 2 tab Documented by: ARASELI Glucose (Glucose Gel 15 Gm Gel..Gram.) 15 gm PO Q15M PRN; Protocol PRN Reason: per Hypoglycemia Standing Ord. Piperacillin Sod/Tazobactam (Sod 3.375 gm/ Sodium Chloride) 50 mls @ 100 mls/hr IV Q6H [facility] Last Infusion: 12/13/21 13:01 Dose: 0 mls/hr Documented by: ARASELI Dextrose/Sodium Chloride (D5ns) 1,000 mls @ 100 mls/hr IVCONT .Q10H [facility] Last Admin: 12/13/21 16:24 Dose: 100 mls/hr Documented by: ARASELI Insulin Glargine (Insulin Glargine,Hum.Rec.Anlog 100 Unit/Ml 10 Ml Vial) 15 unit SUBCUT BEDTIME [facility] Last Admin: 12/12/21 20:25 Dose: 15 unit Documented by: MARI Insulin Human Lispro (Insulin Lispro 100 Unit/Ml 3 Ml Vial) 0 unit SUBCUT QIDACHS [facility]; Protocol Last Admin: 12/13/21 12:02 Dose: 2 unit Documented by: ARASELI Melatonin (Melatonin 3 Mg Tablet) 6 mg PO BEDTIME PRN PRN Reason: Insomnia Last Admin: 12/07/21 22:21 Dose: 6 mg Documented by: XIOMARA Multivitamins/Vitamin C (Multivitamin Tablet) 1 tab PO DAILY [facility] Last Admin: 12/13/21 10:11 Dose: 1 tab Documented by: ARASELI Non-Formulary Medication (Capecitabine [Xeloda]) 1,500 mg PO BID [facility] Oxycodone HCl (Oxycodone Hcl Immed Release 5 Mg Tablet) 5 mg PO BID PRN PRN Reason: Pain Last Admin: 12/12/21 20:24 Dose: 5 mg Documented by: MARI Pharmacy Consult (Consult Rx Perform Med Rec) 1 each MISCELLANE ONCE PRN PRN Reason: Consult order Potassium Chloride (Potassium Chloride Packet 20 Meq Packet) 40 meq PO QID [facility] Last Admin: 12/13/21 14:26 Dose: 40 meq Documented by: ARASELI Pravastatin Sodium (Pravastatin Sodium 10 Mg Tablet) 10 mg PO BEDTIME [facility] Last Admin: 12/12/21 20:25 Dose: 10 mg Documented by: MARI Senna (Sennosides 8.6 Mg Tablet) 17.2 mg PO BEDTIME PRN PRN Reason: Constipation Sertraline HCl (Sertraline Hcl 50 Mg Tablet) 50 mg PO DAILY [facility] Last Admin: 12/13/21 10:10 Dose: 50 mg Documented by: ARASELI Sodium Bicarbonate (Sodium Bicarbonate 650 Mg Tablet) 650 mg PO TID [facility] Last Admin: 12/13/21 14:26 Dose: 650 mg Documented by: ARASELI Sodium Chloride (0.9 % Sodium Chloride Flush 3 Ml Syringe) 3 ml IVFLUSH QSHIFT [facility] Last Admin: 12/13/21 10:10 Dose: Not Given Documented by: ARASELI Non-Admin Reason: IV Running Labs CBC & Chem 7: 12/13/21 06:21 12/13/21 06:21 Labs: Laboratory Results - last 24 hr 12/12/21 12/13/21 12/13/21 19:52 06:21 06:21 MCV 78.0 L MCH 24.9 L MCHC 32.0 RDW 20.8 H Plt Count 180 MPV 10.4 Immature Gran % (Auto) Cancelled Neut % (Auto) Cancelled Lymph % (Auto) Cancelled [place] % (Auto) Cancelled Eos % (Auto) Cancelled Baso % (Auto) Cancelled Lymph # (Auto) Cancelled [place] # (Auto) Cancelled Eos # (Auto) Cancelled Baso # (Auto) Cancelled Abs Immat Gran (auto) Cancelled Absolute Neuts (auto) Cancelled Absolute Nucleated RBC 0.020 H Nucleated RBC % (auto) 0.2 Neutrophils % (Manual) 75 H Band Neutrophils % 4 Lymphocytes % (Manual) 7 L Monocytes % (Manual) 11 Eosinophils % (Manual) 3 Abs Neuts (Manual) 7.7 Lymphocytes # (Manual) 0.7 L Monocytes # (Manual) 1.1 Eosinophils # (Manual) 0.3 Toxic Granulation PRESENT Platelet Estimate NORMAL Plt Morphology Comment NORMAL RBC Morphology NOTED Polychromasia 2+ (3-5) Hypochromasia 1+ (5-14) Microcytosis 1+ (5-14) Macrocytosis 1+ (5-14) [place] Cells 3+ (>5) Acanthocytes (Spur) 1+ (0-2) Schistocytes 1+ (0-2) Anion Gap 12 Estim Creat Clear Calc 45.7 Estimated GFR > 60 POC Glucose 196 H Fasting Glucose 149 H Calcium 6.6 L Magnesium 1.6 Total Bilirubin 0.3 AST 14 ALT 10 Alkaline Phosphatase 70 Total Protein 3.7 L Albumin 1.6 L 12/13/21 12/13/21 12/13/21 07:24 11:39 15:40 MCV MCH MCHC RDW Plt Count MPV Immature Gran % (Auto) Neut % (Auto) Lymph % (Auto) [place] % (Auto) Eos % (Auto) Baso % (Auto) Lymph # (Auto) [place] # (Auto) Eos # (Auto) Baso # (Auto) Abs Immat Gran (auto) Absolute Neuts (auto) Absolute Nucleated RBC Nucleated RBC % (auto) Neutrophils % (Manual) Band Neutrophils % Lymphocytes % (Manual) Monocytes % (Manual) Eosinophils % (Manual) Abs Neuts (Manual) Lymphocytes # (Manual) Monocytes # (Manual) Eosinophils # (Manual) Toxic Granulation Platelet Estimate Plt Morphology Comment RBC Morphology Polychromasia Hypochromasia Microcytosis Macrocytosis Prashant Cells Acanthocytes (Spur) Schistocytes Anion Gap Estim Creat Clear Calc Estimated GFR POC Glucose 144 H 187 H 219 H Fasting Glucose Calcium Magnesium Total Bilirubin AST ALT Alkaline Phosphatase Total Protein Albumin Assessment and Plan (1) Colitis: Status: Acute (2) AFTAB (acute kidney injury): Status: Acute (3) Diabetes type 2, controlled: Status: Acute Plan 81-year-old female with a past medical history of hypertension, hyperlipidemia, diabetes, CAD, rectal cancer on chemotherapy presented to the hospital with a chief complaint of diarrhea and abdominal discomfort; CT of abdomen consistent with diffuse mural thickening involving the entire colon suspicious for colitis 1. Colitis -Zosyn(7) -IV fluids; ADA diet -bicarb added -stools negative. Diarrhea slowly responding to Lomotil 2.AFTAB -responding to IV volume repletion -switch to lactated Ringer secondary to hyperchloremic metabolic acidosis -follow renals/divalents 3. Anemia(rectal Ca) -stable hemoglobin -follow CBC daily...transfuse as indicated 4.DMII -continue Lantus as per outpt. dosing -lispro sliding scale -adjust as clinically indicated DVT prophylaxis: SCD boots Code status: Full code Requires ongoing hospitalization for IV antibiotics to treat colitis; needs to have serial blood counts done with the possibility for transfusion Quality Stroke Does the patient have a stroke diagnosis?: No VTE Prior VTE?: No VTE Risk Level:: Medical - moderate - high VTE Device Contraindication: Treatment Not Indicated VTE Drug Contraindication: N/A - Med Ordered
[2021-12-13 19:13] VITALS: BP 103/60; PULSE 90; RESP 20; TEMP 37.4; O2SAT 96
[2021-12-13 19:52] LABS: Glucose, Whole Blood 181 mg/dL (60-115)
[2021-12-13] MEDS: Pravastatin Sodium 10 MG TABLET PO (20:02)
[2021-12-13] MEDS: Insulin Glargine,Hum.rec.anlog 100 UNIT/ML 10 ML VIAL 15 UNIT SUBCUT (20:02)
[2021-12-13] MEDS: Melatonin 3 MG TABLET 6 MG PO (20:08)
[2021-12-13 23:12] VITALS: BP 142/68; PULSE 96; RESP 22; TEMP 36.4; O2SAT 100
[2021-12-14 03:22] VITALS: BP 115/64; PULSE 90; RESP 18; TEMP 36.4; O2SAT 100
[2021-12-14] MEDS: Dextrose 5 % and 0.9 % NaCl 1,000 ML 100 ML IVCONT (04:00)
[2021-12-14] MEDS: Piperacillin Sodium/Tazobactam 3.375 GM in 0.9 % Sodium Chloride 50 ML IV ×2 (05:03→10:52)
[2021-12-14 07:34] VITALS: BP 115/59; PULSE 82; RESP 17; TEMP 37.2; O2SAT 97
[2021-12-14 07:55] LABS: Glucose, Whole Blood 137 mg/dL (60-115)
[2021-12-14 08:02] LABS: Basophils Percent Auto 0.4 % (0-2); Eosinophils Absolute Auto 0.1 X10*3/uL (0.0-0.4); Hematocrit 32.9 % (42.0-52.0); Hemoglobin 10.1 g/dl (14.0-18.0); Imm Gran Abs Auto 0.42 X10*3/uL (0.00-0.03); Lymphocytes Absolute Auto 1.2 X10*3/uL (1.2-4.9); Lymphocytes Percent Auto 11.4 % (20-40); MANUAL DIFF FLAG SCAN; Mean Corpuscular HGB Conc 30.7 g/dl (31.0-36.0); Mean Corpuscular Volume 78.1 fL (80.0-98.0); Mean Platelet Volume 10.4 fL (9.4-12.4); Monocytes Absolute Auto 1.5 X10*3/uL (0.1-1.2); Monocytes Percent Auto 14.5 % (2-11); NRBC Pct Auto 0.2 /100WBC (0.0-0.2); Neutrophils Absolute Auto 7.2 x10*3/uL (2.0-8.3); Neutrophils Percent Auto 68.7 % (45-73); Platelet Count 186 X10*3/uL (160-400); Red Blood Count 4.21 X10*6/uL (4.60-5.80); Red Cell Distribution Width 21.1 % (11.0-16.0); SCAN SMEAR FLAG 1; White Blood Count 10.5 X10*3/uL (4.8-10.8)
[2021-12-14 08:30] LABS: SLIDE REVIEW VERIFIED
[2021-12-14 09:02] LABS: Alanine Aminotransferase 9 U/L (0-40); Albumin Level 1.5 g/dL (3.5-5.0); Alkaline Phosphatase 72 U/L (39-117); Anion Gap 10 (12-20); Aspartate Amino Transferase 15 U/L (5-37); Bilirubin Total 0.4 mg/dL (0.0-1.0); Blood Urea Nitrogen 5 mg/dL (9-16); C Reactive Protein 5.94 mg/dL (< or = 0.50); Calcium 6.5 mg/dL (8.4-10.2); Carbon Dioxide 18 mmol/L (22-29); Chloride 118 mmol/L (96-108); Creatinine Clr Calc Pharmacy 48.5; Estimated Glomerular Filt Rate > 60; Glucose Fasting 149 mg/dL (60-99); Magnesium 1.4 mg/dL (1.6-2.6); Potassium 2.9 mmol/L (3.3-5.1); Sodium 143 mmol/L (135-145); Total Protein 3.5 g/dL (6.5-8.0)
[2021-12-14] MEDS: Sodium Bicarbonate 650 MG TABLET PO ×2 (10:48→22:07)
[2021-12-14] MEDS: Potassium Chloride/H20 10 MEQ/100 ML PIGGYBACK 100 MEQ IV ×3 (10:48→17:07)
[2021-12-14] MEDS: Sertraline HCL 50 MG TABLET PO (10:51)
[2021-12-14] MEDS: Multivitamin TABLET 1 TAB PO (10:51)
[2021-12-14] MEDS: Diphenoxylate/Atrop 2.5/0.025 TABLET 2 TAB PO ×2 (10:51→17:04)
[2021-12-14] MEDS: 0.9 % Sodium Chloride Flush 3 ML SYRINGE IVFLUSH ×2 (10:52→23:16)
[2021-12-14] MEDS: Magnesium Sulfate/H2O 2 GM/50 ML PIGGYBACK IV (10:52)
[2021-12-14 11:01] VITALS: BP 122/64; PULSE 90; RESP 18; TEMP 37.1; O2SAT 99
[2021-12-14] MEDS: Insulin Lispro 100 UNIT/ML 3 ML VIAL SUBCUT ×3 (11:13→22:08)
[2021-12-14 11:14] LABS: Glucose, Whole Blood 158 mg/dL (60-115)
--- NOTE | 2021-12-14 14:27 | P.PNIM_ITS ---
Subjective Subjective Date of Service: 12/14/21 Interval History: This history was taken in [place] from the patient. Ongoing diarrhea. C/o insomnia. K/Mg low Review of Systems Review of Systems: Yes all other systems are reviewed and are negative Physical Exam Vital Signs: Vital Signs: Last Vital Signs Temp 98.8 F 12/14/21 11:01 Pulse 90 12/14/21 11:01 Resp 18 12/14/21 11:01 BP 122/64 12/14/21 11:01 Pulse Ox 99 12/14/21 11:01 BMI result Body Mass Index 25.7 Gen: in no acute distress HEENT: sclera anicteric, moist mucus membranes Neck: supple Lungs: clear to auscultation bilaterally Heart: regular rate and rhythm, no murmurs Abd: soft, non-tender, non-distended Ext: no edema Skin: warm/well-perfused Neuro: alert and oriented x3, no focal findings Psych: appropriate affect Objective Data Active Medications Acetaminophen (Acetaminophen 325 Mg Tablet) 650 mg PO Q6H PRN PRN Reason: Pain, Mild (Pain Scale 1-3) Last Admin: 12/12/21 06:20 Dose: 650 mg Documented by: RENAE Albuterol Sulfate (Albuterol Sulfate 90 Mcg 8 Gm Inhaler) 2 puff INHALE Q6H PRN PRN Reason: shortness of breath or wheezing Benzocaine (Throat Lozenge, Medicated Lozenge) 1 lozenge MUCOUS MEM Q2H PRN PRN Reason: Sore Throat Last Admin: 12/12/21 20:25 Dose: 1 lozenge Documented by: MARI Dextrose (Dextrose 50 % 25 Gm/50 Ml Syringe) 25 gm IVPUSH Q15M PRN; Protocol PRN Reason: per Hypoglycemia Standing Ord. Diphenoxylate HCl/Atropine (Diphenoxylate/Atrop 2.5/0.025 Tablet) 2 tab PO QID PRN PRN Reason: Diarrhea Last Admin: 12/14/21 10:51 Dose: 2 tab Documented by: ANDREI Glucose (Glucose Gel 15 Gm Gel..Gram.) 15 gm PO Q15M PRN; Protocol PRN Reason: per Hypoglycemia Standing Ord. Piperacillin Sod/Tazobactam (Sod 3.375 gm/ Sodium Chloride) 50 mls @ 100 mls/hr IV Q6H [facility] Last Admin: 12/14/21 10:52 Dose: 100 mls/hr Documented by: ANDREI Insulin Glargine (Insulin Glargine,Hum.Rec.Anlog 100 Unit/Ml 10 Ml Vial) 15 unit SUBCUT BEDTIME COUNT INCLUDES THE [facility] Last Admin: 12/13/21 20:02 Dose: 15 unit Documented by: DIONI Insulin Human Lispro (Insulin Lispro 100 Unit/Ml 3 Ml Vial) 0 unit SUBCUT QIDACHS COUNT INCLUDES THE [facility]; Protocol Last Admin: 12/14/21 11:13 Dose: 2 unit Documented by: ANDREI Melatonin (Melatonin 3 Mg Tablet) 6 mg PO BEDTIME PRN PRN Reason: Insomnia Last Admin: 12/13/21 20:08 Dose: 6 mg Documented by: DIONI Multivitamins/Vitamin C (Multivitamin Tablet) 1 tab PO DAILY COUNT INCLUDES THE [facility] Last Admin: 12/14/21 10:51 Dose: 1 tab Documented by: ANDREI Non-Formulary Medication (Capecitabine [Xeloda]) 1,500 mg PO BID COUNT INCLUDES THE [facility] Oxycodone HCl (Oxycodone Hcl Immed Release 5 Mg Tablet) 5 mg PO Q12H PRN PRN Reason: Pain, Severe (Pain Scale 7-10) Pharmacy Consult (Consult Rx Perform Med Rec) 1 each MISCELLANE ONCE PRN PRN Reason: Consult order Potassium Chloride (Potassium Chloride Packet 20 Meq Packet) 40 meq PO DAILY COUNT INCLUDES THE [facility] Pravastatin Sodium (Pravastatin Sodium 10 Mg Tablet) 10 mg PO BEDTIME COUNT INCLUDES THE [facility] Last Admin: 12/13/21 20:02 Dose: 10 mg Documented by: DIONI Senna (Sennosides 8.6 Mg Tablet) 17.2 mg PO BEDTIME PRN PRN Reason: Constipation Sertraline HCl (Sertraline Hcl 50 Mg Tablet) 50 mg PO DAILY COUNT INCLUDES THE [facility] Last Admin: 12/14/21 10:51 Dose: 50 mg Documented by: ANDREI Sodium Bicarbonate (Sodium Bicarbonate 650 Mg Tablet) 650 mg PO TID COUNT INCLUDES THE [facility] Last Admin: 12/14/21 10:48 Dose: 650 mg Documented by: ANDREI Sodium Chloride (0.9 % Sodium Chloride Flush 3 Ml Syringe) 3 ml IVFLUSH QSHIFT COUNT INCLUDES THE [facility] Last Admin: 12/14/21 10:52 Dose: 3 ml Documented by: ANDREI Trazodone HCl (Trazodone Hcl 25 Mg Halftab) 25 mg PO BEDTIME KAITLYNN Labs CBC & Chem 7: 12/14/21 07:26 12/14/21 07:26 Labs: Laboratory Results - last 24 hr 12/13/21 12/13/21 12/14/21 15:40 19:48 07:26 MCV 78.1 L MCH 24.0 L MCHC 30.7 L RDW 21.1 H Plt Count 186 MPV 10.4 Immature Gran % (Auto) 4.0 H Neut % (Auto) 68.7 Lymph % (Auto) 11.4 L [place] % (Auto) 14.5 H Eos % (Auto) 1.0 Baso % (Auto) 0.4 Lymph # (Auto) 1.2 [place] # (Auto) 1.5 H Eos # (Auto) 0.1 Baso # (Auto) 0.0 Abs Immat Gran (auto) 0.42 H Absolute Neuts (auto) 7.2 Absolute Nucleated RBC 0.020 H Nucleated RBC % (auto) 0.2 Smear Tech's Comments VERIFIED Anion Gap Estim Creat Clear Calc Estimated GFR POC Glucose 219 H 181 H Fasting Glucose Calcium Magnesium Total Bilirubin AST ALT Alkaline Phosphatase C-Reactive Protein Total Protein Albumin 12/14/21 12/14/21 12/14/21 07:26 07:36 11:04 MCV MCH MCHC RDW Plt Count MPV Immature Gran % (Auto) Neut % (Auto) Lymph % (Auto) [place] % (Auto) Eos % (Auto) Baso % (Auto) Lymph # (Auto) [place] # (Auto) Eos # (Auto) Baso # (Auto) Abs Immat Gran (auto) Absolute Neuts (auto) Absolute Nucleated RBC Nucleated RBC % (auto) Smear Tech's Comments Anion Gap 10 L Estim Creat Clear Calc 48.5 Estimated GFR > 60 POC Glucose 137 H 158 H Fasting Glucose 149 H Calcium 6.5 L Magnesium 1.4 L* Total Bilirubin 0.4 AST 15 ALT 9 Alkaline Phosphatase 72 C-Reactive Protein 5.94 H Total Protein 3.5 L Albumin 1.5 L Assessment and Plan (1) Colitis: Status: Acute (2) AFTAB (acute kidney injury): Status: Acute (3) Diabetes type 2, controlled: Status: Acute Plan hospital d#9 81yo M with HTN, HLD, DM2, CAD, rectal CA on chemotherapy admitted with pancolitis # colitis - pip/sal d#8, on solid diet, prn Lomoti, stool cultures negative # AFTAB, prerenal - resolved with IV fluid repletion # hypoK # hypoMg - losses from diarrhea; replete IV+ recheck in AMl # anemia - suspect anemia of chronic disease, no transfusion indicated at this point # DM2 - basal/bolus insulin # rectal CA - continue Xeloda # VTE ppx - SCDs # dispo - PT consult In my clinical judgment, the patient requires continued hospitalization for the following reasons: IV antibiotics, IV K/Mg repletion Quality Stroke Does the patient have a stroke diagnosis?: No VTE Prior VTE?: No VTE Risk Level:: Medical - moderate - high VTE Device Contraindication: Treatment Not Indicated VTE Drug Contraindication: N/A - Med Ordered
[2021-12-14 16:00] VITALS: BP 95/73; PULSE 99; RESP 17; TEMP 36.9; O2SAT 100
[2021-12-14 16:04] LABS: Glucose, Whole Blood 173 mg/dL (60-115)
[2021-12-14 18:55] VITALS: BP 133/74; PULSE 91; RESP 20; TEMP 37; O2SAT 98
[2021-12-14 19:51] LABS: Glucose, Whole Blood 213 mg/dL (60-115)
[2021-12-14] MEDS: Pravastatin Sodium 10 MG TABLET PO (22:07)
[2021-12-14] MEDS: traZODone HCL 25 MG HALFTAB PO (22:07)
[2021-12-14] MEDS: Melatonin 3 MG TABLET 6 MG PO (22:08)
[2021-12-14] MEDS: Insulin Glargine,Hum.rec.anlog 100 UNIT/ML 10 ML VIAL 15 UNIT SUBCUT (22:11)
[2021-12-14] MEDS: Acetaminophen 325 MG TABLET 650 MG PO (23:12)
[2021-12-14] MEDS: diphenhydrAMINE HCL 25 MG TABLET PO (23:12)
[2021-12-14 23:18] VITALS: BP 132/58; PULSE 74; RESP 16; TEMP 37; O2SAT 98
[2021-12-15] VITALS (7 sets, daily range): BP systolic 110–147; BP diastolic 65–76; PULSE 71–145; RESP 16–19; TEMP 36.3–36.8; O2SAT 95–100
[2021-12-15] MEDS: Potassium Chloride/H20 10 MEQ/100 ML PIGGYBACK 100 MEQ IV (02:03)
[2021-12-15 06:36] LABS: MANUAL DIFF FLAG NO
[2021-12-15 06:46] LABS: Basophils Absolute Auto 0.1 X10*3/uL (0.0-0.2); Basophils Percent Auto 0.5 % (0-2); Eosinophils Absolute Auto 0.1 X10*3/uL (0.0-0.4); Eosinophils Percent Auto 0.8 % (0-4); Hematocrit 35.9 % (42.0-52.0); Hemoglobin 11.1 g/dl (14.0-18.0); Imm Gran Abs Auto 0.42 X10*3/uL (0.00-0.03); Imm Gran Pct Auto 4.3 % (0.0-0.4); Lymphocytes Absolute Auto 1.4 X10*3/uL (1.2-4.9); Mean Corpuscular HGB Conc 30.9 g/dl (31.0-36.0); Mean Corpuscular Hemoglobin 24.2 pg (27.0-33.0); Mean Corpuscular Volume 78.4 fL (80.0-98.0); Mean Platelet Volume 10.2 fL (9.4-12.4); Monocytes Absolute Auto 1.3 X10*3/uL (0.1-1.2); Monocytes Percent Auto 13.2 % (2-11); Neutrophils Absolute Auto 6.6 x10*3/uL (2.0-8.3); Neutrophils Percent Auto 67.2 % (45-73); Platelet Count 254 X10*3/uL (160-400); Red Blood Count 4.58 X10*6/uL (4.60-5.80); Red Cell Distribution Width 21.5 % (11.0-16.0); White Blood Count 9.8 X10*3/uL (4.8-10.8)
[2021-12-15 07:04] LABS: Alanine Aminotransferase 14 U/L (0-40); Albumin Level 1.7 g/dL (3.5-5.0); Alkaline Phosphatase 86 U/L (39-117); Anion Gap 9 (12-20); Aspartate Amino Transferase 19 U/L (5-37); Bilirubin Total 0.2 mg/dL (0.0-1.0); Blood Urea Nitrogen 5 mg/dL (9-16); Calcium 7.1 mg/dL (8.4-10.2); Carbon Dioxide 21 mmol/L (22-29); Chloride 113 mmol/L (96-108); Estimated Glomerular Filt Rate > 60; Glucose Fasting 148 mg/dL (60-99); Magnesium 1.7 mg/dL (1.6-2.6); Potassium 3.2 mmol/L (3.3-5.1); Sodium 140 mmol/L (135-145)
[2021-12-15 07:52] LABS: Glucose, Whole Blood 105 mg/dL (60-115)
[2021-12-15] MEDS: Sertraline HCL 50 MG TABLET PO (08:31)
[2021-12-15] MEDS: Sodium Bicarbonate 650 MG TABLET PO ×2 (08:31→13:59)
[2021-12-15] MEDS: Multivitamin TABLET 1 TAB PO (08:31)
[2021-12-15] MEDS: Potassium Chloride Packet 20 MEQ PACKET 40 MEQ PO (08:31)
[2021-12-15] MEDS: 0.9 % Sodium Chloride Flush 3 ML SYRINGE IVFLUSH ×2 (08:31→15:30)
[2021-12-15] MEDS: Piperacillin Sodium/Tazobactam 3.375 GM in 0.9 % Sodium Chloride 50 ML IV ×2 (09:09→14:00)
[2021-12-15 11:21] LABS: Glucose, Whole Blood 131 mg/dL (60-115)
--- NOTE | 2021-12-15 12:59 | HO.PM.IMPN ---
Subjective Subjective Date of Service: 12/15/21 Interval History: This history was taken in Turkish from the patient. Diarrhea improved C/o insomnia- on zolpidem @ home Seen by PT, STR recommended, pt agrees Review of Systems Review of Systems: Yes all other systems are reviewed and are negative Physical Exam Vital Signs: Vital Signs: Last Vital Signs Temp 98.3 F 12/15/21 11:14 Pulse 90 12/15/21 11:14 Resp 17 12/15/21 11:14 BP 115/65 12/15/21 11:14 Pulse Ox 99 12/15/21 11:14 BMI result Body Mass Index 25.7 Gen: in no acute distress HEENT: sclera anicteric, moist mucus membranes Neck: supple Lungs: clear to auscultation bilaterally Heart: regular rate and rhythm, no murmurs Abd: soft, non-tender, non-distended Ext: no edema Skin: warm/well-perfused Neuro: alert and oriented x3, no focal findings Psych: appropriate affect Objective Data Active Medications Acetaminophen (Acetaminophen 325 Mg Tablet) 650 mg PO Q6H PRN PRN Reason: Pain, Mild (Pain Scale 1-3) Last Admin: 12/14/21 23:12 Dose: 650 mg Documented by: VALDEMAR Albuterol Sulfate (Albuterol Sulfate 90 Mcg 8 Gm Inhaler) 2 puff INHALE Q6H PRN PRN Reason: shortness of breath or wheezing Benzocaine (Throat Lozenge, Medicated Lozenge) 1 lozenge MUCOUS MEM Q2H PRN PRN Reason: Sore Throat Last Admin: 12/12/21 20:25 Dose: 1 lozenge Documented by: MARI Dextrose (Dextrose 50 % 25 Gm/50 Ml Syringe) 25 gm IVPUSH Q15M PRN; Protocol PRN Reason: per Hypoglycemia Standing Ord. Diphenoxylate HCl/Atropine (Diphenoxylate/Atrop 2.5/0.025 Tablet) 2 tab PO QID PRN PRN Reason: Diarrhea Last Admin: 12/14/21 17:04 Dose: 2 tab Documented by: ANDREI Glucose (Glucose Gel 15 Gm Gel..Gram.) 15 gm PO Q15M PRN; Protocol PRN Reason: per Hypoglycemia Standing Ord. Piperacillin Sod/Tazobactam (Sod 3.375 gm/ Sodium Chloride) 50 mls @ 100 mls/hr IV Q6H [facility] Last Infusion: 12/15/21 09:44 Dose: 0 mls/hr Documented by: CHARLOTTE Insulin Glargine (Insulin Glargine,Hum.Rec.Anlog 100 Unit/Ml 10 Ml Vial) 15 unit SUBCUT BEDTIME [facility] Last Admin: 12/14/21 22:11 Dose: 15 unit Documented by: VALDEMAR Insulin Human Lispro (Insulin Lispro 100 Unit/Ml 3 Ml Vial) 0 unit SUBCUT QIDACHS [facility]; Protocol Last Admin: 12/15/21 11:30 Dose: Not Given Documented by: CHARLOTTE Non-Admin Reason: No Insulin Coverage Melatonin (Melatonin 3 Mg Tablet) 6 mg PO BEDTIME PRN PRN Reason: Insomnia Last Admin: 12/14/21 22:08 Dose: 6 mg Documented by: VALDEMAR Multivitamins/Vitamin C (Multivitamin Tablet) 1 tab PO DAILY [facility] Last Admin: 12/15/21 08:31 Dose: 1 tab Documented by: CHARLOTTE Non-Formulary Medication (Capecitabine [Xeloda]) 1,500 mg PO BID [facility] Oxycodone HCl (Oxycodone Hcl Immed Release 5 Mg Tablet) 5 mg PO Q12H PRN PRN Reason: Pain, Severe (Pain Scale 7-10) Pharmacy Consult (Consult Rx Perform Med Rec) 1 each MISCELLANE ONCE PRN PRN Reason: Consult order Potassium Chloride (Potassium Chloride Packet 20 Meq Packet) 40 meq PO BID [facility] Last Admin: 12/15/21 09:04 Dose: Not Given Documented by: CHARLOTTE Non-Admin Reason: one time dose administered - hold per Pravastatin Sodium (Pravastatin Sodium 10 Mg Tablet) 10 mg PO BEDTIME [facility] Last Admin: 12/14/21 22:07 Dose: 10 mg Documented by: VALDEMAR Senna (Sennosides 8.6 Mg Tablet) 17.2 mg PO BEDTIME PRN PRN Reason: Constipation Sertraline HCl (Sertraline Hcl 50 Mg Tablet) 50 mg PO DAILY [facility] Last Admin: 12/15/21 08:31 Dose: 50 mg Documented by: CHARLOTTE Sodium Bicarbonate (Sodium Bicarbonate 650 Mg Tablet) 650 mg PO TID [facility] Last Admin: 12/15/21 08:31 Dose: 650 mg Documented by: CHARLOTTE Sodium Chloride (0.9 % Sodium Chloride Flush 3 Ml Syringe) 3 ml IVFLUSH QSHIFT [facility] Last Admin: 12/15/21 08:31 Dose: 3 ml Documented by: CHARLOTTE Trazodone HCl (Trazodone Hcl 25 Mg Halftab) 25 mg PO BEDTIME [facility] Last Admin: 12/14/21 22:07 Dose: 25 mg Documented by: VALDEMAR Labs CBC & Chem 7: 12/15/21 06:06 12/15/21 06:06 Labs: Laboratory Results - last 24 hr 12/14/21 12/14/21 12/15/21 15:55 19:48 06:06 MCV 78.4 L MCH 24.2 L MCHC 30.9 L RDW 21.5 H Plt Count 254 D MPV 10.2 Immature Gran % (Auto) 4.3 H Neut % (Auto) 67.2 Lymph % (Auto) 14.0 L [place] % (Auto) 13.2 H Eos % (Auto) 0.8 Baso % (Auto) 0.5 Lymph # (Auto) 1.4 [place] # (Auto) 1.3 H Eos # (Auto) 0.1 Baso # (Auto) 0.1 Abs Immat Gran (auto) 0.42 H Absolute Neuts (auto) 6.6 Absolute Nucleated RBC 0.000 Nucleated RBC % (auto) 0.0 Anion Gap Estim Creat Clear Calc Estimated GFR POC Glucose 173 H 213 H Fasting Glucose Calcium Magnesium Total Bilirubin AST ALT Alkaline Phosphatase Total Protein Albumin 12/15/21 12/15/21 12/15/21 06:06 07:43 11:17 MCV MCH MCHC RDW Plt Count MPV Immature Gran % (Auto) Neut % (Auto) Lymph % (Auto) [place] % (Auto) Eos % (Auto) Baso % (Auto) Lymph # (Auto) [place] # (Auto) Eos # (Auto) Baso # (Auto) Abs Immat Gran (auto) Absolute Neuts (auto) Absolute Nucleated RBC Nucleated RBC % (auto) Anion Gap 9 L Estim Creat Clear Calc 49.0 Estimated GFR > 60 POC Glucose 105 131 H Fasting Glucose 148 H Calcium 7.1 L D Magnesium 1.7 Total Bilirubin 0.2 AST 19 ALT 14 Alkaline Phosphatase 86 Total Protein 4.0 L Albumin 1.7 L Assessment and Plan (1) Colitis: Status: Acute (2) AFTAB (acute kidney injury): Status: Acute (3) Diabetes type 2, controlled: Status: Acute Plan hospital d#10 81yo M with HTN, HLD, DM2, CAD, rectal CA on chemotherapy admitted with pancolitis # colitis - pip/sal d#9, on solid diet, prn Lomotil, stool cultures negative # AFTAB, prerenal - resolved with IV fluid repletion # hypoK - replete PO, recheck in AM # hypoMg - repleted # anemia - suspect anemia of chronic disease, no transfusion indicated at this point # DM2 - basal/bolus insulin # rectal CA - continue Xeloda # VTE ppx - SCDs # dispo -STR In my clinical judgment, the patient requires continued hospitalization for the following reasons: K repletion, IV ABX, placement Quality Stroke Does the patient have a stroke diagnosis?: No VTE Prior VTE?: No VTE Risk Level:: Medical - moderate - high VTE Device Contraindication: Treatment Not Indicated VTE Drug Contraindication: N/A - Med Ordered
[2021-12-15] MEDS: Lidocaine 4 % Patch ADH..PATCH 1 PATCH TRANSDERMA (15:29)
[2021-12-15] MEDS: Insulin Lispro 100 UNIT/ML 3 ML VIAL SUBCUT (16:00)
--- NOTE | 2021-12-15 16:32 | PC.NURSE ---
Patient complaining of new onset mid back pain 8/10 starting after getting OOB to recliner. VSS. Dr Bearden at bedside. Lidocain patch ordered and applied to mid back. Lumbar CT ordered.
--- NOTE | 2021-12-15 19:33 | PC.NURSE ---
CT called to see if patient was able to come for scan at 191, but patient is refusing to go. Patient states, I'm going home tomorrow, I'm been here long enough and I'm not going . Patient family present in the room at this time. CT called and updated. They will try again in the morning and see if patient is willing.
[2021-12-15 20:32] LABS: Glucose, Whole Blood 151 mg/dL (60-115)
--- NOTE | 2021-12-15 22:07 | PC.NURSE ---
Addendum entered by Jagruti Knapp RN 12/16/21 06:17: This RN was contacted by Debby Greco Re. covid swab for patient. Patient refusing swab as well. Debby Greco aware and notified this RN that the order for the covid swab has been cancelled and it will need to be reordered if needed. Original Note: Patient is refusing all medication tonight. This RN asked him about the sleep medication and pt stated he took two ambien already. When asked where he got it, pt says, 'I take it at home and I haven't been getting it here so I took it from home . This RN attempted to educate patient about not taking meds from home while in the hospital. Pt just closed his eyes and was being dismissive. Patient also states that if he is sleeping tonight that he doesn't want to be woken up, in his words I want to be left alone .
--- NOTE | 2021-12-15 22:59 | PC.NURSE ---
Patient having episodes of diarrhea. Offered lomotil X2, patient continues to refuse medications. Pt educated on what medication is for, still refusing.
[2021-12-16 00:41] LABS: Glucose, Whole Blood 151 mg/dL (60-115)
[2021-12-16] MEDS: LORazepam 2 MG/ML VIAL 0.5 MG IVPUSH (03:09)
[2021-12-16 03:17] VITALS: PULSE 114; RESP 20
--- NOTE | 2021-12-16 06:20 | PC.NURSE ---
Patient became very aggressive overnight, getting out of bed, verbally threatening staff and family who is at bedside, trying to kick and swing at staff. Dr. Staples notified that patient's is requesting something to calm him down. PO trazodone ordered - patient continues to refuse PO meds. IV ativan ordered and administered with positive effect, pt sleeping soon after administration and remains asleep at this time.
[2021-12-16 07:10] VITALS: BP 132/66; PULSE 106; RESP 20; TEMP 36.9; O2SAT 94
[2021-12-16 07:13] LABS: MANUAL DIFF FLAG NO
[2021-12-16 07:20] LABS: Basophils Absolute Auto 0.1 X10*3/uL (0.0-0.2); Basophils Percent Auto 0.8 % (0-2); Eosinophils Absolute Auto 0.1 X10*3/uL (0.0-0.4); Eosinophils Percent Auto 0.8 % (0-4); Hematocrit 31.6 % (42.0-52.0); Imm Gran Abs Auto 0.27 X10*3/uL (0.00-0.03); Imm Gran Pct Auto 2.9 % (0.0-0.4); Lymphocytes Absolute Auto 1.3 X10*3/uL (1.2-4.9); Lymphocytes Percent Auto 14.3 % (20-40); Mean Corpuscular HGB Conc 31.6 g/dl (31.0-36.0); Mean Corpuscular Hemoglobin 24.6 pg (27.0-33.0); Mean Corpuscular Volume 77.6 fL (80.0-98.0); Mean Platelet Volume 9.5 fL (9.4-12.4); Monocytes Absolute Auto 1.3 X10*3/uL (0.1-1.2); Monocytes Percent Auto 14.2 % (2-11); Neutrophils Absolute Auto 6.2 x10*3/uL (2.0-8.3); Platelet Count 234 X10*3/uL (160-400); Red Blood Count 4.07 X10*6/uL (4.60-5.80); Red Cell Distribution Width 21.4 % (11.0-16.0); White Blood Count 9.2 X10*3/uL (4.8-10.8)
[2021-12-16 07:20] LABS: Glucose, Whole Blood 160 mg/dL (60-115)
[2021-12-16 07:35] LABS: Alanine Aminotransferase 15 U/L (0-40); Albumin Level 1.6 g/dL (3.5-5.0); Alkaline Phosphatase 88 U/L (39-117); Anion Gap 7 (12-20); Aspartate Amino Transferase 18 U/L (5-37); Bilirubin Total 0.2 mg/dL (0.0-1.0); Blood Urea Nitrogen 6 mg/dL (9-16); C Reactive Protein 6.68 mg/dL (< or = 0.50); Calcium 6.8 mg/dL (8.4-10.2); Carbon Dioxide 23 mmol/L (22-29); Chloride 113 mmol/L (96-108); Estimated Glomerular Filt Rate > 60; Glucose Fasting 193 mg/dL (60-99); Potassium 2.7 mmol/L (3.3-5.1); Sodium 140 mmol/L (135-145); Total Protein 3.8 g/dL (6.5-8.0)
[2021-12-16 07:37] LABS: Magnesium 1.4 mg/dL (1.6-2.6)
[2021-12-16] MEDS: Magnesium Sulfate/H2O 2 GM/50 ML PIGGYBACK IV (08:00)
[2021-12-16] MEDS: Insulin Lispro 100 UNIT/ML 3 ML VIAL SUBCUT ×4 (08:01→21:20)
[2021-12-16] MEDS: 0.9 % Sodium Chloride Flush 3 ML SYRINGE IVFLUSH ×3 (08:01→21:20)
[2021-12-16] MEDS: Piperacillin Sodium/Tazobactam 3.375 GM in 0.9 % Sodium Chloride 50 ML IV ×3 (09:27→21:21)
[2021-12-16] MEDS: Lidocaine 4 % Patch ADH..PATCH 1 PATCH TRANSDERMA (09:27)
[2021-12-16] MEDS: Potassium Chloride/H20 10 MEQ/100 ML PIGGYBACK 100 MEQ IV ×4 (09:52→14:36)
[2021-12-16 10:56] LABS: Glucose, Whole Blood 219 mg/dL (60-115)
[2021-12-16 11:13] VITALS: BP 97/59; PULSE 102; RESP 20; TEMP 36.3; O2SAT 95
[2021-12-16] MEDS: Sodium Bicarbonate 650 MG TABLET PO ×2 (11:15→21:21)
--- NOTE | 2021-12-16 11:34 | PC.NURSE ---
This nurse attempted to give pt. morning PO medications, pt refused. This nurse was notified that pt refused Lumbar CT scan the previous day and was scheduled for one today but again patient said nothing today patient is A/O and not refusing IV medications. Will continue to monitor.
[2021-12-16 12:35] LABS: CDiff Gene PCR NEGATIVE (Negative)
--- NOTE | 2021-12-16 13:12 | HO.PM.IMPN ---
Subjective Subjective Date of Service: 12/16/21 Interval History: This history was taken in Faroese from the patient. Pt was hallucinating/disoriented last night. Got 1 dose of lorazepam and very sedated this AM. Ongoing diarrhea, 5 BMs yesterday. K/Mg low Review of Systems Review of Systems: Yes all other systems are reviewed and are negative Physical Exam Vital Signs: Vital Signs: Last Vital Signs Temp 97.4 F 12/16/21 11:13 Pulse 102 H 12/16/21 11:13 Resp 20 12/16/21 11:13 BP 97/59 L 12/16/21 11:13 Pulse Ox 95 12/16/21 11:13 BMI result Body Mass Index 25.7 Gen: tired, NAD HEENT: sclera anicteric, moist mucus membranes Neck: supple Lungs: clear to auscultation bilaterally Heart: regular rate and rhythm, no murmurs Abd: soft, non-tender, non-distended Ext: no edema Skin: warm/well-perfused Neuro: alert, uncooperative with exam Psych: restricted affect Objective Data Active Medications Acetaminophen (Acetaminophen 325 Mg Tablet) 650 mg PO Q6H PRN PRN Reason: Pain, Mild (Pain Scale 1-3) Last Admin: 12/14/21 23:12 Dose: 650 mg Documented by: VALDEMAR Albuterol Sulfate (Albuterol Sulfate 90 Mcg 8 Gm Inhaler) 2 puff INHALE Q6H PRN PRN Reason: shortness of breath or wheezing Benzocaine (Throat Lozenge, Medicated Lozenge) 1 lozenge MUCOUS MEM Q2H PRN PRN Reason: Sore Throat Last Admin: 12/12/21 20:25 Dose: 1 lozenge Documented by: MARI Dextrose (Dextrose 50 % 25 Gm/50 Ml Syringe) 25 gm IVPUSH Q15M PRN; Protocol PRN Reason: per Hypoglycemia Standing Ord. Diphenoxylate HCl/Atropine (Diphenoxylate/Atrop 2.5/0.025 Tablet) 2 tab PO QID PRN PRN Reason: Diarrhea Last Admin: 12/14/21 17:04 Dose: 2 tab Documented by: ANDREI Glucose (Glucose Gel 15 Gm Gel..Gram.) 15 gm PO Q15M PRN; Protocol PRN Reason: per Hypoglycemia Standing Ord. Piperacillin Sod/Tazobactam (Sod 3.375 gm/ Sodium Chloride) 50 mls @ 100 mls/hr IV Q6H [facility] Last Infusion: 12/16/21 10:49 Dose: 0 mls/hr Documented by: MARCUS Insulin Glargine (Insulin Glargine,Hum.Rec.Anlog 100 Unit/Ml 10 Ml Vial) 15 unit SUBCUT BEDTIME [facility] Last Admin: 12/15/21 20:45 Dose: Not Given Documented by: VALDEMAR Non-Admin Reason: Patient Refused Insulin Human Lispro (Insulin Lispro 100 Unit/Ml 3 Ml Vial) 0 unit SUBCUT QIDACHS [facility]; Protocol Last Admin: 12/16/21 11:12 Dose: 4 unit Documented by: MARCUS Lidocaine (Lidocaine 4 % Patch Adh..Patch) 1 patch TRANSDERMA DAILY [facility]; Protocol Last Admin: 12/16/21 09:27 Dose: 1 patch Documented by: MARCUS Multivitamins/Vitamin C (Multivitamin Tablet) 1 tab PO DAILY [facility] Last Admin: 12/16/21 11:37 Dose: Not Given Documented by: MARCUS Non-Admin Reason: Patient Refused Non-Formulary Medication (Capecitabine [Xeloda]) 1,500 mg PO BID [facility] Oxycodone HCl (Oxycodone Hcl Immed Release 5 Mg Tablet) 5 mg PO Q12H PRN PRN Reason: Pain, Severe (Pain Scale 7-10) Pharmacy Consult (Consult Rx Perform Med Rec) 1 each MISCELLANE ONCE PRN PRN Reason: Consult order Potassium Chloride (Potassium Chloride Packet 20 Meq Packet) 40 meq PO BID [facility] Last Admin: 12/16/21 11:37 Dose: Not Given Documented by: MARCUS Non-Admin Reason: Patient Refused Pravastatin Sodium (Pravastatin Sodium 10 Mg Tablet) 10 mg PO BEDTIME [facility] Last Admin: 12/15/21 20:46 Dose: Not Given Documented by: VALDEMAR Non-Admin Reason: Patient Refused Senna (Sennosides 8.6 Mg Tablet) 17.2 mg PO BEDTIME PRN PRN Reason: Constipation Sertraline HCl (Sertraline Hcl 50 Mg Tablet) 50 mg PO DAILY [facility] Last Admin: 12/16/21 11:37 Dose: Not Given Documented by: MARCUS Non-Admin Reason: Patient Refused Sodium Bicarbonate (Sodium Bicarbonate 650 Mg Tablet) 650 mg PO TID [facility] Last Admin: 12/16/21 11:15 Dose: 650 mg Documented by: MARCUS Sodium Chloride (0.9 % Sodium Chloride Flush 3 Ml Syringe) 3 ml IVFLUSH QSHIFT [facility] Last Admin: 12/16/21 08:01 Dose: 3 ml Documented by: MARCUS Zolpidem Tartrate (Zolpidem Tartrate 5 Mg Tablet) 5 mg PO BEDTIME [facility] Last Admin: 12/15/21 20:46 Dose: Not Given Documented by: VALDEMAR Non-Admin Reason: Patient Refused Comments: pt made aware at appox.[id number] that ambien was ordered for tonight. at 2039 this rn to see patient and he is refusing all meds and states that he took 2 ambien from home. when follow up questions asked patient closes his eyes and won't answer. Labs CBC & Chem 7: 12/16/21 07:08 12/16/21 07:08 Labs: Laboratory Results - last 24 hr 12/15/21 12/15/21 12/16/21 15:53 20:26 07:08 MCV 77.6 L MCH 24.6 L MCHC 31.6 RDW 21.4 H Plt Count 234 MPV 9.5 Immature Gran % (Auto) 2.9 H Neut % (Auto) 67.0 Lymph % (Auto) 14.3 L [place] % (Auto) 14.2 H Eos % (Auto) 0.8 Baso % (Auto) 0.8 Lymph # (Auto) 1.3 [place] # (Auto) 1.3 H Eos # (Auto) 0.1 Baso # (Auto) 0.1 Abs Immat Gran (auto) 0.27 H Absolute Neuts (auto) 6.2 Absolute Nucleated RBC 0.000 Nucleated RBC % (auto) 0.0 Anion Gap Estim Creat Clear Calc Estimated GFR POC Glucose 151 H 151 H Random Glucose Fasting Glucose Calcium Magnesium Total Bilirubin AST ALT Alkaline Phosphatase C-Reactive Protein Total Protein Albumin C. difficile Tox B Gene 12/16/21 12/16/21 12/16/21 07:08 07:16 10:30 MCV MCH MCHC RDW Plt Count MPV Immature Gran % (Auto) Neut % (Auto) Lymph % (Auto) [place] % (Auto) Eos % (Auto) Baso % (Auto) Lymph # (Auto) [place] # (Auto) Eos # (Auto) Baso # (Auto) Abs Immat Gran (auto) Absolute Neuts (auto) Absolute Nucleated RBC Nucleated RBC % (auto) Anion Gap 7 L Estim Creat Clear Calc 48.0 Estimated GFR > 60 POC Glucose 160 H Random Glucose TNP Fasting Glucose 193 H Calcium 6.8 L Magnesium 1.4 L* Total Bilirubin 0.2 AST 18 ALT 15 Alkaline Phosphatase 88 C-Reactive Protein 6.68 H Total Protein 3.8 L Albumin 1.6 L C. difficile Tox B Gene NEGATIVE 12/16/21 10:46 MCV MCH MCHC RDW Plt Count MPV Immature Gran % (Auto) Neut % (Auto) Lymph % (Auto) [place] % (Auto) Eos % (Auto) Baso % (Auto) Lymph # (Auto) [place] # (Auto) Eos # (Auto) Baso # (Auto) Abs Immat Gran (auto) Absolute Neuts (auto) Absolute Nucleated RBC Nucleated RBC % (auto) Anion Gap Estim Creat Clear Calc Estimated GFR POC Glucose 219 H Random Glucose Fasting Glucose Calcium Magnesium Total Bilirubin AST ALT Alkaline Phosphatase C-Reactive Protein Total Protein Albumin C. difficile Tox B Gene Assessment and Plan (1) Colitis: Status: Acute (2) AFTAB (acute kidney injury): Status: Acute (3) Diabetes type 2, controlled: Status: Acute Plan hospital d#11 81yo M with HTN, HLD, DM2, CAD, rectal CA on chemotherapy admitted with pancolitis # colitis - pip/sal d#10, on solid diet, prn Lomotil, stool cultures negative, Cdiff repeat negative # AFTAB, prerenal - resolved with IV fluid repletion # hypoK - replete IV/PO, recheck in AM # hypoMg - replete IV, recheck in AM # anemia - suspect anemia of chronic disease, no transfusion indicated at this point # DM2 - basal/bolus insulin # rectal CA - continue Xeloda # VTE ppx - SCDs # dispo -STR In my clinical judgment, the patient requires continued hospitalization for the following reasons: IV electrolyte repletion Quality Stroke Does the patient have a stroke diagnosis?: No VTE Prior VTE?: No VTE Risk Level:: Medical - moderate - high VTE Device Contraindication: Treatment Not Indicated VTE Drug Contraindication: N/A - Med Ordered
--- NOTE | 2021-12-16 15:08 | MHC.CM.PN ---
Discharge is anticipated 1-2 days per MD. Pt qualifies for STR. CM spoke with family. Preferences were obtained, referrals sent. A bed offer was received from [facility]. The bed has been accepted by the family. [facility] has started auth. Patient will transport via BLS.
[2021-12-16 16:00] VITALS: BP 123/58; PULSE 95; RESP 20; TEMP 37.3; O2SAT 99
[2021-12-16 16:41] LABS: Glucose, Whole Blood 179 mg/dL (60-115)
[2021-12-16 19:31] VITALS: BP 134/61; PULSE 111; RESP 19; TEMP 37.4; O2SAT 98
[2021-12-16 21:15] LABS: Glucose, Whole Blood 194 mg/dL (60-115)
[2021-12-16] MEDS: Insulin Glargine,Hum.rec.anlog 100 UNIT/ML 10 ML VIAL 15 UNIT SUBCUT (21:20)
[2021-12-16] MEDS: Pravastatin Sodium 10 MG TABLET PO (21:21)
[2021-12-16] MEDS: Potassium Chloride Packet 20 MEQ PACKET 40 MEQ PO (21:21)
[2021-12-16] MEDS: Zolpidem Tartrate 5 MG TABLET PO (21:21)
[2021-12-16 23:31] VITALS: BP 116/54; PULSE 116; RESP 20; TEMP 37.6; O2SAT 96
[2021-12-17] VITALS (7 sets, daily range): BP systolic 99–141; BP diastolic 52–71; PULSE 76–110; RESP 17–20; TEMP 36.6–37.8; O2SAT 96–99
[2021-12-17] MEDS: Piperacillin Sodium/Tazobactam 3.375 GM in 0.9 % Sodium Chloride 50 ML IV (02:33)
[2021-12-17 07:23] LABS: Anion Gap 8 (12-20); Blood Urea Nitrogen 6 mg/dL (9-16); Calcium 6.8 mg/dL (8.4-10.2); Carbon Dioxide 24 mmol/L (22-29); Chloride 107 mmol/L (96-108); Creatinine Clr Calc Pharmacy 48.5; Estimated Glomerular Filt Rate > 60; Glucose Random 170 mg/dL (60-115); Magnesium 1.6 mg/dL (1.6-2.6); Potassium 2.9 mmol/L (3.3-5.1); Sodium 136 mmol/L (135-145)
[2021-12-17 07:25] LABS: Glucose, Whole Blood 135 mg/dL (60-115)
[2021-12-17] MEDS: Sertraline HCL 50 MG TABLET PO (09:30)
[2021-12-17] MEDS: Lidocaine 4 % Patch ADH..PATCH 1 PATCH TRANSDERMA (09:30)
[2021-12-17] MEDS: Multivitamin TABLET 1 TAB PO (09:30)
[2021-12-17] MEDS: Potassium Chloride Packet 20 MEQ PACKET 40 MEQ PO ×2 (09:30→22:07)
[2021-12-17] MEDS: 0.9 % Sodium Chloride Flush 3 ML SYRINGE IVFLUSH ×3 (09:30→22:07)
[2021-12-17] MEDS: Sodium Bicarbonate 650 MG TABLET PO ×3 (09:35→22:06)
--- NOTE | 2021-12-17 09:52 | MHC.CDI.CONC ---
CDI Concurrent Query Documentation Clarification: PHYSICIAN'S DOCUMENTATION REQUEST Date of Query: 12/17/21 0952 Patient Name: Gonzalo Rocha Admit Date: 12/06/21 Dear Doctor, A review of the medical record indicates additional documentation may be needed. Please review below and update the documentation accordingly. Clinical Indicators: Risk Factors/Clinical Indicators/Treatments Nursing notes 12/16 - very aggressive, combative, refusing PO medication, refusing lumbar CT, verbally threatening staff, kicking and swinging. Trazodone ordered, IV Ativan. PN: 12/16 - disoriented and hallucinating, medicated. Based on the above, could you clarify in the Progress Notes which, if any of the following, is the most likely etiology of the altered behaviors: Encephalopathy - indicate type such as metabolic, toxic, etc.if any Acute or subacute confusional state due to (specify known or suspected etiology) Other etiology of behaviors noted Unable to determine Use of terms such as suspected, likely, concern for, or probable (associated with a specific diagnosis that is being evaluated, monitored, or treated as if it exists) are acceptable and can be coded in the inpatient setting, when documented at the time of discharge. Thank you, Dina Pearson [facility], CDIS Extension: [phone] Please use your independent medical judgment in providing your response. THIS QUERY IS PART OF THE PERMANENT MEDICAL RECORD Provider Response: Other Other Diagnosis: unable to determine, resolved by the time I saw him
[2021-12-17 11:14] LABS: Glucose, Whole Blood 183 mg/dL (60-115)
[2021-12-17] MEDS: Insulin Lispro 100 UNIT/ML 3 ML VIAL SUBCUT ×3 (12:35→22:08)
--- NOTE | 2021-12-17 13:21 | P.PNIM_ITS ---
Subjective Subjective Date of Service: 12/17/21 Interval History: This history was taken in Irish from the patient. Diarrhea improved- stool more formed. Pain improved. Review of Systems Review of Systems: Yes all other systems are reviewed and are negative Physical Exam Vital Signs: Vital Signs: Last Vital Signs Temp 99.0 F 12/17/21 11:37 Pulse 77 12/17/21 11:37 Resp 18 12/17/21 11:37 BP 121/63 12/17/21 11:37 Pulse Ox 99 12/17/21 11:37 BMI result Body Mass Index 25.7 Gen: NAD HEENT: sclera anicteric, moist mucus membranes Neck: supple Lungs: clear to auscultation bilaterally Heart: regular rate and rhythm, no murmurs Abd: soft, non-tender, non-distended Ext: no edema Skin: warm/well-perfused Neuro: alert, oriented, no focal deficit Psych: appropriate affect Objective Data Active Medications Acetaminophen (Acetaminophen 325 Mg Tablet) 650 mg PO Q6H PRN PRN Reason: Pain, Mild (Pain Scale 1-3) Last Admin: 12/14/21 23:12 Dose: 650 mg Documented by: VALDEMAR Albuterol Sulfate (Albuterol Sulfate 90 Mcg 8 Gm Inhaler) 2 puff INHALE Q6H PRN PRN Reason: shortness of breath or wheezing Benzocaine (Throat Lozenge, Medicated Lozenge) 1 lozenge MUCOUS MEM Q2H PRN PRN Reason: Sore Throat Last Admin: 12/12/21 20:25 Dose: 1 lozenge Documented by: MARI Dextrose (Dextrose 50 % 25 Gm/50 Ml Syringe) 25 gm IVPUSH Q15M PRN; Protocol PRN Reason: per Hypoglycemia Standing Ord. Glucose (Glucose Gel 15 Gm Gel..Gram.) 15 gm PO Q15M PRN; Protocol PRN Reason: per Hypoglycemia Standing Ord. Insulin Glargine (Insulin Glargine,Hum.Rec.Anlog 100 Unit/Ml 10 Ml Vial) 15 unit SUBCUT BEDTIME [facility] Last Admin: 12/16/21 21:20 Dose: 15 unit Documented by: KEYLAILAnn Marie Insulin Human Lispro (Insulin Lispro 100 Unit/Ml 3 Ml Vial) 0 unit SUBCUT QIDACHS [facility]; Protocol Last Admin: 12/17/21 12:35 Dose: 2 unit Documented by: JESSIKA Lidocaine (Lidocaine 4 % Patch Adh..Patch) 1 patch TRANSDERMA DAILY [facility]; Protocol Last Admin: 12/17/21 09:30 Dose: 1 patch Documented by: JESSIKA Loperamide HCl (Loperamide Hcl 2 Mg Capsule) 2 mg PO Q4H PRN PRN Reason: diarrhea Multivitamins/Vitamin C (Multivitamin Tablet) 1 tab PO DAILY [facility] Last Admin: 12/17/21 09:30 Dose: 1 tab Documented by: JESSIKA Non-Formulary Medication (Capecitabine [Xeloda]) 1,500 mg PO BID [facility] Oxycodone HCl (Oxycodone Hcl Immed Release 5 Mg Tablet) 5 mg PO Q12H PRN PRN Reason: Pain, Severe (Pain Scale 7-10) Pharmacy Consult (Consult Rx Perform Med Rec) 1 each MISCELLANE ONCE PRN PRN Reason: Consult order Potassium Chloride (Potassium Chloride Packet 20 Meq Packet) 40 meq PO BID [facility] Last Admin: 12/17/21 09:30 Dose: 40 meq Documented by: JESSIKA Pravastatin Sodium (Pravastatin Sodium 10 Mg Tablet) 10 mg PO BEDTIME [facility] Last Admin: 12/16/21 21:21 Dose: 10 mg Documented by: MIRANDA Senna (Sennosides 8.6 Mg Tablet) 17.2 mg PO BEDTIME PRN PRN Reason: Constipation Sertraline HCl (Sertraline Hcl 50 Mg Tablet) 50 mg PO DAILY [facility] Last Admin: 12/17/21 09:30 Dose: 50 mg Documented by: JESSIKA Sodium Bicarbonate (Sodium Bicarbonate 650 Mg Tablet) 650 mg PO TID [facility] Last Admin: 12/17/21 09:35 Dose: 650 mg Documented by: JESSIKA Sodium Chloride (0.9 % Sodium Chloride Flush 3 Ml Syringe) 3 ml IVFLUSH QSHIFT [facility] Last Admin: 12/17/21 09:30 Dose: 3 ml Documented by: JESSIKA Zolpidem Tartrate (Zolpidem Tartrate 5 Mg Tablet) 5 mg PO BEDTIME [facility] Last Admin: 12/16/21 21:21 Dose: 5 mg Documented by: MIRANDA Labs CBC & Chem 7: 12/16/21 07:08 12/17/21 06:44 Labs: Laboratory Results - last 24 hr 12/16/21 12/16/21 12/17/21 16:38 21:12 06:44 Anion Gap 8 L Estim Creat Clear Calc 48.5 Estimated GFR > 60 POC Glucose 179 H 194 H Random Glucose 170 H Calcium 6.8 L Magnesium 1.6 12/17/21 12/17/21 07:19 11:09 Anion Gap Estim Creat Clear Calc Estimated GFR POC Glucose 135 H 183 H Random Glucose Calcium Magnesium Assessment and Plan (1) Colitis: Status: Acute (2) AFTAB (acute kidney injury): Status: Acute (3) Diabetes type 2, controlled: Status: Acute Plan hospital d#12 81yo M with HTN, HLD, DM2, CAD, rectal CA on chemotherapy admitted with pancolitis # colitis - d/c pip/sal [completed 10d], on solid diet, prn Lomotil, stool cultures negative, Cdiff repeat negative # AFTAB, prerenal - resolved with IV fluid repletion # hypoK, persistent - replete IV/PO, recheck in AM # hypoMg - repleted # anemia - suspect anemia of chronic disease, no transfusion indicated at this point # DM2 - basal/bolus insulin # rectal CA - continue Xeloda # VTE ppx - SCDs # dispo - STR, hopefully tomorrow if K 3+ In my clinical judgment, the patient requires continued hospitalization for the following reasons: IV electrolyte repletion Quality Stroke Does the patient have a stroke diagnosis?: No VTE Prior VTE?: No VTE Risk Level:: Medical - moderate - high VTE Device Contraindication: Treatment Not Indicated VTE Drug Contraindication: N/A - Med Ordered
--- NOTE | 2021-12-17 14:53 | P.CNHO_ITS ---
Subjective - Subjective Chief complaint: Consult for: Rectal cancer. Chemotherapy-induced colitis. Patient: new to practice Consult date: 12/17/21 Requesting Physician: Monisha Primary Care Provider: Marilu Tabares Medical Summary: DIAGNOSIS: 1. RECTAL CANCER. 2. CHEMOTHERAPY-INDUCED COLITIS. HPI - Consult Narrative Reason for consult: Consult for: 1. Rectal cancer. 2. Colitis. Narrative: Gonzalo Rocha is a pleasant 81 year old gentleman, he was admitted to the hospital, on 12/06 with about 1 week of nausea, vomiting, and diarrhea after recently having started chemotherapy. He has had a poor appetite and some anorexia as well. There have been no fevers and chills. He was evaluated in the emergency department with laboratory studies: A white blood cell count of 4.2 and a low sodium at 133 with an elevated BUN at 38. Further evaluation with a CT scanning of the abdomen and pelvis is reviewed. This revealed: Diffuse mural thickening involving the entire colon suspicious for colitis. His previously identified rectal tumor with peritoneal metastases is seen. He was started on antibiotics. PAST MEDICAL HISTORY: 1. Hypertension. 2. Hyperlipidemia. 3. Diabetes. 4. Coronary disease. 5. Metastatic rectal cancer: He has a prior history of rectal cancer, for which he has been treated with chemotherapy and RT. 6. COPD. CURRENT MEDICATIONS: His current medication list is reviewed in the chart. ALLERGIES: THERE ARE NONE REPORTED. FAMILY HISTORY: This is reviewed with the patient and is noncontributory. SOCIAL HISTORY: There is no current tobacco, alcohol, or substance abuse. REVIEW OF SYSTEMS: He has been really fatigued. No fever nor chills. Appetite is not that good. He has lost weight. HEENT: Negative. CARDIOPULMONARY: He denies shortness of breath or chest pain currently. GASTROINTESTINAL: As above. GENITOURINARY: Negative. MUSCULOSKELETAL: Denies joint pains. DAIRY SCIENTIST: Complains of weakness all over. NEUROPSYCHIATRIC: Negative. SKIN: No pruritus. Review of Systems - Constitutional Reports system reviewed and no additional complaints, except as documented, Reports anorexia, Reports fatigue, Reports lack of energy, Reports weakness, Reports weight loss, Denies increased appetite - Eyes Reports system reviewed and no additional complaints, except as documented - ENT Reports system reviewed and no additional complaints, except as documented - Cardiovascular Reports system reviewed and no additional complaints, except as documented - Respiratory Reports no additional respiratory complaints - Gastrointestinal Reports system reviewed and no additional complaints, except as documented, Reports diarrhea, Reports loose stools, Reports nausea, Denies pain with swallowing, Denies vomiting, Denies vomiting blood - Genitourinary Genitourinary: Reports no additional male genitourinary complaints - Musculoskeletal Reports system reviewed and no additional complaints, except as documented - Integumentary/Breasts Skin/Breast: Reports no additional skin complaints - Neurologic Reports system reviewed and no additional complaints, except as documented - Psychiatric Reports system reviewed and no additional complaints, except as documented - Endocrine Reports no additional endocrine complaints - Hematologic/Lymphatic Reports system reviewed and no additional complaints, except as documented - Allergic/Immunologic Reports system reviewed and no additional complaints, except as documented Oncology Screenings - ECOG Performance Status ECOG Performance Status: 2 [facility] Medical History: Medical History (Last Updated 12/06/21 @ 19:54 by Chacho Staples MD) COPD (chronic obstructive pulmonary disease) Diabetes type 2, controlled Rectal cancer Stomach cancer Functional capacity: uses cane/walker Patient : No Family History: Family History (Last Reviewed 11/16/21 @ 15:07 by Clint Ball RN) Family/Other Medical history reviewed with no changes Mother Breast cancer Surgical History: Surgical History (Last Reviewed 12/06/21 @ 12:28 by Heike Ojeda MD) Hx of colonoscopy Social History: Social History (Last Reviewed 11/16/21 @ 15:07 by Clint Ball RN) Living Situation History: Household Members: Spouse Housing: Apartment Are you a primary child care center assistant director to a significant other at home: No Do you presently have visiting nurse or other home services: Yes Tobacco History: Patient Tobacco Use Status: Former Tobacco user Tobacco use type: Cigarette Years Smoked: 20 years Smoke Quit Date: 40 years ago e-Cigarette/Vaping Use: Former Use Occupation Assessmet: service: No Current occupational status: retired Home Medications and Allergies Current Medications: Current Medications Acetaminophen (Acetaminophen 325 Mg Tablet) 650 mg PO Q6H PRN PRN Reason: Pain, Mild (Pain Scale 1-3) Last Admin: 12/14/21 23:12 Dose: 650 mg Documented by: Albuterol Sulfate (Albuterol Sulfate 90 Mcg 8 Gm Inhaler) 2 puff INHALE Q6H PRN PRN Reason: shortness of breath or wheezing Benzocaine (Throat Lozenge, Medicated Lozenge) 1 lozenge MUCOUS MEM Q2H PRN PRN Reason: Sore Throat Last Admin: 12/12/21 20:25 Dose: 1 lozenge Documented by: Dextrose (Dextrose 50 % 25 Gm/50 Ml Syringe) 25 gm IVPUSH Q15M PRN; Protocol PRN Reason: per Hypoglycemia Standing Ord. Glucose (Glucose Gel 15 Gm Gel..Gram.) 15 gm PO Q15M PRN; Protocol PRN Reason: per Hypoglycemia Standing Ord. Insulin Glargine (Insulin Glargine,Hum.Rec.Anlog 100 Unit/Ml 10 Ml Vial) 15 unit SUBCUT BEDTIME [facility] Last Admin: 12/16/21 21:20 Dose: 15 unit Documented by: Insulin Human Lispro (Insulin Lispro 100 Unit/Ml 3 Ml Vial) 0 unit SUBCUT QIDACHS [facility]; Protocol Last Admin: 12/17/21 12:35 Dose: 2 unit Documented by: Lidocaine (Lidocaine 4 % Patch Adh..Patch) 1 patch TRANSDERMA DAILY [facility]; Protocol Last Admin: 12/17/21 09:30 Dose: 1 patch Documented by: Loperamide HCl (Loperamide Hcl 2 Mg Capsule) 2 mg PO Q4H PRN PRN Reason: diarrhea Multivitamins/Vitamin C (Multivitamin Tablet) 1 tab PO DAILY [facility] Last Admin: 12/17/21 09:30 Dose: 1 tab Documented by: Non-Formulary Medication (Capecitabine [Xeloda]) 1,500 mg PO BID [facility] Oxycodone HCl (Oxycodone Hcl Immed Release 5 Mg Tablet) 5 mg PO Q12H PRN PRN Reason: Pain, Severe (Pain Scale 7-10) Pharmacy Consult (Consult Rx Perform Med Rec) 1 each MISCELLANE ONCE PRN PRN Reason: Consult order Potassium Chloride (Potassium Chloride Packet 20 Meq Packet) 40 meq PO BID [facility] Last Admin: 12/17/21 09:30 Dose: 40 meq Documented by: Pravastatin Sodium (Pravastatin Sodium 10 Mg Tablet) 10 mg PO BEDTIME [facility] Last Admin: 12/16/21 21:21 Dose: 10 mg Documented by: Senna (Sennosides 8.6 Mg Tablet) 17.2 mg PO BEDTIME PRN PRN Reason: Constipation Sertraline HCl (Sertraline Hcl 50 Mg Tablet) 50 mg PO DAILY [facility] Last Admin: 12/17/21 09:30 Dose: 50 mg Documented by: Sodium Bicarbonate (Sodium Bicarbonate 650 Mg Tablet) 650 mg PO TID [facility] Last Admin: 12/17/21 09:35 Dose: 650 mg Documented by: Sodium Chloride (0.9 % Sodium Chloride Flush 3 Ml Syringe) 3 ml IVFLUSH QSHIFT [facility] Last Admin: 12/17/21 09:30 Dose: 3 ml Documented by: Zolpidem Tartrate (Zolpidem Tartrate 5 Mg Tablet) 10 mg PO BEDTIME [facility] Home Medications Medication Instructions Recorded Confirmed Type aspirin 81 mg tablet,delayed 81 mg PO DAILY 07/06/20 12/06/21 History release metformin 500 mg tablet 1,000 mg PO BID 07/06/20 12/06/21 History oxycodone-acetaminophen 5 mg-325 1 tab PO BID PRN 07/06/20 12/06/21 History mg tablet sertraline 50 mg tablet 50 mg PO DAILY 07/06/20 12/06/21 History zolpidem 5 mg tablet 5 mg PO BEDTIME PRN 07/06/20 12/06/21 History pantoprazole 40 mg tablet,delayed 40 mg PO DAILY@0630 02/15/21 12/06/21 History release pravastatin 10 mg tablet 10 mg PO BEDTIME 02/15/21 12/06/21 History multivitamin 1 tab PO DAILY 09/26/21 12/06/21 History dulaglutide 1.5 mg/0.5 mL 1.5 mg SUBCUT MORALES@0900 12/06/21 12/06/21 History subcutaneous pen injector (Trulicity) insulin glargine 100 unit/mL (3 20 unit SUBCUT DAILY 12/06/21 12/06/21 History mL) subcutaneous pen (Lantus Solostar U-100 Insulin) naproxen 500 mg tablet 1 tab PO BID 12/06/21 12/06/21 History saliva stimulant comb. no.3 1 spray MUCOUS MEMBRANE Q1H PRN 12/06/21 12/06/21 History (Biotene Moisturizing Mouth) valsartan 160 1 tab PO DAILY 12/06/21 12/06/21 History mg-hydrochlorothiazide 12.5 mg tablet Allergies Allergy/AdvReac Type Severity Reaction Status Date / Time No Known Allergies Allergy Verified 11/16/21 15:07 Physical Exam Vital signs: Vital Signs Temp 99.0 F 12/17/21 11:37 Pulse 77 12/17/21 11:37 Resp 18 12/17/21 11:37 BP 121/63 12/17/21 11:37 Pulse Ox 99 12/17/21 11:37 Intake & Output 12/16/21 12/17/21 12/17/21 18:59 06:59 18:59 Intake Total 1030 / 1370 340 / 1370 Output Total 252 / 252 200 / 200 Balance 778 / 1118 340 / 1118 -200 / -200 Urine Output (Average ml/kg/hr) 0.32 0.32 0.25 Intake: Intake, Oral Amount 480 / 720 240 / 720 Intake, IV Amount 550 / 650 100 / 650 Magnesium Sulfate/H2O 2 gm In 50 / 50 50 ml @ 25 mls/hr IV ONCE ONE Rx#:[id number] Piperacillin Sodium/Tazobactam 100 / 200 100 / 200 3.375 gm In 0.9 % Sodium Chloride 50 ml @ 100 mls/hr IV Q6H [facility] Rx#:[id number] Potassium Chloride/H20 10 meq 400 / 400 In 100 ml @ 100 mls/hr IV Q1H [facility] Rx#:[id number] Output: Output, Urine Amount 250 / 250 200 / 200 Output, Stool Amount 2 / 2 Other: Breakfast % Eaten 25% Lunch % Eaten 50% Dinner % Eaten 75% Number of Unmeasured Voids 2 Number of Bowel Movements 3 3 1 Urine Bedside Commode Urinal Urine Color Yellow Yellow Last Bowel Movement 12/16/21 12/17/21 12/17/21 Stool Incontinent Incontinent Incontinent Stool Amount Large Moderate Large Stool Color Brown Mucousy Green Stool Consistency Liquid Mushy Mushy Emesis Color Dark Green Weight 65.771 kg - Constitutional Present: moderate distress - Routine HEENT Exam Head: Present: normocephalic ENT: Present: mucous membranes moist - Routine Neck Exam Present: supple - Routine Respiratory Exam Present: CTAB - Routine Cardiovascular Exam Cardiovascular: Present: S1, S2 - Routine Abdominal Exam Present: hyperactive bowel sounds, tenderness - Routine Extremities Exam Present: nontender - Routine Skin Exam Present: intact - Routine Neurological Exam Present: alert, oriented X3, normal speech Hem/Onc Consult Result - Labs CBC & Chem 7: 12/16/21 07:08 12/17/21 06:44 Labs: [facility] 12/17/21 06:44 Sodium 136 Potassium 2.9 L Chloride 107 Carbon Dioxide 24 BUN 6 L Creatinine 0.96 Calcium 6.8 L Assessment and Plan Patient Active problem list reviewed?: Yes (1) Rectal cancer Status: Acute Assessment and plan: Diagnosis: Metastatic rectal cancer, September 2021. 81-year-old gentleman who presented to [facility] with rectal bleeding and found to have rectal mass worrisome for malignancy. He has actually been aware of rectal mass for many years, he was followed by Dr. Morales for several years, he had undergone multiple transanal excisions and was told that it was never malignant. MRI pelvis performed 09/30/2021 shows tumor located at the anal verge extending above peritoneal reflection, involves the internal anal sphincter, extramural invasion present, tumor extending into perirectal fat. Enlarged mesorectal and pelvic lymph nodes concerning for regional metastasis, enlarged iliac lymph nodes, clinical stage T4 N2 M1b. CT abdomen/pelvis showed reticulonodular densities involving anterior peritoneal cavity concerning for carcinomatosis. PET-CT performed 10/26/2021 showed FDG avid rectal wall thickening consistent with known diagnosis of cancer. Few pelvic lymph nodes which were too small, diffuse FDG avid soft tissue densities throughout the omentum, metastatic implants. Biopsy of peritoneal metastasis revealed adenocarcinoma, moderately differentiated with extensive mucin production. Proficient MMR status. BRAF, KRAS, NRAS could not be performed, insufficient tissue. PDL1 negative. CEA level elevated at 365.70 NG/mL. He had a repeat biopsy of peritoneal lesion for additional tissue was performed 11/15/2021. He was started on palliative chemotherapy with XELOX/Avastin on 11/16. Avastin was held with the first cycle because of recent biopsy. Potential chemotherapy toxicity was addressed with him including: neuropathy, nausea, cytopenias and diarrhea. This is most likely related to his chemotherapy for his underlying rectal cancer. Other possible causes would include infectious or ischemic, although the distribution is in a pancolitis, which would be more consistent with an acute infectious etiology or drug related to his chemotherapy. Inflammatory bowel disease seems less likely. He has tested negative for COVID, and flu. His stool is negative for WBC, blood as well as C diff x2. He was being treated with antibiotics. He completed 10 days of therapy. He is on solid diet. He can take Lomotil p.r.n.. The initial plan was that, if his symptoms continue and results are nondiagnostic, consideration could be given to lower gastrointestinal sigmoidoscopy for further diagnosis. However he appears to be turning the corner. PLAN: Will continue to replete his electrolytes and fluids. He will likely go to rehab tomorrow, as long as he is stable and potassium is normal. He will return to Oncology next week, to discuss further treatment modifications since he had significant side effects. Thank you, Cc: - Time Spent With Patient Time Spent with Patient (in minutes): 30
[2021-12-17 16:02] LABS: Glucose, Whole Blood 233 mg/dL (60-115)
--- NOTE | 2021-12-17 16:06 | MHC.CM.PN ---
Male 81 DX AFTAB DP is to [facility]. They have received auth. Per MD patient will dc tomorrow..
[2021-12-17 20:49] LABS: Glucose, Whole Blood 243 mg/dL (60-115)
[2021-12-17] MEDS: Zolpidem Tartrate 5 MG TABLET 10 MG PO (22:07)
[2021-12-17] MEDS: Pravastatin Sodium 10 MG TABLET PO (22:07)
[2021-12-17] MEDS: Insulin Glargine,Hum.rec.anlog 100 UNIT/ML 10 ML VIAL 15 UNIT SUBCUT (22:08)
[2021-12-18] VITALS (7 sets, daily range): BP systolic 114–140; BP diastolic 59–75; PULSE 91–110; RESP 16–22; TEMP 36.8–38.3; O2SAT 93–99
[2021-12-18] MEDS: Acetaminophen 325 MG TABLET 650 MG PO (05:44)
[2021-12-18 07:41] LABS: Anion Gap 9 (12-20); Blood Urea Nitrogen 4 mg/dL (9-16); Calcium 6.9 mg/dL (8.4-10.2); Carbon Dioxide 24 mmol/L (22-29); Chloride 106 mmol/L (96-108); Creatinine Clr Calc Pharmacy 57.5; Estimated Glomerular Filt Rate > 60; Glucose Random 104 mg/dL (60-115); Magnesium 1.7 mg/dL (1.6-2.6); Potassium 3.1 mmol/L (3.3-5.1); Sodium 136 mmol/L (135-145)
[2021-12-18 08:03] LABS: Glucose, Whole Blood 83 mg/dL (60-115)
[2021-12-18 08:31] LABS: Procalcitonin 0.18 ng/mL
[2021-12-18 08:32] LABS: COVID-19 Test Negative (Negative); IDNOW Serial# 16C4AD1C
[2021-12-18] MEDS: Potassium Chloride Packet 20 MEQ PACKET 40 MEQ PO ×2 (10:17→20:58)
[2021-12-18] MEDS: Sertraline HCL 50 MG TABLET PO (10:17)
[2021-12-18] MEDS: Sodium Bicarbonate 650 MG TABLET PO ×3 (10:17→20:58)
[2021-12-18] MEDS: Potassium Chloride/H20 10 MEQ/100 ML PIGGYBACK 100 MEQ IV ×2 (10:17→11:21)
[2021-12-18] MEDS: Multivitamin TABLET 1 TAB PO (10:17)
[2021-12-18] MEDS: Lidocaine 4 % Patch ADH..PATCH 1 PATCH TRANSDERMA (10:17)
[2021-12-18] MEDS: 0.9 % Sodium Chloride Flush 3 ML SYRINGE IVFLUSH ×2 (10:18→16:29)
[2021-12-18 11:30] LABS: Appearance Urine HAZY; Color Urine YELLOW; Glucose Urine UA 100 MG/DL (NEG); Leukocyte Esterase Urine NEG (NEG); Nitrite Urine NEG (NEG); Specific Gravity - Urine 1.015 (1.005-1.025); Urine Blood 2+ (NEG); Urine Ketones NEG (NEG); Urine Protein 1+ MG/DL (NEG-TRACE)
[2021-12-18 11:55] LABS: WBC Urine 0-2 /HPF (0-4)
[2021-12-18 12:12] LABS: Glucose, Whole Blood 81 mg/dL (60-115)
--- NOTE | 2021-12-18 12:15 | HO.PM.IMPN ---
Subjective Subjective Date of Service: 12/18/21 Interval History: This history was taken in Urdu from the patient. Ongoing diarrhea. Developed fever to 101 overnight. Some cough but no dyspnea. No abd pain. Review of Systems Review of Systems: Yes all other systems are reviewed and are negative Physical Exam Vital Signs: Vital Signs: Last Vital Signs Temp 98.3 F 12/18/21 11:49 Pulse 91 12/18/21 11:49 Resp 20 12/18/21 11:49 BP 120/64 12/18/21 11:49 Pulse Ox 96 12/18/21 11:49 BMI result Body Mass Index 25.7 Gen:? NAD HEENT: sclera anicteric, moist mucus membranes Neck: supple Lungs: clear to auscultation bilaterally Heart: regular rate and rhythm, no murmurs Abd: soft, non-tender, non-distended Ext: no edema Skin: warm/well-perfused Neuro: alert, oriented, no focal deficit Psych: appropriate affect Objective Data Active Medications Acetaminophen (Acetaminophen 325 Mg Tablet) 650 mg PO Q6H PRN PRN Reason: Pain, Mild (Pain Scale 1-3) Last Admin: 12/18/21 05:44 Dose: 650 mg Documented by: AB Albuterol Sulfate (Albuterol Sulfate 90 Mcg 8 Gm Inhaler) 2 puff INHALE Q6H PRN PRN Reason: shortness of breath or wheezing Benzocaine (Throat Lozenge, Medicated Lozenge) 1 lozenge MUCOUS MEM Q2H PRN PRN Reason: Sore Throat Last Admin: 12/12/21 20:25 Dose: 1 lozenge Documented by: MARI Dextrose (Dextrose 50 % 25 Gm/50 Ml Syringe) 25 gm IVPUSH Q15M PRN; Protocol PRN Reason: per Hypoglycemia Standing Ord. Glucose (Glucose Gel 15 Gm Gel..Gram.) 15 gm PO Q15M PRN; Protocol PRN Reason: per Hypoglycemia Standing Ord. Insulin Glargine (Insulin Glargine,Hum.Rec.Anlog 100 Unit/Ml 10 Ml Vial) 15 unit SUBCUT BEDTIME [facility] Last Admin: 12/17/21 22:08 Dose: 15 unit Documented by: AB Insulin Human Lispro (Insulin Lispro 100 Unit/Ml 3 Ml Vial) 0 unit SUBCUT QIDACHS [facility]; Protocol Last Admin: 12/18/21 12:13 Dose: Not Given Documented by: COTEMA Non-Admin Reason: No Insulin Coverage Lidocaine (Lidocaine 4 % Patch Adh..Patch) 1 patch TRANSDERMA DAILY [facility]; Protocol Last Admin: 12/18/21 10:17 Dose: 1 patch Documented by: COTEMA Loperamide HCl (Loperamide Hcl 2 Mg Capsule) 2 mg PO Q4H PRN PRN Reason: diarrhea Multivitamins/Vitamin C (Multivitamin Tablet) 1 tab PO DAILY [facility] Last Admin: 12/18/21 10:17 Dose: 1 tab Documented by: COTEMA Non-Formulary Medication (Capecitabine [Xeloda]) 1,500 mg PO BID [facility] Oxycodone HCl (Oxycodone Hcl Immed Release 5 Mg Tablet) 5 mg PO Q12H PRN PRN Reason: Pain, Severe (Pain Scale 7-10) Pharmacy Consult (Consult Rx Perform Med Rec) 1 each MISCELLANE ONCE PRN PRN Reason: Consult order Potassium Chloride (Potassium Chloride Packet 20 Meq Packet) 40 meq PO BID [facility] Last Admin: 12/18/21 10:17 Dose: 40 meq Documented by: LIZETEMA Pravastatin Sodium (Pravastatin Sodium 10 Mg Tablet) 10 mg PO BEDTIME [facility] Last Admin: 12/17/21 22:07 Dose: 10 mg Documented by: AB Senna (Sennosides 8.6 Mg Tablet) 17.2 mg PO BEDTIME PRN PRN Reason: Constipation Sertraline HCl (Sertraline Hcl 50 Mg Tablet) 50 mg PO DAILY [facility] Last Admin: 12/18/21 10:17 Dose: 50 mg Documented by: COTEMA Sodium Bicarbonate (Sodium Bicarbonate 650 Mg Tablet) 650 mg PO TID [facility] Last Admin: 12/18/21 10:17 Dose: 650 mg Documented by: COTEMA Sodium Chloride (0.9 % Sodium Chloride Flush 3 Ml Syringe) 3 ml IVFLUSH QSHIFT [facility] Last Admin: 12/18/21 10:18 Dose: 3 ml Documented by: COTEMA Zolpidem Tartrate (Zolpidem Tartrate 5 Mg Tablet) 10 mg PO BEDTIME [facility] Last Admin: 12/17/21 22:07 Dose: 10 mg Documented by: AB Labs CBC & Chem 7: 12/16/21 07:08 12/18/21 06:38 Labs: Laboratory Results - last 24 hr 12/17/21 12/17/21 12/18/21 15:58 20:46 06:38 Anion Gap 9 L Estim Creat Clear Calc 57.5 Estimated GFR > 60 POC Glucose 233 H 243 H Random Glucose 104 D Calcium 6.9 L Magnesium 1.7 C-Reactive Protein 6.50 H Procalcitonin Urine Color Urine Appearance Urine pH Ur Specific [place] Urine Protein Urine Glucose (UA) Urine Ketones Urine Blood Urine Nitrite Ur Leukocyte Esterase Urine RBC Urine WBC Ur Squamous Epith Cells Urine Bacteria Urine Yeast COVID-19 ([facility]) COVID-Pro Breath MD 12/18/21 12/18/21 12/18/21 06:38 07:37 08:04 Anion Gap Estim Creat Clear Calc Estimated GFR POC Glucose 83 Random Glucose Calcium Magnesium C-Reactive Protein Procalcitonin 0.18 Urine Color Urine Appearance Urine pH Ur Specific [place] Urine Protein Urine Glucose (UA) Urine Ketones Urine Blood Urine Nitrite Ur Leukocyte Esterase Urine RBC Urine WBC Ur Squamous Epith Cells Urine Bacteria Urine Yeast COVID-19 ([facility]) Negative COVID-19 [employer] See Note 12/18/21 12/18/21 11:09 11:53 Anion Gap Estim Creat Clear Calc Estimated GFR POC Glucose 81 Random Glucose Calcium Magnesium C-Reactive Protein Procalcitonin Urine Color YELLOW Urine Appearance HAZY Urine pH 6.0 Ur Specific [place] 1.015 Urine Protein 1+ H Urine Glucose (UA) 100 H Urine Ketones NEG Urine Blood 2+ H Urine Nitrite NEG Ur Leukocyte Esterase NEG Urine RBC 1-4 Urine WBC 0-2 Ur Squamous Epith Cells NONE Urine Bacteria NONE Urine Yeast TRACE COVID-19 ([facility]) COVID-19 [facility] Assessment and Plan (1) Colitis: Status: Acute (2) AFTAB (acute kidney injury): Status: Acute (3) Diabetes type 2, controlled: Status: Acute Plan hospital d#13 81yo M with HTN, HLD, DM2, CAD, rectal CA on chemotherapy admitted with pancolitis # colitis - d/c'ed pip/sal [completed 10d], on solid diet, prn Lomotil, stool cultures negative, Cdiff repeat negative; Heme/Onc consulted and likely chemo side effect; also consult GI given fever # fever - repeat CT A/P and also check BCx, UA/UM/UCx, PCT, CXR, Covid-19 [facility]O. hold ABX for now # AFTAB, prerenal - resolved with IV fluid repletion # hypoK, persistent - replete IV/PO, recheck in AM # hypoMg - repleted # anemia - suspect anemia of chronic disease, no transfusion indicated at this point # DM2 - basal/bolus insulin # rectal CA - continue Xeloda # VTE ppx - SCDs # dispo - STR In my clinical judgment, the patient requires continued hospitalization for the following reasons: IV electrolyte repletion, new fever requiring workup Quality Stroke Does the patient have a stroke diagnosis?: No VTE Prior VTE?: No VTE Risk Level:: Medical - moderate - high VTE Device Contraindication: Treatment Not Indicated VTE Drug Contraindication: N/A - Med Ordered
[2021-12-18] MEDS: Barium Sulfate Oral (Vanilla) 450 ML ORAL.SUSP 900 ML PO (14:13)
[2021-12-18] MEDS: iohexoL 350 MG/ML 100 ML INFUS..BTL IV (14:14)
[2021-12-18 16:03] LABS: Glucose, Whole Blood 163 mg/dL (60-115)
[2021-12-18] MEDS: Insulin Lispro 100 UNIT/ML 3 ML VIAL SUBCUT ×2 (16:28→21:06)
[2021-12-18] MEDS: Zolpidem Tartrate 5 MG TABLET 10 MG PO (20:58)
[2021-12-18] MEDS: Pravastatin Sodium 10 MG TABLET PO (20:58)
[2021-12-18] MEDS: Insulin Glargine,Hum.rec.anlog 100 UNIT/ML 10 ML VIAL 15 UNIT SUBCUT (20:59)
[2021-12-18 21:02] LABS: Glucose, Whole Blood 246 mg/dL (60-115)
[2021-12-19] VITALS (8 sets, daily range): BP systolic 92–140; BP diastolic 47–65; PULSE 88–113; RESP 16–18; TEMP 36.6–38; O2SAT 93–99
[2021-12-19] MEDS: 0.9 % Sodium Chloride Flush 3 ML SYRINGE IVFLUSH ×4 (01:13→20:46)
[2021-12-19] MEDS: Acetaminophen 325 MG TABLET 650 MG PO (04:30)
[2021-12-19 07:16] LABS: Hematocrit 29.7 % (42.0-52.0); Hemoglobin 9.3 g/dl (14.0-18.0); Mean Corpuscular HGB Conc 31.3 g/dl (31.0-36.0); Mean Corpuscular Hemoglobin 24.5 pg (27.0-33.0); Mean Corpuscular Volume 78.2 fL (80.0-98.0); Mean Platelet Volume 9.8 fL (9.4-12.4); Platelet Count 206 X10*3/uL (160-400); Red Cell Distribution Width 21.1 % (11.0-16.0); White Blood Count 10.8 X10*3/uL (4.8-10.8)
[2021-12-19 07:46] LABS: Anion Gap 8 (12-20); Blood Urea Nitrogen 7 mg/dL (9-16); Calcium 7.1 mg/dL (8.4-10.2); Carbon Dioxide 25 mmol/L (22-29); Chloride 105 mmol/L (96-108); Creatinine Clr Calc Pharmacy 55.5; Estimated Glomerular Filt Rate > 60; Glucose Random 149 mg/dL (60-115); Potassium 3.7 mmol/L (3.3-5.1); Sodium 134 mmol/L (135-145)
[2021-12-19 08:10] LABS: Glucose, Whole Blood 126 mg/dL (60-115)
[2021-12-19] MEDS: Sodium Bicarbonate 650 MG TABLET PO ×3 (08:42→20:45)
[2021-12-19] MEDS: Sertraline HCL 50 MG TABLET PO (08:42)
[2021-12-19] MEDS: Multivitamin TABLET 1 TAB PO (08:42)
[2021-12-19] MEDS: Potassium Chloride Packet 20 MEQ PACKET 40 MEQ PO ×2 (08:42→20:45)
[2021-12-19] MEDS: Lidocaine 4 % Patch ADH..PATCH 1 PATCH TRANSDERMA (08:42)
[2021-12-19] MEDS: Azithromycin 500 MG in 0.9 % Sodium Chloride 250 ML 125 MG IV (08:43)
[2021-12-19 09:15] LABS: Adenovirus PCR Not Detected (Not Detect.); Bordetella pertussis PCR Not Detected (Not Detect.)
[2021-12-19 09:16] LABS: Bordetella parapertussis PCR Not Detected (Not Detect.); Chlamydia pneumoniae PCR Not Detected (Not Detect.); Coronavirus 229E PCR Not Detected (Not Detect.); Coronavirus HKU1 PCR Not Detected (Not Detect.); Coronavirus NL63 PCR Not Detected (Not Detect.); Coronavirus OC43 PCR Not Detected (Not Detect.); Human metapneumovirus PCR Not Detected (Not Detect.); Influenza A PCR Not Detected (Not Detect.); Influenza B PCR Not Detected (Not Detect.); Mycoplasma pneumoniae PCR Not Detected (Not Detect.); Parainfluenza 1 PCR Not Detected (Not Detect.); Parainfluenza 2 PCR Not Detected (Not Detect.); Parainfluenza 3 PCR Not Detected (Not Detect.); Parainfluenza 4 PCR Not Detected (Not Detect.); RSV PCR Not Detected (Not Detect.); Rhino/Enterovirus PCR Not Detected (Not Detect.); SARS-CoV-2 PCR Not Detected (Not Detect.)
--- NOTE | 2021-12-19 11:02 | HO.PM.IMPN ---
Subjective Subjective Date of Service: 12/19/21 Interval History: This history was taken in Portuguese from the patient. Febrile to 100.4 last night Cough with small amount of sputum Not dyspneic Not hypoxic Diarrhea somewhat improved Review of Systems Review of Systems: Yes all other systems are reviewed and are negative Physical Exam Vital Signs: Vital Signs: Last Vital Signs Temp 98.5 F 12/19/21 07:17 Pulse 92 12/19/21 07:17 Resp 16 12/19/21 07:17 BP 92/54 L 12/19/21 07:17 Pulse Ox 96 12/19/21 07:17 BMI result Body Mass Index 25.7 Gen:? NAD HEENT: sclera anicteric, moist mucus membranes Neck: supple Lungs: clear to auscultation bilaterally Heart: regular rate and rhythm, no murmurs Abd: soft, non-tender, non-distended Ext: no edema Skin: warm/well-perfused Neuro: alert, oriented, no focal deficit Psych: appropriate affect Objective Data Active Medications Acetaminophen (Acetaminophen 325 Mg Tablet) 650 mg PO Q6H PRN PRN Reason: Pain, Mild (Pain Scale 1-3) Last Admin: 12/19/21 04:30 Dose: 650 mg Documented by: RHODA Albuterol Sulfate (Albuterol Sulfate 90 Mcg 8 Gm Inhaler) 2 puff INHALE Q6H PRN PRN Reason: shortness of breath or wheezing Benzocaine (Throat Lozenge, Medicated Lozenge) 1 lozenge MUCOUS MEM Q2H PRN PRN Reason: Sore Throat Last Admin: 12/12/21 20:25 Dose: 1 lozenge Documented by: MARI Dextrose (Dextrose 50 % 25 Gm/50 Ml Syringe) 25 gm IVPUSH Q15M PRN; Protocol PRN Reason: per Hypoglycemia Standing Ord. Glucose (Glucose Gel 15 Gm Gel..Gram.) 15 gm PO Q15M PRN; Protocol PRN Reason: per Hypoglycemia Standing Ord. Azithromycin 500 mg/ Sodium (Chloride) 250 mls @ 125 mls/hr IV Q24H [facility] Last Admin: 12/19/21 08:43 Dose: 125 mls/hr Documented by: XENA Insulin Glargine (Insulin Glargine,Hum.Rec.Anlog 100 Unit/Ml 10 Ml Vial) 15 unit SUBCUT BEDTIME [facility] Last Admin: 12/18/21 20:59 Dose: 15 unit Documented by: RUBEN Insulin Human Lispro (Insulin Lispro 100 Unit/Ml 3 Ml Vial) 0 unit SUBCUT QIDACHS [facility]; Protocol Last Admin: 12/19/21 08:11 Dose: Not Given Documented by: XENA Non-Admin Reason: No Insulin Coverage Lidocaine (Lidocaine 4 % Patch Adh..Patch) 1 patch TRANSDERMA DAILY [facility]; Protocol Last Admin: 12/19/21 08:42 Dose: 1 patch Documented by: XENA Loperamide HCl (Loperamide Hcl 2 Mg Capsule) 2 mg PO Q4H PRN PRN Reason: diarrhea Multivitamins/Vitamin C (Multivitamin Tablet) 1 tab PO DAILY [facility] Last Admin: 12/19/21 08:42 Dose: 1 tab Documented by: XENA Pharmacy Consult (Consult Rx Perform Med Rec) 1 each MISCELLANE ONCE PRN PRN Reason: Consult order Potassium Chloride (Potassium Chloride Packet 20 Meq Packet) 40 meq PO BID [facility] Last Admin: 12/19/21 08:42 Dose: 40 meq Documented by: XENA Pravastatin Sodium (Pravastatin Sodium 10 Mg Tablet) 10 mg PO BEDTIME [facility] Last Admin: 12/18/21 20:58 Dose: 10 mg Documented by: RUBEN Senna (Sennosides 8.6 Mg Tablet) 17.2 mg PO BEDTIME PRN PRN Reason: Constipation Sertraline HCl (Sertraline Hcl 50 Mg Tablet) 50 mg PO DAILY [facility] Last Admin: 12/19/21 08:42 Dose: 50 mg Documented by: XENA Sodium Bicarbonate (Sodium Bicarbonate 650 Mg Tablet) 650 mg PO TID [facility] Last Admin: 12/19/21 08:42 Dose: 650 mg Documented by: LIZETEMA Sodium Chloride (0.9 % Sodium Chloride Flush 3 Ml Syringe) 3 ml IVFLUSH QSHIFT [facility] Last Admin: 12/19/21 08:51 Dose: 3 ml Documented by: XENA Zolpidem Tartrate (Zolpidem Tartrate 5 Mg Tablet) 10 mg PO BEDTIME [facility] Last Admin: 12/18/21 20:58 Dose: 5 mg Documented by: RUBEN Labs CBC & Chem 7: 12/19/21 06:47 12/19/21 06:47 Labs: Laboratory Results - last 24 hr 12/18/21 12/18/21 12/18/21 11:09 11:53 15:59 MCV MCH MCHC RDW Plt Count MPV Absolute Nucleated RBC Nucleated RBC % (auto) Anion Gap Estim Creat Clear Calc Estimated GFR POC Glucose 81 163 H Random Glucose Calcium Urine Color YELLOW Urine Appearance HAZY Urine pH 6.0 Ur Specific [place] 1.015 Urine Protein 1+ H Urine Glucose (UA) 100 H Urine Ketones NEG Urine Blood 2+ H Urine Nitrite NEG Ur Leukocyte Esterase NEG Urine RBC 1-4 Urine WBC 0-2 Ur Squamous Epith Cells NONE Urine Bacteria NONE Urine Yeast TRACE Respiratory Panel [place] Adenovirus (Rapid PCR) B.pert (TEM-PCR) B.parapertussis DNA PCR C. pneumoniae DNA (PCR) Coronavirus OC43 (PCR) Coronavirus HKU1 (PCR) Coronavirus 229E (PCR) Coronavirus NL63 (PCR) Human Metapneumovir PCR Influenza A (RT-PCR) Influenza B (RT-PCR) M. pneumoniae (PCR) Parainfluenza 1 (PCR) Parainfluenza 2 (PCR) Parainfluenza 3 (PCR) Parainfluenza 4 (PCR) RSV (PCR) Entero/Rhino (PCR) SARS-CoV-2 RNA (RT-PCR) 12/18/21 12/19/21 12/19/21 20:58 06:47 06:47 MCV 78.2 L MCH 24.5 L MCHC 31.3 RDW 21.1 H Plt Count 206 MPV 9.8 Absolute Nucleated RBC 0.000 Nucleated RBC % (auto) 0.0 Anion Gap 8 L Estim Creat Clear Calc 55.5 Estimated GFR > 60 POC Glucose 246 H Random Glucose 149 H D Calcium 7.1 L Urine Color Urine Appearance Urine pH Ur Specific [place] Urine Protein Urine Glucose (UA) Urine Ketones Urine Blood Urine Nitrite Ur Leukocyte Esterase Urine RBC Urine WBC Ur Squamous Epith Cells Urine Bacteria Urine Yeast Respiratory Panel [place] Adenovirus (Rapid PCR) B.pert (TEM-PCR) B.parapertussis DNA PCR C. pneumoniae DNA (PCR) Coronavirus OC43 (PCR) Coronavirus HKU1 (PCR) Coronavirus 229E (PCR) Coronavirus NL63 (PCR) Human Metapneumovir PCR Influenza A (RT-PCR) Influenza B (RT-PCR) M. pneumoniae (PCR) Parainfluenza 1 (PCR) Parainfluenza 2 (PCR) Parainfluenza 3 (PCR) Parainfluenza 4 (PCR) RSV (PCR) Entero/Rhino (PCR) SARS-CoV-2 RNA (RT-PCR) 12/19/21 12/19/21 07:36 07:53 MCV MCH MCHC RDW Plt Count MPV Absolute Nucleated RBC Nucleated RBC % (auto) Anion Gap Estim Creat Clear Calc Estimated GFR POC Glucose 126 H Random Glucose Calcium Urine Color Urine Appearance Urine pH Ur Specific [place] Urine Protein Urine Glucose (UA) Urine Ketones Urine Blood Urine Nitrite Ur Leukocyte Esterase Urine RBC Urine WBC Ur Squamous Epith Cells Urine Bacteria Urine Yeast Respiratory Panel [place] See Note Adenovirus (Rapid PCR) Not Detected B.pert (TEM-PCR) Not Detected B.parapertussis DNA PCR Not Detected C. pneumoniae DNA (PCR) Not Detected Coronavirus OC43 (PCR) Not Detected Coronavirus HKU1 (PCR) Not Detected Coronavirus 229E (PCR) Not Detected Coronavirus NL63 (PCR) Not Detected Human Metapneumovir PCR Not Detected Influenza A (RT-PCR) Not Detected Influenza B (RT-PCR) Not Detected M. pneumoniae (PCR) Not Detected Parainfluenza 1 (PCR) Not Detected Parainfluenza 2 (PCR) Not Detected Parainfluenza 3 (PCR) Not Detected Parainfluenza 4 (PCR) Not Detected RSV (PCR) Not Detected Entero/Rhino (PCR) Not Detected SARS-CoV-2 RNA (RT-PCR) Not Detected Impressions Chest X-Ray 12/18/21 13:45 IMPRESSION: Low lung volumes and bronchial wall thickening at the lung bases. No definite pneumonia is seen by chest x-ray. Abdomen/Pelvis CT 12/18/21 14:15 IMPRESSION: Bibasilar bronchial wall thickening and scattered areas of mild bronchiectasis. Numerous new pulmonary nodules largest in the left lower lobe. Short interval change favors an infectious or inflammatory process over neoplastic process. Colitis not appreciably changed. Increasing small amount of ascites. Stable appearance to peritoneal disease in the greater omentum and rectal mass. Fleischner guidelines were followed. Microbiology Microbiology Results: Microbiology 12/18/21 Unknown Urine Culture - Final Urine clean catch - Clean Catch Midstream No growth. 12/18/21 08:00 Blood Culture - Preliminary Blood - Venous No growth after 24 hours. 12/18/21 08:00 Blood Culture - Preliminary Blood - Venous No growth after 24 hours. Assessment and Plan (1) Colitis: Status: Acute (2) AFTAB (acute kidney injury): Status: Acute (3) Diabetes type 2, controlled: Status: Acute Plan hospital d#14 81yo M with HTN, HLD, DM2, CAD, rectal CA on chemotherapy admitted with pancolitis # colitis - d/c'ed pip/sal [completed 10d], on solid diet, prn Lomotil, stool cultures negative, Cdiff repeat negative; Heme/Onc consulted and likely chemo side effect # atypical PNA - RVP negative - folllow BCx + PCT - start azithromycin d#08/11 # AFTAB, prerenal - resolved with IV fluid repletion # hypoK - repleted, continue maintenance PO # hypoMg - repleted # anemia - suspect anemia of chronic disease, no transfusion indicated at this point # DM2 - basal/bolus insulin # rectal CA - continue Xeloda # VTE ppx - SCDs # dispo - STR In my clinical judgment, the patient requires continued hospitalization for the following reasons: IV antibiotics, fever Quality Stroke Does the patient have a stroke diagnosis?: No VTE Prior VTE?: No VTE Risk Level:: Medical - moderate - high VTE Device Contraindication: Treatment Not Indicated VTE Drug Contraindication: N/A - Med Ordered
[2021-12-19 11:44] LABS: Glucose, Whole Blood 204 mg/dL (60-115)
[2021-12-19 15:45] LABS: Glucose, Whole Blood 220 mg/dL (60-115)
[2021-12-19] MEDS: Insulin Lispro 100 UNIT/ML 3 ML VIAL SUBCUT (17:07)
[2021-12-19] MEDS: Pravastatin Sodium 10 MG TABLET PO (20:45)
[2021-12-19] MEDS: Zolpidem Tartrate 5 MG TABLET 10 MG PO (20:46)
[2021-12-19 21:00] LABS: Glucose, Whole Blood 149 mg/dL (60-115)
[2021-12-19] MEDS: Insulin Glargine,Hum.rec.anlog 100 UNIT/ML 10 ML VIAL 15 UNIT SUBCUT (21:51)
[2021-12-20 03:52] VITALS: BP 120/70; PULSE 102; RESP 18; TEMP 37.5; O2SAT 96
[2021-12-20 05:59] LABS: Hematocrit 30.8 % (42.0-52.0); Hemoglobin 9.5 g/dl (14.0-18.0); Mean Corpuscular HGB Conc 30.8 g/dl (31.0-36.0); Mean Corpuscular Hemoglobin 24.7 pg (27.0-33.0); Mean Platelet Volume 10.2 fL (9.4-12.4); Platelet Count 220 X10*3/uL (160-400); Red Blood Count 3.85 X10*6/uL (4.60-5.80); Red Cell Distribution Width 21.2 % (11.0-16.0)
[2021-12-20 06:17] LABS: Anion Gap 6 (12-20); Blood Urea Nitrogen 6 mg/dL (9-16); C Reactive Protein 9.05 mg/dL (< or = 0.50); Calcium 7.6 mg/dL (8.4-10.2); Carbon Dioxide 29 mmol/L (22-29); Chloride 103 mmol/L (96-108); Creatinine Clr Calc Pharmacy 51.8; Estimated Glomerular Filt Rate > 60; Glucose Random 185 mg/dL (60-115); Potassium 4.4 mmol/L (3.3-5.1); Sodium 134 mmol/L (135-145)
[2021-12-20 06:32] LABS: Procalcitonin 0.37 ng/mL
[2021-12-20 07:34] VITALS: BP 103/51; PULSE 103; RESP 20; TEMP 36.9; O2SAT 92
[2021-12-20 07:52] LABS: Glucose, Whole Blood 184 mg/dL (60-115)
[2021-12-20] MEDS: Azithromycin 500 MG in 0.9 % Sodium Chloride 250 ML 125 MG IV (08:10)
[2021-12-20] MEDS: 0.9 % Sodium Chloride Flush 3 ML SYRINGE IVFLUSH ×3 (08:11→21:57)
[2021-12-20] MEDS: Sertraline HCL 50 MG TABLET PO (08:11)
[2021-12-20] MEDS: Insulin Lispro 100 UNIT/ML 3 ML VIAL SUBCUT ×3 (08:11→21:56)
[2021-12-20] MEDS: Sodium Bicarbonate 650 MG TABLET PO ×3 (08:11→21:57)
[2021-12-20] MEDS: Potassium Chloride Packet 20 MEQ PACKET 40 MEQ PO (08:11)
[2021-12-20] MEDS: Multivitamin TABLET 1 TAB PO (08:11)
[2021-12-20] MEDS: Lidocaine 4 % Patch ADH..PATCH 1 PATCH TRANSDERMA (08:12)
[2021-12-20 11:49] VITALS: BP 94/56; PULSE 95; RESP 20; TEMP 37.2; O2SAT 96
[2021-12-20 12:08] LABS: Glucose, Whole Blood 143 mg/dL (60-115)
--- NOTE | 2021-12-20 14:13 | HO.PM.IMPN ---
Subjective Subjective Date of Service: 12/20/21 Interval History: This history was taken in [place] from the patient. Persistent watery diarrhea, worsening today Breathing/cough improved, no further fever Review of Systems Review of Systems: Yes all other systems are reviewed and are negative Physical Exam Vital Signs: Vital Signs: Last Vital Signs Temp 98.9 F 12/20/21 11:49 Pulse 95 12/20/21 11:49 Resp 20 12/20/21 11:49 BP 94/56 L 12/20/21 11:49 Pulse Ox 96 12/20/21 11:49 BMI result Body Mass Index 25.7 Gen:? NAD HEENT: sclera anicteric, moist mucus membranes Neck: supple Lungs: clear to auscultation bilaterally Heart: regular rate and rhythm, no murmurs Abd: soft, non-tender, non-distended Ext: no edema Skin: warm/well-perfused Neuro: alert, oriented, no focal deficit Psych: appropriate affect Objective Data Active Medications Acetaminophen (Acetaminophen 325 Mg Tablet) 650 mg PO Q6H PRN PRN Reason: Pain, Mild (Pain Scale 1-3) Last Admin: 12/19/21 04:30 Dose: 650 mg Documented by: RHODA Albuterol Sulfate (Albuterol Sulfate 90 Mcg 8 Gm Inhaler) 2 puff INHALE Q6H PRN PRN Reason: shortness of breath or wheezing Benzocaine (Throat Lozenge, Medicated Lozenge) 1 lozenge MUCOUS MEM Q2H PRN PRN Reason: Sore Throat Last Admin: 12/12/21 20:25 Dose: 1 lozenge Documented by: MARI Dextrose (Dextrose 50 % 25 Gm/50 Ml Syringe) 25 gm IVPUSH Q15M PRN; Protocol PRN Reason: per Hypoglycemia Standing Ord. Glucose (Glucose Gel 15 Gm Gel..Gram.) 15 gm PO Q15M PRN; Protocol PRN Reason: per Hypoglycemia Standing Ord. Azithromycin 500 mg/ Sodium (Chloride) 250 mls @ 125 mls/hr IV Q24H [facility] Last Infusion: 12/20/21 10:10 Dose: 0 mls/hr Documented by: RORY Insulin Glargine (Insulin Glargine,Hum.Rec.Anlog 100 Unit/Ml 10 Ml Vial) 15 unit SUBCUT BEDTIME [facility] Last Admin: 12/19/21 21:51 Dose: 15 unit Documented by: DUSTIN Insulin Human Lispro (Insulin Lispro 100 Unit/Ml 3 Ml Vial) 0 unit SUBCUT QIDACHS [facility]; Protocol Last Admin: 12/20/21 12:14 Dose: Not Given Documented by: RORY Non-Admin Reason: No Insulin Coverage Lidocaine (Lidocaine 4 % Patch Adh..Patch) 1 patch TRANSDERMA DAILY [facility]; Protocol Last Admin: 12/20/21 08:12 Dose: 1 patch Documented by: RORY Loperamide HCl (Loperamide Hcl 2 Mg Capsule) 2 mg PO Q4H PRN PRN Reason: diarrhea Multivitamins/Vitamin C (Multivitamin Tablet) 1 tab PO DAILY [facility] Last Admin: 12/20/21 08:11 Dose: 1 tab Documented by: RORY Pharmacy Consult (Consult Rx Perform Med Rec) 1 each MISCELLANE ONCE PRN PRN Reason: Consult order Potassium Chloride (Potassium Chloride Packet 20 Meq Packet) 40 meq PO BID [facility] Last Admin: 12/20/21 08:11 Dose: 40 meq Documented by: RORY Pravastatin Sodium (Pravastatin Sodium 10 Mg Tablet) 10 mg PO BEDTIME [facility] Last Admin: 12/19/21 20:45 Dose: 10 mg Documented by: DUSTIN Senna (Sennosides 8.6 Mg Tablet) 17.2 mg PO BEDTIME PRN PRN Reason: Constipation Sertraline HCl (Sertraline Hcl 50 Mg Tablet) 50 mg PO DAILY [facility] Last Admin: 12/20/21 08:11 Dose: 50 mg Documented by: RORY Sodium Bicarbonate (Sodium Bicarbonate 650 Mg Tablet) 650 mg PO TID [facility] Last Admin: 12/20/21 08:11 Dose: 650 mg Documented by: RORY Sodium Chloride (0.9 % Sodium Chloride Flush 3 Ml Syringe) [facility] Last Admin: 12/20/21 08:11 Dose: 3 ml Documented by: RORY Zolpidem Tartrate (Zolpidem Tartrate 5 Mg Tablet) 10 mg PO BEDTIME [facility] Last Admin: 12/19/21 20:46 Dose: 10 mg Documented by: DUSTIN Labs CBC & Chem 7: 12/20/21 05:52 12/20/21 05:52 Labs: Laboratory Results - last 24 hr 12/19/21 12/19/21 12/20/21 15:41 20:51 05:52 MCV 80.0 MCH 24.7 L MCHC 30.8 L RDW 21.2 H Plt Count 220 MPV 10.2 Absolute Nucleated RBC 0.000 Nucleated RBC % (auto) 0.0 Anion Gap Estim Creat Clear Calc Estimated GFR POC Glucose 220 H 149 H Random Glucose Calcium C-Reactive Protein Procalcitonin 12/20/21 12/20/21 12/20/21 05:52 05:52 07:33 MCV MCH MCHC RDW Plt Count MPV Absolute Nucleated RBC Nucleated RBC % (auto) Anion Gap 6 L Estim Creat Clear Calc 51.8 Estimated GFR > 60 POC Glucose 184 H Random Glucose 185 H Calcium 7.6 L D C-Reactive Protein 9.05 H Procalcitonin 0.37 12/20/21 11:48 MCV MCH MCHC RDW Plt Count MPV Absolute Nucleated RBC Nucleated RBC % (auto) Anion Gap Estim Creat Clear Calc Estimated GFR POC Glucose 143 H Random Glucose Calcium C-Reactive Protein Procalcitonin Microbiology Microbiology Results: Microbiology 12/19/21 15:03 Gram Stain - Final Sputum - Expectorated Sputum Culture - Preliminary Culture in progress. 12/18/21 08:00 Blood Culture - Preliminary Blood - Venous No growth after 48 hours. 12/18/21 08:00 Blood Culture - Preliminary Blood - Venous No growth after 48 hours. 12/18/21 Unknown Urine Culture - Final Urine clean catch - Clean Catch Midstream No growth. Assessment and Plan (1) Colitis: Status: Acute (2) AFTAB (acute kidney injury): Status: Acute (3) Diabetes type 2, controlled: Status: Acute [facility] hospital d#15 81yo M with HTN, HLD, DM2, CAD, rectal CA on chemotherapy admitted with pancolitis # colitis - d/c'ed pip/sal [completed 10d], on solid diet, stool cultures negative, Cdiff repeat negative; Heme/Onc consulted and likely chemo side effect; will give standing Lomotil and re-consult GI # atypical PNA - RVP negative - follow BCx + PCT - azithromycin d#2/ # AFTAB, prerenal - resolved with IV fluid repletion # hypoK - repleted, continue maintenance PO # hypoMg - repleted # anemia - suspect anemia of chronic disease, no transfusion indicated at this point # DM2 - basal/bolus insulin # rectal CA - continue Xeloda # VTE ppx - SCDs # dispo - STR In my clinical judgment, the patient requires continued hospitalization for the following reasons: control of diarrhea Quality Stroke Does the patient have a stroke diagnosis?: No VTE Prior VTE?: No VTE Risk Level:: Medical - moderate - high VTE Device Contraindication: Treatment Not Indicated VTE Drug Contraindication: N/A - Med Ordered
[2021-12-20 15:40] VITALS: BP 101/56; PULSE 87; RESP 14; TEMP 36.7; O2SAT 96
[2021-12-20 16:13] LABS: Glucose, Whole Blood 195 mg/dL (60-115)
[2021-12-20] MEDS: Diphenoxylate/Atrop 2.5/0.025 TABLET 2 TAB PO ×2 (16:40→21:56)
[2021-12-20 19:24] VITALS: BP 122/68; PULSE 91; RESP 17; TEMP 36.8; O2SAT 97
[2021-12-20 21:07] LABS: Glucose, Whole Blood 184 mg/dL (60-115)
[2021-12-20] MEDS: Insulin Glargine,Hum.rec.anlog 100 UNIT/ML 10 ML VIAL 15 UNIT SUBCUT (21:56)
[2021-12-20] MEDS: Zolpidem Tartrate 5 MG TABLET 10 MG PO (21:56)
[2021-12-20] MEDS: Acetaminophen 325 MG TABLET 650 MG PO (23:14)
[2021-12-21] VITALS (7 sets, daily range): BP systolic 94–116; BP diastolic 50–66; PULSE 81–104; RESP 18–24; TEMP 36.9–37.8; O2SAT 93–98
[2021-12-21 07:28] LABS: Glucose, Whole Blood 210 mg/dL (60-115)
[2021-12-21] MEDS: Sertraline HCL 50 MG TABLET PO (08:17)
[2021-12-21] MEDS: Diphenoxylate/Atrop 2.5/0.025 TABLET 2 TAB PO ×4 (08:17→20:55)
[2021-12-21] MEDS: Insulin Lispro 100 UNIT/ML 3 ML VIAL SUBCUT ×2 (08:19→18:10)
[2021-12-21] MEDS: Azithromycin 500 MG in 0.9 % Sodium Chloride 250 ML 250 MG IV (08:19)
[2021-12-21] MEDS: Lidocaine 4 % Patch ADH..PATCH 1 PATCH TRANSDERMA (08:19)
[2021-12-21] MEDS: Sodium Bicarbonate 650 MG TABLET PO ×3 (08:34→20:55)
[2021-12-21] MEDS: Multivitamin TABLET 1 TAB PO (08:34)
[2021-12-21] MEDS: 0.9 % Sodium Chloride Flush 3 ML SYRINGE IVFLUSH ×2 (08:34→18:05)
[2021-12-21 11:44] LABS: Glucose, Whole Blood 143 mg/dL (60-115)
--- NOTE | 2021-12-21 14:04 | HO.PM.IMPN ---
Subjective Subjective Date of Service: 12/21/21 Interval History: No acute issues overnight. Ambulatory with walker and assist in room. Diarrhea essentially resolved Review of Systems Denies chest pain Denies shortness of breath Denies nausea vomiting diarrhea Denies fever chills Physical Exam Vital Signs: Vital Signs: Last Vital Signs Temp 99.9 F 12/21/21 11:05 Pulse 103 H 12/21/21 11:05 Resp 24 H 12/21/21 11:05 BP 104/65 12/21/21 11:05 Pulse Ox 94 12/21/21 11:05 BMI result Body Mass Index 25.7 Const: Other: Awake alert oriented x3 no acute distress Resp: Other: Clear to auscultation bilaterally no rales rhonchi wheezes Cardio: Other: No S4; positive S1-S2; no S3 murmurs sounds or gallops GI: Other: Soft nontender nondistended normoactive bowel sounds Extrem: Other: No edema bilaterally Objective Data Active Medications Acetaminophen (Acetaminophen 325 Mg Tablet) 650 mg PO Q6H PRN PRN Reason: Pain, Mild (Pain Scale 1-3) Last Admin: 12/20/21 23:14 Dose: 650 mg Documented by: ANGELI Albuterol Sulfate (Albuterol Sulfate 90 Mcg 8 Gm Inhaler) 2 puff INHALE Q6H PRN PRN Reason: shortness of breath or wheezing Benzocaine (Throat Lozenge, Medicated Lozenge) 1 lozenge MUCOUS MEM Q2H PRN PRN Reason: Sore Throat Last Admin: 12/12/21 20:25 Dose: 1 lozenge Documented by: MARI Dextrose (Dextrose 50 % 25 Gm/50 Ml Syringe) 25 gm IVPUSH Q15M PRN; Protocol PRN Reason: per Hypoglycemia Standing Ord. Diphenoxylate HCl/Atropine (Diphenoxylate/Atrop 2.5/0.025 Tablet) 2 tab PO QID [facility] Last Admin: 12/21/21 14:01 Dose: 2 tab Documented by: ALEXANDRO Glucose (Glucose Gel 15 Gm Gel..Gram.) 15 gm PO Q15M PRN; Protocol PRN Reason: per Hypoglycemia Standing Ord. Azithromycin 500 mg/ Sodium (Chloride) 250 mls @ 125 mls/hr IV Q24H [facility] Last Infusion: 12/21/21 11:15 Dose: 0 mls/hr Documented by: ALEXANDRO Insulin Glargine (Insulin Glargine,Hum.Rec.Anlog 100 Unit/Ml 10 Ml Vial) [address] [facility] Last Admin: 12/20/21 21:56 Dose: 15 unit Documented by: ANGELI Insulin Human Lispro (Insulin Lispro 100 Unit/Ml 3 Ml Vial) [address] [facility]; Protocol Last Admin: 12/21/21 11:58 Dose: Not Given Documented by: ALEXANDRO Non-Admin Reason: No Insulin Coverage Lidocaine (Lidocaine 4 % Patch Adh..Patch) [address] [facility]; Protocol Last Admin: 12/21/21 08:19 Dose: 1 patch Documented by: ALEXANDRO Multivitamins/Vitamin C (Multivitamin Tablet) [address] [facility] Last Admin: 12/21/21 08:34 Dose: 1 tab Documented by: ALEXANDRO Pharmacy Consult (Consult Rx Perform Med Rec) 1 each MISCELLANE ONCE PRN PRN Reason: Consult order Potassium Chloride (Potassium Chloride Packet 20 Meq Packet) [address] [facility] Last Admin: 12/21/21 08:35 Dose: Not Given Documented by: ALEXANDRO Non-Admin Reason: refused Pravastatin Sodium (Pravastatin Sodium 10 Mg Tablet) [address] [facility] Last Admin: 12/20/21 22:02 Dose: Not Given Documented by: ANGELI Non-Admin Reason: Patient Refused Senna (Sennosides 8.6 Mg Tablet) 17.2 mg PO BEDTIME PRN PRN Reason: Constipation Sertraline HCl (Sertraline Hcl 50 Mg Tablet) [address] [facility] Last Admin: 12/21/21 08:17 Dose: 50 mg Documented by: ALEXANDRO Sodium Bicarbonate (Sodium Bicarbonate 650 Mg Tablet) [address] [facility] Last Admin: 12/21/21 14:01 Dose: 650 mg Documented by: ALEXANDRO Sodium Chloride (0.9 % Sodium Chloride Flush 3 Ml Syringe) [address] [facility] Last Admin: 12/21/21 08:34 Dose: 3 ml Documented by: ALEXANDRO Zolpidem Tartrate (Zolpidem Tartrate 5 Mg Tablet) [address] [facility] Last Admin: 12/20/21 21:56 Dose: 10 mg Documented by: ANGELI Labs CBC & Chem 7: 12/20/21 05:52 12/20/21 05:52 Labs: Laboratory Results - last 24 hr 12/20/21 12/20/21 12/21/21 16:08 21:04 07:15 POC Glucose 195 H 184 H 210 H 12/21/21 11:08 POC Glucose 143 H Microbiology Microbiology Results: Microbiology 12/19/21 15:03 Gram Stain - Final Sputum - Expectorated Sputum Culture - Final 12/18/21 08:00 Blood Culture - Preliminary Blood - Venous No growth after 48 hours. 12/18/21 08:00 Blood Culture - Preliminary Blood - Venous No growth after 48 hours. Assessment and Plan (1) Colitis: Status: Acute (2) AFTAB (acute kidney injury): Status: Acute (3) DMII (diabetes mellitus, type 2): Status: Acute Plan 81-year-old female with a past medical history of hypertension, hyperlipidemia, diabetes, CAD, rectal cancer on chemotherapy presented to the hospital with a chief complaint of diarrhea and abdominal discomfort; CT of abdomen consistent with diffuse mural thickening involving the entire colon suspicious for colitis 1. Colitis -completed course of Zosyn. . . Diarrhea essentially resolved 2.AFTAB -creatinine back to baseline -follow renals/divalents 3. Anemia(rectal Ca) -stable hemoglobin -follow CBC daily...transfuse as indicated 4.DMII -continue Lantus as per outpt. dosing -lispro sliding scale -adjust as clinically indicated 5. Atypical pneumonia -Zosyn (10/09) DVT prophylaxis: SCD boots Code status: Full code Requires ongoing hospitalization for IV antibiotics for atypical pneumonia Quality Stroke Does the patient have a stroke diagnosis?: No VTE Prior VTE?: No VTE Risk Level:: Medical - moderate - high VTE Device Contraindication: Treatment Not Indicated VTE Drug Contraindication: N/A - Med Ordered
--- NOTE | 2021-12-21 16:06 | MHC.CM.PN ---
IMM 12/21/21 MALE 81 DX AFTAB Patient refuses STR @ [facility]. Multiple new referrals sent. [place] [facility] is offering a bed tomorrow. MD aware of bed offer tomorrow.
[2021-12-21 16:13] LABS: Glucose, Whole Blood 161 mg/dL (60-115)
[2021-12-21] MEDS: 0.9 % Sodium Chloride 1,000 ML 100 ML IVCONT (18:10)
--- NOTE | 2021-12-21 19:45 | PC.NURSE ---
Pt has been non-cooperative with care only allowing certain procedures and medications to be given after nurses begging patient to allow care. Pt accidentally removed IV line while receiving N/S infusion. When nurse informed pt that he did was going to need another IV line, pt refused saying that it was too much and that he had had enough. RN allowed pt to calm down and attempted about 30min later, but pt continued to refuse.
[2021-12-21 20:23] LABS: Glucose, Whole Blood 77 mg/dL (60-115)
[2021-12-21] MEDS: Insulin Glargine,Hum.rec.anlog 100 UNIT/ML 10 ML VIAL 15 UNIT SUBCUT (20:54)
[2021-12-21] MEDS: Pravastatin Sodium 10 MG TABLET PO (20:55)
[2021-12-21] MEDS: Zolpidem Tartrate 5 MG TABLET 10 MG PO (20:55)
[2021-12-21] MEDS: Potassium Chloride Packet 20 MEQ PACKET 40 MEQ PO (20:58)
[2021-12-22] VITALS (7 sets, daily range): BP systolic 96–135; BP diastolic 54–61; PULSE 83–112; RESP 18–21; TEMP 36.7–37.9; O2SAT 92–98
[2021-12-22] MEDS: Piperacillin Sodium/Tazobactam 3.375 GM in 0.9 % Sodium Chloride 50 ML IV ×5 (00:46→23:21)
[2021-12-22] MEDS: 0.9 % Sodium Chloride Flush 3 ML SYRINGE IVFLUSH ×3 (00:49→15:40)
[2021-12-22] MEDS: 0.9 % Sodium Chloride 1,000 ML 100 ML IVCONT ×2 (01:18→12:32)
[2021-12-22 07:20] LABS: Glucose, Whole Blood 46 mg/dL (60-115)
[2021-12-22 08:00] LABS: Glucose, Whole Blood 110 mg/dL (60-115)
[2021-12-22] MEDS: Multivitamin TABLET 1 TAB PO (08:19)
[2021-12-22] MEDS: Potassium Chloride Packet 20 MEQ PACKET 40 MEQ PO (08:19)
[2021-12-22] MEDS: Sodium Bicarbonate 650 MG TABLET PO ×3 (08:19→23:21)
[2021-12-22] MEDS: Diphenoxylate/Atrop 2.5/0.025 TABLET 2 TAB PO ×4 (08:19→23:18)
[2021-12-22] MEDS: Lidocaine 4 % Patch ADH..PATCH 1 PATCH TRANSDERMA (08:19)
[2021-12-22] MEDS: Sertraline HCL 50 MG TABLET PO (08:19)
[2021-12-22] MEDS: Azithromycin 500 MG in 0.9 % Sodium Chloride 250 ML 125 MG IV (08:39)
[2021-12-22 09:47] LABS: MANUAL DIFF FLAG NO
[2021-12-22 09:51] LABS: Basophils Absolute Auto 0.1 X10*3/uL (0.0-0.2); Basophils Percent Auto 0.5 % (0-2); Eosinophils Absolute Auto 0.1 X10*3/uL (0.0-0.4); Eosinophils Percent Auto 0.3 % (0-4); Hemoglobin 10.6 g/dl (14.0-18.0); Imm Gran Abs Auto 0.12 X10*3/uL (0.00-0.03); Imm Gran Pct Auto 0.8 % (0.0-0.4); Lymphocytes Absolute Auto 1.1 X10*3/uL (1.2-4.9); Lymphocytes Percent Auto 7.1 % (20-40); Mean Corpuscular HGB Conc 30.3 g/dl (31.0-36.0); Mean Corpuscular Hemoglobin 24.7 pg (27.0-33.0); Mean Corpuscular Volume 81.6 fL (80.0-98.0); Mean Platelet Volume 10.5 fL (9.4-12.4); Monocytes Absolute Auto 1.5 X10*3/uL (0.1-1.2); Monocytes Percent Auto 9.5 % (2-11); Neutrophils Absolute Auto 12.7 x10*3/uL (2.0-8.3); Neutrophils Percent Auto 81.8 % (45-73); Platelet Count 231 X10*3/uL (160-400); Red Blood Count 4.29 X10*6/uL (4.60-5.80); Red Cell Distribution Width 21.1 % (11.0-16.0); White Blood Count 15.5 X10*3/uL (4.8-10.8)
[2021-12-22 10:09] LABS: Alanine Aminotransferase 18 U/L (0-40); Alkaline Phosphatase 123 U/L (39-117); Anion Gap 11 (12-20); Aspartate Amino Transferase 33 U/L (5-37); Bilirubin Total 0.4 mg/dL (0.0-1.0); Blood Urea Nitrogen 6 mg/dL (9-16); Calcium 7.9 mg/dL (8.4-10.2); Carbon Dioxide 28 mmol/L (22-29); Chloride 100 mmol/L (96-108); Creatinine Clr Calc Pharmacy 45.2; Estimated Glomerular Filt Rate > 60; Glucose Random 134 mg/dL (60-115); Sodium 134 mmol/L (135-145); Total Protein 5.5 g/dL (6.5-8.0)
[2021-12-22 11:03] LABS: Glucose, Whole Blood 198 mg/dL (60-115)
[2021-12-22] MEDS: Insulin Lispro 100 UNIT/ML 3 ML VIAL SUBCUT ×2 (12:30→23:19)
--- NOTE | 2021-12-22 14:56 | HO.PM.IMPN ---
Subjective Subjective Date of Service: 12/22/21 Interval History: Fevers to 100.1 last overnight Ambulatory with walker and assist in room. Diarrhea returning Review of Systems Denies chest pain Denies shortness of breath Denies nausea vomiting diarrhea Denies fever chills Physical Exam Vital Signs: Vital Signs: Last Vital Signs Temp 98.1 F 12/22/21 11:05 Pulse 95 12/22/21 11:05 Resp 20 12/22/21 11:05 BP 96/60 12/22/21 11:05 Pulse Ox 96 12/22/21 11:05 BMI result Body Mass Index 25.7 Const: Other: Awake alert oriented x3 no acute distress Resp: Other: Clear to auscultation bilaterally no rales rhonchi wheezes Cardio: Other: No S4; positive S1-S2; no S3 murmurs sounds or gallops GI: Other: Soft nontender nondistended normoactive bowel sounds Extrem: Other: No edema bilaterally Objective Data Active Medications Acetaminophen (Acetaminophen 325 Mg Tablet) 650 mg PO Q6H PRN PRN Reason: Pain, Mild (Pain Scale 1-3) Last Admin: 12/20/21 23:14 Dose: 650 mg Documented by: ANGELI Albuterol Sulfate (Albuterol Sulfate 90 Mcg 8 Gm Inhaler) 2 puff INHALE Q6H PRN PRN Reason: shortness of breath or wheezing Benzocaine (Throat Lozenge, Medicated Lozenge) 1 lozenge MUCOUS MEM Q2H PRN PRN Reason: Sore Throat Last Admin: 12/12/21 20:25 Dose: 1 lozenge Documented by: MARI Dextrose (Dextrose 50 % 25 Gm/50 Ml Syringe) 25 gm IVPUSH Q15M PRN; Protocol PRN Reason: per Hypoglycemia Standing Ord. Diphenoxylate HCl/Atropine (Diphenoxylate/Atrop 2.5/0.025 Tablet) 2 tab PO QID KAITLYNN Last Admin: 12/22/21 12:30 Dose: 2 tab Documented by: IGLFELY Glucose (Glucose Gel 15 Gm Gel..Gram.) 15 gm PO Q15M PRN; Protocol PRN Reason: per Hypoglycemia Standing Ord. Azithromycin 500 mg/ Sodium (Chloride) 250 mls @ 125 mls/hr IV Q24H [facility] Last Infusion: 12/22/21 10:39 Dose: 0 mls/hr Documented by: ADAM Piperacillin Sod/Tazobactam (Sod 3.375 gm/ Sodium Chloride) 50 mls @ 100 mls/hr IV Q6H [facility] Last Infusion: 12/22/21 13:02 Dose: 0 mls/hr Documented by: ADAM Sodium Chloride (Ns) 1,000 mls @ 100 mls/hr IVCONT .Q10H [facility] Last Infusion: 12/22/21 13:02 Dose: 100 mls/hr Documented by: ADAM Insulin Glargine (Insulin Glargine,Hum.Rec.Anlog 100 Unit/Ml 10 Ml Vial) 15 unit SUBCUT BEDTIME [facility] Last Admin: 12/21/21 20:54 Dose: 15 unit Documented by: PIERCE Insulin Human Lispro (Insulin Lispro 100 Unit/Ml 3 Ml Vial) 0 unit SUBCUT QIDACHS [facility]; Protocol Last Admin: 12/22/21 12:30 Dose: 2 unit Documented by: ADAM Lidocaine (Lidocaine 4 % Patch Adh..Patch) 1 patch TRANSDERMA DAILY [facility]; Protocol Last Admin: 12/22/21 08:19 Dose: 1 patch Documented by: JESSIKA Multivitamins/Vitamin C (Multivitamin Tablet) 1 tab PO DAILY [facility] Last Admin: 12/22/21 08:19 Dose: 1 tab Documented by: JESSIKA Pharmacy Consult (Consult Rx Perform Med Rec) 1 each MISCELLANE ONCE PRN PRN Reason: Consult order Potassium Chloride (Potassium Chloride Packet 20 Meq Packet) 40 meq PO BID [facility] Last Admin: 12/22/21 08:19 Dose: 40 meq Documented by: JESSIKA Pravastatin Sodium (Pravastatin Sodium 10 Mg Tablet) 10 mg PO BEDTIME [facility] Last Admin: 12/21/21 20:55 Dose: 10 mg Documented by: PIECRE Senna (Sennosides 8.6 Mg Tablet) 17.2 mg PO BEDTIME PRN PRN Reason: Constipation Sertraline HCl (Sertraline Hcl 50 Mg Tablet) 50 mg PO DAILY [facility] Last Admin: 12/22/21 08:19 Dose: 50 mg Documented by: JESSIKA Sodium Bicarbonate (Sodium Bicarbonate 650 Mg Tablet) 650 mg PO TID [facility] Last Admin: 12/22/21 08:19 Dose: 650 mg Documented by: JESSIKA Sodium Chloride (0.9 % Sodium Chloride Flush 3 Ml Syringe) 3 ml IVFLUSH QSHIFT [facility] Last Admin: 12/22/21 08:18 Dose: 3 ml Documented by: JESSIKA Zolpidem Tartrate (Zolpidem Tartrate 5 Mg Tablet) 10 mg PO BEDTIME [facility] Last Admin: 12/21/21 20:55 Dose: 10 mg Documented by: PIERCE Labs CBC & Chem 7: 12/22/21 09:17 12/22/21 09:17 Labs: Laboratory Results - last 24 hr 12/06/21 12/07/21 12/08/21 12:36 07:03 06:42 WBC 4.2 L 5.2 8.1 MCV MCH MCHC RDW Plt Count MPV Immature Gran % (Auto) Neut % (Auto) Lymph % (Auto) Turner % (Auto) Eos % (Auto) Baso % (Auto) Lymph # (Auto) Turner # (Auto) Eos # (Auto) Baso # (Auto) Abs Immat Gran (auto) Absolute Neuts (auto) Absolute Nucleated RBC Nucleated RBC % (auto) Anion Gap Estim Creat Clear Calc Estimated GFR POC Glucose Random Glucose Calcium Total Bilirubin AST ALT Alkaline Phosphatase Total Protein Albumin 12/09/21 12/10/21 12/11/21 05:49 06:52 06:22 WBC 6.9 10.0 9.7 MCV MCH MCHC RDW Plt Count MPV Immature Gran % (Auto) Neut % (Auto) Lymph % (Auto) Turner % (Auto) Eos % (Auto) Baso % (Auto) Lymph # (Auto) Turner # (Auto) Eos # (Auto) Baso # (Auto) Abs Immat Gran (auto) Absolute Neuts (auto) Absolute Nucleated RBC Nucleated RBC % (auto) Anion Gap Estim Creat Clear Calc Estimated GFR POC Glucose Random Glucose Calcium Total Bilirubin AST ALT Alkaline Phosphatase Total Protein Albumin 12/12/21 12/13/21 12/14/21 06:15 06:21 07:26 WBC 8.7 9.7 10.5 MCV MCH MCHC RDW Plt Count MPV Immature Gran % (Auto) Neut % (Auto) Lymph % (Auto) Turner % (Auto) Eos % (Auto) Baso % (Auto) Lymph # (Auto) Turner # (Auto) Eos # (Auto) Baso # (Auto) Abs Immat Gran (auto) Absolute Neuts (auto) Absolute Nucleated RBC Nucleated RBC % (auto) Anion Gap Estim Creat Clear Calc Estimated GFR POC Glucose Random Glucose Calcium Total Bilirubin AST ALT Alkaline Phosphatase Total Protein Albumin 12/15/21 12/16/21 12/19/21 06:06 07:08 06:47 WBC 9.8 9.2 10.8 MCV MCH MCHC RDW Plt Count MPV Immature Gran % (Auto) Neut % (Auto) Lymph % (Auto) Turner % (Auto) Eos % (Auto) Baso % (Auto) Lymph # (Auto) Turner # (Auto) Eos # (Auto) Baso # (Auto) Abs Immat Gran (auto) Absolute Neuts (auto) Absolute Nucleated RBC Nucleated RBC % (auto) Anion Gap Estim Creat Clear Calc Estimated GFR POC Glucose Random Glucose Calcium Total Bilirubin AST ALT Alkaline Phosphatase Total Protein Albumin 12/20/21 12/21/21 12/21/21 05:52 16:05 20:08 WBC 11.0 H MCV MCH MCHC RDW Plt Count MPV Immature Gran % (Auto) Neut % (Auto) Lymph % (Auto) Turner % (Auto) Eos % (Auto) Baso % (Auto) Lymph # (Auto) Turner # (Auto) Eos # (Auto) Baso # (Auto) Abs Immat Gran (auto) Absolute Neuts (auto) Absolute Nucleated RBC Nucleated RBC % (auto) Anion Gap Estim Creat Clear Calc Estimated GFR POC Glucose 161 H 77 Random Glucose Calcium Total Bilirubin AST ALT Alkaline Phosphatase Total Protein Albumin 12/22/21 12/22/21 12/22/21 07:01 07:55 09:17 WBC 15.5 H MCV 81.6 MCH 24.7 L MCHC 30.3 L RDW 21.1 H Plt Count 231 MPV 10.5 Immature Gran % (Auto) 0.8 H Neut % (Auto) 81.8 H Lymph % (Auto) 7.1 L Turner % (Auto) 9.5 Eos % (Auto) 0.3 Baso % (Auto) 0.5 Lymph # (Auto) 1.1 L Turner # (Auto) 1.5 H Eos # (Auto) 0.1 Baso # (Auto) 0.1 Abs Immat Gran (auto) 0.12 H Absolute Neuts (auto) 12.7 H Absolute Nucleated RBC 0.000 Nucleated RBC % (auto) 0.0 Anion Gap Estim Creat Clear Calc Estimated GFR POC Glucose 46 L* 110 Random Glucose Calcium Total Bilirubin AST ALT Alkaline Phosphatase Total Protein Albumin 12/22/21 12/22/21 09:17 10:58 WBC MCV MCH MCHC RDW Plt Count MPV Immature Gran % (Auto) Neut % (Auto) Lymph % (Auto) Turner % (Auto) Eos % (Auto) Baso % (Auto) Lymph # (Auto) Turner # (Auto) Eos # (Auto) Baso # (Auto) Abs Immat Gran (auto) Absolute Neuts (auto) Absolute Nucleated RBC Nucleated RBC % (auto) Anion Gap 11 L Estim Creat Clear Calc 45.2 Estimated GFR > 60 POC Glucose 198 H Random Glucose 134 H Calcium 7.9 L Total Bilirubin 0.4 AST 33 D ALT 18 Alkaline Phosphatase 123 H D Total Protein 5.5 L D Albumin 2.0 L D Assessment and Plan (1) Colitis: Status: Acute (2) AFTAB (acute kidney injury): Status: Acute (3) Anemia: Status: Acute Plan 81-year-old female with a past medical history of hypertension, hyperlipidemia, diabetes, CAD, rectal cancer on chemotherapy presented to the hospital with a chief complaint of diarrhea and abdominal discomfort; CT of abdomen consistent with diffuse mural thickening involving the entire colon suspicious for colitis 1. Colitis -completed course of Zosyn. . . Fever to 100.1 overnight -await blood cultures continue Zosyn 2.AFTAB -creatinine back to baseline -follow renals/divalents 3. Anemia(rectal Ca) -stable hemoglobin -follow CBC daily...transfuse as indicated 4.DMII -continue Lantus as per outpt. dosing -lispro sliding scale -adjust as clinically indicated 5. Atypical pneumonia -Zosyn (10/09) DVT prophylaxis: SCD boots Code status: Full code Requires ongoing hospitalization for IV antibiotics for atypical pneumonia Quality Stroke Does the patient have a stroke diagnosis?: No VTE Prior VTE?: No VTE Risk Level:: Medical - moderate - high VTE Device Contraindication: Treatment Not Indicated VTE Drug Contraindication: N/A - Med Ordered
[2021-12-22 15:55] LABS: Glucose, Whole Blood 146 mg/dL (60-115)
[2021-12-22 20:29] LABS: Glucose, Whole Blood 189 mg/dL (60-115)
[2021-12-22] MEDS: Pravastatin Sodium 10 MG TABLET PO (23:18)
[2021-12-22] MEDS: Insulin Glargine,Hum.rec.anlog 100 UNIT/ML 10 ML VIAL 15 UNIT SUBCUT (23:19)
[2021-12-23] MEDS: Zolpidem Tartrate 5 MG TABLET PO (00:34)
[2021-12-23 02:58] VITALS: BP 113/59; PULSE 108; RESP 19; TEMP 37.2; O2SAT 88
[2021-12-23] MEDS: 0.9 % Sodium Chloride 1,000 ML 100 ML IVCONT (04:49)
[2021-12-23] MEDS: Piperacillin Sodium/Tazobactam 3.375 GM in 0.9 % Sodium Chloride 50 ML IV (05:24)
[2021-12-23 05:55] LABS: Hematocrit 32.6 % (42.0-52.0); Hemoglobin 9.9 g/dl (14.0-18.0); Mean Corpuscular HGB Conc 30.4 g/dl (31.0-36.0); Mean Corpuscular Hemoglobin 24.6 pg (27.0-33.0); Mean Corpuscular Volume 80.9 fL (80.0-98.0); Mean Platelet Volume 10.6 fL (9.4-12.4); Platelet Count 229 X10*3/uL (160-400); Red Blood Count 4.03 X10*6/uL (4.60-5.80); Red Cell Distribution Width 20.4 % (11.0-16.0); White Blood Count 14.1 X10*3/uL (4.8-10.8)
[2021-12-23 06:44] LABS: Alanine Aminotransferase 17 U/L (0-40); Albumin Level 1.8 g/dL (3.5-5.0); Alkaline Phosphatase 121 U/L (39-117); Anion Gap 9 (12-20); Aspartate Amino Transferase 25 U/L (5-37); Bilirubin Total 0.4 mg/dL (0.0-1.0); Blood Urea Nitrogen 6 mg/dL (9-16); Calcium 7.8 mg/dL (8.4-10.2); Carbon Dioxide 29 mmol/L (22-29); Chloride 103 mmol/L (96-108); Estimated Glomerular Filt Rate > 60; Glucose Fasting 54 mg/dL (60-99); Potassium 4.4 mmol/L (3.3-5.1); Sodium 137 mmol/L (135-145); Total Protein 5.1 g/dL (6.5-8.0)
[2021-12-23 06:58] VITALS: BP 137/78; PULSE 98; RESP 18; TEMP 36.8; O2SAT 95
[2021-12-23 07:10] LABS: Glucose, Whole Blood 41 mg/dL (60-115)
[2021-12-23 07:36] LABS: Glucose, Whole Blood 106 mg/dL (60-115)
--- NOTE | 2021-12-23 07:40 | MHC.PIE ---
Critical lab received from AM labs - blood sugar 54 - snack given, poc blood sugar checked 20 min later, @ 0659 - blood sugar 41. Patient given more drinks/snacks. Blood sugar rechecked - up to 106. Patient asymptomatic through this episode of hypoglycemia.
--- NOTE | 2021-12-23 08:47 | PC.NURSE ---
Patient requesting ambien for sleep. Med had been d/c'd. Dr Mathews made aware - 5mg reordered and given to patient for sleep. Patient medicated w/ good effect. Patient agitated at times, but otherwise cooperative, redirectable. at bedside. Patient incont of stool x1 - semiformed. Full care given - linen changed, bed bath given.
[2021-12-23] MEDS: Diphenoxylate/Atrop 2.5/0.025 TABLET 2 TAB PO (09:52)
[2021-12-23] MEDS: Sodium Bicarbonate 650 MG TABLET PO (09:56)
[2021-12-23] MEDS: Multivitamin TABLET 1 TAB PO (09:56)
[2021-12-23] MEDS: Sertraline HCL 50 MG TABLET PO (09:57)
[2021-12-23] MEDS: Potassium Chloride Packet 20 MEQ PACKET 40 MEQ PO (09:57)
[2021-12-23] MEDS: Lidocaine 4 % Patch ADH..PATCH 1 PATCH TRANSDERMA (10:16)
--- NOTE | 2021-12-23 10:17 | PM.DS ---
DS: Providers Provider Date of Service: 12/23/21 Date of admission: 12/06/21 20:06 Date of discharge: 12/23/21 Primary care physician: Marilu Tabraes Consults: 12/06/21 23:24 Consult to Gastroenterology Routine Consulting Provider: Ck Seth Reason for consultation: hx rectal ca; guaiac positive stool 12/17/21 07:46 Consult to Hematology / Oncology Routine Consulting Provider: Aspen Macias Reason for consultation: persistent diarrhea/pancolitis- rectal CA- chemo effecT? 12/18/21 07:44 Consult to Gastroenterology Routine Consulting Provider: Ck Seth Reason for consultation: persistent colitis despite 10d of ABX 12/20/21 14:14 Consult to Gastroenterology Routine Consulting Provider: Skyler Marie Reason for consultation: f/u persistent post-chemo diarrhea DS: Diagnosis Discharge Diagnosis (1) Colitis: Status: Acute (2) AFTAB (acute kidney injury): Status: Acute (3) Anemia: Status: Acute DS: Summary Hospital Course Hospital Course: 81-year-old male with a past medical history of hypertension, hyperlipidemia, diabetes, CAD, rectal cancer on chemotherapy presented to the hospital with a chief complaint of diarrhea and abdominal discomfort. Abdominal CT done emergency room demonstrated diffuse mural thickening involving the entire colon suspicious for colitis. Of note also a rectal mass with diffuse peritoneal peristalsis was demonstrated as compared to 09/26/2021 study. Hospital course Patient was admitted to the telemetry and started on broad-spectrum antibiotics. GI was consulted who felt colitis may be multifactorial; related to recent chemotherapy with a superimposed infection. Patient continued to have multiple stools per day requiring aggressive volume repletion and electrolyte repletion. He was seen in consult by Nephrology secondary to volume induced acute kidney injury. Labs were followed and sodium bicarbonate was added to his regimen. He slowly progressed, and when stool cultures were negative he low motor was added to his regimen with improvement in symptoms. Approximately 48 hours prior to discharge, he developed low-grade fever for which she was again started on Zosyn. Cultures thus far negative. At this time he is medically stable for discharge and has been deemed appropriate for home PT by PT screen. He will be discharged in the care of his family to be followed up by Dr. Valenzuela for his rectal cancer and his PCP for ongoing issues Time Spent with Patient Time attestation: Total time spent providing and/or coordinating discharge services: Discharge coordination time: Greater than 30 minutes Quality: Safe Use of Opioids Does Pt have an Active Cancer Diagnosis on the Problem List?: No Quality: Stroke Does the patient have a stroke diagnosis?: No Physical Exam Vital Signs: Vital Signs: Last Vital Signs Temp 98.3 F 12/23/21 06:58 Pulse 98 12/23/21 06:58 Resp 18 12/23/21 06:58 BP 137/78 12/23/21 06:58 Pulse Ox 95 12/23/21 06:58 BMI result Body Mass Index 25.7 Const: Other: Awake alert oriented x3 no acute distress Resp: Other: Clear to auscultation bilaterally no rales rhonchi wheezes Cardio: Other: No S4; positive S1-S2; no S3 murmurs sounds or gallops GI: Other: Soft nontender nondistended normoactive bowel sounds Extrem: Other: No edema bilaterally DS: Data Data Completed and Pending Completed studies during hospitalization [Text1]: Procedures Drainage of Mesentery, Percutaneous Approach, Diagnostic (09/26/21) Excision of Mesentery, Percutaneous Approach, Diagnostic (09/26/21) Excision of Rectum, Via Natural or Artificial Opening Endoscopic, Diagnostic (09/26/21) Labs on day of discharge: Laboratory Results - last 24 hr 12/22/21 12/22/21 12/22/21 10:58 15:49 20:22 WBC RBC Hgb Hct MCV MCH MCHC RDW Plt Count MPV Absolute Nucleated RBC Nucleated RBC % (auto) Sodium Potassium Chloride Carbon Dioxide Anion Gap BUN Creatinine Estim Creat Clear Calc Estimated GFR POC Glucose 198 H 146 H 189 H Fasting Glucose Calcium Total Bilirubin AST ALT Alkaline Phosphatase Total Protein Albumin 12/23/21 12/23/21 12/23/21 05:46 05:46 06:59 WBC 14.1 H RBC 4.03 L Hgb 9.9 L Hct 32.6 L MCV 80.9 MCH 24.6 L MCHC 30.4 L RDW 20.4 H Plt Count 229 MPV 10.6 Absolute Nucleated RBC 0.000 Nucleated RBC % (auto) 0.0 Sodium 137 Potassium 4.4 Chloride 103 Carbon Dioxide 29 Anion Gap 9 L BUN 6 L Creatinine 0.97 Estim Creat Clear Calc 48.0 Estimated GFR > 60 POC Glucose 41 L* Fasting Glucose 54 L* Calcium 7.8 L Total Bilirubin 0.4 AST 25 ALT 17 Alkaline Phosphatase 121 H Total Protein 5.1 L Albumin 1.8 L 12/23/21 07:35 WBC RBC Hgb Hct MCV MCH MCHC RDW Plt Count MPV Absolute Nucleated RBC Nucleated RBC % (auto) Sodium Potassium Chloride Carbon Dioxide Anion Gap BUN Creatinine Estim Creat Clear Calc Estimated GFR POC Glucose 106 Fasting Glucose Calcium Total Bilirubin AST ALT Alkaline Phosphatase Total Protein Albumin Discharge Plan Discharge Patient Disposition: Home Health Service Discharge Diagnosis: Colitis Referrals: Marilu Tabares [Primary Care Provider] - 1 Week Discharge Medications: New diphenoxylate-atropine 2.5-0.025 mg Tablet 2 tab PO QID Qty: 120 0RF potassium chloride 20 mEq Packet 40 meq PO BID Qty: 14 0RF sodium bicarbonate 650 mg Tablet 650 mg PO TID Qty: 90 0RF amoxicillin-pot clavulanate 875-125 mg tablet 1 tab PO BID Qty: 10 0RF Continued capecitabine [Xeloda] 500 mg Tablet 1,500 mg PO BID Qty: 84 6RF Rx Instructions: for 14 days per 21-day cycle; must administer with water 30 minutes after a meal ondansetron 4 mg Tablet,Disintegrating 4 mg PO Q6H PRN (Reason: Nausea) Qty: 30 3RF multivitamin Tablet 1 tab PO DAILY 0RF valsartan-hydrochlorothiazide 160-12.5 mg tablet 1 tab PO DAILY 0RF naproxen 500 mg tablet 1 tab PO BID 0RF Lantus Solostar U-100 Insulin 100 unit/mL (3 mL) insulin pen 20 unit subcut DAILY 0RF Biotene Moisturizing Mouth [employer] [facility],Non-Aerosol 1 spray MUCOUS MEMBRANE Q1H PRN (Reason: Dry Mouth) 0RF Trulicity 1.5 mg/0.5 mL pen injector 1.5 mg subcut MORALES@0900 0RF oxycodone-acetaminophen 5-325 mg tablet 1 tab PO BID PRN (Reason: Pain) 0RF zolpidem 5 mg tablet 5 mg PO BEDTIME PRN (Reason: Insomnia) 0RF aspirin 81 mg tablet,delayed release (DR/EC) 81 mg PO DAILY 0RF metformin 500 mg tablet 1,000 mg PO BID 0RF sertraline 50 mg tablet 50 mg PO DAILY 0RF clopidogrel 75 mg tablet 75 mg PO DAILY Qty: 90 4RF pravastatin 10 mg tablet 10 mg PO BEDTIME 0RF pantoprazole 40 mg tablet,delayed release (DR/EC) 40 mg PO DAILY@0630 0RF albuterol sulfate 90 mcg/actuation HFA aerosol inhaler 2 inh inhalation Q6H PRN (Reason: shortness of breath or wheezing) 30 Days Qty: 18 12RF Trelegy Ellipta 200-62.5-25 mcg blister with device 1 inh inhalation DAILY 30 Days Qty: 60 12RF Discharge Orders: Discharge Order (Routine); Ordered 12/23/21 Ordered By: Blaise Peters Diet: advance to usual diet Activity on Discharge: As tolerated Stand Alone Forms: Patient Portal Discharge page Care Plan Goals: Complete course of Augmentin twice daily for 5 days. Utilize Lomotil as needed for diarrhea. Add sodium bicarbonate tabs 2 your pill regimen Health Concerns: Follow-up with PCP in 1 week; call Dr. Valenzuela's office for follow-up Plan of Treatment: Continue to stay mobile, ambulate with assist 3-4 times daily around her house Assessment: See discharge summary
--- NOTE | 2021-12-23 11:09 | MHC.CM.PN ---
Patient has been medically cleared for dc to home today, with services. A referral was made to Maxine PAUL, who has been made aware of today's dc. Last IMM addressed on 12/21/21.
[2021-12-23 11:34] LABS: Glucose, Whole Blood 188 mg/dL (60-115)
--- NOTE | 2021-12-23 11:53 | W.MHC.F2F ---
Service Date Service Date: 12/23/21 Encounter Date of encounter: 12/23/21 Encounter: Hospitalization Reasons for Services Signs and symptoms assessed: Patient with history of colitis secondary to infection in chemotherapy with severe deconditioning Reason for care home: monitoring of unstable blood sugar and medication management Reason for physical therapy: home safety and mobility and gait/transfer training Homebound: Leaving the home is medically contraindicated at this time without the asist of a device and/or another person due th the listed conditions above and below. Reason homebound: unsteady gait / fall risk, shortness of breath with minimal effort, poor balance / fall risk and weakness related to hospital stay Certification: Based on the above findings, I certify that this patient is confined to the home and needs intermittent care home care, physical therapy and/or speech therapy, or continues to need occupational therapy. The patient is under my care, and I have initiated the establishment of the plan of care. The patient will be followed by a physician who will periodically review the plan of care.
[2021-12-23 12:00] VITALS: BP 103/54; PULSE 94; RESP 20; TEMP 36.9; O2SAT 94
--- NOTE | 2021-12-23 14:26 | PC.NURSE ---
Patient assisted to bathroom steady gait with walker. Patient demanded to be left alone to move bowels. Staff and standing outside door. Evangeline a crashing sound. entered room to find patient sitting on floor next to toilet. Assisted to stand by NATURAL RESOURCES EXTENSION EDUCATOR. Patient denies loss of consciousness or hitting head. Only noted injury is abrasion to left mid back. Patient able to walk back to bed with walker steady gait without difficulty. Biomedical Photographer and MD notified of fall. High fall risk precautions for patient with red socks, red bracelet, bed alarm and telemonitor in place.
== END 2021-12-23 14:27 | disposition home health service (06) | DRG 393 ==
LOC: HO.ED 17:05 → HO.EDOVER 20:32 → HO.IMC 12-08 09:09
PROVIDERS: Family Medicine; Internal Medicine; Admitting Provider Hospitalist; Emergency Provider Emergency Medicine; PCP Nurse Practitioner; Visit Provider Hospitalist
DX: K52.1 Toxic gastroenteritis and colitis (principal); E11.10 Type 2 diabetes mellitus with ketoacidosis without coma; E43 Unspecified severe protein-calorie malnutrition; N17.9 Acute kidney failure, unspecified; C20 Malignant neoplasm of rectum; A09 Infectious gastroenteritis and colitis, unspecified; E78.5 Hyperlipidemia, unspecified; J41.8 Mixed simple and mucopurulent chronic bronchitis; E83.42 Hypomagnesemia; D63.0 Anemia in neoplastic disease; I25.10 Atherosclerotic heart disease of native coronary artery without angina pectoris; T45.1X5A Adverse effect of antineoplastic and immunosuppressive drugs, initial encounter; E87.6 Hypokalemia; Z68.25 Body mass index [BMI] 25.0-25.9, adult; Z20.822 Contact with and (suspected) exposure to COVID-19; Z87.891 Personal history of nicotine dependence; Z79.4 Long term (current) use of insulin; Z79.82 Long term (current) use of aspirin; Z79.84 Long term (current) use of oral hypoglycemic drugs; Z79.899 Other long term (current) drug therapy
CPT/HCPCS: 36415; 71046; 72131; 74176; 74177; 80048; 80053; 80076; 81001; 82009; 82272; 82947; 83605; 83690; 83735; 84145; 85007; 85025; 85027; 86140; 87040; 87045; 87046; 87070; 87086; 87205; 87493; 87502; 87633; 87635; 89055; 97116; 97162; 99285; J0456; J0696; J2060; J2405; J2543; J3475; Q0163; Q9967

== ENCOUNTER 2022-03-03 08:22 | Day surgery (SDC) | payer OTHER, SELFPAY ==
--- NOTE | ~2022-03-03 | IR_ITS ---
Examination: Port catheter placement. CLINICAL HISTORY: Rectal cancer to get chemotherapy. PROCEDURES: 1. Real-time ultrasound-guided access into the right internal jugular vein after documentation of selected vessel patency, and permanent imaging storing in the patient records. 2. Placement of 6.6 Yi port catheter. FLUOROSCOPY TIME: 1.3 minutes DAP: 211 cGy centimeter squared PROCEDURE NOTE: Informed consent was obtained from the patient prior to the procedure. During this process, the procedure and potential alternatives were explained along with the intended outcome and benefits. The risks of the procedure, including the possibility of an unsuccessful procedure, as well as the risk of not doing the procedure, were discussed. The patient was given the opportunity to ask questions regarding the procedure and appeared competent to make decisions. A signed consent form documenting this discussion was placed in the medical record. A time-out procedure was performed. The patient was placed supine on the fluoroscopy table. Ultrasound evaluation for vessel patency about the neck was performed with the right internal jugular vein being seen to be patent. The right neck and chest were prepped and draped in usual sterile fashion. A director of personnel image was taken. ?All elements of maximal sterile barrier technique followed including use of cap, mask, sterile gown, sterile gloves, a sterile full body drape and hand hygiene. Also followed skin preparation with 2% chlorhexidine for cutaneous antisepsis, and sterile ultrasound preparation with sterile gel and probe cover when applicable.? Venous access was achieved into the right IJ vein using ultrasound and fluoroscopic guidance with a 5 F Micropuncture set. A small skin trang was made at the access site. The J-wire was advanced to the IVC to maintain access during dissection of the pocket and the tunneling process. Lidocaine with 1:100,000 epinephrine was used for local anesthetic and a 3 cm incision was made. The pocket was dissected to the size of the port and then a subcutaneous tunnel was made to connect to the venotomy site. The pocket was flushed with normal saline. The catheter was sized and pulled through the tunnel. It was connected to the port reservoir and sutured within the pocket with 3.0 monofilament. The micropuncture set sheath in the IJ was exchanged over the wire for a peel-away sheath. The inner dilator and J wire were removed and the catheter was advanced through the peel away sheath. The peel away sheath was subsequently removed. The catheter tip is located at the superior right atrium. The port was aspirated and flushed, then packed with 5 mL of heparin solution. The incision site was sutured using 4.0 resorbable suture for subcuticular layer. Tissue adhesive was then placed over the internal jugular puncture site and the port incision site. FINDINGS: 1. Patent right IJ vein. 2. Tip of catheter in the superior right atrium. 3. Catheter flushes and aspirates well. 4. No pneumothorax. IR/IR cvc insert tunnel w prt/mixing plant operator IMPRESSION: Successful and uncomplicated placement of an 6.6 Fr port in the right chest.
--- NOTE | 2022-03-03 07:32 | PC.NURSE ---
left message on patients phone to call if coming or not arrival krunal 7am
[2022-03-03 08:02] VITALS: BMI 23.0
[2022-03-03 08:47] VITALS: BP 112/69; PULSE 102; RESP 19; TEMP 36.1; O2SAT 98
[2022-03-03 08:47] LABS: Glucose, Whole Blood 155 mg/dL (60-115)
[2022-03-03 08:55] LABS: MANUAL DIFF FLAG NO
[2022-03-03 08:57] LABS: Basophils Percent Auto 0.3 % (0-2); Eosinophils Absolute Auto 0.2 X10*3/uL (0.0-0.4); Hematocrit 34.7 % (42.0-52.0); Hemoglobin 10.4 g/dl (14.0-18.0); Imm Gran Abs Auto 0.03 X10*3/uL (0.00-0.03); Imm Gran Pct Auto 0.3 % (0.0-0.4); Lymphocytes Percent Auto 36.9 % (20-40); Mean Corpuscular Hemoglobin 23.3 pg (27.0-33.0); Mean Corpuscular Volume 77.8 fL (80.0-98.0); Mean Platelet Volume 10.8 fL (9.4-12.4); Monocytes Absolute Auto 1.2 X10*3/uL (0.1-1.2); Monocytes Percent Auto 10.5 % (2-11); Neutrophils Absolute Auto 5.5 x10*3/uL (2.0-8.3); Platelet Count 354 X10*3/uL (160-400); Red Blood Count 4.46 X10*6/uL (4.60-5.80); Red Cell Distribution Width 18.6 % (11.0-16.0); White Blood Count 10.9 X10*3/uL (4.8-10.8)
[2022-03-03 09:03] LABS: Prothrombin Time 11.7 SEC (10.0-13.1)
[2022-03-03 09:06] LABS: Partial Thromboplastin Time 28.3 SEC (26.0-36.4)
[2022-03-03] MEDS: Lidocaine HCl 1 % 20 ML VIAL 10 ML INFILTRATI (10:37)
[2022-03-03] MEDS: Lidocaine HCl 2% PF/Epi 1:200 20 ML VIAL 10 ML INFILTRATI (10:39)
[2022-03-03] MEDS: Heparin Sodium,Porcine Flush 500 UNIT/5 ML SYRINGE IVFLUSH (11:09)
[2022-03-03 11:35] VITALS: BP 116/65; PULSE 97; RESP 16; TEMP 36.7; O2SAT 95
[2022-03-03 11:50] VITALS: BP 111/67; PULSE 99; RESP 16; O2SAT 95
[2022-03-03 12:05] VITALS: BP 101/62; PULSE 91; RESP 18; O2SAT 95
[2022-03-03 12:20] VITALS: BP 113/65; PULSE 93; RESP 18; TEMP 36.6; O2SAT 96
== END 2022-03-03 12:49 | disposition home or self-care (01) ==
PROVIDERS: PCP Nurse Practitioner; Visit Provider Radiology Diagnostic Radiology
DX: Z45.2 Encounter for adjustment and management of vascular access device (principal); C20 Malignant neoplasm of rectum; J44.9 Chronic obstructive pulmonary disease, unspecified; I10 Essential (primary) hypertension; E78.5 Hyperlipidemia, unspecified; E11.9 Type 2 diabetes mellitus without complications; Z79.4 Long term (current) use of insulin; Z79.82 Long term (current) use of aspirin; Z87.891 Personal history of nicotine dependence; Z79.899 Other long term (current) drug therapy
CPT/HCPCS: 36415; 36561; 82947; 85025; 85610; 85730; 99152; 99153; C1769; C1788; J0690; J1642; J2250; J3010

== ENCOUNTER 2022-04-27 09:55 | Outpatient (REF) | payer OTHER, SELFPAY ==
--- NOTE | ~2022-04-27 | CT_ITS ---
EXAMINATION: CT CHEST WITH CONTRAST CLINICAL INFORMATION: Rectal cancer COMPARISON: Previous chest x-ray most recent December 2021 and PET/CT October 2021 TECHNIQUE: Multidetector volumetric CT imaging of the chest was obtained after the administration of 85 mL of Omnipaque 350 intravenous contrast without immediate adverse reactions. Axial MIP volume rendering provided. Sagittal and coronal reformatted images were obtained. This CT examination was performed using dose optimization techniques as appropriate, variously including the following: *Automated exposure control *Adjustment of mA and/or kV according to patient size (this includes techniques or standardized protocols for targeted exams where dose is matched to indication/reason for exam; i.e. extremities or head) *Use of iterative reconstruction technique DLP: 94 mGy-cm FINDINGS: LUNGS: There are innumerable pulmonary nodules seen throughout both lungs. Nodules appear increased in size and number from PET CT October 2021. Largest right pulmonary nodules measures 8 mm in the right upper lobe at axial image 58 series 7 and 7 mm in the right lower lobe axial image 185 series 7. Largest left pulmonary nodules measure 5 mm in the peripheral or subpleural left upper lobe axial image 182 series 7 and left lower lobe axial image 201 series 7. There is mild bronchiectasis seen at the lung bases. There is bibasilar subsegmental atelectasis. No endobronchial or endotracheal lesion. MEDIASTINUM: There is a right jugular port with tip projecting over the cavoatrial junction. The heart is upper normal in size. No pericardial effusion. No enlarged hilar or mediastinal lymph nodes are CORONARY ARTERY CALCIFICATION: Mild PLEURA: There is no pleural effusion. No pleural mass or thickening. AXILLA: No lymphadenopathy. UPPER ABDOMEN: See abdominal and pelvic CT report from the same day. OSSEOUS STRUCTURES: There are degenerative changes of the spine. CT/CT chest w IV con IMPRESSION: Innumerable bilateral pulmonary nodules increased in size and number from October 2021 PET/CT. Appearance is concerning for metastatic disease. Fleischner guidelines were followed.
--- NOTE | ~2022-04-27 | CT_ITS ---
EXAMINATION: CT ABDOMEN AND PELVIS WITH CONTRAST CLINICAL INFORMATION: Rectal cancer with metastatic disease to the liver COMPARISON: Previous CT of the abdomen and pelvis most recent December 2021 TECHNIQUE: Multidetector volumetric images were obtained from the superior aspect of the liver through the pubic symphysis following administration 85 mL of Omnipaque 350 intravenous contrast. Sagittal and coronal reformatted images were obtained on the technologist's workstation. Oral contrast: Yes This CT examination was performed using dose optimization techniques as appropriate, variously including the following: *Automated exposure control *Adjustment of mA and/or kV according to patient size (this includes techniques or standardized protocols for targeted exams where dose is matched to indication/reason for exam; i.e. extremities or head) *Use of iterative reconstruction technique DLP: 289 mGy-cm FINDINGS: LUNG BASES: The visualized lung bases are unremarkable. LIVER, GALLBLADDER, AND BILIARY TREE: The liver is low in attenuation suggestive of fatty infiltration. There is a new low-attenuation lesion high in the dome of liver measuring 5 mm axial image 9 series 3. There is a new 4 mm low-attenuation lesion in the posterior segment of the right lobe of the liver axial image 15 series 3. There are increasing peritoneal subcapsular implants adjacent to the liver surface and increasing ascites. There is a 5 mm low-attenuation lesion in the posterior segment of the right lobe of the liver axial image 25 series 3, question related to subcapsular peritoneal implant. The gallbladder is normal. There is no biliary duct dilatation. PANCREAS: Unremarkable. SPLEEN: There are increasing peritoneal implants and ascites surrounding the spleen. ADRENAL GLANDS: Unremarkable. KIDNEYS AND URETERS: The kidneys are normal in size, shape, and attenuation. No hydronephrosis, hydroureter, or calculi seen. No perinephric stranding. BLADDER: Unremarkable. GASTROINTESTINAL TRACT: Rectal mass may be increased in size. This measures 4.5 x 4.7 cm in transverse and AP dimension axial image 80 series 3 compared to 3 x 4 cm december 2021. This appears unchanged and longitudinal dimension measuring approximately 7.5 cm. This abuts the posterior prostate gland. Clear fat plane between the rectal mass in the prostate gland is not seen. There is normal perirectal soft tissue and perineal implants versus small perirectal lymph nodes. This appears increased as well. There is diverticulosis of the colon. There is question of mild wall thickening of the sigmoid colon. There is evidence of constipation. The appendix is normal. The small bowel is normal. There is increased soft tissue seen in the proximal stomach. There is wall thickening of the distal stomach. There is increasing ascites. There is increasing peritoneal disease. Greatest peritoneal involvement appears to be the greater omentum. There is abnormal soft tissue in the presacral space that appears increased. ABDOMINAL WALL: There is a small umbilical hernia. There is low-attenuation in the hernia questionable fluid versus peritoneal disease. LYMPH NODES: There are small retroperitoneal lymph nodes in the abdomen and pelvis. These appear increased. There are enlarged perirectal lymph nodes that appear increased. VASCULAR: Unremarkable. PELVIC VISCERA: The prostate gland does not appear enlarged. Rectal mass abuts the posterior wall of the prostate gland as described above. OSSEOUS STRUCTURES: There are degenerative changes of the spine and hip joints. No suspicious bone lesion or fracture. CT/CT abdomen pelvis w IV con IMPRESSION: Interval increase in size in the rectal mass and perirectal lymphadenopathy. Rectal mass abuts the posterior wall of the prostate gland. Interval increase in peritoneal disease and ascites. New small liver lesions. Diverticulosis of the colon and question mild wall thickening of the distal sigmoid colon. New wall thickening of the distal stomach. Filling defect in the fundus of the stomach, uncertain whether this represents food debris. Fleischner guidelines were followed.
[2022-04-27] MEDS: iohexoL 350 MG/ML 100 ML INFUS..BTL 85 ML IV (13:18)
== END 2022-04-27 09:56 | disposition home or self-care (01) ==
LOC: HO.CT 09:55
PROVIDERS: Visit Provider Internal Medicine Medical Oncology
DX: K62.89 Other specified diseases of anus and rectum (principal)
CPT/HCPCS: 71260; 74177; Q9967

== ENCOUNTER 2022-05-02 14:27 | Emergency (ER) | payer OTHER, SELFPAY ==
--- NOTE | ~2022-05-02 | CT_ITS ---
EXAMINATION: CTA CHEST PE STUDY CLINICAL INFORMATION: R sided pain hx of metastatic rectal cancer COMPARISON: No pertinent prior studies are available for comparison. TECHNIQUE: Prior to contrast administration, noncontrast localization images were obtained. After the administration of 65 mL of Omnipaque nonionic IV contrast, contiguous thin slice helical images were obtained through the thorax. Reformatted MIP images in the coronal and sagittal planes were obtained at the acquisition workstation. This CT examination was performed using dose optimization techniques as appropriate, variously including the following: *Automated exposure control *Adjustment of mA and/or kV according to patient size (this includes techniques or standardized protocols for targeted exams where dose is matched to indication/reason for exam; i.e. extremities or head) *Use of iterative reconstruction technique DLP: 209 mGy-cm. FINDINGS: The bolus timing on this study was acceptable for visualization of the pulmonary arterial tree. There are no intraluminal pulmonary arterial filling defects present to suggest pulmonary embolism. Innumerable tiny pulmonary nodules are seen bilaterally. Diffuse subpleural nodules are seen but most of these are parenchymal in nature. No significant hilar or mediastinal adenopathy. There is no evidence of pleural effusion or pneumothorax. The heart is normal in size. No evidence of ventricular septal bowing or right heart strain. Great vessels are normal. Right-sided chest port with tip near the cavoatrial junction. Otherwise the mediastinum is unremarkable. There is no pericardial effusion or pericardial thickening. Limited evaluation of the upper abdominal viscera demonstrates small volume ascites and carcinomatosis.. CT/CT angio chest PE protocol IMPRESSION: No evidence for pulmonary emboli. Innumerable small pulmonary nodules are seen bilaterally. Carcinomatosis and ascites seen in the upper abdomen. VTE: Negative
[2022-05-02 14:35] VITALS: BP 100/64; PULSE 104; RESP 15; TEMP 36.6; O2SAT 95; BMI 23.7
--- NOTE | 2022-05-02 14:36 | ECG_ITS ---
Test Reason : CHEST PAIN Blood Pressure : / mmHG Vent. Rate : 103 BPM Atrial Rate : 103 BPM P-R Int : 154 ms QRS Dur : 102 ms QT Int : 372 ms P-R-T Axes : 025 -13 042 degrees QTc Int : 487 ms Sinus tachycardia with occasional Premature ventricular complexes Septal infarct (cited on or before 26-SEP-2021) Inferior infarct , age undetermined Abnormal ECG When compared with ECG of 26-SEP-2021 13:28, VT interval has decreased Inferior infarct is now Present Heart rate has increased Referred By: Leena Hassan Electronically Signed By:PEGGY MIKE
--- NOTE | 2022-05-02 14:37 | ED.CHESTPAIN ---
HPI - Chest Pain General Chief Complaint: Chest Pain Stated Complaint: sent from oncology Time Seen by Provider: 05/02/22 14:35 Source: patient and old records reviewed Mode of arrival: wheelchair Limitations: no limitations History of Present Illness HPI narrative: 81 yo male with PMH of DM, anemia, rectal cancer with mets in abdomen per his reports, just started back on IV chemo - last infusion was 1 week ago. He went to see Dr. Valenzuela his oncologist today and told her for about the past week he has sharp R sided chest pain worse with cough, breathing, movements. Denies trauma. Had CT scans on 04/27 of chest and abdomen - multiple lung nodules concerning for mets, abdominal disease has increased with ascites overall increased disease and burden - patient was notified of these findings after he asked about his CT results. MD complaint: chest pain Onset (ago): week(s) (1) Timing of current episode: constant Prior episodes: No Onset: during rest and during exertion Pain location: right chest Pain radiation: none Severity: moderate Quality: sharp Relieving factors: remaining still Exacerbating factors: inspiration, palpation, movement and other (coughing) Context: other (rectal cancer with lung mets) Associated symptoms: dyspnea Treatment prior to arrival: none Related Data Home Medications Medication Instructions Recorded Confirmed aspirin 81 mg tablet,delayed 81 mg PO DAILY 07/06/20 03/31/22 release metformin 500 mg tablet 1,000 mg PO BID 07/06/20 03/31/22 oxycodone-acetaminophen 5 mg-325 1 tab PO BID PRN Pain 07/06/20 03/31/22 mg tablet sertraline 50 mg tablet 50 mg PO DAILY 07/06/20 03/31/22 zolpidem 5 mg tablet 5 mg PO BEDTIME PRN Insomnia 07/06/20 03/31/22 pantoprazole 40 mg tablet,delayed 40 mg PO DAILY@0630 02/15/21 03/31/22 release (Protonix) pravastatin 10 mg tablet 10 mg PO BEDTIME 02/15/21 03/31/22 multivitamin 1 tab PO DAILY 09/26/21 03/31/22 dulaglutide 1.5 mg/0.5 mL 1.5 mg subcut MORALES@0900 12/06/21 03/31/22 subcutaneous pen injector (Trulicity) insulin glargine 100 unit/mL (3 20 unit subcut DAILY 12/06/21 03/31/22 mL) subcutaneous pen (Lantus Solostar U-100 Insulin) naproxen 500 mg tablet 1 tab PO BID 12/06/21 03/31/22 saliva stimulant comb. no.3 1 spray mucous membrane Q1H PRN 12/06/21 03/31/22 (Biotene Moisturizing Mouth Dry Mouth mucosal spray) valsartan 160 1 tab PO DAILY blood pressure 12/06/21 03/31/22 mg-hydrochlorothiazide 12.5 mg tablet (Diovan HCT) clopidogrel 75 mg tablet (Plavix) 75 mg PO DAILY 02/22/22 03/31/22 diphenoxylate-atropine 2.5 2 tab PO QID 02/22/22 03/31/22 mg-0.025 mg tablet (Lomotil) Previous Rx's Medication Instructions Recorded albuterol sulfate 90 mcg/actuation 2 inh inhalation Q6H PRN shortness 02/15/21 aerosol inhaler of breath or wheezing 30 days #18 grams fluticasone fur. 200 mcg-umeclid 1 inh inhalation DAILY 30 days #60 03/25/21 62.5 mcg-vilant 25 mcg ea inhalat.powder (Trelegy Ellipta) ondansetron 4 mg disintegrating 4 mg PO Q6H PRN Nausea #30 tabs 10/26/21 tablet dexamethasone 4 mg tablet 4 mg PO BID #60 tabs 04/12/22 (Decadron) loperamide 2 mg capsule 2 mg PO Q6H PRN Diarrhea #60 caps 04/12/22 ondansetron 8 mg disintegrating 8 mg PO Q8H #50 tabs 04/12/22 tablet amoxicillin 500 mg-potassium 1 tab PO Q12H #20 tabs 04/26/22 clavulanate 125 mg tablet (Augmentin) Allergies Allergy/AdvReac Type Severity Reaction Status Date / Time No Known Allergies Allergy Verified 03/31/22 11:38 Review of Systems Review of Systems: Constitutional : No Fever, No Chills ENT/Mouth : No sore throat, No Rhinorrhea, No Swallowing Difficulty Eyes: No Eye Pain, No Swelling, No Redness Cardiovascular : pos Chest Pain, positive SOB, No Orthopnea, no Edema Respiratory : pos Cough, No Sputum, No Wheezing, positive dyspnea Gastrointestinal : No Nausea, No Vomiting, No Diarrhea, No abdominal Pain, No Hematochezia, No Melena Genitourinary : No Dysuria, No Urinary Frequency, No Hematuria Musculoskeletal : No joint pain, No Myalgias Skin : No Skin Lesions, No rash Neuro : No Weakness, No Numbness, No Dizziness, No Headache Psych : No Anxiety/Panic, No Depression Heme/Lymph: No Bruising, No Lymphadenopathy Endocrine : No Polyuria, No Polydipsia All other systems reviewed and are negative [facility] Past Medical History Medical History (Updated 05/02/22 @ 15:51 by Leena Hassan DO) COPD (chronic obstructive pulmonary disease) Rectal cancer Stomach cancer Surgical History Hx of colonoscopy Family History Family History Family/Other Medical history reviewed with no changes Mother Breast cancer Sister Breast cancer Social History Social History Household Members: Spouse Housing: Apartment Are you a primary md do resident urgent care to a significant other at home: No Do you presently have visiting nurse or other home services: Yes (chiropractor assistant) Alcohol intake: current Alcohol intake frequency: does not drink Patient Tobacco Use Status: Former Tobacco user Quit Date: 40 years ago Tobacco use type: Cigarette Years Smoked: 20 years e-Cigarette/Vaping Use: Former Use Advance Directives: No Advance Directives Information Provided: No service: No Current occupational status: retired Physical Exam Vital Signs: Vital Signs: Last Vital Signs Temp 99.1 F 05/02/22 15:28 Pulse 104 H 05/02/22 14:35 Resp 15 05/02/22 14:35 BP 100/64 05/02/22 14:35 Pulse Ox 95 05/02/22 14:35 O2 Del Method 05/02/22 14:35 BMI result Body Mass Index 23.7 Appearance: Alert. Oriented X3. No acute distress. Eyes: Pupils equal, round and reactive to light. ENT: Pharynx normal. Neck: Normal inspection. Neck supple. CVS: tachycardic heart rate and rhythm. Pulses normal. Respiratory: No respiratory distress. Breath sounds very diminished R side with splinting noted Abdomen: Soft and non-tender. palpable firm area felt midline abdomen but he reports it is old and doesn't hurt Skin: Skin warm and dry. Normal skin color. Normal skin turgor. Extremities: No lower extremity edema. No calf ttp Neuro: Oriented X 3. No motor deficit. No sensory deficit. Course Course Course Narrative: currently no signs of infection other than WBC count could be due to cancer or chemo - cultures and lactic acid ordered. CT scans pending. at this time temp is 99.1 and HR above 100 infection suspected 329pm - cultures, lactic acid and cefepime ordered. signed out to Dr. Dimas pending CTA read and admission. MDM - Chest Pain MDM Narrative Medical decision making narrative: 81 yo male with hx of rectal cancer on chemo last chemo 1 week ago - mets to liver / lung/ abdomen , cardiomyopathy, DM, anemia, COPD here with c/o R sided pleuritic sharp chest pain for 1 week as well as cough at this time labs, IV pain medications, CTA for PE/effusion. Dispo per results and findings. Lab Data Result diagrams: 05/02/22 14:51 05/02/22 14:51 Labs: Lab Results 05/02/22 05/02/22 05/02/22 Range/Units 14:51 14:51 14:51 WBC 35.2 H* (4.8-10.8) X10*3/uL RBC 4.74 (4.60-5.80) X10*6/uL Hgb 10.6 L (14.0-18.0) g/dl Hct 34.5 L (42.0-52.0) % MCV 72.8 L (80.0-98.0) fL MCH 22.4 L (27.0-33.0) pg MCHC 30.7 L (31.0-36.0) g/dl RDW 21.5 H (11.0-16.0) % Plt Count 249 (160-400) X10*3/uL MPV 10.4 (9.4-12.4) fL Immature Gran % (Auto) Cancelled Neut % (Auto) Cancelled Lymph % (Auto) Cancelled Robertson % (Auto) Cancelled Eos % (Auto) Cancelled Baso % (Auto) Cancelled Lymph # (Auto) Cancelled Robertson # (Auto) Cancelled Eos # (Auto) Cancelled Baso # (Auto) Cancelled Abs Immat Gran (auto) Cancelled Absolute Neuts (auto) Cancelled Absolute Nucleated RBC 0.020 H (0.0-0.012) X10*3/uL Nucleated RBC % (auto) 0.1 (0.0-0.2) /100WBC Neutrophils % (Manual) 58 (45-73) % Band Neutrophils % 32 H (3-5) % Lymphocytes % (Manual) 3 L (20-40) % Monocytes % (Manual) 5 (2-11) % Eosinophils % (Manual) 2 (0-4) % Abs Neuts (Manual) 31.7 H (2.0-8.3) X10*3/uL Lymphocytes # (Manual) 1.1 L (1.2-4.9) X10*3/uL Monocytes # (Manual) 1.8 H (0.1-1.2) X10*3/uL Eosinophils # (Manual) 0.7 H (0.0-0.4) X10*3/uL Platelet Estimate NORMAL (NORMAL) Large Platelets PRESENT Plt Morphology Comment NOTED RBC Morphology NOTED Hypochromasia 1+ (5-14) /OIF Microcytosis 1+ (5-14) /OIF PT 13.1 (10.0-13.1) SEC INR 1.1 (0.9-1.1) APTT 25.0 L (26.0-36.4) SEC Sodium 135 (135-145) mmol/L Potassium 4.0 (3.3-5.1) mmol/L Chloride 100 (96-108) mmol/L Carbon Dioxide 22 (22-29) mmol/L Anion Gap 17 (12-20) BUN 26 H (9-16) mg/dL Creatinine 1.19 (0.5-1.4) mg/dL Estim Creat Clear Calc 39.1 Estimated GFR 59 Random Glucose 372 H* (60-115) mg/dL Lactic Acid (0.5-2.0) mmol/L Calcium 8.9 (8.4-10.2) mg/dL Magnesium 1.6 (1.6-2.6) mg/dL Total Bilirubin 0.2 (0.0-1.0) mg/dL Direct Bilirubin 0.2 (0.0-0.5) mg/dL AST 14 (5-37) U/L ALT 12 (0-40) U/L Alkaline Phosphatase 207 H D (39-117) U/L Troponin I High Sens (<3.5-35.0) ng/L Total Protein 6.8 (6.5-8.0) g/dL Albumin 3.5 (3.5-5.0) g/dL Lipase 15 (8-78) U/L COVID-19 (SILVANO) (Negative) COVID-19 Clin Com 05/02/22 05/02/22 05/02/22 Range/Units 14:51 14:51 15:30 WBC (4.8-10.8) X10*3/uL RBC (4.60-5.80) X10*6/uL Hgb (14.0-18.0) g/dl Hct (42.0-52.0) % MCV (80.0-98.0) fL MCH (27.0-33.0) pg MCHC (31.0-36.0) g/dl RDW (11.0-16.0) % Plt Count (160-400) X10*3/uL MPV (9.4-12.4) fL Immature Gran % (Auto) Neut % (Auto) Lymph % (Auto) Robertson % (Auto) Eos % (Auto) Baso % (Auto) Lymph # (Auto) Robertson # (Auto) Eos # (Auto) Baso # (Auto) Abs Immat Gran (auto) Absolute Neuts (auto) Absolute Nucleated RBC (0.0-0.012) X10*3/uL Nucleated RBC % (auto) (0.0-0.2) /100WBC Neutrophils % (Manual) (45-73) % Band Neutrophils % (3-5) % Lymphocytes % (Manual) (20-40) % Monocytes % (Manual) (2-11) % Eosinophils % (Manual) (0-4) % Abs Neuts (Manual) (2.0-8.3) X10*3/uL Lymphocytes # (Manual) (1.2-4.9) X10*3/uL Monocytes # (Manual) (0.1-1.2) X10*3/uL Eosinophils # (Manual) (0.0-0.4) X10*3/uL Platelet Estimate (NORMAL) Large Platelets Plt Morphology Comment RBC Morphology Hypochromasia /OIF Microcytosis /OIF PT (10.0-13.1) SEC INR (0.9-1.1) APTT (26.0-36.4) SEC Sodium (135-145) mmol/L Potassium (3.3-5.1) mmol/L Chloride (96-108) mmol/L Carbon Dioxide (22-29) mmol/L Anion Gap (12-20) BUN (9-16) mg/dL Creatinine (0.5-1.4) mg/dL Estim Creat Clear Calc Estimated GFR Random Glucose (60-115) mg/dL Lactic Acid 1.4 (0.5-2.0) mmol/L Calcium (8.4-10.2) mg/dL Magnesium (1.6-2.6) mg/dL Total Bilirubin (0.0-1.0) mg/dL Direct Bilirubin (0.0-0.5) mg/dL AST (5-37) U/L ALT (0-40) U/L Alkaline Phosphatase (39-117) U/L Troponin I High Sens < 3.5 (<3.5-35.0) ng/L Total Protein (6.5-8.0) g/dL Albumin (3.5-5.0) g/dL Lipase (8-78) U/L COVID-19 (SILVANO) Negative (Negative) COVID-19 Clin Com See Note ECG Data ECG #1: Attestation: I personally reviewed and interpreted this ECG as follows: ECG interpretation date: 05/02/22 ECG interpretation time: 15:34 Interpretation: Rate: 103 Rhythm: sinus tachycardia [place]: left Normal P waves. Normal SAMUEL. Normal QRS complex. Poor R wave progression ST T wave : no FAMILIA, nonspecific qTC: normal prior studies: no acute ischemia The study has been interpreted contemporaneously by me. . Discharge Plan Discharge Clinical Impression: Bandemia, Right-sided chest pain Leukocytosis Qualifiers: Leukocytosis type: unspecified Qualified Code(s): D72.829 - Elevated white blood cell count, unspecified Patient Disposition: Admitted As Inpatient
[2022-05-02 14:58] LABS: Hemoglobin 10.6 g/dl (14.0-18.0); Mean Platelet Volume 10.4 fL (9.4-12.4); Red Cell Distribution Width 21.5 % (11.0-16.0)
[2022-05-02 15:00] LABS: Hematocrit 34.5 % (42.0-52.0); Mean Corpuscular HGB Conc 30.7 g/dl (31.0-36.0); Mean Corpuscular Hemoglobin 22.4 pg (27.0-33.0); Mean Corpuscular Volume 72.8 fL (80.0-98.0); NRBC Pct Auto 0.1 /100WBC (0.0-0.2); Platelet Count 249 X10*3/uL (160-400); Red Blood Count 4.74 X10*6/uL (4.60-5.80)
[2022-05-02 15:02] LABS: PLT ABN DIST 1; WBC ABN SCTR FOR CBC 1
[2022-05-02 15:03] LABS: White Blood Count 35.2 X10*3/uL (4.8-10.8)
[2022-05-02 15:06] LABS: INTERNATIONAL NORM RATIO 1.1 (0.9-1.1); Prothrombin Time 13.1 SEC (10.0-13.1)
[2022-05-02 15:20] LABS: Alanine Aminotransferase 12 U/L (0-40); Albumin Level 3.5 g/dL (3.5-5.0); Alkaline Phosphatase 207 U/L (39-117); Anion Gap 17 (12-20); Aspartate Amino Transferase 14 U/L (5-37); Bilirubin Direct 0.2 mg/dL (0.0-0.5); Bilirubin Total 0.2 mg/dL (0.0-1.0); Blood Urea Nitrogen 26 mg/dL (9-16); Calcium 8.9 mg/dL (8.4-10.2); Carbon Dioxide 22 mmol/L (22-29); Chloride 100 mmol/L (96-108); Creatinine Clr Calc Pharmacy 39.1; Estimated Glomerular Filt Rate 59; Glucose Random 372 mg/dL (60-115); Lipase 15 U/L (8-78); Magnesium 1.6 mg/dL (1.6-2.6); Sodium 135 mmol/L (135-145); Total Protein 6.8 g/dL (6.5-8.0); Troponin-I High Sensitivity < 3.5 ng/L (<3.5-35.0)
[2022-05-02 15:24] LABS: COVID-19 Test Negative (Negative); IDNOW Serial# 16C4AD1C
[2022-05-02 15:28] VITALS: TEMP 37.3
[2022-05-02] MEDS: cefEPime HCl 2 GM in 0.9 % Sodium Chloride 50 ML IV (15:40)
[2022-05-02] MEDS: ondansetron HCL 4 MG/2 ML VIAL IVPUSH (15:41)
[2022-05-02] MEDS: Acetaminophen 325 MG TABLET 650 MG PO (15:41)
[2022-05-02] MEDS: fentaNYL citrate/PF 100 MCG/2 ML VIAL 50 MCG IVPUSH (15:41)
[2022-05-02 15:42] LABS: Neutrophils Percent Manual 58 % (45-73)
[2022-05-02 15:46] LABS: Band Neutrophils Percent 32 % (3-5); Eosinophils Absolute Manual 0.7 X10*3/uL (0.0-0.4); Eosinophils Percent Manual 2 % (0-4); Lymphocytes Absolute Manual 1.1 X10*3/uL (1.2-4.9); Lymphocytes Percent Manual 3 % (20-40); Monocytes Absolute Manual 1.8 X10*3/uL (0.1-1.2); Monocytes Percent Manual 5 % (2-11); Neutrophils Absolute Manual 31.7 X10*3/uL (2.0-8.3); RBC Morphology NOTED
[2022-05-02 15:47] LABS: Microcytosis 1+ (5-14) /OIF
[2022-05-02 15:48] LABS: Hypochromasia 1+ (5-14) /OIF; Large Platelet PRESENT; Platelet Estimate NORMAL (NORMAL); Platelet Morphology Comment NOTED
[2022-05-02 16:02] LABS: Lactic Acid 1.4 mmol/L (0.5-2.0)
[2022-05-02] MEDS: iohexoL 350 MG/ML 100 ML INFUS..BTL IV (16:45)
[2022-05-02] MEDS: vancomycin HCL 1,500 MG in 0.9 % Sodium Chloride 500 ML 333.33 MG IV (16:52)
[2022-05-02 17:03] LABS: Appearance Urine Clear; Color Urine Yellow; Glucose Urine UA >=1000 mg/dL (Negative); Leukocyte Esterase Urine Negative (Negative); Nitrite Urine Negative (Negative); Specific Gravity - Urine >= 1.030 (1.005-1.025); UMIC TRIGGER UACC YES; Urine Blood Negative (Negative); Urine Ketones Trace mg/dL (Negative); Urine Protein 30 (1+) mg/dL (Neg-Trace)
[2022-05-02 18:02] LABS: Bacteria Urine None Seen (None Seen); Hyaline Casts Urine 0-2 /LPF (0-2); RBC Urine 0-2 /HPF (0-2); Squamous Epithelial Cell Urine 0-2 /HPF (0-2); UACC Culture Trigger YES
[2022-05-02 19:13] VITALS: BP 112/63; PULSE 90; RESP 20; O2SAT 94
--- NOTE | 2022-05-02 19:26 | PHA.MEDREC ---
Pharmacy Consult ? Medication Reconciliation Pharmacy has completed the medication reconciliation. Spoke with pt
== END 2022-05-02 20:08 | disposition home or self-care (01) ==
PROVIDERS: Emergency Medicine; Emergency Provider Student in an Organized Health Care Education/Training Program; PCP Nurse Practitioner
DX: D72.825 Bandemia (principal); R07.9 Chest pain, unspecified; D72.829 Elevated white blood cell count, unspecified; Z20.822 Contact with and (suspected) exposure to COVID-19; E11.9 Type 2 diabetes mellitus without complications; C19 Malignant neoplasm of rectosigmoid junction; C79.89 Secondary malignant neoplasm of other specified sites; Z92.21 Personal history of antineoplastic chemotherapy
CPT/HCPCS: 36415; 71275; 80048; 80076; 81001; 81003; 83605; 83690; 83735; 84484; 85007; 85025; 85027; 85610; 85730; 87040; 87086; 87635; 93005; 96365; 96366; 96375; 99284; J0692; J2405; J3010; J3370; Q9967

== ENCOUNTER 2022-05-25 18:19 | Emergency (ER) | payer OTHER, SELFPAY ==
[2022-05-25 19:01] VITALS: BP 126/60; PULSE 99; RESP 18; TEMP 36.4; O2SAT 98; BMI 22.3
--- OUTSIDE RECORDS SUMMARY | 2022-05-25 22:00 | XMS_ITS | Continuity of Care Document ---
:1940 Author Organization [facility] Address [address], [address], [address] [place] [id number]- Care Team Providers Name Role Phone Jeremiah Dove NP Primary Care Physician [place] [facility] [place] [facility] [place](s): 09/16/19 - 01/09/20 [facility] [address], [address], [address] [place] [id number]- [facility] Attending Physician: Svitlana Price NP Admitting Physician: Svitlana Price NP Referring Physician: Jeremiah Dove NP Allergies, Adverse Reactions, Alerts Substance Reaction Severity Status NKA Active Immunizations Given and Recorded Vaccine Date Status Refusal Reason pneumococcal 23-valent vaccine 02/18/10 Given Medications aspirin 81 mg oral tablet 1 tablet = 81 mg, By Mouth, Daily, 0 Refills, Maintenance Start Date: 01/18/10 Status: Orderedglipizide 10 mg oral tablet, extended release 1 tablet = 10 mg, By Mouth, Daily in AM, 0 Refills, Maintenance Start Date: 01/03/13 Status: OrderedHydrochlorothiazide = 25 mg, By Mouth, Daily in AM, 0 Refills, Maintenance Start Date: 01/03/13 Status: Orderedibuprofen 600 mg oral tablet 1 tablet = 600 mg, By Mouth, Daily in AM, 0 Refills, Maintenance Start Date: 01/03/13 Status: Orderedibuprofen 600 mg oral tablet 1 tablet = 600 mg, By Mouth, Every 6 hours, PRN Pain , Mild, # 40 tablet, 0 Refills, Maintenance, 01/27/14 8:59:30, Tablet Start Date: 01/27/14 Stop Date: 02/06/14 Status: Orderedibuprofen 600 mg oral tablet 1 tablet = 600 mg, By Mouth, Every 6 hours, PRN Pain , Mild, # 56 tablet, 0 Refills, Maintenance, Tablet Start Date: 01/09/13 Stop Date: 01/23/13 Status: Orderedlisinopril 20 mg oral tablet 1 tablet = 20 mg, By Mouth, Daily in AM, 0 Refills, Maintenance Start Date: 01/03/13 Status: Orderedmetformin 500 mg oral tablet 1 tablet = 500 mg, By Mouth, 2 times a day, 0 Refills, Maintenance Start Date: 01/18/10 Status: OrderedMultivitamin By Mouth, Daily, 0 Refills, Maintenance Start Date: 01/18/10 Status: Orderedpravastatin 10 mg oral tablet 1 tablet = 10 mg, By Mouth, Daily, 0 Refills, Maintenance Start Date: 01/18/10 Status: Orderedtamsulosin 0.4 mg oral capsule 1 capsule = 0.4 mg, By Mouth, Daily, # 14 capsule, 0 Refills, Maintenance, 01/27/14 9:00:25, Capsule Start Date: 01/27/14 Stop Date: 02/10/14 Status: Orderedtamsulosin 0.4 mg oral capsule 1 capsule = 0.4 mg, By Mouth, Daily, # 14 capsule, 0 Refills, Maintenance, Capsule Start Date: 03/05/13 Stop Date: 03/19/13 Status: Ordered
--- OUTSIDE RECORDS SUMMARY | 2022-05-25 22:00 | XMS_ITS | Continuity of Care Document ---
:1940 Author Organization [facility] Address [address], [address], [address] [place] [id number]- Care Team Providers Name Role Phone Derrell NORMAN, Jeremiah Edouard Primary Care Physician Encounter [facility] [place] Date(s): 12/10/19 - 12/17/19 [facility] [address], [address], [address] [place] [id number]- [facility] Attending Physician: Leslie Oneal MD Allergies, Adverse Reactions, Alerts Substance Reaction Severity [...]
--- OUTSIDE RECORDS SUMMARY | 2022-05-25 22:00 | XMS_ITS | Continuity of Care Document ---
:1940 Author Organization [facility] Address [address] [facility], 3rd Floor, [address] [place] [id number]- Care Team Providers Name Role Phone Jeremiah Dove NP Primary Care Physician Encounter [facility] ACCT R [id number] Date(s): 12/10/19 - 01/09/20 [facility] [address], 3[address], [address] [place] [id number] [facility] Attending Physician: Lianet Villalba Admitting Physician: AdmLianet payton Referring Physician: Admtr, [id number] Allergies, Adverse Reactions, Alerts Substance Reaction Severity [...]
--- NOTE | 2022-05-25 22:13 | ED_ITS ---
HPI - General Adult General Chief complaint: General Medical Stated complaint: chemo machine not working properly Time Seen by Provider: 05/25/22 21:58 Source: patient Mode of arrival: ambulatory Limitations: no limitations History of Present Illness HPI narrative: Patient comes to the emergency room complaining that his chemo pump is not working. Patient states that yesterday the batteries ran out, he change in. This afternoon, the batteries run out again. However, the fluorouracil pump has been beeping and not working properly. Patient has no physical complaints. Related Data Home Medications Medication Instructions Recorded Confirmed aspirin 81 mg tablet,delayed 81 mg PO DAILY 07/06/20 05/02/22 release metformin 500 mg tablet 1,000 mg PO BID 07/06/20 05/02/22 oxycodone-acetaminophen 5 mg-325 1 tab PO BID PRN Pain, Moderate 07/06/20 05/02/22 mg tablet sertraline 50 mg tablet 50 mg PO DAILY 07/06/20 05/02/22 zolpidem 5 mg tablet 5 mg PO BEDTIME PRN Insomnia 07/06/20 05/02/22 pantoprazole 40 mg tablet,delayed 40 mg PO DAILY@0630 02/15/21 05/02/22 release (Protonix) pravastatin 10 mg tablet 10 mg PO BEDTIME 02/15/21 05/02/22 insulin glargine 100 unit/mL (3 20 unit subcut DAILY 12/06/21 05/02/22 mL) subcutaneous pen (Lantus Solostar U-100 Insulin) saliva stimulant comb. no.3 1 spray mucous membrane Q1H PRN 12/06/21 05/02/22 (Biotene Moisturizing Mouth Dry Mouth mucosal spray) clopidogrel 75 mg tablet (Plavix) 75 mg PO DAILY 02/22/22 05/02/22 diphenoxylate-atropine 2.5 2 tab PO QID PRN Loose Stool 02/22/22 05/02/22 mg-0.025 mg tablet (Lomotil) dexamethasone 4 mg tablet 4 mg PO Q2W@08,17 05/02/22 05/02/22 (Decadron) dulaglutide 3 mg/0.5 mL 0.5 ml subcut MO@0900 05/02/22 05/02/22 subcutaneous pen injector (Trulicity) fluticasone propionate 50 2 spray intranasal DAILY 05/02/22 05/02/22 mcg/actuation nasal spray,suspension xdevuqyw-gel-ginvm acid 0.4 1 tab PO DAILY 05/02/22 05/02/22 mg-lycopene 300 mcg-lutein 250 mcg tablet (Spectravite Adult 50 Plus) ondansetron 8 mg disintegrating 8 mg PO Q8H PRN Nausea And Vomiting 05/02/22 05/02/22 tablet Previous Rx's Medication Instructions Recorded albuterol sulfate 90 mcg/actuation 2 inh inhalation Q6H PRN shortness 02/15/21 aerosol inhaler of breath or wheezing 30 days #18 grams fluticasone fur. 200 mcg-umeclid 1 inh inhalation DAILY 30 days #60 03/25/21 62.5 mcg-vilant 25 mcg ea inhalat.powder (Trelegy Ellipta) loperamide 2 mg capsule 2 mg PO Q6H PRN Diarrhea #60 caps 04/12/22 amoxicillin 500 mg-potassium 1 tab PO Q12H #20 tabs 04/26/22 clavulanate 125 mg tablet (Augmentin) Allergies Allergy/AdvReac Type Severity Reaction Status Date / Time No Known Allergies Allergy Verified 03/31/22 11:38 Review of Systems Review of Systems: Constitutional : No Weight loss, No Fever, No Chills, No Night Sweats, No Fatigue, No Malaise ENT/Mouth : No Hearing loss, No Ear Pain, No Nasal Congestion, No Sinus Pain, No Hoarseness, No sore throat, No Rhinorrhea, No Swallowing Difficulty Eyes: No Eye Pain, No Swelling, No Redness, No Foreign Body, No Discharge, No Vision Changes Cardiovascular : No Chest Pain, No SOB, No Dyspnea on Exertion, No Orthopnea, No Edema, No Palpitations Respiratory : No Cough, No Sputum, No Wheezing, No Smoke Exposure, No Dyspnea Gastrointestinal : No Nausea, No Vomiting, No Diarrhea, No Constipation, No abdominal Pain, No Hematochezia, No Melena Genitourinary : no irregular bleeding, No Dysuria, No Urinary Frequency, No Hematuria, No Urinary Incontinence, No Urgency, No Flank Pain, No Urinary Flow Changes, No Hesitancy Musculoskeletal : No joint pain, No Myalgias, No Joint Swelling Skin : No Skin Lesions, No rash Neuro : No Weakness, No Numbness, No Paresthesias, No Loss of Consciousness, No Dizziness, No Headache Psych : No Anxiety/Panic, No Depression, No SI/HI/AH/VH, No Social Issues, Heme/Lymph: No Bruising, No Bleeding,No Lymphadenopathy Endocrine : No Polyuria, No Polydipsia, No Temperature Intolerance [facility] Past Medical History Medical History COPD (chronic obstructive pulmonary disease) Rectal cancer Stomach cancer Surgical History Hx of colonoscopy Family History Family History Family/Other Medical history reviewed with no changes Mother Breast cancer Sister Breast cancer Social History Social History Household Members: Spouse Housing: Apartment Are you a primary healthcare administrative assistant to a significant other at home: No Do you presently have visiting nurse or other home services: Yes (size cutter) Alcohol intake: current Alcohol intake frequency: does not drink Patient Tobacco Use Status: Former Tobacco user Quit Date: 40 years ago Tobacco use type: Cigarette Years Smoked: 20 years e-Cigarette/Vaping Use: Former Use Advance Directives: No service: No Current occupational status: retired Physical Exam ED Vital Signs: Vital Signs - 24 hr 05/25/22 19:01 Temperature 97.6 F Pulse Rate 99 Respiratory Rate 18 Blood Pressure 126/60 Pulse Oximetry 98 Oxygen Delivery Method Room Air BMI result Body Mass Index 22.3 Const Other: Appearance: Alert. Oriented X3. No acute distress. Eyes: Pupils equal, round and reactive to light. ENT: Pharynx normal. Neck: Normal inspection. Neck supple. No lymph nodes noted. No crepitus CVS: Normal heart rate and rhythm. Pulses normal. Normal S1 and S2 Respiratory: No respiratory distress. Breath sounds normal. No Wheezing. No rales Abdomen: Soft and nontender. No rigidity. No distention. Skin: Skin warm and dry. Normal skin color. Normal skin turgor. Extremities: No lower extremity edema. No Lacerations. No Rash Neuro: Oriented X 3. No motor deficit. No sensory deficit. Moving all extremities. No slurred speech. CN 2 through 12 grossly intact Psych: calm, cooperative, normal affect Course Course Course Narrative: We called our pharmacy to assist us with the patient's pump. Pharmacy was able to recalibrate the pump. Pump was returned to the patient. Due to lack of diagnosis options for discharge, the closest diagnosis was entered. Real diagnosis: : Malfunction Of function of fluorouracil pump Discharge Plan Discharge Clinical Impression: Malfunction of intrathecal infusion pump Patient Disposition: Home, Self-Care Additional Instructions: Please follow-up with your primary care physician tomorrow. If you have any worsening or new symptoms, please return to the emergency room or call 911 Prescriptions: No Action diphenoxylate-atropine [Lomotil] 2.5-0.025 mg tablet 2 tab PO QID PRN (Reason: Loose Stool) clopidogrel [Plavix] 75 mg tablet 75 mg PO DAILY loperamide 2 mg Capsule 2 mg PO Q6H PRN (Reason: Diarrhea) Qty: 60 4RF amoxicillin-pot clavulanate [Augmentin] 500-125 mg Tablet 1 tab PO Q12H Qty: 20 3RF Spectravite Adult 50 Plus 0.4 mg-300 mcg- 250 mcg tablet 1 tab PO DAILY fluticasone propionate 50 mcg/actuation spray,suspension 2 spray intranasal DAILY Trulicity 3 mg/0.5 mL pen injector 0.5 ml subcut MO@0900 dexamethasone [Decadron] 4 mg tablet 4 mg PO Q2W@08,17 Rx Instructions: Take 4 mg b.i.d. for 1 day, starting day after chemo therapy, q.2 weeks. ondansetron 8 mg tablet,disintegrating 8 mg PO Q8H PRN (Reason: Nausea And Vomiting) insulin glargine [Lantus Solostar U-100 Insulin] 100 unit/mL (3 mL) insulin pen 20 unit subcut DAILY Biotene Moisturizing Mouth Pel[place],Non-Aerosol 1 spray MUCOUS MEMBRANE Q1H PRN (Reason: Dry Mouth) oxycodone-acetaminophen 5-325 mg tablet 1 tab PO BID PRN (Reason: Pain, Moderate) zolpidem 5 mg tablet 5 mg PO BEDTIME PRN (Reason: Insomnia) aspirin 81 mg tablet,delayed release (DR/EC) 81 mg PO DAILY metformin 500 mg tablet 1,000 mg PO BID sertraline 50 mg tablet 50 mg PO DAILY pravastatin 10 mg tablet 10 mg PO BEDTIME pantoprazole [Protonix] 40 mg tablet,delayed release (DR/EC) 40 mg PO DAILY@0630 albuterol sulfate 90 mcg/actuation HFA aerosol inhaler 2 inh inhalation Q6H PRN (Reason: shortness of breath or wheezing) 30 Days Qty: 18 12RF Trelegy Ellipta 200-62.5-25 mcg blister with device 1 inh inhalation DAILY 30 Days Qty: 60 12RF
--- NOTE | 2022-05-26 00:47 | PC.NURSE ---
pt a&o, no sob or chest pain. Called [facility] and spoke to Stephanie who help me restart pump. Reviewed discharge instructions with pt. Pt verbalized understanding.
== END 2022-05-26 00:53 | disposition home or self-care (01) ==
PROVIDERS: Emergency Provider Emergency Medicine
DX: T85.615A Breakdown (mechanical) of other nervous system device, implant or graft, initial encounter (principal); Y82.9 Unspecified medical devices associated with adverse incidents; Y92.039 Unspecified place in apartment as the place of occurrence of the external cause; C20 Malignant neoplasm of rectum; E11.9 Type 2 diabetes mellitus without complications; D64.9 Anemia, unspecified; Z87.891 Personal history of nicotine dependence; Z79.82 Long term (current) use of aspirin; Z79.4 Long term (current) use of insulin; Z79.899 Other long term (current) drug therapy
CPT/HCPCS: 99282

== ENCOUNTER 2022-05-26 13:52 | Outpatient (REF) | payer OTHER, SELFPAY ==
--- NOTE | ~2022-05-26 | US_ITS ---
EXAMINATION: US ABDOMEN LIMITED CLINICAL INFORMATION: Abdominal distention with protruding skin lesion. COMPARISON: CT abdomen pelvis 04/27/2022. Ultrasound renal 03/12/2009. TECHNIQUE: Real-time imaging of the upper mid abdominal wall in the area of palpable abnormality FINDINGS: Palpable abnormality corresponds to a 1.5 x 1.1 x 0.5 cm solid hypoechoic soft tissue mass just deep to the skin. This may represent a metastatic subcutaneous lesion from patient's known rectal cancer. No fascial defect in the abdominal wall is appreciated by ultrasound suggest a hernia. There is evidence of extensive peritoneal disease just deep to the abdominal wall. US/US abdomen limited IMPRESSION: 1.5 x 1.1 0.5 cm solid hypoechoic lesion just deep to the skin probably representing metastatic disease.
== END 2022-05-26 13:53 | disposition home or self-care (01) ==
LOC: HO.US 13:52
PROVIDERS: Visit Provider Registered Nurse
DX: L98.9 Disorder of the skin and subcutaneous tissue, unspecified (principal)
CPT/HCPCS: 76705

== ENCOUNTER 2022-07-21 11:27 | Outpatient (REF) | payer OTHER, SELFPAY ==
--- NOTE | ~2022-07-21 | XR_ITS ---
EXAMINATION: XR KNEE, LEFT CLINICAL INFORMATION: Left knee pain COMPARISON: Left knee 04/10/2018 TECHNIQUE: Four views of the left knee. FINDINGS: There is mild reduction in the medial and patellofemoral compartment joint spaces with moderate periarticular spurring and minimal suprapatellar joint effusion. There is chondrocalcinosis better visualized on 2018 exam. No loose bodies or bony erosive changes seen. No visible acute fracture or dislocation. XR/XR knee LT 4V IMPRESSION: Mild degenerative changes medial and patellofemoral compartment with moderate periarticular spurring and minimal suprapatellar joint effusion. No visible acute fracture or dislocation seen.
== END 2022-07-21 11:28 | disposition home or self-care (01) ==
LOC: HO.XRAY 11:27
PROVIDERS: Visit Provider Internal Medicine Medical Oncology
DX: M25.562 Pain in left knee (principal)
CPT/HCPCS: 73564

== ENCOUNTER 2022-07-26 09:04 | Outpatient (REF) | payer OTHER, SELFPAY ==
--- NOTE | ~2022-07-26 | CT_ITS ---
EXAM: Contrast-enhanced CT scan of the chest, abdomen, and pelvis. INDICATION: Follow-up rectal cancer and lung nodules COMPARISON: CTA chest May 02, [address] abdomen pelvis April 27, 2022 TECHNIQUE: Multidetector helical imaging of the chest, abdomen, and pelvis was obtained from the thoracic inlet through the pubic symphysis following administration of 85 cc of Omnipaque 350 IV contrast. Coronal and sagittal reformatted images that were obtained were also reviewed. DLP: 380 mGy-cm FINDINGS: CHEST: The heart is normal in size. Coronary artery calcifications are present. There is no pericardial effusion. Normal caliber thoracic aorta. Right chest port noted with tip terminating at the cavoatrial junction. No gross mediastinal or hilar lymphadenopathy. No pathologically enlarged axillary lymph nodes. Central airways are patent. There is mild lower lobe bronchiectasis bilaterally. Lungs are well aerated. Mild emphysematous changes are noted. Innumerable subcentimeter pulmonary nodules present bilaterally. Overall the number and size of nodules is relatively stable, however, a few nodules may be slightly increased or decreased in size. I do not appreciate any new prominent nodules. There is no pleural effusion or pneumothorax. ABDOMEN/PELVIS: The liver is normal in size. There is a mildly nodular liver contour with some peritoneal implants again noted. A few subcentimeter liver hypodensity lesions are too small to accurately characterize but appear stable. The gallbladder is normal in appearance. There is fatty atrophy of the pancreas. The spleen is normal in size. There are some irregular hypodense foci within the anterior spleen which are nonspecific but likely peritoneal implants. Symmetrically enhancing kidneys without hydronephrosis. The adrenal glands are unremarkable. Normal stomach distention. Normal caliber loops of small and large bowel. Moderate colonic stool burden. Large known rectal mass is reidentified. There is colonic diverticulosis without CT evidence to suggest active diverticulitis. Diffuse worsening in peritoneal carcinomatosis. Normal caliber abdominal aorta. A few mildly enlarged retroperitoneal lymph nodes noted. The bladder is normally distended. The prostate gland is normal in size. No gross free pelvic fluid. Mildly enlarged bilateral inguinal lymph nodes are unchanged. Similar perirectal lymph nodes. OSSEOUS STRUCTURES Moderate diffuse degenerative changes of the spine. CT/CT abdomen pelvis w IV con IMPRESSION: 1. Innumerable subcentimeter pulmonary nodules present bilaterally. Overall the number and size of nodules is relatively stable, however, a few nodules may be slightly increased or decreased in size. I do not appreciate any new prominent nodules. 2. Diffuse worsening in peritoneal carcinomatosis. 3. Large known rectal mass is reidentified and relatively stable in size.
[2022-07-26] MEDS: iohexoL 350 MG/ML 100 ML INFUS..BTL IV (11:20)
[2022-07-26] MEDS: Barium Sulfate Oral (Berry) 450 ML ORAL.SUSP PO (11:21)
== END 2022-07-26 09:05 | disposition home or self-care (01) ==
LOC: HO.CT 09:04
PROVIDERS: Visit Provider Internal Medicine Medical Oncology
DX: C20 Malignant neoplasm of rectum (principal); K62.89 Other specified diseases of anus and rectum
CPT/HCPCS: 71260; 74177; Q9967

== ENCOUNTER 2022-10-14 15:08 | Inpatient (IN) | payer OTHER, SELFPAY ==
--- NOTE | ~2022-10-14 | XR_ITS ---
EXAMINATION: XR KNEE, RIGHT CLINICAL INFORMATION: Knee swelling COMPARISON: None TECHNIQUE: Four views of the right knee. FINDINGS: There is loss of tricompartment joint space with significant periarticular spurring and moderate suprapatellar joint effusion. There are no loose bodies. No visible acute fracture or dislocation. No lytic process XR/XR knee RT 4V IMPRESSION: Degenerative arthritic changes right knee with moderate suprapatellar joint effusion. No visible acute fracture or dislocation seen.
[2022-10-14 15:14] VITALS: BP 102/58; BP 96/51; PULSE 69; PULSE 78; RESP 18; TEMP 36.6; O2SAT 98; BMI 24.4
--- NOTE | 2022-10-14 17:10 | ED.EXTPRO ---
HPI - Extremity Problem General Chief complaint: Extremity Problem Stated complaint: KNEE PAIN/SWELLING X 7 DAYS Time Seen by Provider: 10/14/22 17:04 Source: patient Mode of arrival: EMS Limitations: no limitations History of Present Illness HPI Narrative: Patient diabetic with history of rectal cancer on chemotherapy, COPD with osteoarthritis comes for increased pain in right knee for last 1 week got worse in last 3 days with swelling effusion no trauma no other joint involvement no fever or chills no history of gout Related Data Home Medications Medication Instructions Recorded Confirmed aspirin 81 mg tablet,delayed 81 mg PO DAILY 07/06/20 10/14/22 release metformin 500 mg tablet 1,000 mg PO BID 07/06/20 10/14/22 oxycodone-acetaminophen 5 mg-325 1 tab PO BID PRN Pain, Moderate 07/06/20 10/14/22 mg tablet pantoprazole 40 mg tablet,delayed 40 mg PO DAILY@0630 02/15/21 10/14/22 release (Protonix) pravastatin 10 mg tablet 10 mg PO BEDTIME 02/15/21 10/14/22 insulin glargine 100 unit/mL (3 20 unit subcut DAILY 12/06/21 10/14/22 mL) subcutaneous pen (Lantus Solostar U-100 Insulin) clopidogrel 75 mg tablet (Plavix) 75 mg PO DAILY 02/22/22 10/14/22 dexamethasone 4 mg tablet 4 mg PO Q2W@08,17 05/02/22 10/14/22 (Decadron) dulaglutide 3 mg/0.5 mL 0.5 ml subcut MORALES@0900 05/02/22 10/14/22 subcutaneous pen injector (Trulicity) fluticasone propionate 50 2 spray intranasal DAILY 05/02/22 10/14/22 mcg/actuation nasal spray,suspension mirtazapine 15 mg tablet 1 tab PO BEDTIME 10/14/22 10/14/22 naproxen 500 mg tablet 1 tab PO BID PRN pain 10/14/22 10/14/22 ondansetron 4 mg disintegrating 1 tab PO Q6H PRN Nausea And 10/14/22 10/14/22 tablet Vomiting valsartan 160 1 tab PO DAILY blood pressure 10/14/22 10/14/22 mg-hydrochlorothiazide 12.5 mg tablet zolpidem 10 mg tablet 1 tab PO BEDTIME PRN Insomnia 10/14/22 10/14/22 Previous Rx's Medication Instructions Recorded albuterol sulfate 90 mcg/actuation 2 inh inhalation Q6H PRN shortness 02/15/21 aerosol inhaler of breath or wheezing 30 days #18 grams Allergies Allergy/AdvReac Type Severity Reaction Status Date / Time No Known Allergies Allergy Verified 03/31/22 11:38 Review of Systems Review of Systems: Constitutional : No Weight loss, No Fever, No Chills ENT/Mouth : No sore throat, No Rhinorrhea Eyes: No Eye Pain, No Swelling Cardiovascular : No Chest Pain, no palpitations Respiratory : No Cough, No Sputum, no shortness of breath Gastrointestinal : no Nausea, No Vomiting, No Diarrhea, No abdominal Pain, no black stools Genitourinary : No Dysuria, No Urinary Frequency Musculoskeletal :++ joint pain, No Myalgias, No Joint Swelling Skin : No Skin Lesions, No rash Neuro : No Weakness, No Numbness, No Dizziness, No Headache Psych : No Anxiety/Panic, No Depression Heme/Lymph: No Bruising, No Lymphadenopathy Endocrine : No Polyuria, No Polydipsia All other systems reviewed and are negative Yes all other systems are reviewed and are negative PMFSH Past Medical History Medical History COPD (chronic obstructive pulmonary disease) Rectal cancer Stomach cancer Surgical History Hx of colonoscopy Family History Family History Family/Other Medical history reviewed with no changes Mother Breast cancer Sister Breast cancer Social History Social History Household Members: Spouse Housing: Apartment Are you a primary certified caregiver to a significant other at home: No 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) Alcohol intake: current Alcohol intake frequency: does not drink Patient Tobacco Use Status: Former Tobacco user Quit Date: 40 years ago Tobacco use type: Cigarette Years Smoked: 20 years e-Cigarette/Vaping Use: Former Use Advance Directives: No Advance Directives Information Provided: No service: No Current occupational status: retired Physical Exam Vital Signs: Vital Signs: Last Vital Signs Temp 97.8 F 10/14/22 15:14 Pulse 78 10/14/22 15:14 Resp 18 10/14/22 15:14 BP 96/51 L 10/14/22 15:14 Pulse Ox 98 10/14/22 15:14 O2 Del Method 10/14/22 15:14 BMI result Body Mass Index 24.4 Appearance: Alert. Oriented X3. No acute distress. Thin emaciated patient Eyes: PERRLA, ENT: Pharynx normal. Oral Mucosa moist Neck: Normal inspection. Neck supple. CVS: Normal heart rate and rhythm. Pulses normal. Respiratory: No respiratory distress. Equal air entry bilateral, Abdomen: Soft and nontender. Bowel sounds are present, Skin: Skin warm and dry. Normal skin color. Normal skin turgor. Extremities: No lower extremity edema. No calf tenderness right knee diffuse tenderness no deformity joint fusion +++ limited extension and flexion no warmth no skin color change Neuro: Oriented X 3. No motor deficit. Medications Administered Generic Name Dose Route Start Last Admin Trade Name Freq PRN Reason Stop Dose Admin Heparin Sodium (Porcine) 5,000 unit 10/14/22 22:00 10/15/22 00:41 Heparin Sodium,Porcine 5,000 Unit/Ml Vial SUBCUT 5,000 unit Q8H KAITLYNN Administration Discontinued Medications Generic Name Dose Route Start Last Admin Trade Name Freq PRN Reason Stop Dose Admin Vancomycin HCl 1,500 mg/ 500 mls @ 333.333 mls/hr 10/14/22 19:33 10/14/22 20:30 Sodium Chloride IV 10/14/22 21:02 333.33 mls/hr ONCE ONE Administration Cefepime HCl 2 gm/ Sodium 50 mls @ 100 mls/hr 10/14/22 19:33 10/14/22 21:12 Chloride IV 10/14/22 20:02 Infused ONCE ONE Infusion Lidocaine HCl 5 ml 10/14/22 17:22 10/14/22 17:51 Lidocaine Hcl 2 % Mpf 5 Ml Vial INFILTRATI 10/14/22 17:23 5 ml ONCE ONE Administration Medical Decision Making Medical Decision Making [facility] Narrative: X-ray negative for fracture. Arthritis with effusion will aspirate right knee joint 50 cc of pus drained from right knee sent for culture and Gram staining started on vancomycin and cefepime Fluid did show crystals WBC count and pus looking fluid in immunocompromised patient leukocytosis, lactic acidosis not very clear whether is septic arthritis with no other signs or just gout with inflammatory response case discussed Orthopedics for now advised to continue antibiotic will evaluate the patient no morning Lab Data MDM Lab Attestation statement: I reviewed the patient's lab results. 10/14/22 20:17 10/14/22 20:17 Labs: Lab Results 10/14/22 10/14/22 10/14/22 Range/Units 20:17 20:17 20:17 WBC 24.3 H (4.8-10.8) X10*3/uL RBC 3.49 L (4.60-5.80) X10*6/uL Hgb 9.1 L (14.0-18.0) g/dl Hct 29.1 L (42.0-52.0) % MCV 83.4 (80.0-98.0) fL MCH 26.1 L (27.0-33.0) pg MCHC 31.3 (31.0-36.0) g/dl RDW 26.3 H (11.0-16.0) % Plt Count 239 (160-400) X10*3/uL MPV 10.5 (9.4-12.4) fL Immature Gran % (Auto) Cancelled Neut % (Auto) Cancelled Lymph % (Auto) Cancelled [place] % (Auto) Cancelled Eos % (Auto) Cancelled Baso % (Auto) Cancelled Lymph # (Auto) Cancelled [place] # (Auto) Cancelled Eos # (Auto) Cancelled Baso # (Auto) Cancelled Abs Immat Gran (auto) Cancelled Absolute Neuts (auto) Cancelled Absolute Nucleated RBC 0.000 (0.0-0.012) X10*3/uL Nucleated RBC % (auto) 0.0 (0.0-0.2) /100WBC Neutrophils % (Manual) 89 H (45-73) % Lymphocytes % (Manual) 8 L (20-40) % Monocytes % (Manual) 3 (2-11) % Abs Neuts (Manual) 21.6 H (2.0-8.3) X10*3/uL Lymphocytes # (Manual) 1.9 (1.2-4.9) X10*3/uL Monocytes # (Manual) 0.7 (0.1-1.2) X10*3/uL Platelet Estimate NORMAL (NORMAL) Plt Morphology Comment NORMAL RBC Morphology NOTED Ovalocytes 1+ (5-14) /OIF Acanthocytes (Spur) 2+ (3-5) /OIF Sodium 140 (135-145) mmol/L Potassium 4.3 (3.3-5.1) mmol/L Chloride 107 (96-108) mmol/L Carbon Dioxide 24 (22-29) mmol/L Anion Gap 13 (12-20) BUN 20 H (9-16) mg/dL Creatinine 1.26 (0.5-1.4) mg/dL Estim Creat Clear Calc 32.5 Estimated GFR 55 Random Glucose 130 H (60-115) mg/dL Lactic Acid 2.3 H* (0.5-2.0) mmol/L Uric Acid 5.3 (3.4-7.0) mg/dL Calcium 9.0 (8.4-10.2) mg/dL Total Bilirubin 0.3 (0.0-1.0) mg/dL AST 15 (5-37) U/L ALT < 6 (0-40) U/L Alkaline Phosphatase 156 H (39-117) U/L Total Protein 5.9 L (6.5-8.0) g/dL Albumin 3.0 L (3.5-5.0) g/dL Procedures Joint Aspiration/Injection Joint Asp./Inject. 1: Time Out Performed: Yes Side of body: right Joint Aspirated: knee Ultrasound Guidance: No Skin Prep: sterile prep and drape Local Anesthetic: lidocaine 2% Amount of anesthesia used (mL): 4 Needle Size Used: 18G Fluid Obtained: purulent Total fluid obtained (mL): 50 Patient Tolerated Procedure: well and no complications Complications: none Discharge Plan Discharge Clinical Impression: Septic arthritis of knee, right, Pseudogout of right knee Patient Disposition: Admitted As Inpatient
[2022-10-14] MEDS: Lidocaine HCl 2 % MPF 5 ML VIAL INFILTRATI (17:51)
[2022-10-14 18:48] LABS: Source Synovial Fluid knee
[2022-10-14 19:17] LABS: MN% 21.8 %; PMN% 78.2 %
[2022-10-14 19:22] LABS: BF Shift QC OK YES; Lymphocytes Synovial Fluid 4 %; Man Diluent Bkgrd OK YES; Monocytes Synovial Fluid 18 %; Neutrophils Synovial Fluid 77 %; Other Cells Synovial Fluid 1
[2022-10-14 19:46] VITALS: BP 119/64; PULSE 88; RESP 18; O2SAT 94
[2022-10-14 20:27] LABS: Hematocrit 29.1 % (42.0-52.0); Hemoglobin 9.1 g/dl (14.0-18.0); Mean Corpuscular HGB Conc 31.3 g/dl (31.0-36.0); Mean Corpuscular Hemoglobin 26.1 pg (27.0-33.0); Mean Corpuscular Volume 83.4 fL (80.0-98.0); Mean Platelet Volume 10.5 fL (9.4-12.4); Platelet Count 239 X10*3/uL (160-400); Red Blood Count 3.49 X10*6/uL (4.60-5.80); Red Cell Distribution Width 26.3 % (11.0-16.0)
[2022-10-14 20:28] LABS: WBC ABN SCTR FOR CBC 1
[2022-10-14] MEDS: cefEPime HCl 2 GM in 0.9 % Sodium Chloride 50 ML IV (20:28)
[2022-10-14] MEDS: vancomycin HCL 1,500 MG in 0.9 % Sodium Chloride 500 ML 333.33 MG IV (20:30)
[2022-10-14 20:41] LABS: Alanine Aminotransferase < 6 U/L (0-40); Alkaline Phosphatase 156 U/L (39-117); Anion Gap 13 (12-20); Aspartate Amino Transferase 15 U/L (5-37); Bilirubin Total 0.3 mg/dL (0.0-1.0); Blood Urea Nitrogen 20 mg/dL (9-16); Carbon Dioxide 24 mmol/L (22-29); Chloride 107 mmol/L (96-108); Creatinine Clr Calc Pharmacy 32.5; Estimated Glomerular Filt Rate 55; Glucose Random 130 mg/dL (60-115); Potassium 4.3 mmol/L (3.3-5.1); Sodium 140 mmol/L (135-145); Total Protein 5.9 g/dL (6.5-8.0)
--- NOTE | 2022-10-14 20:43 | PHA.MEDREC ---
Pharmacy Consult ? Medication Reconciliation Pharmacy has completed the medication reconciliation. Patient is unsure of his medications but says he takes only what the pharmacy gives him. I was able to confirm that his Lantus dose is 20 units daily and that he takes Trulicity on Sundays. He isn't sure when his last dose of anything was.
[2022-10-14 20:53] LABS: Lactic Acid 2.3 mmol/L (0.5-2.0)
[2022-10-14 20:57] LABS: Lymphocytes Absolute Manual 1.9 X10*3/uL (1.2-4.9); Lymphocytes Percent Manual 8 % (20-40); Monocytes Absolute Manual 0.7 X10*3/uL (0.1-1.2); Monocytes Percent Manual 3 % (2-11); Neutrophils Percent Manual 89 % (45-73); White Blood Count 24.3 X10*3/uL (4.8-10.8)
[2022-10-14 20:58] LABS: Acanthocytes 2+ (3-5) /OIF; RBC Morphology NOTED
[2022-10-14 20:59] LABS: Ovalocytes 1+ (5-14) /OIF; Platelet Estimate NORMAL (NORMAL); Platelet Morphology Comment NORMAL
[2022-10-14 21:00] LABS: Neutrophils Absolute Manual 21.6 X10*3/uL (2.0-8.3)
--- NOTE | 2022-10-14 21:16 | PM.IMHP ---
History of Present Illness Date of Service: 10/14/22 Chief Complaint: Knee pain 81-year-old male with a past medical history of hypertension, hyperlipidemia, diabetes, anemia, COPD-not on home oxygen, cardiomyopathy, CAD, history of rectal cancer on chemotherapy-last received 2 weeks ago; presented to the hospital today with a chief complaint of right knee pain. Patient reports that for the past 6 days he has been having right knee pain which has been gradually worsening, limiting his ambulation. Denies any falls or trauma. Also complains of swelling in the right knee. Range of motion is significantly limited secondary to the pain. Denies any trauma. Denies any recent signs of infection. Denies any fever chills cough or sputum production. Denies any urinary symptoms. Denies any prior history of gout. Mentions that he was recently on chemotherapy for his rectal cancer received 2 weeks ago; the next 1 is scheduled on the coming Monday. Denies any chest pain palpitations lightheadedness or dizziness. Denies any GI symptoms. Review of all other systems is negative except mentioned above ER course: Per ER team, patient noted to have tenderness over the right knee, swollen, no erythema, had knee [place] [id number] and crystals positive; concern for intramedullary arthritis but given patient has worsening leukocytosis compared to his baseline and lactic acidosis there is also suspicion for infection. But Gram stain was negative. Patient was empirically covered with antibiotics. Notified orthopedics-suggested admission to the medicine service and will be evaluated in the morning. 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) Alcohol intake: current Alcohol intake frequency: does not drink Patient Tobacco Use Status: Former Tobacco user Quit Date: 40 years ago Tobacco use type: Cigarette Years Smoked: 20 years e-Cigarette/Vaping Use: Former Use Advance Directives: No Advance Directives Information Provided: No service: No Current occupational status: retired Meds Allergies Allergy/AdvReac Type Severity Reaction Status Date / Time No Known Allergies Allergy Verified 03/31/22 11:38 Active Medications: Current Medications Albuterol Sulfate (Albuterol Sulfate 90 Mcg 8 Gm Inhaler) 2 puff INHALE Q6H PRN PRN Reason: shortness of breath or wheezing Aspirin (Aspirin Enteric Coated 81 Mg Tablet.Dr) 81 mg PO DAILY [facility] Clopidogrel Bisulfate (Clopidogrel Bisulfate 75 Mg Tablet) 75 mg PO DAILY [facility] Dexamethasone (Dexamethasone 4 Mg Tablet) 4 mg PO Q2W@,17 [facility] Fluticasone Propionate (Fluticasone Propionate Nasal 16 Gm [place]) 2 spray NOSTRIL-B DAILY [facility] Glucose (Glucose Gel 15 Gm Gel..Gram.) 15 gm PO Q15M PRN; Protocol PRN Reason: per Hypoglycemia Standing Ord. Heparin Sodium (Porcine) (Heparin Sodium,Porcine 5,000 Unit/Ml Vial) 5,000 unit SUBCUT Q8H [facility] Ceftriaxone Sodium 1 gm/ (Sodium Chloride) 50 mls @ 100 mls/hr IV Q24H [facility] Vancomycin HCl 1,000 mg/ (Sodium Chloride) 270 mls @ 270 mls/hr IV Q12H [facility] Dextrose (D10) 250 mls @ 750 mls/hr IV Q15M PRN; Protocol PRN Reason: per Hypoglycemia Standing Ord. Insulin Glargine (Insulin Glargine,Hum.Rec.Anlog 100 Unit/Ml 10 Ml Vial) 10 unit SUBCUT BEDTIME [facility] Insulin Human Lispro (Insulin Lispro 100 Unit/Ml 3 Ml Vial) 0 unit SUBCUT QIDACHS [facility]; Protocol Mirtazapine (Mirtazapine 15 Mg Tablet) 15 mg PO BEDTIME [facility] Non-Formulary Medication (Oxycodone-Acetaminophen) 1 tab PO BID PRN PRN Reason: Pain, Moderate Non-Formulary Medication (Pantoprazole [Protonix]) 40 mg PO DAILY@0630 [facility] Pharmacy Consult (Consult Rx Vancomycin Dosing) 1 each MISCELLANE DAILY PRN PRN Reason: Consult order Pravastatin Sodium (Pravastatin Sodium 10 Mg Tablet) 10 mg PO BEDTIME [facility] Sodium Chloride (0.9 % Sodium Chloride Flush 3 Ml Syringe) 3 ml IVFLUSH QSHIFT [facility] Zolpidem Tartrate (Zolpidem Tartrate 5 Mg Tablet) 10 mg PO BEDTIME PRN PRN Reason: Insomnia Home Medications Medication Instructions Recorded Confirmed Last Taken Type aspirin 81 mg tablet,delayed 81 mg PO DAILY 07/06/20 10/14/22 05/01/22 History release metformin 500 mg tablet 1,000 mg PO BID 07/06/20 10/14/22 05/01/22 History oxycodone-acetaminophen 5 mg-325 1 tab PO BID PRN Pain, Moderate 07/06/20 10/14/22 05/01/22 History mg tablet pantoprazole 40 mg tablet,delayed 40 mg PO DAILY@0630 02/15/21 10/14/22 05/01/22 History release (Protonix) pravastatin 10 mg tablet 10 mg PO BEDTIME 02/15/21 10/14/22 05/01/22 History insulin glargine 100 unit/mL (3 20 unit subcut DAILY 12/06/21 10/14/22 05/01/22 History mL) subcutaneous pen (Lantus Solostar U-100 Insulin) clopidogrel 75 mg tablet (Plavix) 75 mg PO DAILY 02/22/22 10/14/22 05/01/22 History dexamethasone 4 mg tablet 4 mg PO Q2W@08,17 05/02/22 10/14/22 05/01/22 History (Decadron) dulaglutide 3 mg/0.5 mL 0.5 ml subcut MORALES@0900 05/02/22 10/14/22 05/01/22 History subcutaneous pen injector (Trulicity) fluticasone propionate 50 2 spray intranasal DAILY 05/02/22 10/14/22 05/01/22 History mcg/actuation nasal spray,suspension mirtazapine 15 mg tablet 1 tab PO BEDTIME 10/14/22 10/14/22 Unknown History naproxen 500 mg tablet 1 tab PO BID PRN pain 10/14/22 10/14/22 Unknown History ondansetron 4 mg disintegrating 1 tab PO Q6H PRN Nausea And 10/14/22 10/14/22 Unknown History tablet Vomiting valsartan 160 1 tab PO DAILY blood pressure 10/14/22 10/14/22 Unknown History mg-hydrochlorothiazide 12.5 mg tablet zolpidem 10 mg tablet 1 tab PO BEDTIME PRN Insomnia 10/14/22 10/14/22 Unknown History Physical Exam Vital Signs and Narrative: Vital Signs: Last Vital Signs Temp 97.8 F 10/14/22 15:14 Pulse 78 10/14/22 15:14 Resp 18 10/14/22 15:14 BP 96/51 L 10/14/22 15:14 Pulse Ox 98 10/14/22 15:14 O2 Del Method 10/14/22 15:14 BMI result Body Mass Index 24.4 Gen: Appears be in no acute distress HEENT: NCAT, Moist mucosa. Pulmonary: Vesicular breath sounds, fair air entry CVS: Normal S1-S2 Abdomen: BS+, Soft, Nontender Extremities: Warm well perfused; right knee is warm tender-not erythematous, swollen, range of motion limited secondary to the pain Neuro: Alert and awake. Grossly nonfocal Results Labs 10/14/22 20:17 10/14/22 20:17 Labs: Laboratory Results - last 24 hr 10/14/22 10/14/22 10/14/22 20:17 20:17 20:17 MCV 83.4 MCH 26.1 L MCHC 31.3 RDW 26.3 H Plt Count 239 MPV 10.5 Immature Gran % (Auto) Cancelled Neut % (Auto) Cancelled Lymph % (Auto) Cancelled [place] % (Auto) Cancelled Eos % (Auto) Cancelled Baso % (Auto) Cancelled Lymph # (Auto) Cancelled [place] # (Auto) Cancelled Eos # (Auto) Cancelled Baso # (Auto) Cancelled Abs Immat Gran (auto) Cancelled Absolute Neuts (auto) Cancelled Absolute Nucleated RBC 0.000 Nucleated RBC % (auto) 0.0 Neutrophils % (Manual) 89 H Lymphocytes % (Manual) 8 L Monocytes % (Manual) 3 Abs Neuts (Manual) 21.6 H Lymphocytes # (Manual) 1.9 Monocytes # (Manual) 0.7 Platelet Estimate NORMAL Plt Morphology Comment NORMAL RBC Morphology NOTED Ovalocytes 1+ (5-14) Acanthocytes (Spur) 2+ (3-5) Anion Gap 13 Estim Creat Clear Calc 32.5 Estimated GFR 55 Random Glucose 130 H Lactic Acid 2.3 H* Calcium 9.0 Total Bilirubin 0.3 AST 15 ALT < 6 Alkaline Phosphatase 156 H Total Protein 5.9 L Albumin 3.0 L Synovial Source Synovial WBC Synovial RBC Synovial Neutrophils Synovial Lymphocytes Synovial Monocytes Synovial Other Cells 10/14/22 Unknown MCV MCH MCHC RDW Plt Count MPV Immature Gran % (Auto) Neut % (Auto) Lymph % (Auto) [place] % (Auto) Eos % (Auto) Baso % (Auto) Lymph # (Auto) [place] # (Auto) Eos # (Auto) Baso # (Auto) Abs Immat Gran (auto) Absolute Neuts (auto) Absolute Nucleated RBC Nucleated RBC % (auto) Neutrophils % (Manual) Lymphocytes % (Manual) Monocytes % (Manual) Abs Neuts (Manual) Lymphocytes # (Manual) Monocytes # (Manual) Platelet Estimate Plt Morphology Comment RBC Morphology Ovalocytes Acanthocytes (Spur) Anion Gap Estim Creat Clear Calc Estimated GFR Random Glucose Lactic Acid Calcium Total Bilirubin AST ALT Alkaline Phosphatase Total Protein Albumin Synovial Source knee Synovial WBC 36.450 Synovial RBC 0.020 Synovial Neutrophils 77 Synovial Lymphocytes 4 Synovial Monocytes 18 Synovial Other Cells 1 Imaging Radiologist's Impressions: Impressions Knee X-Ray 10/14/22 15:58 IMPRESSION: Degenerative arthritic changes right knee with moderate suprapatellar joint effusion. No visible acute fracture or dislocation seen. Assessment and Plan (1) DMII (diabetes mellitus, type 2): Status: Acute (2) Knee pain: Status: Acute Plan 81-year-old male with a past medical history of hypertension, hyperlipidemia, diabetes, anemia, COPD-not on home oxygen, cardiomyopathy, CAD, history of rectal cancer on chemotherapy-last received 2 weeks ago; presented to the hospital today with a chief complaint of right knee pain. Noted to have a right knee swelling, tenderness, warmth-concern for infection. Admitted for further management. Right knee pain: Infectious versus inflammatory arthritis. Noted to have pus-like effusion on the knee tap of with 36,000 WBC. G stain negative. Orthopedics was notified-recommended admission to Medicine recently evaluated in the morning Id consult Empirically covered with IV vancomycin and Zosyn as patient noted to have elevated leukocytes and lactic acidosis and patient being immunocompromised. Pain control History of rectal cancer: Patient on chemotherapy. Follows with Oncology actively. History of diabetes: Hold home regimen. Insulin sliding scale. History of hypertension/hyperlipidemia/CAD: Continue home aspirin, statin, Plavix. Hold home losartan/HCTZ for now. History of depression: Continue home mirtazapine DVT prophylaxis: Subcu heparin Code status: Full code Time Spent With Patient Time: Total time managing care of this patient today ____ minutes. Quality Stroke Does the patient have a stroke diagnosis?: No VTE Prior VTE?: No VTE Risk Level:: Medical - moderate - high VTE Device Contraindication: Treatment Not Indicated VTE Drug Contraindication: N/A - Med Ordered
[2022-10-14 21:18] LABS: Uric Acid 5.3 mg/dL (3.4-7.0)
[2022-10-14 22:01] VITALS: BP 104/50; PULSE 87; RESP 18; O2SAT 95
[2022-10-14 22:22] LABS: Reflex Lactate? Lactic Acid Added
[2022-10-14 23:03] LABS: ~Lactic Acid-LAB USE ONLY 2.3 mmol/L (0.5-2.0)
[2022-10-15 00:36] LABS: Reflex Lactate? 2 Y
[2022-10-15] MEDS: Heparin Sodium,Porcine 5,000 UNIT/ML VIAL 5000 UNIT SUBCUT ×3 (00:41→16:18)
[2022-10-15 01:30] LABS: ~Lactic Acid-LAB USE ONLY 1.9 mmol/L (0.5-2.0)
[2022-10-15 01:53] LABS: COVID-19 Test Negative (Negative); IDNOW Serial# 6674DD1D
--- NOTE | 2022-10-15 03:13 | PC.NURSE ---
Assumed care of pt. at 1900. Pt. in room with at bedside. Pt. reported decrease in pain after aspiration of knee. Pt. medicated with IV abx per OCT. Pt. currently resting in room with no apparent distress. Pt. assigned a room on [facility], 482.
[2022-10-15 03:47] VITALS: BP 96/60; PULSE 85; RESP 17; TEMP 36.7; O2SAT 95
--- NOTE | 2022-10-15 04:27 | PC.NURSE ---
Called to give report to RN for 482, no answer. Will try again.
[2022-10-15 05:27] VITALS: BMI 22.6
[2022-10-15] MEDS: Omeprazole 20 MG CAPSULE.DR PO (05:46)
--- NOTE | 2022-10-15 06:06 | PC.NURSE ---
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
[2022-10-15 07:12] VITALS: BP 122/74; PULSE 79; RESP 12; TEMP 36.5; O2SAT 95
[2022-10-15 07:30] LABS: Glucose, Whole Blood 118 mg/dL (60-115)
--- NOTE | 2022-10-15 08:07 | PM.CNOR ---
History of Present Illness HPI Consult date: 10/15/22 Chief complaint: Knee pain Narrative: 81-year-old male with a past medical history of hypertension, hyperlipidemia, diabetes, anemia, COPD-not on home oxygen, cardiomyopathy, CAD, history of rectal cancer on chemotherapy-last received 2 weeks ago; presented to the hospital today with a chief complaint of right knee pain.? Patient reports that for the past 6 days he has been having right knee pain which has been gradually worsening, limiting his ambulation.? Denies any falls or trauma.? Also complains of swelling in the right knee.? Denies any recent signs of infection.? Denies any fever chills cough or sputum production.? Denies any urinary symptoms.? Denies any prior history of gout.? He was admitted to the medical service and orthopedics was consulted for further recommendations. 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 If so, by whom?: No Do you feel safe in your current relationship?: Yes Is there a partner from a previous relationship who is making you feel unsafe now?: No Are you made to feel afraid or neglected: No Advance Directives: No Advance Directives Information Provided: No Do you have thoughts of harming others: None Do you have a plan to hurt others: No Plan Recently lost weight without trying: Yes How much weight loss: 34pounds or more Eating poorly because of decreased appetite: Yes Nutrition screen score: 7 Nutrition Risks: Anorexia Poor oral hygiene: No service: No Current occupational status: retired Meds Allergies Allergy/AdvReac Type Severity Reaction Status Date / Time No Known Allergies Allergy Verified 03/31/22 11:38 Active Medications: Current Medications Albuterol Sulfate (Albuterol Sulfate 90 Mcg 8 Gm Inhaler) 2 puff INHALE Q6H PRN PRN Reason: shortness of breath or wheezing Aspirin (Aspirin Enteric Coated 81 Mg Tablet.) 81 mg PO DAILY [facility] Clopidogrel Bisulfate (Clopidogrel Bisulfate 75 Mg Tablet) 75 mg PO DAILY [facility] Fluticasone Propionate (Fluticasone Propionate Nasal 16 Gm [place]) 2 spray NOSTRIL-B DAILY [facility] Glucose (Glucose Gel 15 Gm Gel..Gram.) 15 gm PO Q15M PRN; Protocol PRN Reason: per Hypoglycemia Standing Ord. Heparin Sodium (Porcine) (Heparin Sodium,Porcine 5,000 Unit/Ml Vial) 5,000 unit SUBCUT Q8H [facility] Ceftriaxone Sodium 1 gm/ (Sodium Chloride) 50 mls @ 100 mls/hr IV Q24H [facility] Vancomycin HCl 1,000 mg/ (Sodium Chloride) 270 mls @ 270 mls/hr IV Q24H [facility] Dextrose (D10) 250 mls @ 750 mls/hr IV Q15M PRN; Protocol PRN Reason: per Hypoglycemia Standing Ord. Insulin Glargine (Insulin Glargine,Hum.Rec.Anlog 100 Unit/Ml 10 Ml Vial) 10 unit SUBCUT BEDTIME [facility] Insulin Human Lispro (Insulin Lispro 100 Unit/Ml 3 Ml Vial) 0 unit SUBCUT QIDACHS [facility]; Protocol Last Admin: 10/15/22 07:39 Dose: Not Given Mirtazapine (Mirtazapine 15 Mg Tablet) 15 mg PO BEDTIME [facility] Omeprazole (Omeprazole 20 Mg Capsule.) 20 mg PO DAILY@0630 [facility] Last Admin: 10/15/22 05:46 Dose: 20 mg Oxycodone HCl (Oxycodone Hcl Immed Release 5 Mg Tablet) 5 mg PO BID PRN PRN Reason: Pain, Moderate Pharmacy Consult (Consult Rx Vancomycin Dosing) 1 each MISCELLANE DAILY PRN PRN Reason: Consult order Pravastatin Sodium (Pravastatin Sodium 10 Mg Tablet) 10 mg PO BEDTIME [facility] Sodium Chloride (0.9 % Sodium Chloride Flush 3 Ml Syringe) 3 ml IVFLUSH QSHIFT [facility] Last Admin: 10/15/22 01:19 Dose: Not Given Zolpidem Tartrate (Zolpidem Tartrate 5 Mg Tablet) 10 mg PO BEDTIME PRN PRN Reason: Insomnia Home Medications Medication Instructions Recorded Confirmed Last Taken Type aspirin 81 mg tablet,delayed 81 mg PO DAILY 07/06/20 10/14/22 05/01/22 History release metformin 500 mg tablet 1,000 mg PO BID 07/06/20 10/14/22 05/01/22 History oxycodone-acetaminophen 5 mg-325 1 tab PO BID PRN Pain, Moderate 07/06/20 10/14/22 05/01/22 History mg tablet pantoprazole 40 mg tablet,delayed 40 mg PO DAILY@0630 02/15/21 10/14/22 05/01/22 History release (Protonix) pravastatin 10 mg tablet 10 mg PO BEDTIME 02/15/21 10/14/22 05/01/22 History insulin glargine 100 unit/mL (3 20 unit subcut DAILY 12/06/21 10/14/22 05/01/22 History mL) subcutaneous pen (Lantus Solostar U-100 Insulin) clopidogrel 75 mg tablet (Plavix) 75 mg PO DAILY 02/22/22 10/14/22 05/01/22 History dexamethasone 4 mg tablet 4 mg PO Q2W@08,17 05/02/22 10/14/22 05/01/22 History (Decadron) dulaglutide 3 mg/0.5 mL 0.5 ml subcut MORALES@0900 05/02/22 10/14/22 05/01/22 History subcutaneous pen injector (Trulicity) fluticasone propionate 50 2 spray intranasal DAILY 05/02/22 10/14/22 05/01/22 History mcg/actuation nasal spray,suspension mirtazapine 15 mg tablet 1 tab PO BEDTIME 10/14/22 10/14/22 Unknown History naproxen 500 mg tablet 1 tab PO BID PRN pain 10/14/22 10/14/22 Unknown History ondansetron 4 mg disintegrating 1 tab PO Q6H PRN Nausea And 10/14/22 10/14/22 Unknown History tablet Vomiting valsartan 160 1 tab PO DAILY blood pressure 10/14/22 10/14/22 Unknown History mg-hydrochlorothiazide 12.5 mg tablet zolpidem 10 mg tablet 1 tab PO BEDTIME PRN Insomnia 10/14/22 10/14/22 Unknown History Physical Exam Vital Signs: Vital Signs: Last Vital Signs Temp 97.7 F 10/15/22 07:12 Pulse 79 10/15/22 07:12 Resp 12 10/15/22 07:12 BP 122/74 10/15/22 07:12 Pulse Ox 95 10/15/22 07:12 O2 Del Method 10/15/22 07:12 BMI result Body Mass Index 22.6 Const: General: cooperative, healthy appearing, comfortable and no acute distress Extrem: Other: Right knee skin intact. No redness , he does have trace joint effusion. No tenderness to palpation. He is able to perform ROM without pain. Calf supple non tender, NVI. Results Labs 10/14/22 20:17 10/14/22 20:17 Labs: Abnormal lab results 10/14/22 10/14/22 10/14/22 Range/Units 20:17 20:17 20:17 WBC 24.3 H (4.8-10.8) X10*3/uL RBC 3.49 L (4.60-5.80) X10*6/uL Hgb 9.1 L (14.0-18.0) g/dl Hct 29.1 L (42.0-52.0) % MCH 26.1 L (27.0-33.0) pg RDW 26.3 H (11.0-16.0) % Neutrophils % (Manual) 89 H (45-73) % Lymphocytes % (Manual) 8 L (20-40) % Abs Neuts (Manual) 21.6 H (2.0-8.3) X10*3/uL BUN 20 H (9-16) mg/dL POC Glucose (60-115) mg/dL Random Glucose 130 H (60-115) mg/dL Lactic Acid 2.3 H* (0.5-2.0) mmol/L Lactic Acid F/U @ 2Hr (0.5-2.0) mmol/L Alkaline Phosphatase 156 H (39-117) U/L Total Protein 5.9 L (6.5-8.0) g/dL Albumin 3.0 L (3.5-5.0) g/dL 10/14/22 10/15/22 Range/Units 22:33 07:12 WBC (4.8-10.8) X10*3/uL RBC (4.60-5.80) X10*6/uL Hgb (14.0-18.0) g/dl Hct (42.0-52.0) % MCH (27.0-33.0) pg RDW (11.0-16.0) % Neutrophils % (Manual) (45-73) % Lymphocytes % (Manual) (20-40) % Abs Neuts (Manual) (2.0-8.3) X10*3/uL BUN (9-16) mg/dL POC Glucose 118 H (60-115) mg/dL Random Glucose (60-115) mg/dL Lactic Acid (0.5-2.0) mmol/L Lactic Acid F/U @ 2Hr 2.3 H* (0.5-2.0) mmol/L Alkaline Phosphatase (39-117) U/L Total Protein (6.5-8.0) g/dL Albumin (3.5-5.0) g/dL H & H 10/14/22 Range/Units 20:17 Hgb 9.1 L (14.0-18.0) g/dl Hct 29.1 L (42.0-52.0) % All other labs normal. Assessment and Plan (1) Pseudogout of right knee: Status: Acute Plan Specimen: [id number] Collected: 10/14/22 Status: RES Req#: [id number] Received: 10/14/22 Source: Knee aspir Sp Desc: Subm Dr: Deondre Bailey MD Ordered: Joint Fld Prof Comments: Results of Calcium Pyrophosphate Crystals sent by a secure message and confirmed by Alba Senior on 10/15/22 at 0906 by ANTONIETA. Procedure Result Verified Site Gram stain Final 10/14/22 Gram stain results: 4+ polys No organisms seen Anaerobic Culture PENDING Appearance Final 10/14/22-2006 Appearance Turbid Crystals Final 10/15/22-0849 Crystals 3+ calcium pyrophosphate crystals Joint fluid culture PENDING I was able to discuss the case with Dr Dhaliwal. With the absence of redness, warmth pain with ROM and labs consistent with pseudo gout ( see above) no need for surgical intervention. Would treat as pseudogout, dc abx. If symptoms change ie: inc pain, redness warmth , unable to perform ROM- please re-consult. Time Spent With Patient Time: Total time managing care of this patient today ____ minutes. Procedures Date of Service Date of Service: 10/15/22
[2022-10-15] MEDS: Aspirin Enteric Coated 81 MG TABLET.DR PO (08:13)
[2022-10-15] MEDS: Clopidogrel Bisulfate 75 MG TABLET PO (08:13)
[2022-10-15] MEDS: 0.9 % Sodium Chloride Flush 3 ML SYRINGE IVFLUSH ×3 (08:14→21:14)
[2022-10-15] MEDS: cefTRIAXone sodium 1 GM in 0.9 % Sodium Chloride 50 ML IV (08:14)
[2022-10-15 08:21] LABS: Creatinine Clr Calc Pharmacy 34.1; Estimated Glomerular Filt Rate 58
--- NOTE | 2022-10-15 11:10 | MHC.CM.PN ---
Lives with in second floor apartment. No prior services except MEDICATION SPECIALIST through [employer], 13 hours/week. Owns cane and cruthces, does not drive, MEDICATION SPECIALIST drives him where he needs to go. Plan is D/C to home w/ and MEDICATION SPECIALIST via MEDICATION SPECIALIST. CM to follow.
[2022-10-15 11:19] LABS: Glucose, Whole Blood 133 mg/dL (60-115)
[2022-10-15 11:25] VITALS: BP 113/68; PULSE 97; RESP 16; TEMP 36.6; O2SAT 98
--- NOTE | 2022-10-15 11:39 | HE.PHANOTE ---
VANCO DOSING BASED ON SCR OF 1.20 DOSE CONTINUED AT 1GRAM Q 24H. NEXT TROUGH 10/16 @ 1800
--- NOTE | 2022-10-15 14:18 | P.PNIM_ITS ---
Subjective Subjective Date of Service: 10/15/22 Interval History: Seen and evaluated Feels pain in his right knee no fever or chills no other overnight events Review of Systems Review of Systems: Yes all other systems are reviewed and are negative Physical Exam Vital Signs: Vital Signs: Last Vital Signs Temp 97.8 F 10/15/22 11:25 Pulse 97 10/15/22 11:25 Resp 16 10/15/22 11:25 BP 113/68 10/15/22 11:25 Pulse Ox 98 10/15/22 11:25 O2 Del Method 10/15/22 11:25 BMI result Body Mass Index 22.6 Const: Other: Constitutional : Awake, interactive, not in distress Neck : Normal inspection, Supple Cardiovascular : RRR, no JVP, no lower extremity edema Respiratory : good bilateral air entry, no crackles, wheezes or rhonchi Gastrointestinal: soft, lax, Normal bowel sounds, Non tender Skin : Warm, Dry Skeletal: Rt knee swollen with no erythema, drianage with minimal ROM reduction Neurological : Alert & oriented x3, No focal deficit Objective Data Active Medications Albuterol Sulfate (Albuterol Sulfate 90 Mcg 8 Gm Inhaler) 2 puff INHALE Q6H PRN PRN Reason: shortness of breath or wheezing Artificial Tears (Artificial Tears 15 Ml Drops) 1 drop EYE-BOTH Q4H PRN PRN Reason: Dry Eyes Aspirin (Aspirin Enteric Coated 81 Mg Tablet.) 81 mg PO DAILY [facility] Last Admin: 10/15/22 08:13 Dose: 81 mg Documented By: VERA Clopidogrel Bisulfate (Clopidogrel Bisulfate 75 Mg Tablet) 75 mg PO DAILY [facility] Last Admin: 10/15/22 08:13 Dose: 75 mg Documented By: VERA Fluticasone Propionate (Fluticasone Propionate Nasal 16 Gm [place]) 2 spray NOSTRIL-B DAILY [facility] Last Admin: 10/15/22 08:20 Dose: Not Given Documented By: VERA Non-Admin Reason: Med Not Available Glucose (Glucose Gel 15 Gm Gel..Gram.) 15 gm PO Q15M PRN; Protocol PRN Reason: per Hypoglycemia Standing Ord. Heparin Sodium (Porcine) (Heparin Sodium,Porcine 5,000 Unit/Ml Vial) 5,000 unit SUBCUT Q8H [facility] Last Admin: 10/15/22 08:13 Dose: 5,000 unit Documented By: VERA Ceftriaxone Sodium 1 gm/ (Sodium Chloride) 50 mls @ 100 mls/hr IV Q24H [facility] Last Infusion: 10/15/22 09:04 Dose: 0 mls/hr Documented By: VERA Vancomycin HCl 1,000 mg/ (Sodium Chloride) 270 mls @ 270 mls/hr IV Q24H [facility] Dextrose (D10) 250 mls @ 750 mls/hr IV Q15M PRN; Protocol PRN Reason: per Hypoglycemia Standing Ord. Insulin Glargine (Insulin Glargine,Hum.Rec.Anlog 100 Unit/Ml 10 Ml Vial) 10 unit SUBCUT BEDTIME [facility] Insulin Human Lispro (Insulin Lispro 100 Unit/Ml 3 Ml Vial) 0 unit SUBCUT QIDAC [facility]; Protocol Last Admin: 10/15/22 11:22 Dose: Not Given Documented By: VERA Non-Admin Reason: No Insulin Coverage Mirtazapine (Mirtazapine 15 Mg Tablet) 15 mg PO BEDTIME [facility] Omeprazole (Omeprazole 20 Mg Capsule.) 20 mg PO DAILY@0630 [facility] Last Admin: 10/15/22 05:46 Dose: 20 mg Documented By: CASTILAnn Marie Oxycodone HCl (Oxycodone Hcl Immed Release 5 Mg Tablet) 5 mg PO BID PRN PRN Reason: Pain, Moderate Pharmacy Consult (Consult Rx Vancomycin Dosing) 1 each MISCELLANE DAILY PRN PRN Reason: Consult order Pravastatin Sodium (Pravastatin Sodium 10 Mg Tablet) 10 mg PO BEDTIME [facility] Sodium Chloride (0.9 % Sodium Chloride Flush 3 Ml Syringe) 3 ml IVFLUSH QSHIFT [facility] Last Admin: 10/15/22 08:14 Dose: 3 ml Documented By: VERA Zolpidem Tartrate (Zolpidem Tartrate 5 Mg Tablet) 10 mg PO BEDTIME PRN PRN Reason: Insomnia Labs 10/14/22 20:17 10/15/22 07:18 Labs: Laboratory Results - last 24 hr 10/14/22 10/14/22 10/14/22 20:17 20:17 20:17 MCV 83.4 MCH 26.1 L MCHC 31.3 RDW 26.3 H Plt Count 239 MPV 10.5 Immature Gran % (Auto) Cancelled Neut % (Auto) Cancelled Lymph % (Auto) Cancelled [place] % (Auto) Cancelled Eos % (Auto) Cancelled Baso % (Auto) Cancelled Lymph # (Auto) Cancelled [place] # (Auto) Cancelled Eos # (Auto) Cancelled Baso # (Auto) Cancelled Abs Immat Gran (auto) Cancelled Absolute Neuts (auto) Cancelled Absolute Nucleated RBC 0.000 Nucleated RBC % (auto) 0.0 Neutrophils % (Manual) 89 H Lymphocytes % (Manual) 8 L Monocytes % (Manual) 3 Abs Neuts (Manual) 21.6 H Lymphocytes # (Manual) 1.9 Monocytes # (Manual) 0.7 Platelet Estimate NORMAL Plt Morphology Comment NORMAL RBC Morphology NOTED Ovalocytes 1+ (5-14) Acanthocytes (Spur) 2+ (3-5) Anion Gap 13 Estim Creat Clear Calc 32.5 Estimated GFR 55 POC Glucose Random Glucose 130 H Lactic Acid 2.3 H* Lactic Acid F/U @ 2Hr Lactic Acid F/U @ 4Hr Uric Acid 5.3 Calcium 9.0 Total Bilirubin 0.3 AST 15 ALT < 6 Alkaline Phosphatase 156 H Total Protein 5.9 L Albumin 3.0 L Synovial Source Synovial WBC Synovial RBC Synovial Neutrophils Synovial Lymphocytes Synovial Monocytes Synovial Other Cells COVID-19 ([facility]) COVID-19 Clin Com 10/14/22 10/14/22 10/15/22 22:33 Unknown 01:14 MCV MCH MCHC RDW Plt Count MPV Immature Gran % (Auto) Neut % (Auto) Lymph % (Auto) [place] % (Auto) Eos % (Auto) Baso % (Auto) Lymph # (Auto) [place] # (Auto) Eos # (Auto) Baso # (Auto) Abs Immat Gran (auto) Absolute Neuts (auto) Absolute Nucleated RBC Nucleated RBC % (auto) Neutrophils % (Manual) Lymphocytes % (Manual) Monocytes % (Manual) Abs Neuts (Manual) Lymphocytes # (Manual) Monocytes # (Manual) Platelet Estimate Plt Morphology Comment RBC Morphology Ovalocytes Acanthocytes (Spur) Anion Gap Estim Creat Clear Calc Estimated GFR POC Glucose Random Glucose Lactic Acid Lactic Acid F/U @ 2Hr 2.3 H* Lactic Acid F/U @ 4Hr 1.9 Uric Acid Calcium Total Bilirubin AST ALT Alkaline Phosphatase Total Protein Albumin Synovial Source knee Synovial WBC 36.450 Synovial RBC 0.020 Synovial Neutrophils 77 Synovial Lymphocytes 4 Synovial Monocytes 18 Synovial Other Cells 1 COVID-19 ([facility]) COVID-19 Clin Com 10/15/22 10/15/22 10/15/22 01:31 07:12 07:18 MCV MCH MCHC RDW Plt Count MPV Immature Gran % (Auto) Neut % (Auto) Lymph % (Auto) [place] % (Auto) Eos % (Auto) Baso % (Auto) Lymph # (Auto) [place] # (Auto) Eos # (Auto) Baso # (Auto) Abs Immat Gran (auto) Absolute Neuts (auto) Absolute Nucleated RBC Nucleated RBC % (auto) Neutrophils % (Manual) Lymphocytes % (Manual) Monocytes % (Manual) Abs Neuts (Manual) Lymphocytes # (Manual) Monocytes # (Manual) Platelet Estimate Plt Morphology Comment RBC Morphology Ovalocytes Acanthocytes (Spur) Anion Gap Estim Creat Clear Calc 34.1 Estimated GFR 58 POC Glucose 118 H Random Glucose Lactic Acid Lactic Acid F/U @ 2Hr Lactic Acid F/U @ 4Hr Uric Acid Calcium Total Bilirubin AST ALT Alkaline Phosphatase Total Protein Albumin Synovial Source Synovial WBC Synovial RBC Synovial Neutrophils Synovial Lymphocytes Synovial Monocytes Synovial Other Cells COVID-19 ([facility]) Negative COVID-19 [facility] Com See Note 10/15/22 11:07 MCV MCH MCHC RDW Plt Count MPV Immature Gran % (Auto) Neut % (Auto) Lymph % (Auto) [place] % (Auto) Eos % (Auto) Baso % (Auto) Lymph # (Auto) [place] # (Auto) Eos # (Auto) Baso # (Auto) Abs Immat Gran (auto) Absolute Neuts (auto) Absolute Nucleated RBC Nucleated RBC % (auto) Neutrophils % (Manual) Lymphocytes % (Manual) Monocytes % (Manual) Abs Neuts (Manual) Lymphocytes # (Manual) Monocytes # (Manual) Platelet Estimate Plt Morphology Comment RBC Morphology Ovalocytes Acanthocytes (Spur) Anion Gap Estim Creat Clear Calc Estimated GFR POC Glucose 133 H Random Glucose Lactic Acid Lactic Acid F/U @ 2Hr Lactic Acid F/U @ 4Hr Uric Acid Calcium Total Bilirubin AST ALT Alkaline Phosphatase Total Protein Albumin Synovial Source Synovial WBC Synovial RBC Synovial Neutrophils Synovial Lymphocytes Synovial Monocytes Synovial Other Cells COVID-19 ([facility]) COVID-19 [employer] Com Microbiology Microbiology Results: Microbiology 10/14/22 17:55 Gram Stain - Final Knee aspirate Anaerobic Culture - Preliminary No growth to date. Gross Specimen Examination - Final Fluid Crystals - Final Joint Fluid Culture - Preliminary No growth to date. Assessment and Plan (1) Pseudogout of right knee: Status: Acute Plan 81-year-old male with a past medical history of hypertension, hyperlipidemia, diabetes, anemia, COPD-not on home oxygen, cardiomyopathy, CAD, history of rectal cancer on chemotherapy-last received 2 weeks ago; presented to the hospital today with a chief complaint of right knee pain. Noted to have a right knee swelling, tenderness, warmth-concern for infection. Admitted for further management. Pseudogout in Rt knee based on clinical picture and knee tap results Orthopedic input appreciated DC Abx start steroids as patient on dual AP and has hx of diarrhea PT eval Id consult Pain control History of rectal cancer: Patient on chemotherapy. Follows with Oncology actively. History of diabetes: Hold home regimen. Insulin sliding scale. History of hypertension/hyperlipidemia/CAD: Continue home aspirin, statin, Plavix. Hold home losartan/HCTZ for now. History of depression: Continue home mirtazapine DVT prophylaxis: Subcu heparin Code status: Full code Will need overnight hospital stay to monitor response to treatment of Rt knee swelling pending safe discharge plan Time Spent With Patient Time: Total time managing care of this patient today ____ minutes. Quality Stroke Does the patient have a stroke diagnosis?: No VTE Prior VTE?: No VTE Risk Level:: Medical - moderate - high VTE Device Contraindication: Treatment Not Indicated VTE Drug Contraindication: N/A - Med Ordered
[2022-10-15 15:00] VITALS: BP 96/54; PULSE 83; RESP 20; TEMP 36.2; O2SAT 96
[2022-10-15] MEDS: methylPREDNISolone Sod Succ 125 MG/2 ML VIAL 60 MG IVPUSH (15:06)
[2022-10-15 16:11] LABS: Glucose, Whole Blood 153 mg/dL (60-115)
[2022-10-15] MEDS: Insulin Lispro 100 UNIT/ML 3 ML VIAL SUBCUT ×2 (16:18→21:13)
[2022-10-15 19:30] VITALS: BP 115/65; PULSE 83; RESP 20; TEMP 37.5; O2SAT 96
[2022-10-15 19:55] LABS: Glucose, Whole Blood 185 mg/dL (60-115)
[2022-10-15] MEDS: Insulin Glargine,Hum.rec.anlog 100 UNIT/ML 10 ML VIAL 10 UNIT SUBCUT (21:13)
[2022-10-15] MEDS: Pravastatin Sodium 10 MG TABLET PO (21:14)
[2022-10-15] MEDS: Mirtazapine 15 MG TABLET PO (21:14)
[2022-10-15 23:04] VITALS: BP 133/70; PULSE 82; RESP 20; TEMP 36.7; O2SAT 97
[2022-10-16 04:00] VITALS: BP 140/76; PULSE 79; RESP 18; TEMP 36.8; O2SAT 97
[2022-10-16] MEDS: Omeprazole 20 MG CAPSULE.DR PO (06:40)
[2022-10-16 07:40] LABS: Hematocrit 28.6 % (42.0-52.0); Hemoglobin 9.1 g/dl (14.0-18.0); Mean Corpuscular HGB Conc 31.8 g/dl (31.0-36.0); Mean Corpuscular Hemoglobin 25.8 pg (27.0-33.0); Mean Platelet Volume 10.4 fL (9.4-12.4); Platelet Count 242 X10*3/uL (160-400); Red Blood Count 3.53 X10*6/uL (4.60-5.80); Red Cell Distribution Width 25.9 % (11.0-16.0); White Blood Count 25.3 X10*3/uL (4.8-10.8)
[2022-10-16 07:47] LABS: Glucose, Whole Blood 185 mg/dL (60-115)
[2022-10-16 07:55] LABS: Anion Gap 14 (12-20); Blood Urea Nitrogen 22 mg/dL (9-16); Calcium 8.4 mg/dL (8.4-10.2); Carbon Dioxide 21 mmol/L (22-29); Chloride 107 mmol/L (96-108); Creatinine Clr Calc Pharmacy 31.5; Creatinine Clr Calc Pharmacy 32.2; Estimated Glomerular Filt Rate 53; Estimated Glomerular Filt Rate 54; Glucose Random 199 mg/dL (60-115); Potassium 4.3 mmol/L (3.3-5.1); Sodium 138 mmol/L (135-145)
[2022-10-16 08:00] VITALS: BP 134/78; PULSE 82; RESP 20; TEMP 36.6; O2SAT 98
--- NOTE | 2022-10-16 08:35 | PM.PNORT ---
Subjective Subjective Date of Service: 10/16/22 Interval history: f/u right knee swelling no overnight events patient states his pain and motion has improved, he has been able to ambulate around the room Physical Exam Vital Signs: Vital Signs: Last Vital Signs Temp 97.9 F 10/16/22 08:00 Pulse 82 10/16/22 08:00 Resp 20 10/16/22 08:00 BP 134/78 10/16/22 08:00 Pulse Ox 98 10/16/22 08:00 O2 Del Method 10/16/22 08:00 BMI result Body Mass Index 22.6 Const: General: cooperative, healthy appearing, comfortable and no acute distress Extrem: Other: Right knee skin intact. No redness , he does have trace joint effusion. No tenderness to palpation. He is able to perform ROM without pain. Calf supple non tender, NVI. Procedures Date of Service Date of Service: 10/16/22 Progress Note: A&P Assessment and plan (1) Pseudogout of right knee: Status: Acute Plan Patient significantly improved since yesterday Continue current treatment as necessary continue PT f/u with ortho prn Time Spent With Patient Time: Total time managing care of this patient today ____ minutes. Quality Stroke Does the patient have a stroke diagnosis?: No VTE Prior VTE?: No VTE Risk Level:: Medical - moderate - high VTE Device Contraindication: Treatment Not Indicated VTE Drug Contraindication: N/A - Med Ordered
[2022-10-16] MEDS: Clopidogrel Bisulfate 75 MG TABLET PO (08:55)
[2022-10-16] MEDS: Heparin Sodium,Porcine 5,000 UNIT/ML VIAL 5000 UNIT SUBCUT ×2 (08:55→17:00)
[2022-10-16] MEDS: 0.9 % Sodium Chloride Flush 3 ML SYRINGE IVFLUSH ×3 (08:55→22:50)
[2022-10-16] MEDS: predniSONE 20 MG TABLET 40 MG PO (08:55)
[2022-10-16] MEDS: Aspirin Enteric Coated 81 MG TABLET.DR PO (08:55)
[2022-10-16] MEDS: Insulin Lispro 100 UNIT/ML 3 ML VIAL SUBCUT ×3 (08:55→20:51)
--- NOTE | 2022-10-16 09:58 | HO.PM.IMPN ---
Subjective Subjective Date of Service: 10/16/22 Interval History: Seen and evaluated improving pain and decreased swelling in his right knee no fever or chills no other overnight events Review of Systems Review of Systems: Yes all other systems are reviewed and are negative Physical Exam Vital Signs: Vital Signs: Last Vital Signs Temp 97.9 F 10/16/22 08:00 Pulse 82 10/16/22 08:00 Resp 20 10/16/22 08:00 BP 134/78 10/16/22 08:00 Pulse Ox 98 10/16/22 08:00 O2 Del Method 10/16/22 08:00 BMI result Body Mass Index 22.6 Const: Other: Constitutional : Awake, interactive, not in distress Neck : Normal inspection, Supple Cardiovascular : RRR, no JVP, no lower extremity edema Respiratory : good bilateral air entry, no crackles, wheezes or rhonchi Gastrointestinal: soft, lax, Normal bowel sounds, Non tender Skin : Warm, Dry Skeletal: decreased Rt knee swelling with no erythema, drianage with minimal ROM reduction on flexion Neurological : Alert & oriented x3, No focal deficit Objective Data Active Medications Albuterol Sulfate (Albuterol Sulfate 90 Mcg 8 Gm Inhaler) 2 puff INHALE Q6H PRN PRN Reason: shortness of breath or wheezing Artificial Tears (Artificial Tears 15 Ml Drops) 1 drop EYE-BOTH Q4H PRN PRN Reason: Dry Eyes Aspirin (Aspirin Enteric Coated 81 Mg Tablet.Dr) 81 mg PO DAILY [facility] Last Admin: 10/16/22 08:55 Dose: 81 mg Documented By: VERA Clopidogrel Bisulfate (Clopidogrel Bisulfate 75 Mg Tablet) 75 mg PO DAILY [facility] Last Admin: 10/16/22 08:55 Dose: 75 mg Documented By: VERA Fluticasone Propionate (Fluticasone Propionate Nasal 16 Gm [place]) 2 spray NOSTRIL-B DAILY [facility] Last Admin: 10/16/22 08:58 Dose: Not Given Documented By: VERA Non-Admin Reason: Med Not Available Glucose (Glucose Gel 15 Gm Gel..Gram.) 15 gm PO Q15M PRN; Protocol PRN Reason: per Hypoglycemia Standing Ord. Heparin Sodium (Porcine) (Heparin Sodium,Porcine 5,000 Unit/Ml Vial) 5,000 unit SUBCUT Q8H [facility] Last Admin: 10/16/22 08:55 Dose: 5,000 unit Documented By: VERA Dextrose (D10) 250 mls @ 750 mls/hr IV Q15M PRN; Protocol PRN Reason: per Hypoglycemia Standing Ord. Insulin Glargine (Insulin Glargine,Hum.Rec.Anlog 100 Unit/Ml 10 Ml Vial) 10 unit SUBCUT BEDTIME [facility] Last Admin: 10/15/22 21:13 Dose: 10 unit Documented By: BAHMAN Insulin Human Lispro (Insulin Lispro 100 Unit/Ml 3 Ml Vial) 0 unit SUBCUT QIDACHS [facility]; Protocol Last Admin: 10/16/22 08:55 Dose: 2 unit Documented By: VERA Mirtazapine (Mirtazapine 15 Mg Tablet) 15 mg PO BEDTIME [facility] Last Admin: 10/15/22 21:14 Dose: 15 mg Documented By: BAHMAN Omeprazole (Omeprazole 20 Mg Capsule.) 20 mg PO DAILY@0630 [facility] Last Admin: 10/16/22 06:40 Dose: 20 mg Documented By: BAHMAN Oxycodone HCl (Oxycodone Hcl Immed Release 5 Mg Tablet) 5 mg PO BID PRN PRN Reason: Pain, Moderate Pravastatin Sodium (Pravastatin Sodium 10 Mg Tablet) 10 mg PO BEDTIME [facility] Last Admin: 10/15/22 21:14 Dose: 10 mg Documented By: BAHMAN Prednisone (Prednisone 20 Mg Tablet) 40 mg PO DAILY [facility] Last Admin: 10/16/22 08:55 Dose: 40 mg Documented By: VERA Sodium Chloride (0.9 % Sodium Chloride Flush 3 Ml Syringe) 3 ml IVFLUSH QSHIFT [facility] Last Admin: 10/16/22 08:55 Dose: 3 ml Documented By: VERA Zolpidem Tartrate (Zolpidem Tartrate 5 Mg Tablet) 10 mg PO BEDTIME PRN PRN Reason: Insomnia Labs 10/16/22 06:42 10/16/22 06:42 Labs: Laboratory Results - last 24 hr 10/15/22 10/15/22 10/15/22 11:07 16:03 19:49 MCV MCH MCHC RDW Plt Count MPV Absolute Nucleated RBC Nucleated RBC % (auto) Anion Gap Estim Creat Clear Calc Estimated GFR POC Glucose 133 H 153 H 185 H Random Glucose Calcium 10/16/22 10/16/22 10/16/22 06:42 06:42 06:42 MCV 81.0 MCH 25.8 L MCHC 31.8 RDW 25.9 H Plt Count 242 MPV 10.4 Absolute Nucleated RBC 0.000 Nucleated RBC % (auto) 0.0 Anion Gap 14 Estim Creat Clear Calc 32.2 31.5 Estimated GFR 54 53 POC Glucose Random Glucose 199 H Calcium 8.4 D 10/16/22 07:43 MCV MCH MCHC RDW Plt Count MPV Absolute Nucleated RBC Nucleated RBC % (auto) Anion Gap Estim Creat Clear Calc Estimated GFR POC Glucose 185 H Random Glucose Calcium Microbiology Microbiology Results: Microbiology 10/14/22 17:55 Gram Stain - Final Knee aspirate Anaerobic Culture - Preliminary No growth to date. Gross Specimen Examination - Final Fluid Crystals - Final Joint Fluid Culture - Preliminary No growth to date. 10/14/22 20:17 Blood Culture - Preliminary Blood - Venous No growth after 24 hours. 10/14/22 20:17 Blood Culture - Preliminary Blood - Venous No growth after 24 hours. Assessment and Plan (1) Pseudogout of right knee: Status: Acute (2) Knee pain: Status: Acute Plan 81-year-old male with a past medical history of hypertension, hyperlipidemia, diabetes, anemia, COPD-not on home oxygen, cardiomyopathy, CAD, history of rectal cancer on chemotherapy-last received 2 weeks ago; presented to the hospital today with a chief complaint of right knee pain. Noted to have a right knee swelling, tenderness, warmth-concern for infection. Admitted for further management. Pseudogout in Rt knee based on clinical picture and knee tap results Orthopedic input appreciated DC Abx continue steroids as patient on dual AP and has hx of diarrhea PT eval Id consult Pain control History of rectal cancer: Patient on chemotherapy. Follows with Oncology actively. History of diabetes: Hold home regimen. Insulin sliding scale. History of hypertension/hyperlipidemia/CAD: Continue home aspirin, statin, Plavix. Hold home losartan/HCTZ for now. History of depression: Continue home mirtazapine DVT prophylaxis: Subcu heparin Code status: Full code Will need overnight hospital stay to monitor response to treatment of Rt knee swelling pending safe discharge plan Time Spent With Patient Time: Total time managing care of this patient today ____ minutes. Quality Stroke Does the patient have a stroke diagnosis?: No VTE Prior VTE?: No VTE Risk Level:: Medical - moderate - high VTE Device Contraindication: Treatment Not Indicated VTE Drug Contraindication: N/A - Med Ordered
[2022-10-16 10:51] LABS: Glucose, Whole Blood 192 mg/dL (60-115)
[2022-10-16 11:54] VITALS: BP 132/72; PULSE 82; RESP 20; TEMP 36.6; O2SAT 98
[2022-10-16 16:00] VITALS: BP 137/77; PULSE 78; RESP 18; TEMP 36.6; O2SAT 97
[2022-10-16 16:22] LABS: Glucose, Whole Blood 134 mg/dL (60-115)
[2022-10-16 18:33] LABS: Vancomycin Random 9.4 mcg/mL (15-20)
[2022-10-16 19:47] VITALS: BP 121/76; PULSE 93; RESP 18; TEMP 36.5; O2SAT 97
[2022-10-16 20:09] LABS: Glucose, Whole Blood 153 mg/dL (60-115)
[2022-10-16] MEDS: Mirtazapine 15 MG TABLET PO (20:49)
[2022-10-16] MEDS: Pravastatin Sodium 10 MG TABLET PO (20:49)
[2022-10-16] MEDS: Zolpidem Tartrate 5 MG TABLET 10 MG PO (20:54)
[2022-10-17] VITALS: BP 130/83; PULSE 96; RESP 18; TEMP 36.6; O2SAT 96
[2022-10-17 04:00] VITALS: BP 130/76; PULSE 85; RESP 17; TEMP 36.2; O2SAT 99
[2022-10-17] MEDS: Omeprazole 20 MG CAPSULE.DR PO (04:26)
[2022-10-17 06:47] LABS: Hematocrit 30.3 % (42.0-52.0); Hemoglobin 9.5 g/dl (14.0-18.0); Mean Corpuscular HGB Conc 31.4 g/dl (31.0-36.0); Mean Corpuscular Hemoglobin 25.8 pg (27.0-33.0); Mean Corpuscular Volume 82.3 fL (80.0-98.0); Mean Platelet Volume 10.5 fL (9.4-12.4); Platelet Count 297 X10*3/uL (160-400); Red Blood Count 3.68 X10*6/uL (4.60-5.80); Red Cell Distribution Width 25.9 % (11.0-16.0); White Blood Count 28.5 X10*3/uL (4.8-10.8)
[2022-10-17 06:48] LABS: Anion Gap 13 (12-20); Blood Urea Nitrogen 23 mg/dL (9-16); Calcium 8.5 mg/dL (8.4-10.2); Carbon Dioxide 24 mmol/L (22-29); Chloride 109 mmol/L (96-108); Creatinine Clr Calc Pharmacy 34.1; Estimated Glomerular Filt Rate 58; Glucose Random 178 mg/dL (60-115); Potassium 4.1 mmol/L (3.3-5.1); Sodium 142 mmol/L (135-145)
[2022-10-17 07:18] LABS: Glucose, Whole Blood 175 mg/dL (60-115)
[2022-10-17 07:34] VITALS: BP 118/58; PULSE 83; RESP 18; TEMP 36.6; O2SAT 97
[2022-10-17] MEDS: Insulin Lispro 100 UNIT/ML 3 ML VIAL SUBCUT ×2 (08:54→12:37)
[2022-10-17] MEDS: predniSONE 20 MG TABLET 40 MG PO (08:55)
[2022-10-17] MEDS: Heparin Sodium,Porcine 5,000 UNIT/ML VIAL 5000 UNIT SUBCUT (08:55)
[2022-10-17] MEDS: Clopidogrel Bisulfate 75 MG TABLET PO (08:55)
[2022-10-17] MEDS: 0.9 % Sodium Chloride Flush 3 ML SYRINGE IVFLUSH (08:56)
[2022-10-17] MEDS: Aspirin Enteric Coated 81 MG TABLET.DR PO (08:56)
[2022-10-17 10:46] VITALS: BP 118/58; PULSE 83; O2SAT 97
--- NOTE | 2022-10-17 11:00 | PM.DS ---
DS: Providers Provider Date of Service: 10/17/22 Date of admission: 10/14/22 21:13 Primary care physician: Alexander Vick PA-C Consults: 10/14/22 21:12 Consult to Infectious Diseases Routine Consulting Provider: [facility] Infectious Disease Reason for consultation: Knee swelling; ?joint infection; pt immunocompromised Consult to Orthopedics Routine Consulting Provider: [facility] Orthopedic Surgeons Reason for consultation: Knee swelling; ?joint infection; pt immunocompromised DS: Diagnosis Discharge Diagnosis (1) Pseudogout of right knee: Status: Acute (2) Knee pain: Status: Acute DS: Summary Hospital Course Hospital Course: Admission note HPI 81-year-old male with a past medical history of hypertension, hyperlipidemia, diabetes, anemia, COPD-not on home oxygen, cardiomyopathy, CAD, history of rectal cancer on chemotherapy-last received 2 weeks ago; presented to the hospital today with a chief complaint of right knee pain.?Patient reports that for the past 6 days he has been having right knee pain which has been gradually worsening, limiting his ambulation.? Denies any falls or trauma.? Also complains of swelling in the right knee.?Range of motion is significantly limited secondary to the pain.? Denies any trauma.? Denies any recent signs of infection.? Denies any fever chills cough or sputum production.? Denies any urinary symptoms.?Denies any prior history of gout.?Mentions that he was recently on chemotherapy for his rectal cancer received 2 weeks ago; the next 1 is scheduled on the coming Monday.?Denies any chest pain palpitations lightheadedness or dizziness.?Denies any GI symptoms.? Per ER team, patient noted to have tenderness over the right knee, swollen, no erythema, had knee [place] in [place] [address] and crystals positive; concern for intramedullary arthritis but given patient has worsening leukocytosis compared to his baseline and lactic acidosis there is also suspicion for infection.? But Gram stain was negative.? Patient was empirically covered with antibiotics.? Notified orthopedics-suggested admission to the medicine service and will be evaluated in the morning. Hospital course Patient was admitted for evaluation of Right knee swelling and pain with concern of possible septic joint. [place] [address] with no growth from culture up to day of discharge. patient was started on broad spectrum antibiotics and evaluated by orthopedic team who did not feel he had septic knee. fluid analysis showed an evidence of calcium pyrophosphate crystals suggestive of acute pseudogout attack. treated with steroids with significant improvement of pain and swelling within 24 hours. was able to ambulate with improved ROM of knee. To be discharged on tappering dose of steroid to follow up with PCP and ortho as needed as outpatient. Evaluated by PT who recommended no need for therapy at discharge. Time Spent with Patient Time attestation: Total time managing care of this patient today ____ minutes. Discharge coordination time: Greater than 30 minutes Quality: Safe Use of Opioids Does Pt have an Active Cancer Diagnosis on the Problem List?: No Quality: Stroke Does the patient have a stroke diagnosis?: No Physical Exam Vital Signs: Vital Signs: Last Vital Signs Temp 97.8 F 10/17/22 07:34 Pulse 83 10/17/22 07:34 Resp 18 10/17/22 07:34 BP 118/58 L 10/17/22 07:34 Pulse Ox 97 10/17/22 07:34 O2 Del Method 10/17/22 07:34 BMI result Body Mass Index 22.6 Const: Other: Constitutional : Awake, interactive, not in distress Neck : Normal inspection, Supple Cardiovascular : RRR, no JVP, no lower extremity edema Respiratory : good bilateral air entry, no crackles, wheezes or rhonchi Gastrointestinal: soft, lax, Normal bowel sounds, Non tender Skin : Warm, Dry Skeletal: decreased Rt knee swelling with no erythema, drianage with minimal ROM reduction on flexion Neurological : Alert & oriented x3, No focal deficit DS: Data Data Completed and Pending Completed studies during hospitalization [Text1]: Procedures Drainage of Mesentery, Percutaneous Approach, Diagnostic (09/26/21) Excision of Mesentery, Percutaneous Approach, Diagnostic (09/26/21) Excision of Rectum, Via Natural or Artificial Opening Endoscopic, Diagnostic (09/26/21) Labs on day of discharge: Laboratory Results - last 24 hr 10/16/22 10/16/22 10/16/22 16:16 18:03 20:02 WBC RBC Hgb Hct MCV MCH MCHC RDW Plt Count MPV Absolute Nucleated RBC Nucleated RBC % (auto) Sodium Potassium Chloride Carbon Dioxide Anion Gap BUN Creatinine Estim Creat Clear Calc Estimated GFR POC Glucose 134 H 153 H Random Glucose Calcium Random Vancomycin 9.4 L 10/17/22 10/17/2223 06:04 06:04 06:04 WBC 28.5 H RBC 3.68 L Hgb 9.5 L Hct 30.3 L MCV 82.3 MCH 25.8 L MCHC 31.4 RDW 25.9 H Plt Count 297 MPV 10.5 Absolute Nucleated RBC 0.000 Nucleated RBC % (auto) 0.0 Sodium 142 Potassium 4.1 Chloride 109 H Carbon Dioxide 24 Anion Gap 13 BUN 23 H Creatinine 1.20 Cancelled Estim Creat Clear Calc 34.1 Cancelled Estimated GFR 58 Cancelled POC Glucose Random Glucose 178 H Calcium 8.5 Random Vancomycin 10/17/22 07:15 WBC RBC Hgb Hct MCV MCH MCHC RDW Plt Count MPV Absolute Nucleated RBC Nucleated RBC % (auto) Sodium Potassium Chloride Carbon Dioxide Anion Gap BUN Creatinine Estim Creat Clear Calc Estimated GFR POC Glucose 175 H Random Glucose Calcium Random Vancomycin Preliminary micro results at discharge 10/14/22 17:55 Anaerobic Culture - Preliminary Knee aspirate No growth to date. 10/14/22 20:17 Blood Culture - Preliminary Blood - Venous No growth after 48 hours. 10/14/22 20:17 Blood Culture - Preliminary Blood - Venous No growth after 48 hours. Imaging XR : Radiologist's impression: ITS Impressions Knee X-Ray 10/14/22 15:58 IMPRESSION: Degenerative arthritic changes right knee with moderate suprapatellar joint effusion. No visible acute fracture or dislocation seen. Discharge Plan Discharge Anticipated Discharge Date/Time: 10/17/22 10:36 Patient Disposition: Home, Self-Care Discharge Diagnosis: Pseudogout Referrals: Alexander Vick PA-C [Primary Care Provider] - 1 Week Discharge Medications: New prednisone 10 mg tablet See Taper PO DAILY Qty: 30 0RF Taper: Prednisone 40 mg daily for 3 Days and 0 Hour 30 mg daily for 3 Days and 0 Hour 20 mg daily for 3 Days and 0 Hour 10 mg daily for 3 Days and 0 Hour Continued clopidogrel [Plavix] 75 mg tablet 75 mg PO DAILY fluticasone propionate 50 mcg/actuation spray,suspension 2 spray intranasal DAILY Trulicity 3 mg/0.5 mL pen injector 0.5 ml subcut MORALES@0900 dexamethasone [Decadron] 4 mg tablet 4 mg PO Q2W@08,17 Rx Instructions: Take 4 mg b.i.d. for 1 day, starting day after chemo therapy, q.2 weeks. zolpidem 10 mg tablet 1 tab PO BEDTIME PRN (Reason: Insomnia) mirtazapine 15 mg tablet 1 tab PO BEDTIME naproxen 500 mg tablet 1 tab PO BID PRN (Reason: pain) Rx Instructions: take with food valsartan-hydrochlorothiazide 160-12.5 mg tablet 1 tab PO DAILY ondansetron 4 mg tablet,disintegrating 1 tab PO Q6H PRN (Reason: Nausea And Vomiting) insulin glargine [Lantus Solostar U-100 Insulin] 100 unit/mL (3 mL) insulin pen 20 unit subcut DAILY oxycodone-acetaminophen 5-325 mg tablet 1 tab PO BID PRN (Reason: Pain, Moderate) aspirin 81 mg tablet,delayed release (DR/EC) 81 mg PO DAILY metformin 500 mg tablet 1,000 mg PO BID pravastatin 10 mg tablet 10 mg PO BEDTIME pantoprazole [Protonix] 40 mg tablet,delayed release (DR/EC) 40 mg PO DAILY@0630 albuterol sulfate 90 mcg/actuation HFA aerosol inhaler 2 inh inhalation Q6H PRN (Reason: shortness of breath or wheezing) 30 Days Qty: 18 12RF Discharge Orders: Discharge Order (Routine); Ordered 10/17/22 Ordered By: Yumiko Carcamo Diet: Advance to usual diet Activity on Discharge: As tolerated Stand Alone Forms: Patient Portal Discharge page Care Plan Goals: Read below Health Concerns: Read below Plan of Treatment: Read below Assessment: You were admitted to the hospital for evaluation of right knee pain and swelling. fluid analysis from the joint showed an evidence of crystals suggesting pseudo-gout. responded well to steroids therapy as you were evaluated by orthopedic team. Continue tappering dose of steroids To follow up with PCP as scheduled contact dr Dhaliwal office if needed to follow with orthopedic team Discussed with dr Valenzuela, chemotherapy can be held this week, follow with oncology office for next appointment
[2022-10-17 11:10] LABS: Glucose, Whole Blood 196 mg/dL (60-115)
[2022-10-17 11:17] VITALS: BP 125/67; PULSE 84; RESP 18; TEMP 36.6; O2SAT 93
--- NOTE | 2022-10-17 12:01 | MHC.CM.PN ---
PT MEDICALLY CLEARED FOR D/C HOME W/RESUMP OF TEST PREPARER HRS, NO NEW SERVICES ORDERED, TEST PREPARER FOR TRANSPORT
== END 2022-10-17 13:31 | disposition home or self-care (01) | DRG 554 ==
LOC: HO.ED 17:04 → HO.EDOVER 21:20 → HO.IMC 10-15 02:13
PROVIDERS: Admitting Provider Hospitalist; Emergency Provider Internal Medicine; PCP Physician Assistant; Visit Provider Student in an Organized Health Care Education/Training Program
DX: M10.9 Gout, unspecified (principal); C20 Malignant neoplasm of rectum; D84.821 Immunodeficiency due to drugs; J44.9 Chronic obstructive pulmonary disease, unspecified; E78.5 Hyperlipidemia, unspecified; I10 Essential (primary) hypertension; I25.10 Atherosclerotic heart disease of native coronary artery without angina pectoris; Z20.822 Contact with and (suspected) exposure to COVID-19; Z87.891 Personal history of nicotine dependence; Z79.4 Long term (current) use of insulin; Z79.82 Long term (current) use of aspirin; Z79.84 Long term (current) use of oral hypoglycemic drugs; Z79.899 Other long term (current) drug therapy
CPT/HCPCS: 36415; 73564; 80048; 80053; 80202; 82565; 82947; 83605; 84550; 85007; 85027; 87040; 87070; 87073; 87205; 87635; 89051; 89060; 96365; 96375; 97161; 99285; J0692; J0696; J1643; J2930; J3371

== ENCOUNTER 2022-12-21 11:15 | Emergency (ER) | payer OTHER, SELFPAY ==
--- NOTE | ~2022-12-21 | CT_ITS ---
EXAMINATION: CT CHEST, ABDOMEN AND PELVIS WITH CONTRAST CLINICAL INFORMATION: Generalized fatigue and weakness. Decreased by mouth intake. COMPARISON: July 26, 2022 and April 27, 2022. TECHNIQUE: Multidetector volumetric imaging was performed from the thoracic inlet through the pubic Sagittal and coronal reformatted images were obtained on the technologist workstation. This CT examination was performed using dose optimization techniques as appropriate, variously including the following: *Automated exposure control *Adjustment of mA and/or kV according to patient size (this includes techniques or standardized protocols for targeted exams where dose is matched to indication/reason for exam; i.e. extremities or head) *Use of iterative reconstruction technique DLP: 569 mGy-cm. FINDINGS: CHEST: Lungs: Central airways are patent. There is bronchial wall thickening seen. Bronchiectasis is noted most prominently within the lower lobes bilaterally and right middle lobe. There are again noted to be innumerable lung nodules bilaterally some of which have increased in size such as within the right upper lobe on image [address] series #16 a subpleural noncalcified nodule measuring 1.5 x 0.9 cm in size where previously it measured 1.3 x 0.6 cm in size. There are a few scattered calcified granulomas. There is a region of tree-in-bud configuration disease within the right upper lobe similar to previous study of July 26, 2022. Mediastinum: No pericardial effusion. No thoracic aortic aneurysm. There is some coronary artery calcification present as well as coronary artery stents. There is nonocclusive aortic arch calcification present. No mediastinal or hilar lymphadenopathy is appreciated however limitation is present due to lack of contrast. Pleura: There are trace bilateral pleural effusions present. Chest Wall/Axilla: Right anterior port reservoir in place with port catheter seen directed to the level of the superior right atrium. No axillary lymphadenopathy present and no internal mammary lymphadenopathy is seen. ABDOMEN/PELVIS: Liver, Gallbladder, Biliary Tree: Liver is normal size. There is a somewhat lobular contour again noted. At the dome of the liver there is a 5 mm low-density lesion likely representing a cyst which has been seen previously. No intrahepatic bile duct dilatation is identified. No suspicious focal hepatic mass is identified however again evaluation is limited due to lack of IV contrast. Cholelithiasis is present. Pancreas: No suspicious masses appreciated however fat planes are obscured by edema and ascites. Spleen: Region of diminished density about the anterior spleen is again seen. Adrenal Glands: No definite true gland mass identified however the adrenal glands are not well seen. Kidneys and Ureters: The kidneys are normal in size, shape, and attenuation. No hydronephrosis or hydroureter seen. There is a 4 mm nonobstructing calculus seen in the interpolar region of the left kidney. Bladder: Unremarkable. Gastrointestinal Tract: No free air identified. No significantly dilated loops of large or small bowel are seen. There is some ascites present as well as peritoneal implants as had been seen previously but which are now more prominent. The edema within the mesentery appears somewhat more prominent than on prior examination and is difficult to separate adjacent structures due to the lack of well seen fat planes. There is some contrast seen within portions of the colon. There is diverticulosis of the sigmoid colon. Rectal mass with thickened rectal wall again seen with constricted lumen. Abdominal Wall: No hernia is demonstrated. Lymph Nodes: There is again noted to be left para-aortic lymphadenopathy Vascular: No abdominal aortic aneurysm. Pelvic Viscera: Edema present within pelvic fat Osseous Structures: No suspicious destructive bony lesions identified. Multilevel degenerative disc disease. Facet arthropathy L5-S1. There is a grade 1 spondylolisthesis L4-L5 CT/CT abdomen pelvis wo IV con IMPRESSION: Progression of metastatic disease about the chest abdomen and pelvis as described. Left nephrolithiasis.
--- NOTE | ~2022-12-21 | CT_ITS ---
EXAMINATION: CT HEAD WITHOUT CONTRAST CLINICAL INFORMATION: Progressive. Change in mental status. COMPARISON: March 06, 2020 TECHNIQUE: Contiguous axial imaging was performed from the skull base to vertex without intravenous administration of contrast. This CT examination was performed using dose optimization techniques as appropriate, variously including the following: *Automated exposure control *Adjustment of mA and/or kV according to patient size (this includes techniques or standardized protocols for targeted exams where dose is matched to indication/reason for exam; i.e. extremities or head) *Use of iterative reconstruction technique DLP: 617 mGy-cm FINDINGS: No intracranial hemorrhage is identified. No significant mass effect or midline structure shift. No abnormal extra-axial fluid collection. Brooks-white matter interface is maintained. Periventricular white matter low density is seen diffusely consistent with microangiopathy. There is prominence of the ventricles, sulci, and cisterns consistent with mild atrophic change. Calvarium appears intact. Temporomandibular joints intact. Pterygoid plate intact. CT/CT head/brain wo IV con IMPRESSION: No acute intracranial pathology. Microangiopathy.
[2022-12-21 11:24] VITALS: BP 110/67; BP 114/69; PULSE 69; PULSE 85; RESP 14; TEMP 36.7; O2SAT 98; O2SAT 99; BMI 18.7
--- NOTE | 2022-12-21 11:51 | ED_ITS ---
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 intake, nausea/vomiting, and diarrhea x 2 days. History obtained from who also reports patient has been hallucinating and aggressive, requesting something to calm patient down. denies known fever. In this underwriter mortgage loan's eval patient not forthcoming with history would like /daughter to provide information Onset (ago): day(s) Related Data Home Medications Medication Instructions Recorded Confirmed aspirin 81 mg tablet,delayed 81 mg PO DAILY 07/06/20 11/08/22 release metformin 500 mg tablet 1,000 mg PO BID 07/06/20 11/08/22 oxycodone-acetaminophen 5 mg-325 1 tab PO BID PRN Pain, Moderate 07/06/20 11/08/22 mg tablet pantoprazole 40 mg tablet,delayed 40 mg PO DAILY@0630 02/15/21 11/08/22 release (Protonix) pravastatin 10 mg tablet 10 mg PO BEDTIME 02/15/21 11/08/22 insulin glargine 100 unit/mL (3 20 unit subcut DAILY 12/06/21 11/08/22 mL) subcutaneous pen (Lantus Solostar U-100 Insulin) clopidogrel 75 mg tablet (Plavix) 75 mg PO DAILY 02/22/22 11/08/22 dexamethasone 4 mg tablet 4 mg PO Q2W@08,17 05/02/22 11/08/22 (Decadron) dulaglutide 3 mg/0.5 mL 0.5 ml subcut MORALES@0900 05/02/22 11/08/22 subcutaneous pen injector (Trulicity) fluticasone propionate 50 2 spray intranasal DAILY 05/02/22 11/08/22 mcg/actuation nasal spray,suspension mirtazapine 15 mg tablet 1 tab PO BEDTIME 10/14/22 11/08/22 naproxen 500 mg tablet 1 tab PO BID PRN pain 10/14/22 11/08/22 ondansetron 4 mg disintegrating 1 tab PO Q6H PRN Nausea And 10/14/22 11/08/22 tablet Vomiting valsartan 160 1 tab PO DAILY blood pressure 10/14/22 11/08/22 mg-hydrochlorothiazide 12.5 mg tablet zolpidem 10 mg tablet 1 tab PO BEDTIME PRN Insomnia 10/14/22 11/08/22 Previous Rx's Medication Instructions Recorded albuterol sulfate 90 mcg/actuation 2 inh inhalation Q6H PRN shortness 02/15/21 aerosol inhaler of breath or wheezing 30 days #18 grams prednisone 10 mg tablet See Taper PO DAILY #30 tabs 10/17/22 dronabinol 5 mg capsule (Marinol) 5 mg PO BID #60 caps 11/03/22 lorazepam 1 mg tablet 1 mg PO TID PRN agitation #10 tabs 12/21/22 Allergies Allergy/AdvReac Type Severity Reaction Status Date / Time No Known Allergies Allergy Verified 11/08/22 12:06 Review of Systems Review of Systems: Constitutional: No Fever, No Chills, +Fatigue, + Malaise Cardiovascular: No Chest Pain, No SOB Respiratory: No Cough, No Sputum, No Dyspnea Gastrointestinal: +Nausea, +Vomiting, +Diarrhea, No Constipation, No Abdominal pain Musculoskeletal: No joint pain, No Myalgias Skin: No Skin Lesions, No rash Neuro: +Weakness, No Headache Yes all other systems are reviewed and are negative Constitutional: Constitutional: Reports as per [facility] Past Medical History Attestation statement: The following information was validated with the patient. Source: old records reviewed Medical History COPD (chronic obstructive pulmonary disease) DMII (diabetes mellitus, type 2) Rectal cancer Stomach cancer Surgical History Hx of colonoscopy Family History Family History Family/Other Medical history reviewed with no changes Mother Breast cancer Sister Breast cancer Social History Social History Household Members: Spouse Housing: Apartment Are you a primary healthcare account manager to a significant other at home: No Do you presently have visiting nurse or other home services: Yes (plant specialist) Alcohol intake: current Alcohol intake frequency: does not drink Patient Tobacco Use Status: Former Tobacco user Quit Date: 40 years ago Tobacco use type: Cigarette Years Smoked: 20 years e-Cigarette/Vaping Use: Former Use Advance Directives: No service: No Current occupational status: retired Physical Exam ED Vital Signs: Vital Signs - 24 hr 12/21/22 11:24 12/21/22 13:49 Temperature 98.1 F Pulse Rate 85 83 Respiratory Rate 14 12 Blood Pressure 114/69 112/71 Pulse Oximetry 98 95 Oxygen Delivery Method Room Air Room Air BMI result Body Mass Index 18.7 Const Other: poor hygiene General: no acute distress, alert and ill appearing chronically Nutritional Appearance: malnourished HENMT Head: Yes normal to inspection and Yes atraumatic Ears: hearing grossly normal bilaterally General nose exam: Normal external nose present Face and sinus: Yes normal facial exam Eyes General: appearance normal, both eyes and all related structures EOM: EOMs intact bilaterally Neck Neck: Yes normal visual inspection and Yes no meningeal signs Resp Effort & Inspection: normal respiratory effort and no respiratory distress Auscultation: clear to auscultation bilaterally Cardio Rate: regular rate Heart sounds: S1 normal heart sound present and S2 normal heart sound present GI Inspection: Yes normal to inspection and Yes distended Palpation (GI): Soft to palpation, nontender, no guarding and not rigid Skin Rashes: no rashes Wounds: no wounds Neuro General: tone normal, moves all extremities and no meningeal signs Extrem General: Yes normal to inspection Course Course Course Narrative: -1420--acute on chronic leukocytosis of 24.9 > no evidence of infection at this time. Low suspicion for severe sepsis. H&H at patient's baseline -BUN at patient's baseline. Troponin negative CT head/brain wo IV con IMPRESSION: No acute intracranial pathology. Microangiopathy. 1541--CT chest wo IV con/CT abdomen pelvis wo IV con IMPRESSION: Progression of metastatic disease about the chest abdomen and pelvis as described. ? Left nephrolithiasis. > Case discussed with patient's oncologist Dr. Valenzuela, plan was for family to bring patient to [place] to be with family to pass. With pocket builder spoke with patient and at bedside, they concur with this plan, patient would like to be discharged to go to [place] until I . Offered patient admission however refused. Recommended we obtain UA to rule out infection however patient unwilling to stay for result and would like to be discharged. Patient/family requesting anxiolytic so patient can get to [place] safely, will discharge with prescription for Ativan Results discussed with patient including worrisome signs and symptoms and strict return precautions, and when to return to the emergency department. They verbalized understanding and feel safe for discharge at this time. 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 intake, nausea/vomiting, and diarrhea x 2 days, per patient also hallucinating and aggressive. On exam vital signs stable, alert/awake, not cooperative with history, abdomen soft, distended, nontender/ no rebound or guarding. No pedal edema. Chronically ill. Concern for progressive malignancy vs brain metastasis vs metabolic or infectious etiologies. Lower suspicion for SBP Low suspicion for severe sepsis Plan: EKG, labs, UA, head CT, chest CT, CT/AP Please refer to course for remaining clinical decision making, interpretation of labs/imaging results, and discussions with consultants and/or family members. Differential Diagnosis Differential Diagnoses: The differential diagnosis associated with the presentation includes As above Admission/Observation Consideration of admission/observation: Escalation of care including admis shawn/observation considered Lab Data [facility] Lab Attestation statement: I reviewed the patient's lab results. 12/21/22 12:56 12/21/22 12:56 Labs: Lab Results 12/21/22 12/21/22 12/21/22 Range/Units 12:56 12:56 12:56 WBC 24.9 H (4.8-10.8) X10*3/uL RBC 3.77 L (4.60-5.80) X10*6/uL Hgb 10.6 L (14.0-18.0) g/dl Hct 34.3 L (42.0-52.0) % MCV 91.0 (80.0-98.0) fL MCH 28.1 (27.0-33.0) pg MCHC 30.9 L (31.0-36.0) g/dl RDW 19.9 H (11.0-16.0) % Plt Count 223 (160-400) X10*3/uL MPV 10.4 (9.4-12.4) fL Immature Gran % (Auto) 1.0 H (0.0-0.4) % Neut % (Auto) 71.7 (45-73) % Lymph % (Auto) 14.8 L (20-40) % Stone % (Auto) 9.7 (2-11) % Eos % (Auto) 2.1 (0-4) % Baso % (Auto) 0.7 (0-2) % Lymph # (Auto) 3.7 (1.2-4.9) X10*3/uL Stone # (Auto) 2.4 H (0.1-1.2) X10*3/uL Eos # (Auto) 0.5 H (0.0-0.4) X10*3/uL Baso # (Auto) 0.2 (0.0-0.2) X10*3/uL Abs Immat Gran (auto) 0.24 H (0.00-0.03) X10*3/uL Absolute Neuts (auto) 17.8 H (2.0-8.3) x10*3/uL Absolute Nucleated RBC 0.000 (0.0-0.012) X10*3/uL Nucleated RBC % (auto) 0.0 (0.0-0.2) /100WBC Smear Tech's Comments VERIFIED PT 11.2 (10.0-13.1) SEC INR 1.0 (0.9-1.1) Sodium 145 (135-145) mmol/L Potassium 3.9 (3.3-5.1) mmol/L Chloride 113 H (96-108) mmol/L Carbon Dioxide 22 (22-29) mmol/L Anion Gap 14 (12-20) BUN 33 H (9-16) mg/dL Creatinine 1.17 (0.5-1.4) mg/dL Estim Creat Clear Calc 31.9 Estimated GFR 60 Random Glucose 71 (60-115) mg/dL Calcium 9.4 (8.4-10.2) mg/dL Magnesium 1.8 (1.6-2.6) mg/dL Total Bilirubin 0.2 (0.0-1.0) mg/dL Direct Bilirubin < 0.2 (0.0-0.5) mg/dL AST 17 (5-37) U/L ALT 6 (0-40) U/L Alkaline Phosphatase 158 H (39-117) U/L Ammonia (13-55) umol/L Troponin I High Sens (<3.5-35.0) ng/L Total Protein 6.2 L (6.5-8.0) g/dL Albumin 3.2 L (3.5-5.0) g/dL Lipase 12 (8-78) U/L Influenza Type A (PCR) (Negative) Influenza Type B (PCR) (Negative) RSV RNA Qual (PCR) (Negative) SARS-CoV-2 RNA (RT-PCR) (Negative) 12/21/22 12/21/22 12/21/22 Range/Units 12:56 12:56 14:39 WBC (4.8-10.8) X10*3/uL RBC (4.60-5.80) X10*6/uL Hgb (14.0-18.0) g/dl Hct (42.0-52.0) % MCV (80.0-98.0) fL MCH (27.0-33.0) pg MCHC (31.0-36.0) g/dl RDW (11.0-16.0) % Plt Count (160-400) X10*3/uL MPV (9.4-12.4) fL Immature Gran % (Auto) (0.0-0.4) % Neut % (Auto) (45-73) % Lymph % (Auto) (20-40) % Stone % (Auto) (2-11) % Eos % (Auto) (0-4) % Baso % (Auto) (0-2) % Lymph # (Auto) (1.2-4.9) X10*3/uL Stone # (Auto) (0.1-1.2) X10*3/uL Eos # (Auto) (0.0-0.4) X10*3/uL Baso # (Auto) (0.0-0.2) X10*3/uL Abs Immat Gran (auto) (0.00-0.03) X10*3/uL Absolute Neuts (auto) (2.0-8.3) x10*3/uL Absolute Nucleated RBC (0.0-0.012) X10*3/uL Nucleated RBC % (auto) (0.0-0.2) /100WBC Smear Tech's Comments PT (10.0-13.1) SEC INR (0.9-1.1) Sodium (135-145) mmol/L Potassium (3.3-5.1) mmol/L Chloride (96-108) mmol/L Carbon Dioxide (22-29) mmol/L Anion Gap (12-20) BUN (9-16) mg/dL Creatinine (0.5-1.4) mg/dL Estim Creat Clear Calc Estimated GFR Random Glucose (60-115) mg/dL Calcium (8.4-10.2) mg/dL Magnesium (1.6-2.6) mg/dL Total Bilirubin (0.0-1.0) mg/dL Direct Bilirubin (0.0-0.5) mg/dL AST (5-37) U/L ALT (0-40) U/L Alkaline Phosphatase (39-117) U/L Ammonia 30 (13-55) umol/L Troponin I High Sens < 2.7 (<3.5-35.0) ng/L Total Protein (6.5-8.0) g/dL Albumin (3.5-5.0) g/dL Lipase (8-78) U/L Influenza Type A (PCR) NEGATIVE (Negative) Influenza Type B (PCR) NEGATIVE (Negative) RSV RNA Qual (PCR) NEGATIVE (Negative) SARS-CoV-2 RNA (RT-PCR) NEGATIVE (Negative) Radiology Impression Discussion of test interpretation with radiology: I have reviewed the radiologist's reading. External Record Review External record reviewed: Inpatient record, Office record, Outpatient record, Prior outpatient labs, Prior outpatient radiology, Primary care record and Outside ED record Tests considered The following testing was considered but not selected: As above Discharge Plan Discharge Clinical Impression: Rectal cancer, Generalized weakness, Anorexia Patient Disposition: Home, Self-Care Instructions: Colorectal Cancer (DC), Weakness (ED) Additional Instructions: Your blood work is at her baseline. Your CT scans show progression of your cancer Continue home prescribed medications Lorazepam will help with anxiety/agitation, take as needed Please follow-up with your doctor/oncologist If symptoms persist or worsen, you have change in mental status, fever, you are unable to eat or drink return to the ED Prescriptions: New lorazepam 1 mg tablet 1 mg PO TID PRN (Reason: agitation) Qty: 10 0RF No Action clopidogrel [Plavix] 75 mg tablet 75 mg PO DAILY dronabinol [Marinol] 5 mg Capsule 5 mg PO BID Qty: 60 3RF Rx Instructions: administer before lunch and evening meal/dinner fluticasone propionate 50 mcg/actuation spray,suspension 2 spray intranasal DAILY Trulicity 3 mg/0.5 mL pen injector 0.5 ml subcut MORALES@0900 dexamethasone [Decadron] 4 mg tablet 4 mg PO Q2W@08,17 Rx Instructions: Take 4 mg b.i.d. for 1 day, starting day after chemo therapy, q.2 weeks. zolpidem 10 mg tablet 1 tab PO BEDTIME PRN (Reason: Insomnia) mirtazapine 15 mg tablet 1 tab PO BEDTIME naproxen 500 mg tablet 1 tab PO BID PRN (Reason: pain) Rx Instructions: take with food valsartan-hydrochlorothiazide 160-12.5 mg tablet 1 tab PO DAILY ondansetron 4 mg tablet,disintegrating 1 tab PO Q6H PRN (Reason: Nausea And Vomiting) prednisone 10 mg tablet See Taper PO DAILY Qty: 30 0RF Taper: Prednisone 40 mg daily for 3 Days and 0 Hour 30 mg daily for 3 Days and 0 Hour 20 mg daily for 3 Days and 0 Hour 10 mg daily for 3 Days and 0 Hour insulin glargine [Lantus Solostar U-100 Insulin] 100 unit/mL (3 mL) insulin pen 20 unit subcut DAILY oxycodone-acetaminophen 5-325 mg tablet 1 tab PO BID PRN (Reason: Pain, Moderate) aspirin 81 mg tablet,delayed release (DR/EC) 81 mg PO DAILY metformin 500 mg tablet 1,000 mg PO BID pravastatin 10 mg tablet 10 mg PO BEDTIME pantoprazole [Protonix] 40 mg tablet,delayed release (DR/EC) 40 mg PO DAILY@0630 albuterol sulfate 90 mcg/actuation HFA aerosol inhaler 2 inh inhalation Q6H PRN (Reason: shortness of breath or wheezing) 30 Days Qty: 18 12RF Referrals: Gisell Valenzuela MD [Physician] -
--- NOTE | 2022-12-21 12:15 | ECG_ITS ---
Test Reason : weakness Blood Pressure : / mmHG Vent. Rate : 083 BPM Atrial Rate : 083 BPM P-R Int : 174 ms QRS Dur : 092 ms QT Int : 412 ms P-R-T Axes : 049 018 067 degrees QTc Int : 484 ms Sinus rhythm with occasional Premature ventricular complexes Low voltage QRS Possible Anterolateral infarct (cited on or before 26-SEP-2021) Abnormal ECG When compared with ECG of 02-MAY-2022 15:29, QRS voltage has decreased Questionable change in initial forces of Anteroseptal leads Referred By: Lise Yeboah Electronically Signed By:Santi Siddiqui
[2022-12-21 13:02] LABS: Basophils Absolute Auto 0.2 X10*3/uL (0.0-0.2); Basophils Percent Auto 0.7 % (0-2); Eosinophils Absolute Auto 0.5 X10*3/uL (0.0-0.4); Eosinophils Percent Auto 2.1 % (0-4); Hematocrit 34.3 % (42.0-52.0); Hemoglobin 10.6 g/dl (14.0-18.0); Imm Gran Abs Auto 0.24 X10*3/uL (0.00-0.03); Lymphocytes Absolute Auto 3.7 X10*3/uL (1.2-4.9); Lymphocytes Percent Auto 14.8 % (20-40); MANUAL DIFF FLAG SCAN; Mean Corpuscular HGB Conc 30.9 g/dl (31.0-36.0); Mean Corpuscular Hemoglobin 28.1 pg (27.0-33.0); Mean Platelet Volume 10.4 fL (9.4-12.4); Monocytes Absolute Auto 2.4 X10*3/uL (0.1-1.2); Monocytes Percent Auto 9.7 % (2-11); Neutrophils Absolute Auto 17.8 x10*3/uL (2.0-8.3); Neutrophils Percent Auto 71.7 % (45-73); Platelet Count 223 X10*3/uL (160-400); Red Blood Count 3.77 X10*6/uL (4.60-5.80); Red Cell Distribution Width 19.9 % (11.0-16.0); SCAN SMEAR FLAG 1; White Blood Count 24.9 X10*3/uL (4.8-10.8)
[2022-12-21 13:08] LABS: Prothrombin Time 11.2 SEC (10.0-13.1)
[2022-12-21 13:14] LABS: Ammonia 30 umol/L (13-55)
[2022-12-21 13:23] LABS: Alanine Aminotransferase 6 U/L (0-40); Albumin Level 3.2 g/dL (3.5-5.0); Alkaline Phosphatase 158 U/L (39-117); Anion Gap 14 (12-20); Aspartate Amino Transferase 17 U/L (5-37); Bilirubin Direct < 0.2 mg/dL (0.0-0.5); Bilirubin Total 0.2 mg/dL (0.0-1.0); Blood Urea Nitrogen 33 mg/dL (9-16); Calcium 9.4 mg/dL (8.4-10.2); Carbon Dioxide 22 mmol/L (22-29); Chloride 113 mmol/L (96-108); Creatinine Clr Calc Pharmacy 31.9; Estimated Glomerular Filt Rate 60; Glucose Random 71 mg/dL (60-115); Lipase 12 U/L (8-78); Magnesium 1.8 mg/dL (1.6-2.6); Potassium 3.9 mmol/L (3.3-5.1); Sodium 145 mmol/L (135-145); Total Protein 6.2 g/dL (6.5-8.0)
[2022-12-21 13:30] LABS: SLIDE REVIEW VERIFIED
[2022-12-21 13:35] LABS: Troponin-I High Sensitivity < 2.7 ng/L (<3.5-35.0)
[2022-12-21] MEDS: Lactated Ringers 1,000 ML 999 ML IV (13:38)
--- NOTE | 2022-12-21 13:41 | PC.NURSE ---
Port accessed, LR infusing. Family at bedside, call sánchez in reach
[2022-12-21 13:49] VITALS: BP 112/71; PULSE 83; RESP 12; O2SAT 95
--- NOTE | 2022-12-21 15:18 | PC.NURSE ---
Pt resting in bed, consult to psych in per provider for hallucinations.
[2022-12-21 15:32] LABS: Influenza A PCR NEGATIVE (Negative); Influenza B PCR NEGATIVE (Negative); Resp Syncy Virus RNA Qual PCR NEGATIVE (Negative); SARS COV2 PCR INHOUSE NEGATIVE (Negative)
== END 2022-12-21 16:45 | disposition home or self-care (01) ==
PROVIDERS: Physician Assistant; Emergency Provider Student in an Organized Health Care Education/Training Program; PCP Registered Nurse
DX: R53.1 Weakness (principal); R51.9 Headache, unspecified; M54.6 Pain in thoracic spine; R44.3 Hallucinations, unspecified; C20 Malignant neoplasm of rectum; R63.0 Anorexia; R10.2 Pelvic and perineal pain; R11.2 Nausea with vomiting, unspecified; E11.9 Type 2 diabetes mellitus without complications; R41.82 Altered mental status, unspecified; I25.10 Atherosclerotic heart disease of native coronary artery without angina pectoris; Z20.822 Contact with and (suspected) exposure to COVID-19; Z20.828 Contact with and (suspected) exposure to other viral communicable diseases; Z87.891 Personal history of nicotine dependence; Z79.899 Other long term (current) drug therapy; Z79.4 Long term (current) use of insulin
CPT/HCPCS: 0241U; 36415; 70450; 71250; 74176; 80048; 80076; 82140; 83690; 83735; 84484; 85025; 85610; 93005; 96360; 96361; 99284; 99285